=== PATIENT | female | born 1955 | race Caucasian/White ===

== ENCOUNTER → 2016-10-13 | Outpatient (CLI) | payer MEDICARE, MEDICAID ==
--- NOTE | 2016-10-14 08:57 | MR ---
EXAMINATION: MRI cervical spine with and without contrast HISTORY: Pain COMPARISON: CT dated 05/22/2015 TECHNIQUE: Multiplanar and multisequence images obtained through the cervical spine before and follo wing the administration of 14 mL of MultiHance. FINDINGS: There is mild accentuation of the normal cervical lordosis with anterior fusion hardware a t C5-C7. Mild endplate signal changes and enhancement is noted at C4-C5. Otherwise no abnormal bone marrow signal. The spinal cord signal appears normal. The visualized intracranial components appear unremarkable. The prevertebral soft tissues appear grossly unremarkable. There is scarring within th e right apex, likely similar to the CT dated 05/22/2015. C2-C3: No significant disc bulge. Mild left neural foraminal stenosis accentuated by uncovertebral h ypertrophy. C3-C4: Large left paracentral disc protrusion encroaching on the lateral recess. This results in mod erate spinal canal stenosis and severe left neural foraminal stenosis. There is mild right neural fo raminal stenosis. C4-C5: Moderate left paracentral disc protrusion abutting the spinal cord. There is mild spinal gabriela l stenosis. There is moderate left and mild right neural foraminal stenosis. C5-C6: Tiny diffuse disc bulge without significant spinal canal stenosis. Mild bilateral neural fora veronica stenosis. C6-C7: Small diffuse osteophyte disc bulge without significant spinal canal stenosis. Moderate left and mild right neural foraminal stenosis. C7-T1: Small diffuse disc bulge asymmetric to the right resulting in mild spinal canal stenosis. Mil d right neural foraminal stenosis. IMPRESSION: 1. Multilevel degenerative disc disease demonstrated within the cervical spine with individual detai ls above. This is most prominent at C3-C4 with a large left paracentral disc protrusion. 2. Postoperative changes with fusion from C5 to C7.
== END ==
LOC: MW.MRI 08:09
PROVIDERS: ATTEND Family Medicine
DX: M54.2 Cervicalgia (principal); M50.31 Other cervical disc degeneration, high cervical region; Z98.890 Other specified postprocedural states
CPT/HCPCS: 72156; 72156-26

== ENCOUNTER 2016-11-02 17:25 | Emergency (ER) | payer MEDICARE, MEDICAID ==
[2016-11-02] MEDS ORDERED: Sodium Chloride 0.9% 1,000 ML IV ONE (17:29)
[2016-11-02] MEDS ORDERED: Ketorolac 30 MG/ML SDV IVPUSH ONE (17:29)
[2016-11-02] MEDS ORDERED: Ondansetron 4 MG/2 ML SDV IVPUSH ONE (17:29)
--- NOTE | 2016-11-02 17:34 | EDM.PDOC ---
ED HPI GENERAL MEDICAL PROBLEM - General Chief Complaint: Back Pain or Injury Stated Complaint: BACK PAIN Time Seen by Provider: 11/02/16 17:33 Source of Information: Reports: Patient - History of Present Illness INITIAL COMMENTS - FREE TEXT/NARRATIVE: HISTORY AND PHYSICAL: History of present illness: Patient arrives via ambulance She complains of 8/10 right flank pain no fever nausea vomiting chills sweats no bowel or urine symptoms History of low back surgery last fall, reports appendectomy cholecystectomy hysterectomy and splenectomy Review of systems: As per history of present illness and below otherwise all systems reviewed and negative. Past medical history: As per history of present illness and as reviewed below otherwise noncontributory. Surgical history: As per history of present illness and as reviewed below otherwise noncontributory. Social history: No reported history of drug or alcohol abuse. Family history: As per history of present illness and as reviewed below otherwise noncontributory. Physical exam: HEENT: Atraumatic, normocephalic, pupils reactive, negative for conjunctival pallor or scleral icterus, mucous membranes moist, throat clear, neck supple, nontender, trachea midline. Lungs: Clear to auscultation, breath sounds equal bilaterally, chest nontender. Heart: S1S2, regular, negative for clicks, rubs, or JVD. Abdomen: Soft, nondistended, nontender. Negative for masses or hepatosplenomegaly. Negative for costovertebral tenderness on the left positive on the right Pelvis: Stable nontender. Genitourinary: Deferred. Rectal: Deferred. Extremities: Atraumatic, negative for cords or calf pain. Neurovascular unremarkable. Neuro: Awake, alert, oriented. Cranial nerves II through XII unremarkable. Cerebellum unremarkable. Motor and sensory unremarkable throughout. Exam nonfocal. Diagnostics: [] Lab as below EKG CT abdomen pelvis with w/wo contrast Therapeutics: [] 1 L normal saline bolus Zofran 8 mg IV Toradol 30 mg IV provided via ems morphine 2mg IV Impression: [] Right flank pain chronic low back pain Definitive disposition and diagnosis as appropriate pending reevaluation and review of above. Right low back Pain Score (Numeric/FACES): 8 - Related Data Allergies Allergy/AdvReac Type Severity Reaction Status Date / Time erythromycin lactobionate Allergy Unknown Nausea Verified 11/02/16 17:35 [From Erythrocin] mirtazapine [From Remeron] Allergy Unknown Itching Verified 11/02/16 17:35 Penicillins Allergy Unknown Hives Verified 11/02/16 17:35 tramadol Allergy Tremors Verified 11/02/16 17:35 Home Meds: Home Meds traZODone 200 mg PO BEDTIME 02/04/14 [History] Vilazodone [Viibryd] 1 tab PO DAILY 03/20/15 [History] ClonazePAM [KlonoPIN] 1 mg PO BID PRN #0 03/11/16 [Rx] Docusate Sodium [Colace] 100 mg PO BID #14 cap 03/11/16 [Rx] Past Medical History HEENT History: Reports: None Cardiovascular History: Reports: None Respiratory History: Reports: None Gastrointestinal History: Reports: None Genitourinary History: Reports: None 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 Oconnor monthly Endocrine/Metabolic History: Reports: None Oncologic (Cancer) History: Reports: Other (See Below) Other Oncologic History: skin ca Dermatologic History: Reports: None Other Dermatologic History: "skin cancer" - Infectious Disease History Infectious Disease History: Reports: Chicken Pox, Measles - Past Surgical History Neurological Surgical History: Reports: Lumbar Spine Musculoskeletal Surgical History: Reports: Other (See Below) Social & Family History - Family History Family Medical History: Unobtainable - Tobacco Use Smoking Status *Q: Current Every Day Smoker Years of Tobacco use: 4 Packs/Tins Daily: 1 Used Tobacco, but Quit: No Second Hand Smoke Exposure: No - Caffeine Use Caffeine Use: Reports: None - Alcohol Use Days Per Week of Alcohol Use: 0 - Recreational Drug Use Recreational Drug Use: Yes Drug Use in Last 12 Months: Yes Recreational Drug Type: Reports: Marijuana/Hashish Recreational Drug Use Frequency: Rarely ED ROS GENERAL - Review of Systems Review Of Systems: ROS reveals no pertinent complaints other than HPI. ED EXAM, GENERAL - Physical Exam Exam: See Below Course - Vital Signs Last Recorded V/S: Last Vital Signs Temp 36.6 C 11/02/16 17:30 Pulse 67 11/02/16 17:30 Resp 16 11/02/16 17:30 BP 152/81 H 11/02/16 17:30 Pulse Ox 98 11/02/16 17:30 - Orders/Labs/Meds Orders: Active Orders 24 hr Category Date Time Status EKG Documentation Completion [RC] STAT Care 11/02/16 17:29 Active Abdomen Pelvis w wo Cont [CT] Stat Exams 11/02/16 17:29 Ordered UA W/MICROSCOPIC [URIN] Stat Lab 11/02/16 17:29 Uncollected Labs: Laboratory Tests 11/02/16 11/02/16 11/02/16 Range/Units 17:45 17:45 17:45 WBC 8.84 (4.0-11.0) K/uL RBC 4.45 (4.30-5.90) M/uL Hgb 13.9 (12.0-16.0) g/dL Hct 41.0 (36.0-46.0) % MCV 92.1 (80.0-98.0) fL MCH 31.2 (27.0-32.0) pg MCHC 33.9 (31.0-37.0) g/dL RDW Std Deviation 51.4 (28.0-62.0) fl RDW Coeff of Ene 15 (11.0-15.0) % Plt Count 261 (150-400) K/uL MPV 10.30 (7.40-12.00) fL Neut % (Auto) 64.1 (48.0-80.0) % Lymph % (Auto) 27.6 (16.0-40.0) % [place] % (Auto) 5.4 (0.0-15.0) % Eos % (Auto) 2.7 (0.0-7.0) % Baso % (Auto) 0.2 (0.0-1.5) % Neut # (Auto) 5.7 (1.4-5.7) K/uL Lymph # (Auto) 2.4 (0.6-2.4) K/uL [place] # (Auto) 0.5 (0.0-0.8) K/uL Eos # (Auto) 0.2 (0.0-0.7) K/uL Baso # (Auto) 0.0 (0.0-0.1) K/uL Nucleated RBC % 0.0 /100WBC Nucleated RBCs # 0 K/uL Sodium 142 (136-146) mmol/L Potassium 4.2 (3.5-5.1) mmol/L Chloride 113 H (98-110) mmol/L Carbon Dioxide 18 L (21-31) mmol/L BUN 13 (6.0-23.0) mg/dL Creatinine 0.8 (0.6-1.5) mg/dL Est Cr Clr Drug Dosing 79.86 mL/min Estimated GFR (MDRD) > 60.0 ml/min Glucose 109 (60-110) mg/dL Calcium 9.8 (8.8-10.8) mg/dL Total Bilirubin 0.3 (0.1-1.5) mg/dL AST 40 (5-40) IU/L ALT 44 (8-54) IU/L Alkaline Phosphatase 110 (40-150) Troponin I < 0.10 (0.0-0.29) NG/ML Total Protein 6.8 (6.0-8.0) g/dL Albumin 3.6 (3.4-4.8) g/dL Globulin 3.2 (2.0-3.5) g/dL Albumin/Globulin Ratio 1.1 L (1.3-2.8) Amylase 32 (10-90) U/L Lipase 15 (7-80) U/L Meds: Medications Discontinued Medications Generic Name Dose Route Start Last Admin Trade Name Freq PRN Reason Stop Dose Admin Sodium Chloride 1,000 mls @ 999 mls/hr 11/02/16 17:29 11/02/16 17:56 Normal Saline IV 11/02/16 18:29 999 mls/hr STAT ONE Administration Iopamidol 100 ml 11/02/16 18:26 11/02/16 18:27 Isovue Multipack-370 (76%) IVPUSH 11/02/16 18:27 500 ml ONETIME STA Administration Ketorolac Tromethamine 30 mg 11/02/16 17:29 Toradol IVPUSH 11/02/16 17:30 ONETIME ONE Morphine Sulfate 2 mg 11/02/16 17:58 11/02/16 18:03 Morphine IVPUSH 11/02/16 17:59 2 mg ONETIME ONE Administration Ondansetron HCl 8 mg 11/02/16 17:29 11/02/16 17:49 Zofran IVPUSH 11/02/16 17:30 8 mg ONETIME ONE Administration Departure - Departure Time of Disposition: 18:53 Disposition: Still A Patient 30 Condition: fair Clinical Impression: Flank pain - Discharge Information Forms: ED Department Discharge - My Orders Last 24 Hours: My Active Orders 11/02/16 17:29 EKG Documentation Completion [RC] STAT Abdomen Pelvis w wo Cont [CT] Stat UA W/MICROSCOPIC [URIN] Stat - Assessment/Plan Last 24 Hours: My Active Orders 11/02/16 17:29 EKG Documentation Completion [RC] STAT Abdomen Pelvis w wo Cont [CT] Stat UA W/MICROSCOPIC [URIN] Stat
[2016-11-02] MEDS ORDERED: Morphine 2 MG/ML Syringe IVPUSH ONE (17:58)
[2016-11-02 18:23] LABS: CHLORIDE,CL 113 mmol/L (98-110); SODIUM,NA 142 mmol/L (136-146)
[2016-11-02] MEDS ORDERED: Iopamidol 755 MG/ML 500 ML Multipack Bottle IVPUSH STA (18:26)
[2016-11-02 20:05] VITALS: BP 130/70
--- NOTE | 2016-11-03 14:27 | CT ---
EXAM DATE: 11/02/16 PATIENT'S AGE: 60 Patient: JUSTO DARNELL Facility: [place], [place] Site . Site : 1955 Study: CT Abdomen/Pelvis [id number]/24/2017 7:04:19 PM Ordering Physician: Diana Jackson Final Report: INDICATION: Abdominal pain TECHNIQUE: CT abdomen and pelvis acquired without and with IV contrast. COMPARISON: 12/07/2015 FINDINGS: Lower chest: Minor compressive changes. Mild pericardial thickening. Liver: A 1.1 x 0.7 centimeter right hepatic low-attenuation lesion, more conspicuous compared to the prior, and an ill-defined 2.6 x 1.6 centimeter mildly dense area in the posterior aspect of the medial segment of the left hepatic lobe near the rita hepatis, not well evaluated. Spleen: Unremarkable. Pancreas: Unremarkable. Gallbladder and bile ducts: Cholecystectomy. Adrenal glands: Bilateral adrenal nodules again seen compatible with adenomas. Kidneys: No hydronephrosis. Nonobstructive bilateral renal calcifications measuring up to 3 millimeters. No discrete ureteral calcifications seen. Subcentimeter renal low-density lesions again noted, statistically representing cysts. Small foci of left renal cortical scarring. GI tract: No bowel obstruction. The appendix is not seen. Few sigmoid diverticula without diverticulitis. Prominence of the sigmoid colon wall is at least partially related to under distension. Vascular structures: Atherosclerotic changes. Lymph nodes: Unremarkable. Miscellaneous: Unremarkable. No free air or significant free fluid. Pelvic Organs: Post hysterectomy changes. A small calcification along the anterior bladder wall again seen. Bones: Focal expansion of the sternum, partially visualized, not imaged on the prior. Postsurgical changes again seen in the lumbar spine were new hardware seen in the L1 and L2 vertebral bodies. Irregularity and lucent areas again seen in the right aspect of the L1 vertebral body. IMPRESSION: No obstructive uropathy. Bilateral nonobstructive renal calcifications. No evidence of appendicitis, diverticulitis or bowel obstruction. Prominence of the sigmoid colon wall is at least partially related to under distension. Correlate clinically to exclude mild colitis. An ill-defined dense centrally hepatic area and a right hepatic low-density lesion, not well evaluated. Correlate with followup MRI evaluation. Focal expansion of the sternum, partially imaged. This could be related to old trauma, however further imaging evaluation is recommended. Other findings as above. Dictated by Enrique Fernandez MD @ 11/02/2016 7:38:38 PM Dictated by: Enrique Fernandez MD @ 11/02/2016 19:38:45 (Electronic Signature) Report Signed by Proxy. [facility]
== END 2016-11-02 19:56 | disposition home or self-care (01) ==
LOC: MW.ED 17:25
DX: R10.9 Unspecified abdominal pain (principal); F32.9 Major depressive disorder, single episode, unspecified; F17.200 Nicotine dependence, unspecified, uncomplicated; Z88.0 Allergy status to penicillin; Z88.8 Allergy status to other drugs, medicaments and biological substances; Z79.899 Other long term (current) drug therapy; Z85.828 Personal history of other malignant neoplasm of skin
CPT/HCPCS: 36415; 74178; 80053; 81001; 82150; 83690; 84484; 85025; 93005; 96361; 96374; 96375; 99284; J2270; J2405; J7040; Q9967

== ENCOUNTER 2017-02-04 17:20 | Emergency (ER) | payer MEDICARE, MEDICAID ==
--- NOTE | 2017-02-04 17:26 | EDM.PDOC ---
ED HPI GENERAL MEDICAL PROBLEM - General Stated Complaint: left broken arm Time Seen by Provider: 02/04/17 17:22 - History of Present Illness INITIAL COMMENTS - FREE TEXT/NARRATIVE: HISTORY AND PHYSICAL: History of present illness: Patient 61-year-old female presents status post fall in which she injured her left shoulder she states she also some mild left neck pain she denies any head trauma denies any numbness weakness denies any chest pain shortness breath nausea vomiting chest or abdominal pain or trauma hip or lower extremity pain or trauma Review of systems: As per history of present illness and below otherwise all systems reviewed and negative. Past medical history: As per history of present illness and as reviewed below otherwise noncontributory. Surgical history: As per history of present illness and as reviewed below otherwise noncontributory. Social history: No reported history of drug or alcohol abuse. Family history: As per history of present illness and as reviewed below otherwise noncontributory. Physical exam: HEENT: Atraumatic, normocephalic, pupils reactive, negative for conjunctival pallor or scleral icterus, mucous membranes moist, throat clear, neck supple, nontender, trachea midline. Lungs: Clear to auscultation, breath sounds equal bilaterally, chest nontender. Heart: S1S2, regular, negative for clicks, rubs, or JVD. Abdomen: Soft, nondistended, nontender. Negative for masses or hepatosplenomegaly. Negative for costovertebral tenderness. Pelvis: Stable nontender. Genitourinary: Deferred. Rectal: Deferred. Extremities: Patient has tenderness to palpation of her proximal humerus is no gross deformity she has limited range of motion secondary to pain CMS neurovascular exams unremarkable Neuro: Awake, alert, oriented. Cranial nerves II through XII unremarkable. Cerebellum unremarkable. Motor and sensory unremarkable throughout. Exam nonfocal. Diagnostics: X-ray chest x-ray left shoulder x-ray humerus x-ray cervical spine Therapeutics: To be determined Impression: #1 observation status post fall #2 acute left shoulder injury Definitive disposition and diagnosis as appropriate pending reevaluation and review of above. - Related Data Allergies Allergy/AdvReac Type Severity Reaction Status Date / Time erythromycin lactobionate Allergy Unknown Nausea Verified 02/04/17 17:28 [From Erythrocin] mirtazapine [From Remeron] Allergy Unknown Itching Verified 02/04/17 17:28 Penicillins Allergy Unknown Hives Verified 08/26/17 17:28 tramadol Allergy Tremors Verified 02/04/17 17:28 Home Meds: Home Meds traZODone 200 mg PO BEDTIME 02/04/14 [History] Vilazodone [Viibryd] 1 tab PO DAILY 03/20/15 [History] ClonazePAM [KlonoPIN] 1 mg PO BID PRN #0 03/11/16 [Rx] Docusate Sodium [Colace] 100 mg PO BID #14 cap 03/11/16 [Rx] Simvastatin [Zocor] 20 mg PO DAILY 02/04/17 [History] Past Medical History HEENT History: Reports: None Cardiovascular History: Reports: None Respiratory History: Reports: None Gastrointestinal History: Reports: None Genitourinary History: Reports: None 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 Oconnor monthly Endocrine/Metabolic History: Reports: None Oncologic (Cancer) History: Reports: Other (See Below) Other Oncologic History: skin ca Dermatologic History: Reports: None Other Dermatologic History: "skin cancer" - Infectious Disease History Infectious Disease History: Reports: Chicken Pox, Measles - Past Surgical History Neurological Surgical History: Reports: Lumbar Spine Musculoskeletal Surgical History: Reports: Other (See Below) Social & Family History - Family History Family Medical History: Unobtainable - Tobacco Use Smoking Status *Q: Current Every Day Smoker Years of Tobacco use: 4 Packs/Tins Daily: 1 Used Tobacco, but Quit: No Second Hand Smoke Exposure: No - Caffeine Use Caffeine Use: Reports: None - Alcohol Use Days Per Week of Alcohol Use: 0 - Recreational Drug Use Recreational Drug Use: Yes Drug Use in Last 12 Months: Yes Recreational Drug Type: Reports: Marijuana/Hashish Recreational Drug Use Frequency: Rarely ED ROS GENERAL - Review of Systems Review Of Systems: ROS reveals no pertinent complaints other than HPI. ED EXAM, GENERAL - Physical Exam Exam: See Below (See dictation) Course - Vital Signs Last Recorded V/S: Last Vital Signs Temp 36.1 C 02/04/17 17:24 Pulse 64 02/04/17 17:24 Resp 18 02/04/17 17:24 BP 134/85 02/04/17 17:24 Pulse Ox 90 L 02/04/17 17:24 - Orders/Labs/Meds Orders: Active Orders 24 hr Category Date Time Status Cervical Spine 2V or 3V [CR] Stat Exams 02/04/17 17:23 Taken Chest 1V Frontal [CR] Stat Exams 02/04/17 17:23 Taken Humerus Lt [CR] Stat Exams 02/04/17 17:23 Taken Shoulder Comp Lt [CR] Stat Exams 02/04/17 17:23 Taken Departure - Departure Time of Disposition: 18:52 Disposition: Home, Self-Care 01 Condition: Good Clinical Impression: Shoulder injury Fall Qualifiers: Encounter type: subsequent encounter Qualified Code(s): W19.XXXD - Unspecified fall, subsequent encounter - Discharge Information Additional Instructions: The following information is given to patients seen in the emergency department who are being discharged to home. This information is to outline your options for follow-up care. We provide all patients seen in our emergency department with a follow-up referral. The need for follow-up, as well as the timing and circumstances, are variable depending upon the specifics of your emergency department visit. If you don't have a primary care physician on staff, we will provide you with a referral. We always advise you to contact your personal physician following an emergency department visit to inform them of the circumstance of the visit and for follow-up with them and/or the need for any referrals to a consulting specialist. The emergency department will also refer you to a specialist when appropriate. This referral assures that you have the opportunity for followup care with a specialist. All of these measure are taken in an effort to provide you with optimal care, which includes your followup. Under all circumstances we always encourage you to contact your private physician who remains a resource for coordinating your care. When calling for followup care, please make the office aware that this follow-up is from your recent emergency room visit. If for any reason you are refused follow-up, please contact the [facility] emergency department at and asked to speak to the emergency department charge nurse. Follow-up primary medical doctor 1-2 days return as needed as discussed] - My Orders Last 24 Hours: My Active Orders 02/04/17 17:23 Cervical Spine 2V or 3V [CR] Stat Chest 1V Frontal [CR] Stat Humerus Lt [CR] Stat Shoulder Comp Lt [CR] Stat - Assessment/Plan Last 24 Hours: My Active Orders 02/04/17 17:23 Cervical Spine 2V or 3V [CR] Stat Chest 1V Frontal [CR] Stat Humerus Lt [CR] Stat Shoulder Comp Lt [CR] Stat
[2017-02-04 19:09] VITALS: BP 140/80
--- NOTE | 2017-02-06 12:11 | CR ---
EXAM DATE: 02/04/17 PATIENT'S AGE: 61 Patient: JUSTO DARNELL Facility: [place], [place] Site . Site : 1955 Study: XRay Chest [id number]/26/2017 6:23:37 PM Ordering Physician: Gwen Hilario Final Report: HISTORY: Chest pain, shortness of breath. TECHNIQUE: One view of the chest. COMPARISON: 03/10/2015. FINDINGS: Cardiac size is within normal limits. There is no pulmonary vascular redistribution. Right lung appears clear. Linear opacity within the left lateral costophrenic angle as before may relate to linear atelectasis or parenchymal fibrosis. Left lung appears otherwise clear. No pneumothorax or pleural effusion. Prior cervical fusion. Prior lumbar fusion. IMPRESSION: 1. Area of linear atelectasis or parenchymal fibrosis within the left lateral costophrenic angle. Lungs appear otherwise clear. 2. No pulmonary edema. Dictated by Ricardo Wills MD @ 02/04/2017 6:41:45 PM Dictated by: Ricardo Wills MD @ 02/04/2017 18:41:49 (Electronic Signature) Report Signed by Proxy. [facility]
--- NOTE | 2017-02-06 12:12 | CR ---
EXAM DATE: 02/04/17 PATIENT'S AGE: 61 Patient: JUSTO DARNELL Facility: [place], [place] Site . Site : 1955 Study: XRay Spine Cervical [id number]/26/2017 6:24:18 PM Ordering Physician: Gwen Hilario Final Report: HISTORY: Neck pain. TECHNIQUE: Four views of the cervical spine. COMPARISON: 03/10/2015. FINDINGS: Patient is status post anterior plate and screw and interbody fusion at C5 through C7. Hardware appears intact and unchanged in position. Degenerative disc disease is again noted at C3-C4 and C4-C5. Degenerative joint disease is present within the cervical spine. The dens appears intact. No acute fracture or malalignment. No abnormal prevertebral soft tissue swelling. IMPRESSION: 1. No acute fracture or acute malalignment. 2. Prior fusion at C5-C7. 3. Degenerative disc and joint disease. Dictated by Ricardo Wills MD @ 02/04/2017 6:44:23 PM Dictated by: Ricardo Wills MD @ 02/04/2017 18:44:28 (Electronic Signature) Report Signed by Proxy. [facility]
--- NOTE | 2017-02-06 12:12 | CR ---
EXAM DATE: 02/04/17 PATIENT'S AGE: 61 Patient: JUSTO DARNELL Facility: [place], [place] Site . Site : 1955 Study: XRay Extremity Left HUMERUS [id number]/26/2017 6:25:34 PM Ordering Physician: Gwen Hilario Final Report: HISTORY: Fall. TECHNIQUE: Two views of the left humerus. COMPARISON: No prior. FINDINGS: No acute left humeral fracture. Prior plate screw fixation of the left radius. IMPRESSION: No acute left humeral fracture. Dictated by Ricardo Wills MD @ 02/04/2017 6:48:13 PM Dictated by: Ricardo Wills MD @ 02/04/2017 18:48:19 (Electronic Signature) Report Signed by Proxy. [facility]
--- NOTE | 2017-02-06 12:14 | CR ---
EXAM DATE: 02/04/17 PATIENT'S AGE: 61 Patient: JUSTO DARNELL Facility: [place], [place] Site Site : 1955 Study: XRay Shoulder Left -02/04/2017 6:54:32 PM Ordering Physician: Gwen Hilario Final Report: Indication: Fall Technique: Three views left shoulder Comparison: None Findings: Bones: Alignment is normal. No fractures or bone lesions. Surgical hardware projects over the cervical thoracic junction. Joint spaces: Mild degenerative changes in the acromioclavicular joint. Soft tissues: Unremarkable. Impression: No acute abnormality. Dictated by Scarlet Elizabeth MD @ Feb 04 2017 7:15PM (Electronic Signature) Report Signed by Proxy. [facility]
== END 2017-02-04 19:07 | disposition home or self-care (01) ==
LOC: MW.ED 17:20
DX: S49.92XA Unspecified injury of left shoulder and upper arm, initial encounter (principal); F17.210 Nicotine dependence, cigarettes, uncomplicated; F32.9 Major depressive disorder, single episode, unspecified; Z88.0 Allergy status to penicillin; Z88.5 Allergy status to narcotic agent; Z79.899 Other long term (current) drug therapy; Z88.1 Allergy status to other antibiotic agents; W17.89XA Other fall from one level to another, initial encounter; Y93.H2 Activity, gardening and landscaping; Y92.009 Unspecified place in unspecified non-institutional (private) residence as the place of occurrence of the external cause; Z85.828 Personal history of other malignant neoplasm of skin
CPT/HCPCS: 71010; 71010-26; 72040; 72040-26; 73030-26-LT; 73030-LT; 73060-26-LT; 73060-LT; 99282; 99284

== ENCOUNTER 2017-04-01 16:13 | Emergency (ER) | payer MEDICARE, MEDICAID ==
[2017-04-01] MEDS ORDERED: Sodium Chloride 0.9% 2.5 ML Syringe FLUSH PRN (16:30)
[2017-04-01] MEDS ORDERED: Sodium Chloride 0.9% 10 ML Syringe FLUSH PRN (16:30)
--- NOTE | 2017-04-01 16:32 | EDM.PDOC ---
ED HPI GENERAL MEDICAL PROBLEM - General Chief Complaint: General Stated Complaint: ABULANCE Time Seen by Provider: 04/01/17 18:52 - History of Present Illness INITIAL COMMENTS - FREE TEXT/NARRATIVE: HISTORY AND PHYSICAL: History of present illness: Patient is 61-year-old female presents status post fall when she injured her left hip she did strike her head also she had a similar fall in the recent past for which there is no CT of her head done per patient she states she did hit her head again she denies loss consciousness denies neck pain she denies chest pain palpitations nausea or vomiting her main complaint relates to her left hip she states she has chronic left lower extremity pain. Review of systems: As per history of present illness and below otherwise all systems reviewed and negative. Past medical history: As per history of present illness and as reviewed below otherwise noncontributory. Surgical history: As per history of present illness and as reviewed below otherwise noncontributory. Social history: No reported history of drug or alcohol abuse. Family history: As per history of present illness and as reviewed below otherwise noncontributory. Physical exam: HEENT: Atraumatic, normocephalic, pupils reactive, negative for conjunctival pallor or scleral icterus, mucous membranes moist, throat clear, neck supple, nontender, trachea midline. Lungs: Clear to auscultation, breath sounds equal bilaterally, chest nontender. Heart: S1S2, regular, negative for clicks, rubs, or JVD. Abdomen: Soft, nondistended, nontender. Negative for masses or hepatosplenomegaly. Negative for costovertebral tenderness. Pelvis: Stable nontender. Patient with limited range of motion at the level for hip secondary to pain no shortening or rotation neurovascular exam is unremarkable Genitourinary: Deferred. Rectal: Deferred. Extremities: Atraumatic, negative for cords or calf pain. Neurovascular unremarkable. Neuro: Awake, alert, oriented. Cranial nerves II through XII unremarkable. Cerebellum unremarkable. Motor and sensory unremarkable throughout. Exam nonfocal. Diagnostics: CBC CMP troponin PT/INR chest x-ray EKG CT brain x-ray left hip/pelvis Therapeutics: IV O2 monitor Impression: #1 observation status post fall #2 acute left hip injury #3 minor head injury Definitive disposition and diagnosis as appropriate pending reevaluation and review of above. Left Hip Pain Score (Numeric/FACES): 9 - Related Data Allergies Allergy/AdvReac Type Severity Reaction Status Date / Time erythromycin lactobionate Allergy Unknown Nausea Verified 04/01/17 16:27 [From Erythrocin] mirtazapine [From Remeron] Allergy Unknown Itching Verified 04/01/17 16:27 Penicillins Allergy Unknown Hives Verified 04/01/17 16:27 tramadol Allergy Tremors Verified 04/01/17 16:27 Home Meds: Home Meds traZODone 200 mg PO BEDTIME 02/04/14 [History] Vilazodone [Viibryd] 1 tab PO DAILY 03/20/15 [History] ClonazePAM [KlonoPIN] 1 mg PO BID PRN #0 03/11/16 [Rx] Docusate Sodium [Colace] 100 mg PO BID #14 cap 03/11/16 [Rx] Simvastatin [Zocor] 20 mg PO DAILY 02/04/17 [History] Past Medical History HEENT History: Reports: None Cardiovascular History: Reports: None Respiratory History: Reports: None Gastrointestinal History: Reports: None Genitourinary History: Reports: None GARNETTER History: Reports: None Musculoskeletal History: Reports: Back Pain, Chronic Neurological History: Reports: None Psychiatric History: Reports: Depression Other Psychiatric History: Sees Dr. Oconnor monthly Endocrine/Metabolic History: Reports: None Oncologic (Cancer) History: Reports: Other (See Below) Other Oncologic History: skin ca Dermatologic History: Reports: None Other Dermatologic History: "skin cancer" - Infectious Disease History Infectious Disease History: Reports: Chicken Pox, Measles - Past Surgical History Neurological Surgical History: Reports: Lumbar Spine Musculoskeletal Surgical History: Reports: Other (See Below) Social & Family History - Family History Family Medical History: Unobtainable - Tobacco Use Smoking Status *Q: Current Every Day Smoker Years of Tobacco use: 4 Packs/Tins Daily: 1 Used Tobacco, but Quit: No Second Hand Smoke Exposure: No - Caffeine Use Caffeine Use: Reports: None - Alcohol Use Days Per Week of Alcohol Use: 0 - Recreational Drug Use Recreational Drug Use: Yes Drug Use in Last 12 Months: Yes Recreational Drug Type: Reports: Marijuana/Hashish Recreational Drug Use Frequency: Rarely ED ROS GENERAL - Review of Systems Review Of Systems: ROS reveals no pertinent complaints other than HPI. ED EXAM, GENERAL - Physical Exam Exam: See Below (See dictation) Course - Vital Signs Last Recorded V/S: Last Vital Signs Temp 36.3 C 04/01/17 16:20 Pulse 80 04/01/17 16:20 Resp 16 04/01/17 16:20 BP 146/84 H 04/01/17 16:20 Pulse Ox 94 L 04/01/17 16:20 - Orders/Labs/Meds Orders: Active Orders 24 hr Category Date Time Status Cardiac Monitoring [RC] . DIRECTED Care 04/01/17 16:29 Active EKG Documentation Completion [RC] STAT Care 04/01/17 16:29 Active Chest 1V Frontal [CR] Stat Exams 04/01/17 16:29 Taken Head wo Cont [CT] Stat Exams 04/01/17 16:29 Taken Hip Min 2V or 3V Lt [CR] Stat Exams 04/01/17 16:30 Taken Pelvis 1V or 2V [CR] Stat Exams 04/01/17 16:30 Taken UA W/MICROSCOPIC [URIN] Stat Lab 04/01/17 18:37 Received Sodium Chloride 0.9% [Saline Flush] Med 04/01/17 16:30 Active 10 ml FLUSH ASDIRECTED PRN Sodium Chloride 0.9% [Saline Flush] Med 04/01/17 16:30 Active 2.5 ml FLUSH ASDIRECTED PRN Saline Lock Insert [OM.PC] Stat Oth 04/01/17 16:29 Ordered Medication Orders Sodium Chloride (Saline Flush) 10 ml FLUSH ASDIRECTED PRN PRN Reason: Keep Vein Open Sodium Chloride (Saline Flush) 2.5 ml FLUSH ASDIRECTED PRN PRN Reason: Keep Vein Open Labs: Laboratory Tests 04/01/17 04/01/17 04/01/17 Range/Units 16:35 16:35 16:35 WBC 14.14 H (4.0-11.0) K/uL RBC 4.92 (4.30-5.90) M/uL Hgb 15.6 (12.0-16.0) g/dL Hct 45.2 (36.0-46.0) % MCV 91.9 (80.0-98.0) fL MCH 31.7 (27.0-32.0) pg MCHC 34.5 (31.0-37.0) g/dL RDW Std Deviation 47.5 (28.0-62.0) fl RDW Coeff of Ene 14 (11.0-15.0) % Plt Count 249 (150-400) K/uL MPV 10.60 (7.40-12.00) fL Neut % (Auto) 70.1 (48.0-80.0) % Lymph % (Auto) 21.4 (16.0-40.0) % [place] % (Auto) 7.6 (0.0-15.0) % Eos % (Auto) 0.6 (0.0-7.0) % Baso % (Auto) 0.3 (0.0-1.5) % Neut # (Auto) 9.9 H (1.4-5.7) K/uL Lymph # (Auto) 3.0 H (0.6-2.4) K/uL [place] # (Auto) 1.1 H (0.0-0.8) K/uL Eos # (Auto) 0.1 (0.0-0.7) K/uL Baso # (Auto) 0.0 (0.0-0.1) K/uL Nucleated RBC % 0.0 /100WBC Nucleated RBCs # 0 K/uL INR 0.98 (0.86-1.11) Sodium 139 (136-146) mmol/L Potassium 4.1 (3.5-5.1) mmol/L Chloride 106 (98-110) mmol/L Carbon Dioxide 19 L (21-31) mmol/L BUN 21 (6.0-23.0) mg/dL Creatinine 0.9 (0.6-1.5) mg/dL Est Cr Clr Drug Dosing 63.03 mL/min Estimated GFR (MDRD) > 60.0 ml/min Glucose 87 (60-110) mg/dL Calcium 10.8 (8.8-10.8) mg/dL Total Bilirubin 0.5 (0.1-1.5) mg/dL AST 37 (5-40) IU/L ALT 29 (8-54) IU/L Alkaline Phosphatase 119 (40-150) Troponin I < 0.10 (0.0-0.29) NG/ML Total Protein 7.4 (6.0-8.0) g/dL Albumin 4.0 (3.4-4.8) g/dL Globulin 3.4 (2.0-3.5) g/dL Albumin/Globulin Ratio 1.2 L (1.3-2.8) Meds: Medications Generic Name Dose Route Start Last Admin Trade Name Freq PRN Reason Stop Dose Admin Sodium Chloride 10 ml 04/01/17 16:30 Saline Flush FLUSH ASDIRECTED PRN Keep Vein Open Sodium Chloride 2.5 ml 04/01/17 16:30 Saline Flush FLUSH ASDIRECTED PRN Keep Vein Open Departure - Departure Time of Disposition: 18:52 Disposition: Home, Self-Care 01 Condition: Good Clinical Impression: Chronic hip pain Fall Qualifiers: Encounter type: subsequent encounter Qualified Code(s): W19.XXXD - Unspecified fall, subsequent encounter - Discharge Information Forms: ED Department Discharge Additional Instructions: The following information is given to patients seen in the emergency department who are being discharged to home. This information is to outline your options for follow-up care. We provide all patients seen in our emergency department with a follow-up referral. The need for follow-up, as well as the timing and circumstances, are variable depending upon the specifics of your emergency department visit. If you don't have a primary care physician on staff, we will provide you with a referral. We always advise you to contact your personal physician following an emergency department visit to inform them of the circumstance of the visit and for follow-up with them and/or the need for any referrals to a consulting specialist. The emergency department will also refer you to a specialist when appropriate. This referral assures that you have the opportunity for followup care with a specialist. All of these measure are taken in an effort to provide you with optimal care, which includes your followup. Under all circumstances we always encourage you to contact your private physician who remains a resource for coordinating your care. When calling for followup care, please make the office aware that this follow-up is from your recent emergency room visit. If for any reason you are refused follow-up, please contact the [facility] emergency department at and asked to speak to the emergency department charge nurse. Follow-up primary medical doctor 1-2 days return as needed as discussed - My Orders Last 24 Hours: My Active Orders 04/01/17 16:29 Cardiac Monitoring [RC] . DIRECTED EKG Documentation Completion [RC] STAT Chest 1V Frontal [CR] Stat Head wo Cont [CT] Stat Saline Lock Insert [OM.PC] Stat 04/01/17 16:30 Hip Min 2V or 3V Lt [CR] Stat Pelvis 1V or 2V [CR] Stat Sodium Chloride 0.9% [Saline Flush] 10 ml FLUSH ASDIRECTED PRN Sodium Chloride 0.9% [Saline Flush] 2.5 ml FLUSH ASDIRECTED PRN 04/01/17 18:37 UA W/MICROSCOPIC [URIN] Stat - Assessment/Plan Last 24 Hours: My Active Orders 04/01/17 16:29 Cardiac Monitoring [RC] . DIRECTED EKG Documentation Completion [RC] STAT Chest 1V Frontal [CR] Stat Head wo Cont [CT] Stat Saline Lock Insert [OM.PC] Stat 04/01/17 16:30 Hip Min 2V or 3V Lt [CR] Stat Pelvis 1V or 2V [CR] Stat Sodium Chloride 0.9% [Saline Flush] 10 ml FLUSH ASDIRECTED PRN Sodium Chloride 0.9% [Saline Flush] 2.5 ml FLUSH ASDIRECTED PRN 04/01/17 18:37 UA W/MICROSCOPIC [URIN] Stat
[2017-04-01 17:17] LABS: CHLORIDE,CL 106 mmol/L (98-110); SODIUM,NA 139 mmol/L (136-146)
[2017-04-02 08:21] VITALS: BP 160/78
--- NOTE | 2017-04-02 19:42 | CT ---
EXAM DATE: 04/01/17 PATIENT'S AGE: 61 Patient: JUSTO DARNELL Facility: [place], [place] Site . Site : 1955 Study: CT Head WO CONT [id number]/21/[id number] 5:25:25 PM Ordering Physician: Doctor Redding Final Report: INDICATION: PAIN, CONFUSION TECHNIQUE: CT Head without contrast. COMPARISON: None. FINDINGS: CSF spaces: Within normal limits for age. Brain parenchyma: The [place]-white differentiation is normal. No sign of mass, hemorrhage, or midline shift. Skull base and calvarium: The visualized paranasal sinuses and mastoid air cells are clear. The visualized orbits are grossly unremarkable. No skull fractures. IMPRESSION: Unremarkable noncontrast head CT. Dictated by: Carlton Delacruz MD @ 04/01/2017 17:58:27 (Electronic Signature) Report Signed by Proxy. [facility]
--- NOTE | 2017-04-02 19:43 | CR ---
EXAM DATE: 04/01/17 PATIENT'S AGE: 61 Patient: JUSTO DARNELL Facility: [place], [place] Site . Site : 1955 Study: XRay Chest [id number]/21/[id number] 5:39:42 PM Ordering Physician: Doctor Redding Final Report: INDICATION: pain/sob COMPARISON: January, Single AP view Findings: The lungs are clear. Pulmonary vascularity, mediastinum and cardiac silhouette are within normal limits. No effusions and no pneumothorax. Osseous structures appear unremarkable. Impression: No evidence of acute cardiopulmonary disease. Dictated by: Wilmar Simpson MD @ 04/01/2017 18:37:38 (Electronic Signature) Report Signed by Proxy. [facility]
--- NOTE | 2017-04-02 19:44 | CR ---
EXAM DATE: 04/01/17 PATIENT'S AGE: 61 Patient: JUSTO DARNELL Facility: [place], [place] Site . Site : 1955 Study: XRay Pelvis [id number]/21/2017 5:40:16 PM Ordering Physician: Doctor Redding Final Report: Indication: Pain. Technique: One view. Comparison: 28 December 2015. Impression: No acute fracture. No significant bone lesion. Mild degenerative arthrosis symphysis pubis unchanged. Lumbosacral fusion and laminectomy changes extend above the field of view. Hips are appropriately located. Small os acetabula on the left. Dictated by Wilmar Simpson MD @ Apr 01 2017 6:37PM (Electronic Signature) Report Signed by Proxy. [facility]
--- NOTE | 2017-04-02 19:45 | CR ---
EXAM DATE: 04/01/17 PATIENT'S AGE: 61 Patient: JUSTO DARNELL Facility: [place], [place] Site . Site : 1955 Study: XRay Hip Left [id number]/21/[id number] 5:41:54 PM Ordering Physician: Gwen Hilario Final Report: Indication: Pain after trauma. Technique: Two views. Comparison: 29 December 2015. Impression: Anatomic alignment without fracture. Tiny os acetabulum. No degenerative or inflammatory change. Dictated by Wilmar Simpson MD @ Apr 01 2017 6:40PM (Electronic Signature) Report Signed by Proxy. [facility]
== END 2017-04-01 19:45 | disposition home or self-care (01) ==
LOC: MW.ED 16:13
DX: S09.90XA Unspecified injury of head, initial encounter (principal); S79.912A Unspecified injury of left hip, initial encounter; F17.210 Nicotine dependence, cigarettes, uncomplicated; Z88.1 Allergy status to other antibiotic agents; Z88.0 Allergy status to penicillin; Z88.5 Allergy status to narcotic agent; Z79.899 Other long term (current) drug therapy; W19.XXXA Unspecified fall, initial encounter
CPT/HCPCS: 36415; 70450; 70450-26; 71010; 71010-26; 72170; 72170-26; 73502-26-LT; 73502-LT; 80053; 81001; 84484; 85025; 85610; 93005; 99284; 99285-25

== ENCOUNTER 2017-10-25 13:33 | Observation (INO) | payer MEDICARE, MEDICAID ==
[2017-10-25] MEDS ORDERED: Sodium Chloride 0.9% 1,000 ML IV ONE (13:35)
[2017-10-25] MEDS ORDERED: Albuterol/Ipratropium 3.0-0.5 MG/3 ML Neb Soln NEB ONE (13:35)
[2017-10-25] MEDS ORDERED: Ondansetron 4 MG/2 ML SDV IVPUSH ONE (13:35)
--- NOTE | 2017-10-25 13:50 | EDM.PDOC ---
ED HPI GENERAL MEDICAL PROBLEM - General Stated Complaint: wheezing Time Seen by Provider: 10/25/17 13:34 Source of Information: Reports: Patient History Limitations: Reports: No Limitations - History of Present Illness INITIAL COMMENTS - FREE TEXT/NARRATIVE: HISTORY AND PHYSICAL: History of present illness: Patient is a 61-year-old female who presents to the emergency room via EMS with complaints of shortness of breath, dizziness, bilateral arm pain, nausea and near syncope 1 week. She states she has had the symptoms have progressively gotten worse over the past week and she feels like she could pass out with exertion. She has been having to use her walker to help with ambulation, as she is unable to walk within her house without it (becomes to SOB or "like I'll pass out"). She does have a history of chronic back pain, requiring 5 previous surgeries. She is due to having another back surgery in November 2017 in [place]. She uses a fentanyl patch and takes multiple [id number] and prescribed medications for pain management. Review of systems: As per history of present illness and below otherwise all systems reviewed and negative. Past medical history: As per history of present illness and as reviewed below otherwise noncontributory. Surgical history: As per history of present illness and as reviewed below otherwise noncontributory. Social history: No reported history of drug or alcohol abuse. Family history: As per history of present illness and as reviewed below otherwise noncontributory. Physical exam: General: Well-developed and well-nourished 61-year-old female. Alert and oriented. Nontoxic appearing and in no acute distress. HEENT: Atraumatic, normocephalic, pupils equal and reactive bilaterally, negative for conjunctival pallor or scleral icterus, mucous membranes moist, throat clear, neck supple, nontender, trachea midline. No drooling or trismus noted. No meningeal signs Lungs: Expiratory wheezing to the right lower lobe, breath sounds equal bilaterally, chest nontender. Heart: S1S2, regular rate and rhythm without overt murmur Abdomen: Soft, nondistended, nontender. Negative for masses or hepatosplenomegaly. Negative for costovertebral tenderness. Pelvis: Stable nontender. Genitourinary: Deferred. Rectal: Deferred. Skin: Intact, warm, dry. No lesions or rashes noted. Extremities: Atraumatic, negative for cords or calf pain. Neurovascular unremarkable. Neuro: Awake, alert, oriented. Cranial nerves II through XII unremarkable. Cerebellum unremarkable. Motor and sensory unremarkable throughout. Exam nonfocal. Notes: Vital signs have been reviewed by me. Patient has multiple complaints; acute vs chronic. Will do lab work along with head CT and CXR. Orthostatics are unremarkable. Chest x-ray shows no infiltrate or pneumonia. Head CT is normal. Lab work is unremarkable. I did share this information with the patient. She states she is uncomfortable going home and would like admission for observation. I will page the hospitalist on-call and review her case. Diagnostics: CBC, CMP, troponin, EKG, 2 view chest x-ray, head CT, orthostatic vital signs Therapeutics: IV fluid, Zofran, DuoNeb Impression: Shortness of Breath Near Syncope Plan: Observation to Med/Surg with Telemetry Definitive disposition and diagnosis as appropriate pending reevaluation and review of above. Duration: Week(s): Location: Reports: Chest lower back Pain Score (Numeric/FACES): 9 - Related Data Allergies Allergy/AdvReac Type Severity Reaction Status Date / Time erythromycin lactobionate Allergy Unknown Nausea Verified 10/25/17 13:43 [From Erythrocin] mirtazapine [From Remeron] Allergy Unknown Itching Verified 10/25/17 13:43 Penicillins Allergy Unknown Hives Verified 10/25/17 13:43 tramadol Allergy Tremors Verified 10/25/17 13:43 Home Meds: Home Meds traZODone 200 mg PO BEDTIME 02/04/14 [History] Vilazodone [Viibryd] 1 tab PO DAILY 03/20/15 [History] Cyclobenzaprine [Flexeril] 10 mg PO TID PRN 10/25/17 [History] Estazolam [Prosom] 2 mg PO BEDTIME 10/25/17 [History] Magnesium 250 mg PO DAILY 10/25/17 [History] Meloxicam [Mobic] 7.5 mg PO BID 10/25/17 [History] buPROPion HCl [Wellbutrin Xl] 300 mg PO ACBREAKFAST 10/25/17 [History] busPIRone [Buspar] 15 mg PO TID 10/25/17 [History] hydrOXYzine HCl [hydrOXYzine] 10 mg PO TID 10/25/17 [History] traMADol [Ultram] 50 mg PO Q8HR 10/25/17 [History] Past Medical History HEENT History: Reports: None Cardiovascular History: Reports: None Respiratory History: Reports: None Gastrointestinal History: Reports: None Genitourinary History: Reports: None SUBSTATION INSPECTOR History: Reports: None Musculoskeletal History: Reports: Back Pain, Chronic Neurological History: Reports: None Psychiatric History: Reports: Depression Other Psychiatric History: Sees Dr. Oconnor monthly Endocrine/Metabolic History: Reports: None Oncologic (Cancer) History: Reports: Other (See Below) Other Oncologic History: skin ca Dermatologic History: Reports: None Other Dermatologic History: "skin cancer" - Infectious Disease History Infectious Disease History: Reports: Chicken Pox, Measles - Past Surgical History Neurological Surgical History: Reports: Lumbar Spine Musculoskeletal Surgical History: Reports: Other (See Below) Social & Family History - Family History Family Medical History: Unobtainable - Caffeine Use Caffeine Use: Reports: None ED ROS GENERAL - Review of Systems Review Of Systems: ROS reveals no pertinent complaints other than HPI. ED EXAM, GENERAL - Physical Exam Exam: See Below (See dictation) Course - Vital Signs Last Recorded V/S: Last Vital Signs Temp 97.5 F 10/25/17 13:43 Pulse 80 10/25/17 14:56 Resp 16 10/25/17 14:56 BP 137/75 10/25/17 14:56 Pulse Ox 86 L 10/25/17 14:56 Orthostatic Blood Pressure [ 120/76 Standing] Orthostatic Blood Pressure [ 115/67 Sitting] Orthostatic Blood Pressure [ 125/76 Supine] - Orders/Labs/Meds Orders: Active Orders 24 hr Category Date Time Status Admission Status [Patient Status] [ADT] Stat ADT 10/25/17 14:53 Active EKG Documentation Completion [RC] STAT Care 10/25/17 13:35 Active Orthostatic Vital Signs [RC] ASDIRECTED Care 10/25/17 13:36 Active RT Aerosol Therapy [RC] ASDIRECTED Care 10/25/17 13:35 Active Labs: Laboratory Tests 10/25/17 10/25/17 Range/Units 13:46 13:46 WBC 11.07 H (4.0-11.0) K/uL RBC 5.28 (4.30-5.90) M/uL Hgb 17.0 H (12.0-16.0) g/dL Hct 49.0 H (36.0-46.0) % MCV 92.8 (80.0-98.0) fL MCH 32.2 H (27.0-32.0) pg MCHC 34.7 (31.0-37.0) g/dL RDW Std Deviation 45.4 (28.0-62.0) fl RDW Coeff of Ene 14 (11.0-15.0) % Plt Count 272 (150-400) K/uL MPV 10.50 (7.40-12.00) fL Neut % (Auto) 46.7 L (48.0-80.0) % Lymph % (Auto) 46.6 H (16.0-40.0) % [place] % (Auto) 4.9 (0.0-15.0) % Eos % (Auto) 1.3 (0.0-7.0) % Baso % (Auto) 0.5 (0.0-1.5) % Neut # (Auto) 5.2 (1.4-5.7) K/uL Lymph # (Auto) 5.2 H (0.6-2.4) K/uL [place] # (Auto) 0.5 (0.0-0.8) K/uL Eos # (Auto) 0.1 (0.0-0.7) K/uL Baso # (Auto) 0.1 (0.0-0.1) K/uL Nucleated RBC % 0.0 /100WBC Nucleated RBCs # 0 K/uL Sodium 135 L (136-145) mmol/L Potassium 4.2 (3.5-5.1) mmol/L Chloride 103 (98-107) mmol/L Carbon Dioxide 23.7 (21.0-32.0) mmol/L BUN 18 (7.0-18.0) mg/dL Creatinine 1.2 H (0.6-1.0) mg/dL Est Cr Clr Drug Dosing 45.50 mL/min Estimated GFR (MDRD) 45.5 ml/min Glucose 113 H (74-106) mg/dL Calcium 10.6 H (8.5-10.1) mg/dL Total Bilirubin 0.3 (0.2-1.0) mg/dL AST 42 H (15-37) IU/L ALT 56 (14-63) IU/L Alkaline Phosphatase 149 H (46-116) U/L Troponin I < 0.050 (0.000-0.056) ng/mL Total Protein 7.9 (6.4-8.2) g/dL Albumin 3.5 (3.4-5.0) g/dL Globulin 4.4 H (2.0-3.5) g/dL Albumin/Globulin Ratio 0.8 L (1.3-2.8) Meds: Medications Discontinued Medications Generic Name Dose Route Start Last Admin Trade Name Freq PRN Reason Stop Dose Admin Albuterol/Ipratropium 3 ml 10/25/17 13:35 10/25/17 13:44 Duoneb 3.0-0.5 Mg/3 Ml NEB 10/25/17 13:36 3 ml ONETIME ONE Administration Sodium Chloride 1,000 mls @ 999 mls/hr 10/25/17 13:35 10/25/17 14:00 Normal Saline IV 10/25/17 14:35 999 mls/hr STAT ONE Administration Ondansetron HCl 4 mg 10/25/17 13:35 10/25/17 13:59 Zofran IVPUSH 10/25/17 13:36 4 mg ONETIME ONE Administration Departure - Departure Time of Disposition: 15:32 Disposition: Refer to Observation Clinical Impression: Shortness of breath, Near syncope - Discharge Information Referrals: PCP,Unknown [Primary Care Provider] - - My Orders Last 24 Hours: My Active Orders 10/25/17 13:35 EKG Documentation Completion [RC] STAT RT Aerosol Therapy [RC] ASDIRECTED 10/25/17 13:36 Orthostatic Vital Signs [RC] ASDIRECTED 10/25/17 14:53 Admission Status [Patient Status] [ADT] Stat - Assessment/Plan Last 24 Hours: My Active Orders 10/25/17 13:35 EKG Documentation Completion [RC] STAT RT Aerosol Therapy [RC] ASDIRECTED 10/25/17 13:36 Orthostatic Vital Signs [RC] ASDIRECTED 10/25/17 14:53 Admission Status [Patient Status] [ADT] Stat
[2017-10-25 14:19] LABS: CHLORIDE,CL 103 mmol/L (98-107); SODIUM,NA 135 mmol/L (136-145)
--- NOTE | 2017-10-25 14:41 | CT ---
EXAMINATION: Non contrast CT head. Coronal and sagittal reformats. HISTORY: Near syncope FINDINGS: No evidence of intra or extra axial hemorrhage, mass, midline shift, hydrocephalus or edema. No hypoattenuation changes in the major vascular territories to suggest acute infarct. No abnormal intracranial calcifications are detected. No evidence of substantial vascular calcificat ions. Mild mucosal thickening within the left maxillary sinus. Orbits and globes are symmetric. Pituitary fossa appears unremarkable. Calvarium is intact. No evidence of skull fracture. IMPRESSION: No acute intracranial findings.
--- NOTE | 2017-10-25 14:42 | CR ---
EXAMINATION: Two-view chest (PA and Lateral views). HISTORY: Shortness of breath. Comparison: 04/01/2017, 02/04/2017 FINDINGS: The trachea is midline. The cardiomediastinal silhouette is within normal limits. No pulmonary infilt rates, effusions or pneumothorax. Mild interstitial prominence with likely chronic scarring within th e left lung base. Osseous structures appear unremarkable. Partially visualized anterior cervical and lumbar fusion hard renner noted. IMPRESSION: No acute cardiopulmonary process.
[2017-10-25] MEDS ORDERED: Ondansetron 4 MG/2 ML SDV IVPUSH PRN (20:16)
[2017-10-25] MEDS ORDERED: Albuterol/Ipratropium 3.0-0.5 MG/3 ML Neb Soln NEB PRN (20:16)
--- NOTE | 2017-10-25 20:22 | PCM.HP ---
H&P History of Present Illness - General Admit Problem/Dx: Admission Diagnosis/Problem Admission Diagnosis/Problem Shortness of breath - History of Present Illness Initial Comments - Free Text/Narative: 61 yo female with PMH of chronic back pain with mutltiple bback surgeries, depression, HTN, and recurrent UTIs who presented with one week history of generalized weakness, shortness of breath, cough, and subjective fevers and chills. She reports back pain that is typical for what she has been suffering from. lower back Pain Score (Numeric/FACES): 8 - Related Data Allergies/Adverse Reactions: Allergies Allergy/AdvReac Type Severity Reaction Status Date / Time erythromycin lactobionate Allergy Unknown Nausea Verified 10/25/17 13:43 [From Erythrocin] mirtazapine [From Remeron] Allergy Unknown Itching Verified 10/25/17 13:43 Penicillins Allergy Unknown Hives Verified 10/25/17 13:43 tramadol Allergy Tremors Verified 10/25/17 13:43 Home Medications: Home Meds traZODone 200 mg PO BEDTIME 02/04/14 [History] Vilazodone [Viibryd] 1 tab PO DAILY 03/20/15 [History] Cyclobenzaprine [Flexeril] 10 mg PO TID PRN 10/25/17 [History] Estazolam [Prosom] 2 mg PO BEDTIME 10/25/17 [History] Magnesium 250 mg PO DAILY 10/25/17 [History] Meloxicam [Mobic] 7.5 mg PO BID 10/25/17 [History] buPROPion HCl [Wellbutrin Xl] 300 mg PO ACBREAKFAST 10/25/17 [History] busPIRone [Buspar] 15 mg PO TID 10/25/17 [History] fentaNYL [Duragesic] 1 patch TRDERM Q72H 10/25/17 [History] hydrOXYzine HCl [hydrOXYzine] 10 mg PO TID 10/25/17 [History] Past Medical History HEENT History: Reports: None Cardiovascular History: Reports: None Respiratory History: Reports: None Gastrointestinal History: Reports: None Genitourinary History: Reports: None CREATIVE STRATEGIST History: Reports: None Musculoskeletal History: Reports: Back Pain, Chronic Neurological History: Reports: None Psychiatric History: Reports: Depression Other Psychiatric History: Sees Dr. Oconnor monthly Endocrine/Metabolic History: Reports: None Oncologic (Cancer) History: Reports: Other (See Below) Other Oncologic History: skin ca Dermatologic History: Reports: None Other Dermatologic History: "skin cancer" - Infectious Disease History Infectious Disease History: Reports: Chicken Pox, Measles - Past Surgical History Neurological Surgical History: Reports: Lumbar Spine Musculoskeletal Surgical History: Reports: Other (See Below) Social & Family History - Family History Family Medical History: Unobtainable - Tobacco Use Smoking Status *Q: Current Every Day Smoker Years of Tobacco use: 48 Packs/Tins Daily: 0.5 Second Hand Smoke Exposure: No - Caffeine Use Caffeine Use: Reports: Coffee, Soda - Recreational Drug Use Recreational Drug Use: No H&P Review of Systems - Review of Systems: Review Of Systems: ROS reveals no pertinent complaints other than HPI. Exam - Exam Exam: See Below - Vital Signs Vital Signs: Last Vital Signs Temp 36.9 C 10/25/17 18:55 Pulse 82 10/25/17 18:55 Resp 18 10/25/17 18:55 BP 121/60 10/25/17 18:55 Pulse Ox 90 L 10/25/17 18:55 Orthostatic Blood Pressure [ 120/76 Standing] Orthostatic Blood Pressure [ 115/67 Sitting] Orthostatic Blood Pressure [ 125/76 Supine] Weight: 79.016 kg - Exam General: Alert HEENT: Mucosa Moist & [place] Lungs: Clear to Auscultation, Wheezing Cardiovascular: Regular Rate, Regular Rhythm GI/Abdominal Exam: Soft, Non-Tender Back Exam: Paraspinal Tenderness Extremities: No Pedal Edema Skin: Warm, Dry, Intact - Patient Data Lab Results Last 24 hrs: Laboratory Results - last 24 hr 10/25/17 10/25/17 10/25/17 Range/Units 13:46 13:46 16:54 WBC 11.07 H (4.0-11.0) K/uL RBC 5.28 (4.30-5.90) M/uL Hgb 17.0 H (12.0-16.0) g/dL Hct 49.0 H (36.0-46.0) % MCV 92.8 (80.0-98.0) fL MCH 32.2 H (27.0-32.0) pg MCHC 34.7 (31.0-37.0) g/dL RDW Std Deviation 45.4 (28.0-62.0) fl RDW Coeff of Ene 14 (11.0-15.0) % Plt Count 272 (150-400) K/uL MPV 10.50 (7.40-12.00) fL Neut % (Auto) 46.7 L (48.0-80.0) % Lymph % (Auto) 46.6 H (16.0-40.0) % Barnes % (Auto) 4.9 (0.0-15.0) % Eos % (Auto) 1.3 (0.0-7.0) % Baso % (Auto) 0.5 (0.0-1.5) % Neut # (Auto) 5.2 (1.4-5.7) K/uL Lymph # (Auto) 5.2 H (0.6-2.4) K/uL Barnes # (Auto) 0.5 (0.0-0.8) K/uL Eos # (Auto) 0.1 (0.0-0.7) K/uL Baso # (Auto) 0.1 (0.0-0.1) K/uL Nucleated RBC % 0.0 /100WBC Nucleated RBCs # 0 K/uL D-Dimer, Quantitative 0.48 (0.0-0.52) mg/LFEU Sodium 135 L (136-145) mmol/L Potassium 4.2 (3.5-5.1) mmol/L Chloride 103 (98-107) mmol/L Carbon Dioxide 23.7 (21.0-32.0) mmol/L BUN 18 (7.0-18.0) mg/dL Creatinine 1.2 H (0.6-1.0) mg/dL Est Cr Clr Drug Dosing 45.50 mL/min Estimated GFR (MDRD) 45.5 ml/min Glucose 113 H (74-106) mg/dL Calcium 10.6 H (8.5-10.1) mg/dL Total Bilirubin 0.3 (0.2-1.0) mg/dL AST 42 H (15-37) IU/L ALT 56 (14-63) IU/L Alkaline Phosphatase 149 H (46-116) U/L Troponin I < 0.050 (0.000-0.056) ng/mL Total Protein 7.9 (6.4-8.2) g/dL Albumin 3.5 (3.4-5.0) g/dL Globulin 4.4 H (2.0-3.5) g/dL Albumin/Globulin Ratio 0.8 L (1.3-2.8) 10/25/17 Range/Units 16:54 WBC (4.0-11.0) K/uL RBC (4.30-5.90) M/uL Hgb (12.0-16.0) g/dL Hct (36.0-46.0) % MCV (80.0-98.0) fL MCH (27.0-32.0) pg MCHC (31.0-37.0) g/dL RDW Std Deviation (28.0-62.0) fl RDW Coeff of Ene (11.0-15.0) % Plt Count (150-400) K/uL MPV (7.40-12.00) fL Neut % (Auto) (48.0-80.0) % Lymph % (Auto) (16.0-40.0) % Barnes % (Auto) (0.0-15.0) % Eos % (Auto) (0.0-7.0) % Baso % (Auto) (0.0-1.5) % Neut # (Auto) (1.4-5.7) K/uL Lymph # (Auto) (0.6-2.4) K/uL Barnes # (Auto) (0.0-0.8) K/uL Eos # (Auto) (0.0-0.7) K/uL Baso # (Auto) (0.0-0.1) K/uL Nucleated RBC % /100WBC Nucleated RBCs # K/uL D-Dimer, Quantitative (0.0-0.52) mg/LFEU Sodium (136-145) mmol/L Potassium (3.5-5.1) mmol/L Chloride (98-107) mmol/L Carbon Dioxide (21.0-32.0) mmol/L BUN (7.0-18.0) mg/dL Creatinine (0.6-1.0) mg/dL Est Cr Clr Drug Dosing mL/min Estimated GFR (MDRD) ml/min Glucose (74-106) mg/dL Calcium (8.5-10.1) mg/dL Total Bilirubin (0.2-1.0) mg/dL AST (15-37) IU/L ALT (14-63) IU/L Alkaline Phosphatase (46-116) U/L Troponin I < 0.050 (0.000-0.056) ng/mL Total Protein (6.4-8.2) g/dL Albumin (3.4-5.0) g/dL Globulin (2.0-3.5) g/dL Albumin/Globulin Ratio (1.3-2.8) Result Diagrams: 10/25/17 13:46 10/25/17 13:46 Problem List Initiated/Reviewed/Updated: Yes Orders Last 24hrs: Active Orders 24 hr Category Date Time Status Admission Status [Patient Status] [ADT] Stat ADT 10/25/17 14:53 Active Orthostatic Vital Signs [RC] ASDIRECTED Care 10/25/17 13:36 Active Oxygen Therapy [RC] PRN Care 10/25/17 20:16 Active RT Aerosol Therapy [RC] ASDIRECTED Care 10/25/17 13:35 Active RT Aerosol Therapy [RC] ASDIRECTED Care 10/25/17 20:17 Active VTE/DVT Education [RC] PER UNIT ROUTINE Care 10/25/17 20:16 Active Vital Signs [RC] Q4H Care 10/25/17 20:16 Active Regular Diet [DIET] Diet 10/26/17 Dinner Active BASIC METABOLIC PANEL,BMP [CHEM] AM Lab 10/26/17 05:11 Ordered CBC WITH AUTO DIFF [HEME] AM Lab 10/26/17 05:11 Ordered CULTURE BLOOD [BC] Stat Lab 10/25/17 19:39 Ordered CULTURE BLOOD [BC] Stat Lab 10/25/17 19:39 Ordered CULTURE SPUTUM + SMEAR [RM] Routine Lab 10/25/17 19:38 Ordered CULTURE URINE [RM] Routine Lab 10/25/17 19:38 Ordered TROPONIN I [CHEM] Q6H Lab 10/25/17 22:25 Ordered TROPONIN I [CHEM] Q6H Lab 10/26/17 04:25 Ordered UA W/MICROSCOPIC [URIN] Routine Lab 10/25/17 19:28 Ordered Albuterol/Ipratropium [DuoNeb 3.0-0.5 MG/3 ML] Med 10/25/17 20:16 Ordered 3 ml NEB Q4HRRT PRN Levofloxacin/Dextrose 5%-Water [Levaquin in D5W 750 MG/ Med 10/25/17 19:00 Active 150 ML] 750 mg Premix Bag 1 bag IV Q24H Ondansetron [Zofran] Med 10/25/17 20:16 Ordered 4 mg IVPUSH Q4H PRN buPROPion [Wellbutrin XL] Med 10/26/17 07:30 Active 300 mg PO ACBREAKFAST fentaNYL [Duragesic] Med 10/25/17 19:45 Pending DOSE mcg TRDERM Q72H Blood Culture x2 Reflex Set [OM.PC] Stat Oth 10/25/17 19:38 Ordered Sequential Compression Device [OM.PC] Per Unit Routine Oth 10/25/17 20:16 Ordered Resuscitation Status Routine Resus Stat 10/25/17 20:16 Ordered Medication Orders Albuterol/Ipratropium (Duoneb 3.0-0.5 Mg/3 Ml) 3 ml NEB Q4HRRT PRN PRN Reason: Shortness Of Breath/wheezing Bupropion HCl (Wellbutrin Xl) 300 mg PO ACBREAKFAST [facility] Fentanyl (Duragesic) mcg TRDERM Q72H [facility] Levofloxacin/Dextrose 750 mg/ (Premix) 150 mls @ 100 mls/hr IV Q24H [facility] Ondansetron HCl (Zofran) 4 mg IVPUSH Q4H PRN PRN Reason: Nausea Assessment/Plan Comment:: 61 yo female admitted for probable pneumonia. Patient's CXR is unremarkable but she has a leukocytosis and respiratory symptoms. We will check UA. We will treat with levaquin.
[2017-10-25] MEDS: Levofloxacin/Dextrose 5%-Water 750 MG in Premix Bag 1 BAG IV SCH (20:23)
[2017-10-25] MEDS ORDERED: HYDROmorphone 1 MG/ML Syringe IVPUSH PRN (20:42)
[2017-10-26] MEDS: buPROPion 150 MG Tab.ER PO SCH (07:06)
[2017-10-26] MEDS: Cyclobenzaprine 10 MG Tab PO PRN (12:34)
[2017-10-26] MEDS: busPIRone 5 MG Tab PO SCH ×2 (13:24→22:44)
[2017-10-26] MEDS: methylPREDNISolone Sodium Succinate 40 MG/1 ML SDV IVPUSH SCH ×2 (13:25→18:59)
[2017-10-26] MEDS ORDERED: HYDROXYZINE HCL 10 MG PO SCH (14:00)
[2017-10-26] MEDS: Pantoprazole 40 MG Vial IVPUSH SCH (16:26)
[2017-10-26] MEDS: Fluticasone/Salmeterol 250-50 MCG Inhalation Powder 14/Diskus INH SCH ×2 (16:33→21:01)
[2017-10-26] MEDS: Levofloxacin/Dextrose 5%-Water 750 MG in Premix Bag 1 BAG IV SCH (19:01)
[2017-10-26] MEDS ORDERED: traZODone 50 MG Tab PO SCH (21:00)
[2017-10-26] MEDS ORDERED: ESTAZOLAM 2 MG PO SCH (21:00)
[2017-10-26] MEDS: Meloxicam 7.5 MG Tab PO SCH (21:05)
--- NOTE | 2017-10-26 22:25 | PCM.PN ---
- General Info Date of Service: 10/26/17 Functional Status: Reports: Pain Controlled - Review of Systems General: Reports: No Symptoms HEENT: Reports: No Symptoms Pulmonary: Reports: Shortness of Breath, Cough, Sputum (green), Wheezing Cardiovascular: Reports: No Symptoms Gastrointestinal: Reports: No Symptoms Musculoskeletal: Reports: Back Pain Neurological: Reports: No Symptoms Psychiatric: Reports: No Symptoms - Patient Data Vitals - Most Recent: Last Vital Signs Temp 97.5 F 10/26/17 20:00 Pulse 93 10/26/17 20:00 Resp 16 10/26/17 20:00 BP 106/60 10/26/17 20:00 Pulse Ox 93 L 10/26/17 20:00 Orthostatic Blood Pressure [ 120/76 Standing] Orthostatic Blood Pressure [ 115/67 Sitting] Orthostatic Blood Pressure [ 125/76 Supine] Weight - Most Recent: 174 lb 3.2 oz I&O - Last 24 Hours: Intake & Output 10/26/17 10/26/17 10/26/17 06:59 14:59 22:59 Intake Total 1600 300 Output Total 500 250 Balance 1100 50 Lab Results Last 24 Hours: Laboratory Results - last 24 hr 10/26/17 10/26/17 10/26/17 Range/Units 01:05 05:20 05:20 WBC 8.33 (4.0-11.0) K/uL RBC 4.59 (4.30-5.90) M/uL Hgb 14.4 (12.0-16.0) g/dL Hct 43.3 (36.0-46.0) % MCV 94.3 (80.0-98.0) fL MCH 31.4 (27.0-32.0) pg MCHC 33.3 (31.0-37.0) g/dL RDW Std Deviation 47.3 (28.0-62.0) fl RDW Coeff of Ene 14 (11.0-15.0) % Plt Count 236 (150-400) K/uL MPV 10.40 (7.40-12.00) fL Neut % (Auto) 44.0 L (48.0-80.0) % Lymph % (Auto) 46.8 H (16.0-40.0) % Bradley % (Auto) 6.8 (0.0-15.0) % Eos % (Auto) 2.0 (0.0-7.0) % Baso % (Auto) 0.4 (0.0-1.5) % Neut # (Auto) 3.7 (1.4-5.7) K/uL Lymph # (Auto) 3.9 H (0.6-2.4) K/uL Bradley # (Auto) 0.6 (0.0-0.8) K/uL Eos # (Auto) 0.2 (0.0-0.7) K/uL Baso # (Auto) 0.0 (0.0-0.1) K/uL Nucleated RBC % 0.0 /100WBC Nucleated RBCs # 0 K/uL Sodium 139 (136-145) mmol/L Potassium 4.5 (3.5-5.1) mmol/L Chloride 107 (98-107) mmol/L Carbon Dioxide 28.3 (21.0-32.0) mmol/L BUN 17 (7.0-18.0) mg/dL Creatinine 1.0 (0.6-1.0) mg/dL Est Cr Clr Drug Dosing 54.90 mL/min Estimated GFR (MDRD) 56.2 ml/min Glucose 90 (74-106) mg/dL Calcium 9.5 (8.5-10.1) mg/dL Troponin I < 0.050 (0.000-0.056) ng/mL Binu Results Last 24 Hours: Microbiology 10/25/17 20:16 Aerobic Blood Culture - Preliminary Blood - Venous - Lab Draw NO GROWTH AFTER 1 DAY Anaerobic Blood Culture - Preliminary NO GROWTH AFTER 1 DAY 10/25/17 19:59 Aerobic Blood Culture - Preliminary Blood - Venous NO GROWTH AFTER 1 DAY Anaerobic Blood Culture - Preliminary NO GROWTH AFTER 1 DAY Med Orders - Current: Current Medications Albuterol/Ipratropium (Duoneb 3.0-0.5 Mg/3 Ml) 3 ml NEB Q4HRRT PRN PRN Reason: Shortness Of Breath/wheezing Last Admin: 10/25/17 21:12 Dose: 3 ml Bupropion HCl (Wellbutrin Xl) 300 mg PO ACBREAKFAST [facility] Last Admin: 10/26/17 07:06 Dose: 300 mg Buspirone HCl (Buspar) 15 mg PO TID [facility] Last Admin: 10/26/17 13:24 Dose: 15 mg Cyclobenzaprine HCl (Flexeril) 10 mg PO TID PRN PRN Reason: Pain Last Admin: 10/26/17 12:34 Dose: 10 mg Fentanyl (Duragesic) 25 mcg TRDERM Q72H [facility] Hydroxyzine Pamoate (Vistaril) 25 mg PO TID [facility] Levofloxacin/Dextrose 750 mg/ (Premix) 150 mls @ 100 mls/hr IV Q24H [facility] Last Admin: 10/26/17 19:01 Dose: 100 mls/hr Magnesium Oxide (Magnesium Oxide) 400 mg PO DAILY [facility] Meloxicam (Mobic) 7.5 mg PO BID [facility] Last Admin: 10/26/17 21:05 Dose: 7.5 mg Methylprednisolone Sodium Succinate (Solu-Medrol) 40 mg IVPUSH Q6H [facility] Last Admin: 10/26/17 18:59 Dose: 40 mg Ondansetron HCl (Zofran) 4 mg IVPUSH Q4H PRN PRN Reason: Nausea Last Admin: 10/26/17 09:37 Dose: 4 mg Oxycodone/Acetaminophen (Percocet 325-5 Mg) 1 tab PO Q6H PRN PRN Reason: Pain Pantoprazole Sodium (Protonix Iv) 40 mg IVPUSH Q24H [facility] Last Admin: 10/26/17 16:26 Dose: 40 mg Estazolam [Prosom] 2 (Mg) 1 each PO BEDTIME [facility] Last Admin: 10/26/17 21:04 Dose: 1 each Vilazodone [Viibryd] (1 Tab) 1 each PO DAILY [facility] Fluticasone/Salmeterol (Advair Diskus 250-50) 1 puff INH BID [facility] Last Admin: 10/26/17 21:01 Dose: 1 inhalation Trazodone HCl (Trazodone) 200 mg PO BEDTIME [facility] Last Admin: 10/26/17 21:05 Dose: 200 mg Discontinued Medications Albuterol/Ipratropium (Duoneb 3.0-0.5 Mg/3 Ml) 3 ml NEB ONETIME ONE Stop: 10/25/17 13:36 Last Admin: 10/25/17 13:44 Dose: 3 ml Hydromorphone HCl (Dilaudid) 1 mg IVPUSH Q3H PRN PRN Reason: Pain Last Admin: 10/25/17 21:17 Dose: 1 mg Sodium Chloride (Normal Saline) 1,000 mls @ 999 mls/hr IV STAT ONE Stop: 10/25/17 14:35 Last Admin: 10/25/17 14:00 Dose: 999 mls/hr Ondansetron HCl (Zofran) 4 mg IVPUSH ONETIME ONE Stop: 10/25/17 13:36 Last Admin: 10/25/17 13:59 Dose: 4 mg Hydroxyzine Hcl 10 (Mg) 1 each PO TID [facility] Last Admin: 10/26/17 13:29 Dose: 1 each - Exam General: Alert, Oriented HEENT: Pupils Equal, Pupils Reactive, EOMI Neck: Supple, Trachea Midline, No JVD, No Thyromegaly Lungs: Decreased Breath Sounds GI/Abdominal Exam: Normal Bowel Sounds, Soft, Non-Tender, No Mass Back Exam: Normal Inspection Extremities: Normal Inspection Skin: Warm, Dry Wound/Incisions: Healing Well Neurological: No New Focal Deficit Psy/Mental Status: Alert, Normal Affect - Problem List & Annotations (1) COPD with exacerbation SNOMED Code(s): 551195380 Code(s): J44.1 - CHRONIC OBSTRUCTIVE PULMONARY DISEASE W (ACUTE) EXACERBATION Status: Acute Current Visit: Yes (2) Lightheadedness SNOMED Code(s): 821493510 Code(s): R42 - DIZZINESS AND GIDDINESS Status: Acute Current Visit: Yes (3) Tobacco use disorder SNOMED Code(s): 561541907 Code(s): F17.200 - NICOTINE DEPENDENCE, UNSPECIFIED, UNCOMPLICATED Status: Acute Current Visit: Yes - Problem List Review Problem List Initiated/Reviewed/Updated: Yes - My Orders Last 24 Hours: My Active Orders 10/26/17 10:01 Cyclobenzaprine [Flexeril] 10 mg PO TID PRN 10/26/17 13:00 RT Post Treatment Assessment [RC] Click to Edit RT Pre-Treatment Assessment [RC] Click to Edit Fluticasone/Salmeterol [Advair Diskus 250-50] 1 puff INH BID methylPREDNISolone Sod Succ [Solu-MEDROL] 40 mg IVPUSH Q6H 10/26/17 14:00 busPIRone [Buspar] 15 mg PO TID 10/26/17 16:00 Pantoprazole [ProTONIX IV] 40 mg IVPUSH Q24H 10/26/17 19:24 Acetaminophen/oxyCODONE [Percocet 325-5 MG] 1 tab PO Q6H PRN 10/26/17 21:00 Meloxicam [Mobic] 7.5 mg PO BID Patient's Own Medication [Ptom] 1 each PO BEDTIME traZODone 200 mg PO BEDTIME 10/26/17 22:00 hydrOXYzine Pamoate [Vistaril] 25 mg PO TID 10/27/17 09:00 Magnesium Oxide 400 mg PO DAILY Patient's Own Medication [Ptom] 1 each PO DAILY - Plan Plan:: a/p copd exacerbation hypoxia lightheadedness back pain chronic tobacco abuse Plan will add solumedrol 40 mg iv q 6 h , advair 250/50 2 puff ing BID coninue levaquin 750 mg iv q 24h will give patient hydration , orthostatic vs will continue current medicationd for pain , percocet 5/325 mg po q 6 h prn for breakthrough pain wellbutrin po for tobacco abuse
[2017-10-26] MEDS: hydrOXYzine Pamoate 25 MG Cap PO SCH (22:44)
[2017-10-26] MEDS: Acetaminophen/oxyCODONE 325-5 MG Tab PO PRN (22:50)
[2017-10-27] MEDS: methylPREDNISolone Sodium Succinate 40 MG/1 ML SDV IVPUSH SCH ×3 (00:38→13:07)
[2017-10-27] MEDS: Cyclobenzaprine 10 MG Tab PO PRN ×2 (04:46→13:04)
[2017-10-27] MEDS: hydrOXYzine Pamoate 25 MG Cap PO SCH ×2 (06:41→13:03)
[2017-10-27] MEDS: buPROPion 150 MG Tab.ER PO SCH (06:41)
[2017-10-27] MEDS: busPIRone 5 MG Tab PO SCH ×2 (06:41→13:03)
[2017-10-27] MEDS: Acetaminophen/oxyCODONE 325-5 MG Tab PO PRN ×2 (07:03→13:04)
[2017-10-27] MEDS ORDERED: Magnesium Oxide 400 MG Tab PO SCH (09:00)
[2017-10-27] MEDS ORDERED: VILAZODONE PO SCH (09:00)
[2017-10-27] MEDS: Fluticasone/Salmeterol 250-50 MCG Inhalation Powder 14/Diskus INH SCH (10:23)
[2017-10-27] MEDS: Meloxicam 7.5 MG Tab PO SCH (10:53)
[2017-10-27] MEDS ORDERED: Meclizine 25 MG Tab PO PRN (12:57)
[2017-10-27 12:58] VITALS: BP 110/79
[2017-10-27] MEDS ORDERED: LORazepam 2 MG/ML SDV IVPUSH ONE (15:06)
[2017-10-27] MEDS: Pantoprazole 40 MG Vial IVPUSH SCH (15:43)
--- NOTE | 2017-10-27 15:44 | PCM.DCSUM1 ---
Discharge Summary - Discharge Data Discharge Disposition: Home, Self-Care 01 Condition: Stable - Discharge Diagnosis/Problem(s) (1) COPD with exacerbation SNOMED Code(s): 610387612 ICD Code: J44.1 - CHRONIC OBSTRUCTIVE PULMONARY DISEASE W (ACUTE) EXACERBATION Status: Acute Current Visit: Yes (2) Lightheadedness SNOMED Code(s): 332797575 ICD Code: R42 - DIZZINESS AND GIDDINESS Status: Acute Current Visit: Yes (3) Tobacco use disorder SNOMED Code(s): 636905508 ICD Code: F17.200 - NICOTINE DEPENDENCE, UNSPECIFIED, UNCOMPLICATED Status : Acute Current Visit: Yes - Discharge Plan Prescriptions/Med Rec: Fluticasone/Salmeterol [Advair 250-50] 1 puff INH BID #1 diskus Meclizine [Antivert] 25 mg PO TID PRN #30 tablet PRN Reason: vertigo predniSONE [Prednisone] 40 mg PO DAILY #12 tab.ds.pk Home Medications: Home Meds traZODone 200 mg PO BEDTIME 02/04/14 [History] Vilazodone [Viibryd] 1 tab PO DAILY 03/20/15 [History] Cyclobenzaprine [Flexeril] 10 mg PO TID PRN 10/25/17 [History] Estazolam [Prosom] 2 mg PO BEDTIME 10/25/17 [History] Magnesium 250 mg PO DAILY 10/25/17 [History] Meloxicam [Mobic] 7.5 mg PO BID 10/25/17 [History] buPROPion HCl [Wellbutrin Xl] 300 mg PO ACBREAKFAST 10/25/17 [History] busPIRone [Buspar] 15 mg PO TID 10/25/17 [History] fentaNYL [Duragesic] 1 patch TRDERM Q72H 10/25/17 [History] hydrOXYzine Pamoate [Hydroxyzine Pamoate] 25 mg PO TID 10/26/17 [History] Albuterol/Ipratropium [DuoNeb 3.0-0.5 MG/3 ML] 3 ml NEB Q4HRRT PRN neb [Rx] Fluticasone/Salmeterol [Advair 250-50] 1 puff INH BID diskus 10/27/17 [Rx] Fluticasone/Salmeterol [Advair 250-50] 1 puff INH BID #1 diskus 10/27/17 [Rx] Meclizine [Antivert] 25 mg PO TID PRN #30 tablet 10/27/17 [Rx] predniSONE [Prednisone] 40 mg PO DAILY #12 tab.ds.pk 10/27/17 [Rx] Patient Handouts: Meclizine tablets or capsules, Shortness of Breath, Adult, [id number], Near-Syncope, [id number], Prednisone tablets, Fluticasone; Salmeterol inhalation aerosol Referrals: Sharita Love MD [Physician] - 11/01/17 9:30 am Medardo Calvin MD [Physician] - 11/07/17 10:15 am - Patient Data Vitals - Most Recent: Last Vital Signs Temp 98.2 F 10/27/17 12:00 Pulse 68 10/27/17 12:00 Resp 18 10/27/17 12:00 BP 110/79 10/27/17 12:00 Pulse Ox 97 10/27/17 12:00 Orthostatic Blood Pressure [ 120/76 Standing] Orthostatic Blood Pressure [ 115/67 Sitting] Orthostatic Blood Pressure [ 125/76 Supine] Weight - Most Recent: 174 lb 3.2 oz I&O - Last 24 hours: Intake & Output 10/27/17 10/27/17 10/27/17 06:59 14:59 22:59 Intake Total 600 Output Total 450 Balance 150 KUMAR Results - Last 24 hrs: Microbiology 10/25/17 21:26 Urine Culture - Final Urine, Bladder MIXED NELLY 10,000-100,000 CFU/ML 10/25/17 20:16 Aerobic Blood Culture - Preliminary Blood - Venous - Lab Draw NO GROWTH AFTER 1 DAY Anaerobic Blood Culture - Preliminary NO GROWTH AFTER 1 DAY 10/25/17 19:59 Aerobic Blood Culture - Preliminary Blood - Venous NO GROWTH AFTER 1 DAY Anaerobic Blood Culture - Preliminary NO GROWTH AFTER 1 DAY Med Orders - Current: Current Medications Albuterol/Ipratropium (Duoneb 3.0-0.5 Mg/3 Ml) 3 ml NEB Q4HRRT PRN PRN Reason: Shortness Of Breath/wheezing Last Admin: 10/25/17 21:12 Dose: 3 ml Bupropion HCl (Wellbutrin Xl) 300 mg PO ACBREAKFAST [facility] Last Admin: 10/27/17 06:41 Dose: 300 mg Buspirone HCl (Buspar) 15 mg PO TID [facility] Last Admin: 10/27/17 13:03 Dose: 15 mg Cyclobenzaprine HCl (Flexeril) 10 mg PO TID PRN PRN Reason: Pain Last Admin: 10/27/17 13:04 Dose: 10 mg Fentanyl (Duragesic) 25 mcg TRDERM Q72H [facility] Hydroxyzine Pamoate (Vistaril) 25 mg PO TID [facility] Last Admin: 10/27/17 13:03 Dose: 25 mg Levofloxacin/Dextrose 750 mg/ (Premix) 150 mls @ 100 mls/hr IV Q24H [facility] Last Admin: 10/26/17 19:01 Dose: 100 mls/hr Magnesium Oxide (Magnesium Oxide) 400 mg PO DAILY [facility] Last Admin: 10/27/17 10:25 Dose: 400 mg Meclizine HCl (Antivert) 25 mg PO TID PRN PRN Reason: vertigo Meloxicam (Mobic) 7.5 mg PO BID [facility] Last Admin: 10/27/17 10:53 Dose: 7.5 mg Methylprednisolone Sodium Succinate (Solu-Medrol) 40 mg IVPUSH Q6H [facility] Last Admin: 10/27/17 13:07 Dose: 40 mg Ondansetron HCl (Zofran) 4 mg IVPUSH Q4H PRN PRN Reason: Nausea Last Admin: 10/26/17 09:37 Dose: 4 mg Oxycodone/Acetaminophen (Percocet 325-5 Mg) 1 tab PO Q6H PRN PRN Reason: Pain Last Admin: 10/27/17 13:04 Dose: 1 tab Pantoprazole Sodium (Protonix Iv) 40 mg IVPUSH Q24H [facility] Last Admin: 10/27/17 15:43 Dose: 40 mg Estazolam [Prosom] 2 (Mg) 1 each PO BEDTIME [facility] Last Admin: 10/26/17 21:04 Dose: 1 each Vilazodone [Viibryd] (1 Tab) 1 each PO DAILY [facility] Last Admin: 10/27/17 10:27 Dose: 1 each Fluticasone/Salmeterol (Advair Diskus 250-50) 1 puff INH BID [facility] Last Admin: 10/27/17 10:23 Dose: 1 inhalation Trazodone HCl (Trazodone) 200 mg PO BEDTIME [facility] Last Admin: 10/26/17 21:05 Dose: 200 mg Discontinued Medications Albuterol/Ipratropium (Duoneb 3.0-0.5 Mg/3 Ml) 3 ml NEB ONETIME ONE Stop: 10/25/17 13:36 Last Admin: 10/25/17 13:44 Dose: 3 ml Hydromorphone HCl (Dilaudid) 1 mg IVPUSH Q3H PRN PRN Reason: Pain Last Admin: 10/25/17 21:17 Dose: 1 mg Sodium Chloride (Normal Saline) 1,000 mls @ 999 mls/hr IV STAT ONE Stop: 10/25/17 14:35 Last Admin: 10/25/17 14:00 Dose: 999 mls/hr Lorazepam (Ativan) 1 mg IVPUSH ONETIME ONE Stop: 10/27/17 15:07 Last Admin: 10/27/17 15:38 Dose: 1 mg Ondansetron HCl (Zofran) 4 mg IVPUSH ONETIME ONE Stop: 10/25/17 13:36 Last Admin: 10/25/17 13:59 Dose: 4 mg Hydroxyzine Hcl 10 (Mg) 1 each PO TID [facility] Last Admin: 10/26/17 13:29 Dose: 1 each
[2017-10-28] MEDS ORDERED: fentaNYL 25 MCG/HR Transdermal Patch TRDERM SCH (09:00)
== END 2017-10-27 16:10 | disposition home or self-care (01) ==
LOC: MW.ED 13:33 → MW.MS 14:53
PROVIDERS: ADMIT Internal Medicine; ATTEND Internal Medicine
DX: J44.1 Chronic obstructive pulmonary disease with (acute) exacerbation (principal); R42 Dizziness and giddiness; F17.200 Nicotine dependence, unspecified, uncomplicated; F32.9 Major depressive disorder, single episode, unspecified; I10 Essential (primary) hypertension; F17.210 Nicotine dependence, cigarettes, uncomplicated; Z79.899 Other long term (current) drug therapy; Z88.1 Allergy status to other antibiotic agents; Z88.8 Allergy status to other drugs, medicaments and biological substances; Z88.0 Allergy status to penicillin; Z88.6 Allergy status to analgesic agent
CPT/HCPCS: 36415; 70450; 70450-26; 71046; 71046-26; 80048; 80053; 81001; 84484; 85025; 85379; 87040; 87086; 93005; 94640; 96361; 96374; 99285-25; A9270-GY; C9113; J1170; J1956; J2060; J2405; J2920; J7040

== ENCOUNTER 2019-02-26 13:51 | Emergency (ER) | payer MEDICARE, MEDICAID ==
[2019-02-26] MEDS ORDERED: Albuterol/Ipratropium 3.0-0.5 MG/3 ML Neb Soln NEB ONE (13:54)
[2019-02-26] MEDS ORDERED: methylPREDNISolone Sodium Succinate 125 MG/2 ML SDV IVPUSH ONE (13:54)
[2019-02-26] MEDS ORDERED: Sodium Chloride 0.9% 2.5 ML Syringe FLUSH PRN (13:54)
[2019-02-26] MEDS ORDERED: Sodium Chloride 0.9% 10 ML Syringe FLUSH PRN (13:54)
[2019-02-26] MEDS ORDERED: Sodium Chloride 0.9% 1,000 ML IV ONE ×2 (13:54→15:31)
[2019-02-26] MEDS ORDERED: methylPREDNISolone Sodium Succinate 125 MG/2 ML SDV ONE (14:02)
--- NOTE | 2019-02-26 14:42 | EDM.PDOC ---
ED HPI GENERAL MEDICAL PROBLEM - General Chief Complaint: Cardiovascular Problem Stated Complaint: AMB Time Seen by Provider: 02/26/19 13:53 Source of Information: Reports: Patient History Limitations: Reports: No Limitations - History of Present Illness INITIAL COMMENTS - FREE TEXT/NARRATIVE: History of present illness: []Patient was sent from Dr. Calvin's office hypotensive, short of breath and having right leg pain. She was transported by ambulance, in the field she had a blood pressure of 110/70 and her pain is on the lateral thigh that has been hurting for one week after falling. Review of systems: As per history of present illness and below otherwise all systems reviewed and negative. Past medical history: As per history of present illness and as reviewed below otherwise noncontributory. Surgical history: As per history of present illness and as reviewed below otherwise noncontributory. Social history: No reported history of drug or alcohol abuse. Family history: As per history of present illness and as reviewed below otherwise noncontributory. Physical exam: General: Well developed, well nourished in NAD HEENT: Atraumatic, normocephalic, pupils reactive, negative for conjunctival pallor or scleral icterus, mucous membranes moist, throat clear, neck supple, nontender, trachea midline. Lungs: Clear to auscultation, breath sounds equal bilaterally, chest nontender. Heart: S1S2, regular, negative for clicks, rubs, or JVD. Abdomen: NABS, Soft, nondistended, nontender. Negative for masses or hepatosplenomegaly. Negative for costovertebral tenderness. Pelvis: Stable nontender. Genitourinary: Deferred. Rectal: Deferred. Extremities: Atraumatic, negative for cords or calf pain. Neurovascular unremarkable. Neuro: Awake, alert, oriented. Cranial nerves II through XII unremarkable. Cerebellum unremarkable. Motor and sensory unremarkable throughout. Exam nonfocal. Skin:warm and dry Diagnostics: CT head, x-ray chest and femur, CBC, chemistry, UA Therapeutics: IV hydrated 2 L normal saline ED Course: Improved ambulated in the ED without symptoms and normal vital signs prior to discharge Impression: Dehydration, fall Prescriptions: None Plan: Take meds as directed, follow up with your primary care physician, return to ER if symptoms worsen or change. Definitive disposition and diagnosis as appropriate pending reevaluation and review of above. middle back Pain Score (Numeric/FACES): 10 - Related Data Allergies Allergy/AdvReac Type Severity Reaction Status Date / Time erythromycin lactobionate Allergy Unknown Nausea Verified 02/26/19 14:11 [From Erythrocin] mirtazapine [From Remeron] Allergy Unknown Itching Verified 02/26/19 14:11 Penicillins Allergy Unknown Hives Verified 02/26/19 14:11 tramadol Allergy Tremors Verified 02/26/19 14:11 Home Meds: Home Meds traZODone 250 mg PO BEDTIME 02/04/14 [History] Estazolam [Prosom] 2 mg PO BEDTIME 10/25/17 [History] Meloxicam [Mobic] 7.5 mg PO BIDMEALS 10/25/17 [History] buPROPion HCl [Wellbutrin Xl] 300 mg PO ACBREAKFAST 10/25/17 [History] busPIRone [Buspar] 15 mg PO TID 10/25/17 [History] hydrOXYzine pamoate [Hydroxyzine Pamoate] 50 mg PO TID 10/26/17 [History] Hydrocodone/Acetaminophen [Hydrocodon-Acetaminophn 10-325] 1 tab PO QID PRN [History] Lisinopril/Hydrochlorothiazide [Lisinopril-HCTZ 10-12.5 MG] 1 tab PO QAM [History] Magnesium 250 mg PO DAILY 02/26/19 [History] Umeclidinium Brm/Vilanterol Tr [Anoro Ellipta 62.5-25 MCG] 1 each IH DAILY 02/26 [History] Venlafaxine HCl [Venlafaxine ER] 75 mg PO DAILY 02/26/19 [History] fentaNYL [Duragesic] 100 mcg TD Q72H 02/26/19 [History] Past Medical History HEENT History: Reports: None Cardiovascular History: Reports: None Respiratory History: Reports: None Gastrointestinal History: Reports: None Genitourinary History: Reports: None [employer] History: Reports: None Musculoskeletal History: Reports: Back Pain, Chronic Neurological History: Reports: None Psychiatric History: Reports: Depression Other Psychiatric History: Sees Dr. Oconnor monthly Endocrine/Metabolic History: Reports: None Hematologic History: Reports: None Immunologic History: Reports: None Oncologic (Cancer) History: Reports: Other (See Below) Other Oncologic History: skin ca Dermatologic History: Reports: None Other Dermatologic History: "skin cancer" - Infectious Disease History Infectious Disease History: Reports: Chicken Pox - Past Surgical History Head Surgeries/Procedures: Reports: None HEENT Surgical History: Reports: None Cardiovascular Surgical History: Reports: None Respiratory Surgical History: Reports: None GI Surgical History: Reports: None Female Surgical History: Reports: None Endocrine Surgical History: Reports: None Neurological Surgical History: Reports: Lumbar Spine Musculoskeletal Surgical History: Reports: Other (See Below) Oncologic Surgical History: Reports: None Dermatological Surgical History: Reports: None Social & Family History - Family History Family Medical History: Unobtainable - Tobacco Use Smoking Status *Q: Current Every Day Smoker Years of Tobacco use: 30 Packs/Tins Daily: 0.5 - Caffeine Use Caffeine Use: Reports: Soda - Recreational Drug Use Recreational Drug Use: No ED ROS GENERAL - Review of Systems Review Of Systems: See Below ED EXAM, GENERAL - Physical Exam Exam: See Below Course - Vital Signs Last Recorded V/S: Last Vital Signs Temp 97.2 F 02/26/19 16:54 Pulse 75 02/26/19 16:54 Resp 18 02/26/19 16:54 BP 113/57 L 02/26/19 16:54 Pulse Ox 91 L 02/26/19 16:54 - Orders/Labs/Meds Orders: Active Orders 24 hr Category Date Time Status Cardiac Monitoring [RC] . DIRECTED Care 02/26/19 13:53 Active EKG Documentation Completion [RC] STAT Care 02/26/19 13:53 Active Oxygen Therapy, ED [RC] ASDIRECTED Care 02/26/19 13:53 Active RT Aerosol Therapy [RC] ASDIRECTED Care 02/26/19 13:54 Active Sodium Chloride 0.9% [Saline Flush] Med 02/26/19 13:54 Active 10 ml FLUSH ASDIRECTED PRN Sodium Chloride 0.9% [Saline Flush] Med 02/26/19 13:54 Active 2.5 ml FLUSH ASDIRECTED PRN Saline Lock Insert [OM.PC] Stat Oth 02/26/19 13:53 Ordered Medication Orders Sodium Chloride (Saline Flush) 10 ml FLUSH ASDIRECTED PRN PRN Reason: Keep Vein Open Sodium Chloride (Saline Flush) 2.5 ml FLUSH ASDIRECTED PRN PRN Reason: Keep Vein Open Labs: Laboratory Tests 02/26/19 02/26/19 02/26/19 Range/Units 14:00 14:00 14:00 WBC 15.00 H (4.0-11.0) K/uL RBC 4.51 (4.30-5.90) M/uL Hgb 13.4 (12.0-16.0) g/dL Hct 40.4 (36.0-46.0) % MCV 89.6 (80.0-98.0) fL MCH 29.7 (27.0-32.0) pg MCHC 33.2 (31.0-37.0) g/dL RDW Std Deviation 45.3 (28.0-62.0) fl RDW Coeff of Ene 14 (11.0-15.0) % Plt Count 385 (150-400) K/uL MPV 9.70 (7.40-12.00) fL Neut % (Auto) 61.9 (48.0-80.0) % Lymph % (Auto) 30.2 (16.0-40.0) % [place] % (Auto) 4.4 (0.0-15.0) % Eos % (Auto) 3.3 (0.0-7.0) % Baso % (Auto) 0.2 (0.0-1.5) % Neut # (Auto) 9.3 H (1.4-5.7) K/uL Lymph # (Auto) 4.5 H (0.6-2.4) K/uL [place] # (Auto) 0.7 (0.0-0.8) K/uL Eos # (Auto) 0.5 (0.0-0.7) K/uL Baso # (Auto) 0.0 (0.0-0.1) K/uL Nucleated RBC % 0.0 /100WBC Nucleated RBCs # 0 K/uL D-Dimer, Quantitative 0.68 H (0.0-0.50) mg/L FEU Sodium 133 L (136-145) mmol/L Potassium 4.4 (3.5-5.1) mmol/L Chloride 97 L (98-107) mmol/L Carbon Dioxide 23.8 (21.0-32.0) mmol/L BUN 37 H (7.0-18.0) mg/dL Creatinine 2.0 H (0.6-1.0) mg/dL Est Cr Clr Drug Dosing 27.63 mL/min Estimated GFR (MDRD) 25.1 ml/min Glucose 81 (74-106) mg/dL Calcium 11.0 H (8.5-10.1) mg/dL Total Bilirubin 0.4 (0.2-1.0) mg/dL AST 21 (15-37) IU/L ALT 26 (14-63) IU/L Alkaline Phosphatase 112 (46-116) U/L Troponin I < 0.050 (0.000-0.056) ng/mL Total Protein 7.3 (6.4-8.2) g/dL Albumin 3.2 L (3.4-5.0) g/dL Globulin 4.1 H (2.6-4.0) g/dL Albumin/Globulin Ratio 0.8 L (0.9-1.6) Urine Color Urine Appearance Urine pH (5.0-8.0) Ur Specific [place] (1.001-1.035) Urine Protein (NEGATIVE) mg/dL Urine Glucose (UA) (NEGATIVE) mg/dL Urine Ketones (NEGATIVE) mg/dL Urine Occult Blood (NEGATIVE) Urine Nitrite (NEGATIVE) Urine Bilirubin (NEGATIVE) Urine Urobilinogen (<2.0) EU/dL Ur Leukocyte Esterase (NEGATIVE) Urine RBC (0-2/HPF) Urine WBC (0-5/HPF) Ur Epithelial Cells (NONE-FEW) Urine Bacteria (NEGATIVE) 02/26/19 Range/Units 15:50 WBC (4.0-11.0) K/uL RBC (4.30-5.90) M/uL Hgb (12.0-16.0) g/dL Hct (36.0-46.0) % MCV (80.0-98.0) fL MCH (27.0-32.0) pg MCHC (31.0-37.0) g/dL RDW Std Deviation (28.0-62.0) fl RDW Coeff of Ene (11.0-15.0) % Plt Count (150-400) K/uL MPV (7.40-12.00) fL Neut % (Auto) (48.0-80.0) % Lymph % (Auto) (16.0-40.0) % [place] % (Auto) (0.0-15.0) % Eos % (Auto) (0.0-7.0) % Baso % (Auto) (0.0-1.5) % Neut # (Auto) (1.4-5.7) K/uL Lymph # (Auto) (0.6-2.4) K/uL [place] # (Auto) (0.0-0.8) K/uL Eos # (Auto) (0.0-0.7) K/uL Baso # (Auto) (0.0-0.1) K/uL Nucleated RBC % /100WBC Nucleated RBCs # K/uL D-Dimer, Quantitative (0.0-0.50) mg/L FEU Sodium (136-145) mmol/L Potassium (3.5-5.1) mmol/L Chloride (98-107) mmol/L Carbon Dioxide (21.0-32.0) mmol/L BUN (7.0-18.0) mg/dL Creatinine (0.6-1.0) mg/dL Est Cr Clr Drug Dosing mL/min Estimated GFR (MDRD) ml/min Glucose (74-106) mg/dL Calcium (8.5-10.1) mg/dL Total Bilirubin (0.2-1.0) mg/dL AST (15-37) IU/L ALT (14-63) IU/L Alkaline Phosphatase (46-116) U/L Troponin I (0.000-0.056) ng/mL Total Protein (6.4-8.2) g/dL Albumin (3.4-5.0) g/dL Globulin (2.6-4.0) g/dL Albumin/Globulin Ratio (0.9-1.6) Urine Color YELLOW Urine Appearance CLEAR Urine pH 7.0 (5.0-8.0) Ur Specific [place] <= 1.005 (1.001-1.035) Urine Protein NEGATIVE (NEGATIVE) mg/dL Urine Glucose (UA) NEGATIVE (NEGATIVE) mg/dL Urine Ketones NEGATIVE (NEGATIVE) mg/dL Urine Occult Blood NEGATIVE (NEGATIVE) Urine Nitrite NEGATIVE (NEGATIVE) Urine Bilirubin NEGATIVE (NEGATIVE) Urine Urobilinogen 0.2 (<2.0) EU/dL Ur Leukocyte Esterase TRACE H (NEGATIVE) Urine RBC 0-2 (0-2/HPF) Urine WBC 3-5 (0-5/HPF) Ur Epithelial Cells OCCASIONAL (NONE-FEW) Urine Bacteria RARE (NEGATIVE) Meds: Medications Generic Name Dose Route Start Last Admin Trade Name Freq PRN Reason Stop Dose Admin Sodium Chloride 10 ml 02/26/19 13:54 Saline Flush FLUSH ASDIRECTED PRN Keep Vein Open Sodium Chloride 2.5 ml 02/26/19 13:54 Saline Flush FLUSH ASDIRECTED PRN Keep Vein Open Discontinued Medications Generic Name Dose Route Start Last Admin Trade Name Freq PRN Reason Stop Dose Admin Albuterol/Ipratropium 3 ml 02/26/19 13:54 02/26/19 14:04 Duoneb 3.0-0.5 Mg/3 Ml NEB 02/26/19 13:55 3 ml ONETIME ONE Administration Sodium Chloride 1,000 mls @ 999 mls/hr 02/26/19 13:54 02/26/19 14:07 Normal Saline IV 02/26/19 14:54 999 mls/hr .Bolus ONE Administration Sodium Chloride 1,000 mls @ 999 mls/hr 02/26/19 15:31 02/26/19 15:44 Normal Saline IV 02/26/19 16:31 999 mls/hr .Bolus ONE Administration Methylprednisolone Sodium Succinate 125 mg 02/26/19 13:54 02/26/19 14:07 Solu-Medrol IVPUSH 02/26/19 13:55 125 mg ONETIME ONE Administration Methylprednisolone Sodium Succinate Confirm 02/26/19 14:02 02/26/19 14:07 Solu-Medrol Administered 02/26/19 14:03 Not Given Dose 125 mg .ROUTE .STK-MED ONE Departure - Departure Time of Disposition: 16:54 Disposition: Home, Self-Care 01 Condition: Good Clinical Impression: Dehydration, Renal insufficiency Fall Qualifiers: Encounter type: subsequent encounter Qualified Code(s): W19.XXXD - Unspecified fall, subsequent encounter Instructions: Fall Prevention in the Home, Adult, [id number], Dehydration, Adult, [id number] Referrals: PCP,Unknown [Primary Care Provider] - Forms: ED Department Discharge Additional Instructions: The following information is given to patients seen in the emergency department who are being discharged to home. This information is to outline your options for follow-up care. We provide all patients seen in our emergency department with a follow-up referral. The need for follow-up, as well as the timing and circumstances, are variable depending upon the specifics of your emergency department visit. If you don't have a primary care physician on staff, we will provide you with a referral. We always advise you to contact your personal physician following an emergency department visit to inform them of the circumstance of the visit and for follow-up with them and/or the need for any referrals to a consulting specialist. The emergency department will also refer you to a specialist when appropriate. This referral assures that you have the opportunity for follow-up care with a specialist. All of these measure are taken in an effort to provide you with optimal care, which includes your follow-up. Under all circumstances we always encourage you to contact your private physician who remains a resource for coordinating your care. When calling for follow-up care, please make the office aware that this follow-up is from your recent emergency room visit. If for any reason you are refused follow-up, please contact the [facility] Emergency Department at and asked to speak to the emergency department charge nurse. Take meds as directed, follow up with your primary care physician, return to ER if symptoms worsen or change. [facility] [address] [place] [id number] - My Orders Last 24 Hours: My Active Orders 02/26/19 13:53 Cardiac Monitoring [RC] . DIRECTED EKG Documentation Completion [RC] STAT Oxygen Therapy, ED [RC] ASDIRECTED Saline Lock Insert [OM.PC] Stat 02/26/19 13:54 RT Aerosol Therapy [RC] ASDIRECTED Sodium Chloride 0.9% [Saline Flush] 10 ml FLUSH ASDIRECTED PRN Sodium Chloride 0.9% [Saline Flush] 2.5 ml FLUSH ASDIRECTED PRN - Assessment/Plan Last 24 Hours: My Active Orders 02/26/19 13:53 Cardiac Monitoring [RC] . DIRECTED EKG Documentation Completion [RC] STAT Oxygen Therapy, ED [RC] ASDIRECTED Saline Lock Insert [OM.PC] Stat 02/26/19 13:54 RT Aerosol Therapy [RC] ASDIRECTED Sodium Chloride 0.9% [Saline Flush] 10 ml FLUSH ASDIRECTED PRN Sodium Chloride 0.9% [Saline Flush] 2.5 ml FLUSH ASDIRECTED PRN
--- NOTE | 2019-02-26 14:47 | CR ---
Chest: Portable view of the chest was obtained. Comparison: Prior chest x-ray of 10/25/17. Heart size and mediastinum are normal. Previous cervical spine surgery is seen. Lung markings are slightly increased which appears stable. No acute parenchymal change is seen. Previous lumbar spine surgery is also noted. Impression: Stable chest x-ray. Nothing acute is seen. Diagnostic code #2 MTDD
[2019-02-26 15:12] LABS: BLOOD UREA NITROGEN,BUN 37 mg/dL (7.0-18.0); CARBON DIOXIDE,CO2 23.8 mmol/L (21.0-32.0); CHLORIDE,CL 97 mmol/L (98-107); GLUCOSE RANDOM 81 mg/dL (74-106); POTASSIUM,K 4.4 mmol/L (3.5-5.1); SODIUM,NA 133 mmol/L (136-145)
--- NOTE | 2019-02-26 15:39 | CR ---
Right femur: AP and lateral views of the right femur were obtained. Joint space narrowing is partially visualized within the knee. Joint space of the right hip appears to be preserved. No fracture or other bony abnormality is seen. Impression: 1. Joint space narrowing appears to be present within the knee. 2. Right femur study is otherwise unremarkable. Diagnostic code #2 MTDD
--- NOTE | 2019-02-26 15:39 | CT ---
Head CT Technique: Multiple axial sections through the brain were obtained. Intravenous contrast was not utilized. Comparison: Prior head CT study of 10/25/17. Findings: Ventricles along with basal cisterns and sulci over the convexities are mildly prominent. Small old infarct is noted adjacent to the head of the caudate nucleus on the left side. This is an interval change from previous exam. No other abnormal parenchymal densities are seen. No evidence of intracranial hemorrhage. No midline shift or mass effect is seen. Mild mucosal thickening is seen inferiorly within the left maxillary sinus. Minimal mucosal thickening is seen within the ethmoid sinuses. Mastoid sinuses are clear. No acute calvarial abnormality is appreciated. Impression: 1. 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 This is an interval change from previous exam. 2. No other abnormal parenchymal densities are seen. 3. No intracranial hemorrhage is seen. No acute calvarial abnormality is seen. 4. Minimal sinus findings which are believed to be incidental. Diagnostic code #3 MTDD
[2019-02-26 16:56] VITALS: PULSE 75
[2019-02-26 18:38] VITALS: BP 102/62
== END 2019-02-26 17:25 | disposition home or self-care (01) ==
LOC: MW.ED 13:51
DX: E86.0 Dehydration (principal); C44.90 Unspecified malignant neoplasm of skin, unspecified; N28.9 Disorder of kidney and ureter, unspecified; M79.651 Pain in right thigh; F32.9 Major depressive disorder, single episode, unspecified; F17.210 Nicotine dependence, cigarettes, uncomplicated; Z88.1 Allergy status to other antibiotic agents; Z88.0 Allergy status to penicillin; Z88.8 Allergy status to other drugs, medicaments and biological substances; Z88.5 Allergy status to narcotic agent; Z79.899 Other long term (current) drug therapy; W19.XXXA Unspecified fall, initial encounter
CPT/HCPCS: 36415; 70450; 71045; 73552; 80053; 81001; 84484; 85025; 85379; 93005; 96361; 96374; 99285; J2930; J7040; J7620-GY

== ENCOUNTER 2019-04-21 04:42 | Observation (INO) | payer MEDICARE, MEDICAID ==
[2019-04-21] MEDS ORDERED: Sodium Chloride 0.9% 2.5 ML Syringe FLUSH PRN ×2 (04:53→06:57)
[2019-04-21] MEDS ORDERED: Sodium Chloride 0.9% 10 ML Syringe FLUSH PRN ×2 (04:53→06:57)
--- NOTE | 2019-04-21 05:00 | EDM.PDOC ---
ED HPI GENERAL MEDICAL PROBLEM - General Chief Complaint: General Stated Complaint: AMB Time Seen by Provider: 04/21/19 04:46 - History of Present Illness INITIAL COMMENTS - FREE TEXT/NARRATIVE: HISTORY AND PHYSICAL: History of present illness: The patient is a 63-year-old female with a history of hypertension COPD frequent UTIs osteoporosis and chronic pain presents via EMS stating that several hours ago she had a fall while outside and she slipped on the grass due to the slick weather and she is not sure how she landed and she believes that she passed out for a brief time and then was able to get herself to the doorway of her apartment building but she never went inside the building. She told me that a friend helped her but a bystander actually contacted EMS. She complains of neck and thoracic and lumbar back pain as well as left rib pain and left hip pain. The patient is not clear on how she fell and landed . She is not having shortness of breath and no abdominal complaints. The patient does have a history of chronic pain and does take pain medication and we are attempting to tease out what she is currently on. She has no upper extremity complaints and no pelvis pain. The patient's med list was reviewed and she is on Duragesic patch mobic and [place] 10 for pain management as well as trazodone BuSpar and other medications for psychosocial and anxiety issues. According to the computer she has seen Dr. Medardo Bernard at [facility] and she also follows with a caregiver out [facility] who is an orthopedic nurse practitioner. Review of systems: As per history of present illness and below otherwise all systems reviewed and negative. Past medical history: As per history of present illness and as reviewed below otherwise noncontributory. Surgical history: As per history of present illness and as reviewed below otherwise noncontributory. Social history: No reported history of drug or alcohol abuse. Family history: As per history of present illness and as reviewed below otherwise noncontributory. Physical exam: General: Well-developed well-nourished thin female who moves all extremities including her lower extremities and is speaking softly in the ED. She arrived on backboard and c-collar and the backboard was removed during the course of my exam but the c-collar was maintained. Vital signs are noted by me HEENT: Atraumatic, normocephalic, pupils reactive, negative for conjunctival pallor or scleral icterus, mucous membranes moist, throat clear, neck supple, nontender, trachea midline. There are no midline step-offs or defects of the cervical spine but there is diffuse paraspinal tenderness and tenderness with palpation of the entire C-spine that any one focal area and the c-collar was maintained Lungs: Clear to auscultation, breath sounds equal bilaterally, the patient has poor effort and diminished breath sounds in the bases and on palpation she says that she has tenderness to her left ribs inferiorly but there are no defects deformities or crepitus and no soft tissue changes Heart: S1S2, regular, negative for clicks, rubs, or JVD. Abdomen: Soft, nondistended, nontender. Negative for masses or hepatosplenomegaly. Negative for costovertebral tenderness. Is no abdominal wall soft tissue tenderness or changes Pelvis: Stable nontender. There is some lateral hip tenderness on the left without any bruising erythema or soft tissue changes in the patient can range of motion at the hip Genitourinary: Deferred. Rectal: Deferred. Extremities: Atraumatic all range of motion of all extremities on my examination and there are no tenderness defects or deformities throughout the extremities and some pinkish erythema at the dorsal aspects of bilateral knees without soft tissue swelling bony deformities or tenderness., negative for cords or calf pain. Neurovascular unremarkable. Neuro: Awake, alert, oriented. Cranial nerves II through XII unremarkable. Cerebellum unremarkable. Motor and sensory unremarkable throughout. Exam nonfocal. Back: There are no midline step-offs or defects of the thoracic or lumbar spine but the patient says that there is tenderness everywhere I touch along her spine and she does not have any posterior pelvis or posterior rib tenderness and no soft tissue changes abrasions ecchymosis are appreciated Diagnostics: CT scan of the head C-spine thoracic spine and lumbar spine, left hip with pelvis x-ray CT scan of the chest plane to evaluate for rib fractures as we are already doing the thoracic spine and this will reduce radiation exposure instead of doing the x-rays EKG CBC CMP CPK INR lipase [employer]: O2 monitor All testing results were discussed with the patient and we attempted to contact her brother to provide a ride home and he is not available. She tells me he is in [place]. She did give a ride of another friend and we will contact them to help assist her home. If not will offer her opportunities for transfer home. She does have pain medication at home that she will takes chronically that she can utilize for any new discomfort and we've advised her on follow-up. Impression: Fall with neck thoracic and lumbar back pain with history of chronic back pain, left rib and hip pain stable Definitive disposition and diagnosis as appropriate pending reevaluation and review of above. - Related Data Allergies Allergy/AdvReac Type Severity Reaction Status Date / Time erythromycin lactobionate Allergy Unknown Nausea Verified 04/21/19 04:47 [From Erythrocin] mirtazapine [From Remeron] Allergy Unknown Itching Verified 04/21/19 04:47 Penicillins Allergy Unknown Hives Verified 04/21/19 04:47 tramadol Allergy Tremors Verified 04/21/19 04:47 Home Meds: Home Meds traZODone 250 mg PO BEDTIME 02/04/14 [History] Estazolam [Prosom] 2 mg PO BEDTIME 10/25/17 [History] Meloxicam [Mobic] 7.5 mg PO BIDMEALS 10/25/17 [History] buPROPion HCl [Wellbutrin Xl] 300 mg PO ACBREAKFAST 10/25/17 [History] busPIRone [Buspar] 15 mg PO TID 10/25/17 [History] hydrOXYzine pamoate [Hydroxyzine Pamoate] 50 mg PO TID 10/26/17 [History] Hydrocodone/Acetaminophen [Hydrocodon-Acetaminophn 10-325] 1 tab PO QID PRN [History] Lisinopril/Hydrochlorothiazide [Lisinopril-HCTZ 10-12.5 MG] 1 tab PO QAM [History] Magnesium 250 mg PO DAILY 02/26/19 [History] Umeclidinium Brm/Vilanterol Tr [Anoro Ellipta 62.5-25 MCG] 1 each IH DAILY 02/26 [History] Venlafaxine HCl [Venlafaxine ER] 75 mg PO DAILY 02/26/19 [History] fentaNYL [Duragesic] 100 mcg TD Q72H 02/26/19 [History] Past Medical History HEENT History: Reports: None Cardiovascular History: Reports: None Respiratory History: Reports: None Gastrointestinal History: Reports: None Genitourinary History: Reports: None SMASH PIECER History: Reports: None Musculoskeletal History: Reports: Back Pain, Chronic Neurological History: Reports: None Psychiatric History: Reports: Depression Other Psychiatric History: Sees Dr. Oconnor monthly Endocrine/Metabolic History: Reports: None Hematologic History: Reports: None Immunologic History: Reports: None Oncologic (Cancer) History: Reports: Other (See Below) Other Oncologic History: skin ca Dermatologic History: Reports: None Other Dermatologic History: "skin cancer" - Infectious Disease History Infectious Disease History: Reports: Chicken Pox - Past Surgical History Head Surgeries/Procedures: Reports: None HEENT Surgical History: Reports: None Cardiovascular Surgical History: Reports: None Respiratory Surgical History: Reports: None GI Surgical History: Reports: None Female Surgical History: Reports: None Endocrine Surgical History: Reports: None Neurological Surgical History: Reports: Lumbar Spine Musculoskeletal Surgical History: Reports: Other (See Below) Oncologic Surgical History: Reports: None Dermatological Surgical History: Reports: None Social & Family History - Family History Family Medical History: Unobtainable - Caffeine Use Caffeine Use: Reports: Soda ED ROS GENERAL - Review of Systems Review Of Systems: ROS reveals no pertinent complaints other than HPI. ED EXAM, GENERAL - Physical Exam Exam: See Below (see dictation) Course - Vital Signs Last Recorded V/S: Last Vital Signs Temp 36.8 C 04/21/19 04:47 Pulse 65 04/21/19 04:47 Resp 18 04/21/19 04:47 BP 152/82 H 04/21/19 04:47 Pulse Ox 92 L 04/21/19 05:01 - Orders/Labs/Meds Orders: Active Orders 24 hr Category Date Time Status Blood Glucose Check, Bedside [RC] ONETIME Care 04/21/19 04:53 Active Cardiac Monitoring [RC] . DIRECTED Care 04/21/19 04:53 Active EKG Documentation Completion [RC] STAT Care 04/21/19 04:53 Active Oxygen Therapy, ED [RC] ASDIRECTED Care 04/21/19 04:53 Active Pulse Oximetry [RC] ASDIRECTED Care 04/21/19 04:53 Active Sodium Chloride 0.9% [Saline Flush] Med 04/21/19 04:53 Stop Req 2.5 ml FLUSH ASDIRECTED PRN Medication Orders Sodium Chloride (Saline Flush) 10 ml FLUSH ASDIRECTED PRN PRN Reason: Keep Vein Open Sodium Chloride (Saline Flush) 2.5 ml FLUSH ASDIRECTED PRN PRN Reason: Keep Vein Open Labs: Laboratory Tests 04/21/19 04/21/19 04/21/19 Range/Units 05:50 05:50 05:50 WBC 11.12 H (4.0-11.0) K/uL RBC 4.79 (4.30-5.90) M/uL Hgb 13.9 (12.0-16.0) g/dL Hct 42.3 (36.0-46.0) % MCV 88.3 (80.0-98.0) fL MCH 29.0 (27.0-32.0) pg MCHC 32.9 (31.0-37.0) g/dL RDW Std Deviation 48.7 (28.0-62.0) fl RDW Coeff of Ene 15 (11.0-15.0) % Plt Count 255 (150-400) K/uL MPV 9.90 (7.40-12.00) fL Neut % (Auto) 42.6 L (48.0-80.0) % Lymph % (Auto) 46.7 H (16.0-40.0) % Rabun % (Auto) 6.9 (0.0-15.0) % Eos % (Auto) 3.6 (0.0-7.0) % Baso % (Auto) 0.2 (0.0-1.5) % Neut # (Auto) 4.7 (1.4-5.7) K/uL Lymph # (Auto) 5.2 H (0.6-2.4) K/uL Rabun # (Auto) 0.8 (0.0-0.8) K/uL Eos # (Auto) 0.4 (0.0-0.7) K/uL Baso # (Auto) 0.0 (0.0-0.1) K/uL Nucleated RBC % 0.0 /100WBC Nucleated RBCs # 0 K/uL INR 0.96 Sodium 140 (136-145) mmol/L Potassium 3.8 (3.5-5.1) mmol/L Chloride 105 (98-107) mmol/L Carbon Dioxide 25.2 (21.0-32.0) mmol/L BUN 22 H (7.0-18.0) mg/dL Creatinine 1.2 H (0.6-1.0) mg/dL Est Cr Clr Drug Dosing 44.34 mL/min Estimated GFR (MDRD) 45.2 ml/min Glucose 88 (74-106) mg/dL Calcium 10.2 H (8.5-10.1) mg/dL Total Bilirubin 0.3 (0.2-1.0) mg/dL AST 21 (15-37) IU/L ALT 16 (14-63) IU/L Alkaline Phosphatase 114 (46-116) U/L Creatine Kinase 267 (26-308) U/L Total Protein 6.9 (6.4-8.2) g/dL Albumin 2.7 L (3.4-5.0) g/dL Globulin 4.2 H (2.6-4.0) g/dL Albumin/Globulin Ratio 0.6 L (0.9-1.6) Lipase 74 (73-393) U/L Meds: Medications Generic Name Dose Route Start Last Admin Trade Name Freq PRN Reason Stop Dose Admin Sodium Chloride 10 ml 04/21/19 04:53 Saline Flush FLUSH ASDIRECTED PRN Keep Vein Open Sodium Chloride 2.5 ml 04/21/19 04:53 Saline Flush FLUSH ASDIRECTED PRN Keep Vein Open Departure - Departure Time of Disposition: 06:39 Disposition: Home, Self-Care 01 Condition: Good Clinical Impression: Multiple contusions Chronic pain Qualifiers: Chronic pain type: other chronic pain Qualified Code(s): G89.29 - Other chronic pain Fall Qualifiers: Encounter type: initial encounter Qualified Code(s): W19.XXXA - Unspecified fall, initial encounter - Discharge Information Forms: ED Department Discharge Additional Instructions: The following information is given to patients seen in the emergency department who are being discharged to home. This information is to outline your options for follow-up care. We provide all patients seen in our emergency department with a follow-up referral. The need for follow-up, as well as the timing and circumstances, are variable depending upon the specifics of your emergency department visit. If you don't have a primary care physician on staff, we will provide you with a referral. We always advise you to contact your personal physician following an emergency department visit to inform them of the circumstance of the visit and for follow-up with them and/or the need for any referrals to a consulting specialist. The emergency department will also refer you to a specialist when appropriate. This referral assures that you have the opportunity for followup care with a specialist. All of these measure are taken in an effort to provide you with optimal care, which includes your followup. Under all circumstances we always encourage you to contact your private physician who remains a resource for coordinating your care. When calling for followup care, please make the office aware that this follow-up is from your recent emergency room visit. If for any reason you are refused follow-up, please contact the emergency department at and ask to speak to the emergency department charge nurse. [address] [place] [address] Please connect with your provider at [facility] for reevaluation and further care and also connect with your his pain specialist in [place] to discuss today's events and any adjustments in your pain regimen that may be needed. Use ice to area all areas of swelling and discomfort and push hydration. Return to ER as needed and as discussed - My Orders Last 24 Hours: My Active Orders 04/21/19 04:53 Blood Glucose Check, Bedside [RC] ONETIME Cardiac Monitoring [RC] . DIRECTED EKG Documentation Completion [RC] STAT Oxygen Therapy, ED [RC] ASDIRECTED Pulse Oximetry [RC] ASDIRECTED Sodium Chloride 0.9% [Saline Flush] 2.5 ml FLUSH ASDIRECTED PRN - Assessment/Plan Last 24 Hours: My Active Orders 04/21/19 04:53 Blood Glucose Check, Bedside [RC] ONETIME Cardiac Monitoring [RC] . DIRECTED EKG Documentation Completion [RC] STAT Oxygen Therapy, ED [RC] ASDIRECTED Pulse Oximetry [RC] ASDIRECTED Sodium Chloride 0.9% [Saline Flush] 2.5 ml FLUSH ASDIRECTED PRN
--- NOTE | 2019-04-21 05:54 | CT ---
Indication: Fall, pain Technique: Nonenhanced axial CT imaging through the head. Sagittal and coronal reconstructions are provided. Comparison: CT head without contrast 02/26/2019 Findings: There is no intracranial hemorrhage, edema, or mass effect. Stable focal hypodensity in the anterior limb of left internal capsule is consistent with remote lacunar infarct. Again demonstrated is mild patchy hypoattenuation of the cerebral white matter, likely reflecting chronic microvascular ischemic change. Intracranial atherosclerotic disease is present. The ventricles are normal in size. The basal cisterns are patent. The calvarium is intact. The visualized paranasal sinuses and mastoid air cells are aerated except for mucosal thickening of the right frontal sinus. Impression: 1. No acute intracranial process. 2. Chronic ischemic changes, as above. Please note that all CT scans at this facility use dose modulation, iterative reconstruction, and/or weight-based dosing when appropriate to reduce radiation dose to as low as reasonably achievable. Dictated by Dionna Jacques MD @ Apr 21 2019 5:51AM Signed by Dr. Dionna Jacques @ Apr 21 2019 5:54AM
--- NOTE | 2019-04-21 06:01 | CT ---
Indication: Pain following fall Technique: Nonenhanced axial CT imaging through the cervical spine. Sagittal and coronal reconstructions are provided. Comparison: MRI cervical spine 10/13/2016 Findings: No acute fracture is demonstrated. The cervical vertebral bodies are normal height. There is stable trace retrolisthesis at C3-4. Multilevel degenerative changes are again demonstrated. ACF changes are noted at C5-6 and C6-7. There is prominent left uncovertebral joint hypertrophy at C3-4 resulting in severe left neural foraminal stenosis. Severe neural foraminal stenosis is also seen at C4-5 and C5-6 bilaterally. Findings are significantly changed since prior MRI. Impression: 1. No acute fracture or traumatic malalignment. 2. Multilevel degenerative disease, similar to prior. Please note that all CT scans at this facility use dose modulation, iterative reconstruction, and/or weight-based dosing when appropriate to reduce radiation dose to as low as reasonably achievable. Dictated by Dionna Jacques MD @ Apr 21 2019 6:00AM Signed by Dr. Dionna Jacques @ Apr 21 2019 6:00AM
--- NOTE | 2019-04-21 06:06 | CT ---
INDICATION: Fall, pain COMPARISON: none TECHNIQUE: Nonenhanced axial CT imaging through the chest. Sagittal and coronal reconstructions are provided. FINDINGS: There is no displaced rib fracture, a chest wall hematoma, or pulmonary contusion. There is moderate bibasilar atelectasis and biapical pleural scarring. There is no pleural effusion or pneumothorax. The heart is not enlarged. There is no pericardial effusion. Coronary artery disease is noted. The main pulmonary artery is mildly dilated. The thoracic aorta is normal in caliber. No lymphadenopathy is appreciated in the mediastinum and pulmonary catarina. IMPRESSION: 1. Moderate bibasilar atelectasis and biapical pleural scarring. Otherwise no acute process. 2. Coronary artery disease. Please note that all CT scans at this facility use dose modulation, iterative reconstruction, and/or weight-based dosing when appropriate to reduce radiation dose to as low as reasonably achievable. Dictated by Dionna Jacques MD @ Apr 21 2019 5:49AM Signed by Dr. Dionna Jacques @ Apr 21 2019 6:05AM
--- NOTE | 2019-04-21 06:14 | CT ---
Indication: Fall, pain Technique: Nonenhanced axial CT imaging through the thoracic spine. Sagittal and coronal reconstructions are provided. Comparison: None Findings: There is normal alignment of the thoracic vertebral bodies. There is mild height loss of the inferior endplates T6 through T11 and superior endplates T7 and T11, worst at T11. These are likely chronic in nature. Multilevel degenerative disc disease is also present, most pronounced T2-3 where endplate osteophytosis results in mild bilateral neural foraminal stenosis. There is no significant narrowing of the thoracic spinal canal. Surgical changes are partially visualized in the upper lumbar spine. Impression: 1. No acute fracture or traumatic malalignment. 2. Mild multilevel compression deformities, likely chronic in nature. Please note that all CT scans at this facility use dose modulation, iterative reconstruction, and/or weight-based dosing when appropriate to reduce radiation dose to as low as reasonably achievable. Dictated by Dionna Jacques MD @ Apr 21 2019 6:05AM Signed by Dr. Dionna Jacques @ Apr 21 2019 6:13AM
[2019-04-21 06:20] LABS: CARBON DIOXIDE,CO2 25.2 mmol/L (21.0-32.0); POTASSIUM,K 3.8 mmol/L (3.5-5.1)
--- NOTE | 2019-04-21 06:23 | CT ---
Indication: Pain following fall Technique: Nonenhanced axial CT imaging through the lumbar spine. Sagittal and coronal reconstructions are provided. Comparison: MRI lumbar spine 10/19/2018 Findings: There is evidence of prior on L3 through L5 laminectomy with posterior fusion and hardware fixation spanning L1 through S1. The surgical hardware appears intact. There is lucency surrounding the L1 screws, consistent with loosening. There is chronic mild to moderate compression deformity of the L1 vertebral body with associated sclerosis, not significantly changed since prior MRI. The L2 through L5 vertebral bodies are normal in height. No acute fracture is demonstrated. Spinal alignment is maintained. No acute abnormality is demonstrated in the visualized abdomen. Multiple small low-attenuation adrenal nodules are noted bilaterally, compatible with benign lipid rich adenomas. Impression: 1. No acute fracture or traumatic malalignment. Stable chronic compression deformity of L1. 2. Posterior fusion hardware fixation spanning L1 through S1. Lucency surrounding the L1 screws, consistent with loosening. Please note that all CT scans at this facility use dose modulation, iterative reconstruction, and/or weight-based dosing when appropriate to reduce radiation dose to as low as reasonably achievable. Dictated by Dionna Jacques MD @ Apr 21 2019 6:13AM Signed by Dr. Dionna Jacquse @ Apr 21 2019 6:21AM
--- NOTE | 2019-04-21 06:25 | CR ---
Indication: Pain following fall Technique: Frontal view of the pelvis and two views the left hip Comparison: None Findings/Impression: The pelvic ring is intact. No abnormality is demonstrated in the proximal femora. The left femorotibial joint is anatomically aligned. Dictated by Dionna Jacques MD @ Apr 21 2019 6:22AM Signed by Dr. Dionna Jacques @ Apr 21 2019 6:24AM
[2019-04-21] MEDS ORDERED: Albuterol/Ipratropium 3.0-0.5 MG/3 ML Neb Soln NEB ONE (06:56)
[2019-04-21] MEDS ORDERED: Sodium Chloride 0.9% 500 ML IV SCH (07:00)
[2019-04-21] MEDS ORDERED: methylPREDNISolone Sodium Succinate 125 MG/2 ML SDV IVPUSH ONE (07:01)
[2019-04-21] MEDS ORDERED: Nicotine 21 MG/24 Hr Patch TRDERM ONE (08:09)
[2019-04-21] MEDS ORDERED: Acetaminophen 325 MG Tab PO PRN (09:18)
[2019-04-21] MEDS ORDERED: Ondansetron 4 MG/2 ML SDV IVPUSH PRN (09:18)
[2019-04-21] MEDS ORDERED: Ondansetron 4 MG Tab.DIS PO PRN (09:18)
[2019-04-21] MEDS ORDERED: Albuterol/Ipratropium 3.0-0.5 MG/3 ML Neb Soln NEB PRN (09:21)
[2019-04-21] MEDS ORDERED: Sodium Chloride 0.9% 1,000 ML IV STA (09:24)
[2019-04-21] MEDS ORDERED: Levofloxacin/Dextrose 5%-Water 750 MG in Premix Bag 1 BAG IV SCH (09:30)
--- NOTE | 2019-04-21 09:41 | PCM.HP.2 ---
H&P History of Present Illness - General Date of Service: 04/21/19 Admit Problem/Dx: Admission Diagnosis/Problem Admission Diagnosis/Problem Hypoxia - History of Present Illness Initial Comments - Free Text/Narative: 63 y/o female with history of chronic pain who presented to the ER after she fell on the ground. Patient was brought to the ER via EMS. Imaging was negative for any fractures. She was noted to by hypoxic in upper 80's on room air. She has a history of COPD. She was started on supplemental oxygen with good response. When I evaluated the patient, the patient was sleeping and would wake up and then fall back to sleep. She endorses chronic back pain. States she takes [place] and flexeril for pain. Does not recall how much she took last night. Denies any chest pain, dyspnea, abdominal pain, dysuria, diarrhea. - Related Data Allergies/Adverse Reactions: Allergies Allergy/AdvReac Type Severity Reaction Status Date / Time erythromycin lactobionate Allergy Unknown Nausea Verified 04/21/19 04:47 [From Erythrocin] mirtazapine [From Remeron] Allergy Unknown Itching Verified 04/21/19 04:47 Penicillins Allergy Unknown Hives Verified 04/21/19 04:47 tramadol Allergy Tremors Verified 04/21/19 04:47 Home Medications: Home Meds traZODone 250 mg PO BEDTIME 02/04/14 [History] Estazolam [Prosom] 2 mg PO BEDTIME 10/25/17 [History] Meloxicam [Mobic] 7.5 mg PO BIDMEALS 10/25/17 [History] buPROPion HCl [Wellbutrin Xl] 300 mg PO ACBREAKFAST 10/25/17 [History] busPIRone [Buspar] 15 mg PO TID 10/25/17 [History] hydrOXYzine pamoate [Hydroxyzine Pamoate] 50 mg PO TID 10/26/17 [History] Hydrocodone/Acetaminophen [Hydrocodon-Acetaminophn 10-325] 1 tab PO QID PRN [History] Lisinopril/Hydrochlorothiazide [Lisinopril-HCTZ 10-12.5 MG] 1 tab PO QAM [History] Magnesium 250 mg PO DAILY 02/26/19 [History] Umeclidinium Brm/Vilanterol Tr [Anoro Ellipta 62.5-25 MCG] 1 each IH DAILY 02/26 [History] Venlafaxine HCl [Venlafaxine ER] 75 mg PO DAILY 02/26/19 [History] fentaNYL [Duragesic] 100 mcg TD Q72H 02/26/19 [History] Past Medical History HEENT History: Reports: None Cardiovascular History: Reports: None Respiratory History: Reports: None Gastrointestinal History: Reports: None Genitourinary History: Reports: None 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 Oconnor monthly Endocrine/Metabolic History: Reports: None Hematologic History: Reports: None Immunologic History: Reports: None Oncologic (Cancer) History: Reports: Other (See Below) Other Oncologic History: skin ca Dermatologic History: Reports: None Other Dermatologic History: "skin cancer" - Infectious Disease History Infectious Disease History: Reports: Chicken Pox - Past Surgical History Head Surgeries/Procedures: Reports: None HEENT Surgical History: Reports: None Cardiovascular Surgical History: Reports: None Respiratory Surgical History: Reports: None GI Surgical History: Reports: None Female Surgical History: Reports: None Endocrine Surgical History: Reports: None Neurological Surgical History: Reports: Lumbar Spine Musculoskeletal Surgical History: Reports: Other (See Below) Oncologic Surgical History: Reports: None Dermatological Surgical History: Reports: None Social & Family History - Family History Family Medical History: Unobtainable - Tobacco Use Smoking Status *Q: Current Every Day Smoker Years of Tobacco use: 40 Packs/Tins Daily: 1 - Caffeine Use Caffeine Use: Reports: Soda - Recreational Drug Use Recreational Drug Use: Yes Recreational Drug Type: Reports: Marijuana/Hashish Recreational Drug Use Frequency: Daily H&P Review of Systems - Review of Systems: Review Of Systems: ROS reveals no pertinent complaints other than HPI. Exam - Exam Exam: See Below - Vital Signs Vital Signs: Last Vital Signs Temp 36.8 C 04/21/19 04:47 Pulse 85 04/21/19 07:32 Resp 18 04/21/19 07:32 BP 150/86 H 04/21/19 07:32 Pulse Ox 95 04/21/19 07:32 Weight: 68.039 kg - Exam General: Lethargic HEENT: Other (poor dentition, dry oral mucosa) Lungs: Clear to Auscultation, Crackles, Other (increased inspiratory and expiratory phases. some mild crackles bibasilarly. ). No: Wheezing Cardiovascular: Regular Rate, Regular Rhythm GI/Abdominal Exam: Normal Bowel Sounds, Soft, Non-Tender, No Distention Extremities: Normal Inspection, No Pedal Edema Skin: Warm, Dry - Patient Data Lab Results Last 24 hrs: Laboratory Results - last 24 hr 04/21/19 04/21/19 04/21/19 Range/Units 05:50 05:50 05:50 WBC 11.12 H (4.0-11.0) K/uL RBC 4.79 (4.30-5.90) M/uL Hgb 13.9 (12.0-16.0) g/dL Hct 42.3 (36.0-46.0) % MCV 88.3 (80.0-98.0) fL MCH 29.0 (27.0-32.0) pg MCHC 32.9 (31.0-37.0) g/dL RDW Std Deviation 48.7 (28.0-62.0) fl RDW Coeff of Ene 15 (11.0-15.0) % Plt Count 255 (150-400) K/uL MPV 9.90 (7.40-12.00) fL Neut % (Auto) 42.6 L (48.0-80.0) % Lymph % (Auto) 46.7 H (16.0-40.0) % [place] % (Auto) 6.9 (0.0-15.0) % Eos % (Auto) 3.6 (0.0-7.0) % Baso % (Auto) 0.2 (0.0-1.5) % Neut # (Auto) 4.7 (1.4-5.7) K/uL Lymph # (Auto) 5.2 H (0.6-2.4) K/uL [place] # (Auto) 0.8 (0.0-0.8) K/uL Eos # (Auto) 0.4 (0.0-0.7) K/uL Baso # (Auto) 0.0 (0.0-0.1) K/uL Nucleated RBC % 0.0 /100WBC Nucleated RBCs # 0 K/uL INR 0.96 Sodium 140 (136-145) mmol/L Potassium 3.8 (3.5-5.1) mmol/L Chloride 105 (98-107) mmol/L Carbon Dioxide 25.2 (21.0-32.0) mmol/L BUN 22 H (7.0-18.0) mg/dL Creatinine 1.2 H (0.6-1.0) mg/dL Est Cr Clr Drug Dosing 44.34 mL/min Estimated GFR (MDRD) 45.2 ml/min Glucose 88 (74-106) mg/dL Calcium 10.2 H (8.5-10.1) mg/dL Total Bilirubin 0.3 (0.2-1.0) mg/dL AST 21 (15-37) IU/L ALT 16 (14-63) IU/L Alkaline Phosphatase 114 (46-116) U/L Creatine Kinase 267 (26-308) U/L Total Protein 6.9 (6.4-8.2) g/dL Albumin 2.7 L (3.4-5.0) g/dL Globulin 4.2 H (2.6-4.0) g/dL Albumin/Globulin Ratio 0.6 L (0.9-1.6) Lipase 74 (73-393) U/L Result Diagrams: 04/21/19 05:50 04/21/19 05:50 Problem List Initiated/Reviewed/Updated: Yes Orders Last 24hrs: Active Orders 24 hr Category Date Time Status Patient Status [ADT] Stat ADT 04/21/19 07:02 Active Blood Glucose Check, Bedside [RC] ONETIME Care 04/21/19 04:53 Active Cardiac Monitoring [RC] . DIRECTED Care 04/21/19 04:53 Active EKG Documentation Completion [RC] STAT Care 04/21/19 04:53 Active Oxygen Therapy [RC] PRN Care 04/21/19 09:18 Active Oxygen Therapy, ED [RC] ASDIRECTED Care 04/21/19 04:53 Active Pulse Oximetry [RC] ASDIRECTED Care 04/21/19 04:53 Active Pulse Oximetry [RC] ASDIRECTED Care 04/21/19 09:32 Active RT Aerosol Therapy [RC] ASDIRECTED Care 04/21/19 06:57 Active RT Aerosol Therapy [RC] ASDIRECTED Care 04/21/19 09:21 Active Up With Assistance [RC] ASDIRECTED Care 04/21/19 09:18 Active VTE/DVT Education [RC] PER UNIT ROUTINE Care 04/21/19 09:18 Active Vital Signs [RC] Q4H Care 04/21/19 09:18 Active Regular Diet [DIET] Diet 04/21/19 Lunch Active DRUG SCREEN, URINE [URCHEM] Routine Lab 04/21/19 09:26 Ordered UA RFX KUMAR AND CULT IF INDIC [URIN] Routine Lab 04/21/19 09:26 Ordered Acetaminophen [Tylenol] Med 04/21/19 09:18 Active 650 mg PO Q4H PRN Albuterol/Ipratropium [DuoNeb 3.0-0.5 MG/3 ML] Med 04/21/19 09:21 Active 3 ml NEB Q4HRRT PRN Enoxaparin [Lovenox] Med 04/21/19 09:30 Active 40 mg SUBCUT Q24H Levofloxacin/Dextrose 5%-Water [Levaquin in D5W 750 MG/ Med 04/21/19 09:30 Active 150 ML] 750 mg Premix Bag 1 bag IV Q48H Ondansetron [Zofran ODT] Med 04/21/19 09:18 Active 4 mg PO Q4H PRN Ondansetron [Zofran] Med 04/21/19 09:18 Active 4 mg IVPUSH Q4H PRN Sodium Chloride 0.9% [Normal Saline] 1,000 ml Med 04/21/19 09:24 Active IV NOW Sodium Chloride 0.9% [Saline Flush] Med 04/21/19 06:57 Active 10 ml FLUSH ASDIRECTED PRN Sodium Chloride 0.9% [Saline Flush] Med 04/21/19 06:57 Active 2.5 ml FLUSH ASDIRECTED PRN methylPREDNISolone Sod Succ [Solu-MEDROL] Med 04/22/19 09:00 Active 40 mg IVPUSH DAILY Saline Lock Insert [OM.PC] Stat Oth 04/21/19 06:57 Ordered Resuscitation Status Routine Resus Stat 04/21/19 09:18 Ordered Medication Orders Acetaminophen (Tylenol) 650 mg PO Q4H PRN PRN Reason: Pain (Mild 1-3)/fever Albuterol/Ipratropium (Duoneb 3.0-0.5 Mg/3 Ml) 3 ml NEB Q4HRRT PRN PRN Reason: Dyspnea Enoxaparin Sodium (Lovenox) 40 mg SUBCUT Q24H RUIZ Levofloxacin/Dextrose 750 mg/ (Premix) 150 mls @ 100 mls/hr IV Q48H RUIZ Sodium Chloride (Normal Saline) 1,000 mls @ 100 mls/hr IV NOW STA Stop: 04/21/19 19:23 Last Admin: 04/21/19 09:40 Dose: 100 mls/hr Methylprednisolone Sodium Succinate (Solu-Medrol) 40 mg IVPUSH DAILY RUIZ Ondansetron HCl (Zofran) 4 mg IVPUSH Q4H PRN PRN Reason: Nausea Ondansetron HCl (Zofran Odt) 4 mg PO Q4H PRN PRN Reason: nausea, able to take PO Sodium Chloride (Saline Flush) 10 ml FLUSH ASDIRECTED PRN PRN Reason: Keep Vein Open Sodium Chloride (Saline Flush) 2.5 ml FLUSH ASDIRECTED PRN PRN Reason: Keep Vein Open Assessment/Plan Comment:: A: 1. Acute on chronic hypoxic respiratory failure 2. Acute kidney injury 3. PMH chronic pain on opioids P: 1. Acute on chronic hypoxic respiratory failure. Multifactorial. Will treat for suspected COPD exacerbation. Suspect that her prison use of opioids may be contributing to her presentation. Will monitor with pulse oximetry. Daily methylprednisolone, levaquin and Duonebs PRN. 2. CHERYL- will start maintenance fluids NS 100 ml/hr. Will recheck tomorrow. 3. PMH chronic pain- will hold pain medication for now due to patient being lethargic. Dispo: 1-2 days.
[2019-04-21] MEDS: Enoxaparin 40 MG/0.4 ML Syringe SUBCUT SCH (09:43)
[2019-04-21] MEDS: Acetaminophen/HYDROcodone 325-10 MG Tab PO PRN ×2 (13:44→20:03)
[2019-04-21] MEDS: busPIRone 5 MG Tab PO SCH ×2 (13:46→21:25)
[2019-04-21] MEDS ORDERED: traZODone 50 MG Tab PO SCH (21:00)
[2019-04-22] MEDS: Acetaminophen/HYDROcodone 325-10 MG Tab PO PRN ×3 (02:23→15:57)
[2019-04-22 06:08] LABS: CARBON DIOXIDE,CO2 31.4 mmol/L (21.0-32.0); POTASSIUM,K 4.4 mmol/L (3.5-5.1)
[2019-04-22] MEDS: buPROPion 150 MG Tab.ER PO SCH ×2 (06:21→09:25)
[2019-04-22] MEDS: busPIRone 5 MG Tab PO SCH ×2 (06:21→13:14)
[2019-04-22] MEDS ORDERED: Lisinopril/Hydrochlorothiazide 10-12.5 MG Tab PO SCH (09:00)
[2019-04-22] MEDS ORDERED: Nicotine 21 MG/24 Hr Patch TRDERM SCH (09:00)
[2019-04-22] MEDS ORDERED: Venlafaxine 75 MG Cap.ER PO SCH (09:00)
[2019-04-22] MEDS ORDERED: methylPREDNISolone Sodium Succinate 40 MG/1 ML SDV IVPUSH SCH (09:00)
[2019-04-22] MEDS: Enoxaparin 40 MG/0.4 ML Syringe SUBCUT SCH (09:26)
--- NOTE | 2019-04-22 10:45 | PCM.DCSUM1 ---
<Abrahan Yung - Last Filed: 04/22/19 13:20> Discharge Summary - Hospital Course Free Text/Narrative:: 63 y/o female with history of chronic pain who presented to the ER after falling on the ground. Patient was found to have intermittent episodes of hypoxia in the 80's. Patient was drowsy in the ER. She was admitted for acute on chronic hypoxic respiratory failure attributed to COPD exacerbation. She did fairly well during this hospitalization. She was started on Levaquin IV and methylprednisolone. Patient was more alert the following day. She remained afebrile with O2 saturation in the low 90's. She was advised to not her medications as directed since she is on chronic pain medications. In addition, she was advised to follow-up with her PCP. She was discharged on Doxycycline, prednisone and albuterol PRN. - Discharge Data Discharge Date: 04/22/19 Discharge Disposition: Home, Self-Care 01 Condition: Fair - Referral to Home Health Primary Care Physician: PCP None - Patient Instructions Diet: Regular Diet as Tolerated Activity: As Tolerated, Rest and Relax Today Notify Provider of: Fever, Increased Pain, Swelling and Redness, Nausea and/or Vomiting - Discharge Plan Prescriptions/Med Rec: Albuterol [Ventolin HFA] 1 puff INH Q4H PRN #1 inhaler PRN Reason: Dyspnea Doxycycline [Vibramycin] 100 mg PO BID 5 Days #10 cap predniSONE [Prednisone] 20 mg PO DAILY #5 tablet Home Medications: Home Meds traZODone 250 mg PO BEDTIME 02/04/14 [History] Estazolam [Prosom] 2 mg PO BEDTIME 10/25/17 [History] Meloxicam [Mobic] 7.5 mg PO BIDMEALS 10/25/17 [History] buPROPion HCl [Wellbutrin Xl] 300 mg PO ACBREAKFAST 10/25/17 [History] busPIRone [Buspar] 15 mg PO TID 10/25/17 [History] hydrOXYzine pamoate [Hydroxyzine Pamoate] 50 mg PO TID 10/26/17 [History] Hydrocodone/Acetaminophen [Hydrocodon-Acetaminophn 10-325] 1 tab PO QID PRN [History] Lisinopril/Hydrochlorothiazide [Lisinopril-HCTZ 10-12.5 MG] 1 tab PO QAM [History] Magnesium 250 mg PO DAILY 02/26/19 [History] Umeclidinium Brm/Vilanterol Tr [Anoro Ellipta 62.5-25 MCG] 1 each IH DAILY 02/26 [History] Venlafaxine HCl [Venlafaxine ER] 75 mg PO DAILY 02/26/19 [History] fentaNYL [Duragesic] 100 mcg TD Q72H 02/26/19 [History] Albuterol [Ventolin HFA] 1 puff INH Q4H PRN #1 inhaler 04/22/19 [Rx] Doxycycline [Vibramycin] 100 mg PO BID 5 Days #10 cap 04/22/19 [Rx] predniSONE [Prednisone] 20 mg PO DAILY #5 tablet 04/22/19 [Rx] Patient Handouts: Chronic Obstructive Pulmonary Disease Exacerbation, Easy-to- Read, Albuterol inhalation aerosol, Contusion, [id number], Doxycycline tablets or capsules, Chronic Pain, Adult, Prednisone tablets Referrals: [facility] [Outside] Medardo Calvin MD [Physician] - 05/01/19 9:00 am - Discharge Summary/Plan Comment DC Time >30 min.: No - Patient Data Vitals - Most Recent: Last Vital Signs Temp 36.3 C 04/22/19 09:00 Pulse 70 04/22/19 09:00 Resp 18 04/22/19 09:00 BP 151/76 H 04/22/19 09:00 Pulse Ox 94 L 04/22/19 09:00 Weight - Most Recent: 68.039 kg I&O - Last 24 hours: Intake & Output 04/21/19 04/22/19 04/22/19 22:59 06:59 14:59 Intake Total 743 1278 Output Total 300 550 Balance 443 728 Lab Results - Last 24 hrs: Laboratory Results - last 24 hr 04/21/19 04/21/19 04/22/19 Range/Units 05:50 19:45 05:10 WBC 10.67 (4.0-11.0) K/uL RBC 4.03 L (4.30-5.90) M/uL Hgb 11.4 L (12.0-16.0) g/dL Hct 36.6 (36.0-46.0) % MCV 90.8 (80.0-98.0) fL MCH 28.3 (27.0-32.0) pg MCHC 31.1 (31.0-37.0) g/dL RDW Std Deviation 51.3 (28.0-62.0) fl RDW Coeff of Ene 15 (11.0-15.0) % Plt Count 265 (150-400) K/uL MPV 9.90 (7.40-12.00) fL Neut % (Auto) 51.4 (48.0-80.0) % Lymph % (Auto) 39.1 (16.0-40.0) % [place] % (Auto) 8.7 (0.0-15.0) % Eos % (Auto) 0.7 (0.0-7.0) % Baso % (Auto) 0.1 (0.0-1.5) % Neut # (Auto) 5.5 (1.4-5.7) K/uL Lymph # (Auto) 4.2 H (0.6-2.4) K/uL [place] # (Auto) 0.9 H (0.0-0.8) K/uL Eos # (Auto) 0.1 (0.0-0.7) K/uL Baso # (Auto) 0.0 (0.0-0.1) K/uL Nucleated RBC % 0.0 /100WBC Nucleated RBCs # 0 K/uL Sodium (136-145) mmol/L Potassium (3.5-5.1) mmol/L Chloride (98-107) mmol/L Carbon Dioxide (21.0-32.0) mmol/L BUN (7.0-18.0) mg/dL Creatinine (0.6-1.0) mg/dL Est Cr Clr Drug Dosing mL/min Estimated GFR (MDRD) ml/min Glucose (74-106) mg/dL Calcium (8.5-10.1) mg/dL Total Bilirubin (0.2-1.0) mg/dL AST (15-37) IU/L ALT (14-63) IU/L Alkaline Phosphatase (46-116) U/L Total Protein (6.4-8.2) g/dL Albumin (3.4-5.0) g/dL Globulin (2.6-4.0) g/dL Albumin/Globulin Ratio (0.9-1.6) Urine Color YELLOW Urine Appearance CLEAR Urine pH 6.0 (5.0-8.0) Ur Specific [place] 1.025 (1.001-1.035) Urine Protein NEGATIVE (NEGATIVE) mg/dL Urine Glucose (UA) NEGATIVE (NEGATIVE) mg/dL Urine Ketones NEGATIVE (NEGATIVE) mg/dL Urine Occult Blood NEGATIVE (NEGATIVE) Urine Nitrite NEGATIVE (NEGATIVE) Urine Bilirubin NEGATIVE (NEGATIVE) Urine Urobilinogen 0.2 (<2.0) EU/dL Ur Leukocyte Esterase NEGATIVE (NEGATIVE) Ethyl Alcohol <3 mg/dL 04/22/19 Range/Units 05:10 WBC (4.0-11.0) K/uL RBC (4.30-5.90) M/uL Hgb (12.0-16.0) g/dL Hct (36.0-46.0) % MCV (80.0-98.0) fL MCH (27.0-32.0) pg MCHC (31.0-37.0) g/dL RDW Std Deviation (28.0-62.0) fl RDW Coeff of Ene (11.0-15.0) % Plt Count (150-400) K/uL MPV (7.40-12.00) fL Neut % (Auto) (48.0-80.0) % Lymph % (Auto) (16.0-40.0) % [place] % (Auto) (0.0-15.0) % Eos % (Auto) (0.0-7.0) % Baso % (Auto) (0.0-1.5) % Neut # (Auto) (1.4-5.7) K/uL Lymph # (Auto) (0.6-2.4) K/uL [place] # (Auto) (0.0-0.8) K/uL Eos # (Auto) (0.0-0.7) K/uL Baso # (Auto) (0.0-0.1) K/uL Nucleated RBC % /100WBC Nucleated RBCs # K/uL Sodium 142 (136-145) mmol/L Potassium 4.4 (3.5-5.1) mmol/L Chloride 108 H (98-107) mmol/L Carbon Dioxide 31.4 (21.0-32.0) mmol/L BUN 21 H (7.0-18.0) mg/dL Creatinine 1.1 H (0.6-1.0) mg/dL Est Cr Clr Drug Dosing 50.24 mL/min Estimated GFR (MDRD) 50.0 ml/min Glucose 87 (74-106) mg/dL Calcium 9.6 (8.5-10.1) mg/dL Total Bilirubin 0.2 (0.2-1.0) mg/dL AST 16 (15-37) IU/L ALT 14 (14-63) IU/L Alkaline Phosphatase 89 (46-116) U/L Total Protein 5.9 L (6.4-8.2) g/dL Albumin 2.2 L (3.4-5.0) g/dL Globulin 3.7 (2.6-4.0) g/dL Albumin/Globulin Ratio 0.6 L (0.9-1.6) Urine Color Urine Appearance Urine pH (5.0-8.0) Ur Specific [place] (1.001-1.035) Urine Protein (NEGATIVE) mg/dL Urine Glucose (UA) (NEGATIVE) mg/dL Urine Ketones (NEGATIVE) mg/dL Urine Occult Blood (NEGATIVE) Urine Nitrite (NEGATIVE) Urine Bilirubin (NEGATIVE) Urine Urobilinogen (<2.0) EU/dL Ur Leukocyte Esterase (NEGATIVE) Ethyl Alcohol mg/dL Med Orders - Current: Current Medications Acetaminophen (Tylenol) 650 mg PO Q4H PRN PRN Reason: Pain (Mild 1-3)/fever Last Admin: 04/21/19 12:56 Dose: 650 mg Hydrocodone Bitart/Acetaminophen ([place] 325-10 Mg) 1 tab PO QID PRN PRN Reason: Pain Last Admin: 04/22/19 09:46 Dose: 1 tab Albuterol/Ipratropium (Duoneb 3.0-0.5 Mg/3 Ml) 3 ml NEB Q4HRRT PRN PRN Reason: Dyspnea Bupropion HCl (Wellbutrin Xl) 300 mg PO ACBREAKFAST [facility] Last Admin: 04/22/19 09:25 Dose: Not Given Buspirone HCl (Buspar) 15 mg PO TID [facility] Last Admin: 04/22/19 06:21 Dose: 15 mg Enoxaparin Sodium (Lovenox) 40 mg SUBCUT Q24H [facility] Last Admin: 04/22/19 09:26 Dose: 40 mg Lisinopril/HCTZ (Lisinopril-Hctz 10-12.5 Mg) 1 tab PO QAM [facility] Last Admin: 04/22/19 09:26 Dose: 1 tab Levofloxacin/Dextrose 750 mg/ (Premix) 150 mls @ 100 mls/hr IV Q48H [facility] Last Admin: 04/21/19 09:42 Dose: 100 mls/hr Methylprednisolone Sodium Succinate (Solu-Medrol) 40 mg IVPUSH DAILY [facility] Last Admin: 04/22/19 09:27 Dose: 40 mg Nicotine (Habitrol) 21 mg TRDERM DAILY [facility] Last Admin: 04/22/19 09:27 Dose: 21 mg Ondansetron HCl (Zofran) 4 mg IVPUSH Q4H PRN PRN Reason: Nausea Ondansetron HCl (Zofran Odt) 4 mg PO Q4H PRN PRN Reason: nausea, able to take PO Sodium Chloride (Saline Flush) 10 ml FLUSH ASDIRECTED PRN PRN Reason: Keep Vein Open Sodium Chloride (Saline Flush) 2.5 ml FLUSH ASDIRECTED PRN PRN Reason: Keep Vein Open Trazodone HCl (Trazodone) 250 mg PO BEDTIME [facility] Venlafaxine HCl (Effexor Xr) 75 mg PO DAILY [facility] Last Admin: 04/22/19 09:26 Dose: 75 mg Zaleplon ([place]) 5 mg PO BEDTIME PRN PRN Reason: INSOMNIA Discontinued Medications Albuterol/Ipratropium (Duoneb 3.0-0.5 Mg/3 Ml) 3 ml NEB ONETIME ONE Stop: 04/21/19 06:57 Last Admin: 04/21/19 07:02 Dose: 3 ml Sodium Chloride (Normal Saline) 500 mls @ 999 mls/hr IV STAT [facility] Last Admin: 04/21/19 07:15 Dose: 999 mls/hr Sodium Chloride (Normal Saline) 1,000 mls @ 100 mls/hr IV NOW STA Stop: 04/21/19 19:23 Last Admin: 04/21/19 09:40 Dose: 100 mls/hr Methylprednisolone Sodium Succinate (Solu-Medrol) 62.5 mg IVPUSH ONETIME ONE Stop: 04/21/19 07:02 Last Admin: 04/21/19 07:15 Dose: 62.5 mg Nicotine (Habitrol) 21 mg TRDERM ONETIME ONE Stop: 04/21/19 08:10 Last Admin: 04/21/19 08:14 Dose: 21 mg Sodium Chloride (Saline Flush) 10 ml FLUSH ASDIRECTED PRN PRN Reason: Keep Vein Open Sodium Chloride (Saline Flush) 2.5 ml FLUSH ASDIRECTED PRN PRN Reason: Keep Vein Open <Vin Pritchett J - Last Filed: 04/22/19 18:48> Discharge Summary - Referral to Home Health Primary Care Physician: PCP None - Patient Data Vitals - Most Recent: Last Vital Signs Temp 36.2 C 04/22/19 12:57 Pulse 69 04/22/19 12:57 Resp 18 04/22/19 12:57 BP 123/71 04/22/19 12:57 Pulse Ox 94 L 04/22/19 13:30 I&O - Last 24 hours: Intake & Output 04/22/19 04/22/19 04/22/19 06:59 14:59 22:59 Intake Total 1278 600 Output Total 550 520 Balance 728 80 Lab Results - Last 24 hrs: Laboratory Results - last 24 hr 04/21/19 04/22/19 04/22/19 Range/Units 19:45 05:10 05:10 WBC 10.67 (4.0-11.0) K/uL RBC 4.03 L (4.30-5.90) M/uL Hgb 11.4 L (12.0-16.0) g/dL Hct 36.6 (36.0-46.0) % MCV 90.8 (80.0-98.0) fL MCH 28.3 (27.0-32.0) pg MCHC 31.1 (31.0-37.0) g/dL RDW Std Deviation 51.3 (28.0-62.0) fl RDW Coeff of Ene 15 (11.0-15.0) % Plt Count 265 (150-400) K/uL MPV 9.90 (7.40-12.00) fL Neut % (Auto) 51.4 (48.0-80.0) % Lymph % (Auto) 39.1 (16.0-40.0) % [place] % (Auto) 8.7 (0.0-15.0) % Eos % (Auto) 0.7 (0.0-7.0) % Baso % (Auto) 0.1 (0.0-1.5) % Neut # (Auto) 5.5 (1.4-5.7) K/uL Lymph # (Auto) 4.2 H (0.6-2.4) K/uL [place] # (Auto) 0.9 H (0.0-0.8) K/uL Eos # (Auto) 0.1 (0.0-0.7) K/uL Baso # (Auto) 0.0 (0.0-0.1) K/uL Nucleated RBC % 0.0 /100WBC Nucleated RBCs # 0 K/uL Sodium 142 (136-145) mmol/L Potassium 4.4 (3.5-5.1) mmol/L Chloride 108 H (98-107) mmol/L Carbon Dioxide 31.4 (21.0-32.0) mmol/L BUN 21 H (7.0-18.0) mg/dL Creatinine 1.1 H (0.6-1.0) mg/dL Est Cr Clr Drug Dosing 50.24 mL/min Estimated GFR (MDRD) 50.0 ml/min Glucose 87 (74-106) mg/dL Calcium 9.6 (8.5-10.1) mg/dL Total Bilirubin 0.2 (0.2-1.0) mg/dL AST 16 (15-37) IU/L ALT 14 (14-63) IU/L Alkaline Phosphatase 89 (46-116) U/L Total Protein 5.9 L (6.4-8.2) g/dL Albumin 2.2 L (3.4-5.0) g/dL Globulin 3.7 (2.6-4.0) g/dL Albumin/Globulin Ratio 0.6 L (0.9-1.6) Urine Color YELLOW Urine Appearance CLEAR Urine pH 6.0 (5.0-8.0) Ur Specific [place] 1.025 (1.001-1.035) Urine Protein NEGATIVE (NEGATIVE) mg/dL Urine Glucose (UA) NEGATIVE (NEGATIVE) mg/dL Urine Ketones NEGATIVE (NEGATIVE) mg/dL Urine Occult Blood NEGATIVE (NEGATIVE) Urine Nitrite NEGATIVE (NEGATIVE) Urine Bilirubin NEGATIVE (NEGATIVE) Urine Urobilinogen 0.2 (<2.0) EU/dL Ur Leukocyte Esterase NEGATIVE (NEGATIVE) Med Orders - Current: Current Medications Discontinued Medications Acetaminophen (Tylenol) 650 mg PO Q4H PRN PRN Reason: Pain (Mild 1-3)/fever Last Admin: 04/21/19 12:56 Dose: 650 mg Hydrocodone Bitart/Acetaminophen ([place] 325-10 Mg) 1 tab PO QID PRN PRN Reason: Pain Last Admin: 04/22/19 15:57 Dose: 1 tab Albuterol/Ipratropium (Duoneb 3.0-0.5 Mg/3 Ml) 3 ml NEB ONETIME ONE Stop: 04/21/19 06:57 Last Admin: 04/21/19 07:02 Dose: 3 ml Albuterol/Ipratropium (Duoneb 3.0-0.5 Mg/3 Ml) 3 ml NEB Q4HRRT PRN PRN Reason: Dyspnea Bupropion HCl (Wellbutrin Xl) 300 mg PO ACBREAKFAST [facility] Last Admin: 04/22/19 09:25 Dose: Not Given Buspirone HCl (Buspar) 15 mg PO TID [facility] Last Admin: 04/22/19 13:14 Dose: 15 mg Enoxaparin Sodium (Lovenox) 40 mg SUBCUT Q24H [facility] Last Admin: 04/22/19 09:26 Dose: 40 mg Lisinopril/HCTZ (Lisinopril-Hctz 10-12.5 Mg) 1 tab PO QAM [facility] Last Admin: 04/22/19 09:26 Dose: 1 tab Hydroxyzine Pamoate (Vistaril) 50 mg PO TID [facility] Last Admin: 04/22/19 13:16 Dose: 50 mg Sodium Chloride (Normal Saline) 500 mls @ 999 mls/hr IV STAT [facility] Last Admin: 04/21/19 07:15 Dose: 999 mls/hr Levofloxacin/Dextrose 750 mg/ (Premix) 150 mls @ 100 mls/hr IV Q48H [facility] Last Admin: 04/21/19 09:42 Dose: 100 mls/hr Sodium Chloride (Normal Saline) 1,000 mls @ 100 mls/hr IV NOW STA Stop: 04/21/19 19:23 Last Admin: 04/21/19 09:40 Dose: 100 mls/hr Methylprednisolone Sodium Succinate (Solu-Medrol) 62.5 mg IVPUSH ONETIME ONE Stop: 04/21/19 07:02 Last Admin: 04/21/19 07:15 Dose: 62.5 mg Methylprednisolone Sodium Succinate (Solu-Medrol) 40 mg IVPUSH DAILY [facility] Last Admin: 04/22/19 09:27 Dose: 40 mg Nicotine (Habitrol) 21 mg TRDERM ONETIME ONE Stop: 04/21/19 08:10 Last Admin: 04/21/19 08:14 Dose: 21 mg Nicotine (Habitrol) 21 mg TRDERM DAILY [facility] Last Admin: 04/22/19 09:27 Dose: 21 mg Ondansetron HCl (Zofran) 4 mg IVPUSH Q4H PRN PRN Reason: Nausea Ondansetron HCl (Zofran Odt) 4 mg PO Q4H PRN PRN Reason: nausea, able to take PO Sodium Chloride (Saline Flush) 10 ml FLUSH ASDIRECTED PRN PRN Reason: Keep Vein Open Sodium Chloride (Saline Flush) 2.5 ml FLUSH ASDIRECTED PRN PRN Reason: Keep Vein Open Sodium Chloride (Saline Flush) 10 ml FLUSH ASDIRECTED PRN PRN Reason: Keep Vein Open Sodium Chloride (Saline Flush) 2.5 ml FLUSH ASDIRECTED PRN PRN Reason: Keep Vein Open Trazodone HCl (Trazodone) 250 mg PO BEDTIME [facility] Venlafaxine HCl (Effexor Xr) 75 mg PO DAILY [facility] Last Admin: 04/22/19 09:26 Dose: 75 mg Zaleplon (Sonata) 5 mg PO BEDTIME PRN PRN Reason: INSOMNIA - Free Text/Narrative Note: I have seen and evaluated the patient with the resident. I have discussed findings and treatment plan with the resident. I agree with the assessment and plan outlined in the following note.
[2019-04-22 12:59] VITALS: BP 123/71; PULSE 69
[2019-04-22] MEDS ORDERED: hydrOXYzine Pamoate 25 MG Cap PO SCH (14:00)
== END 2019-04-22 16:50 | disposition home or self-care (01) ==
LOC: MW.ED 04:42 → MW.MS 08:12
PROVIDERS: ADMIT Internal Medicine; ATTEND Internal Medicine
DX: J96.21 Acute and chronic respiratory failure with hypoxia (principal); J44.1 Chronic obstructive pulmonary disease with (acute) exacerbation; N17.9 Acute kidney failure, unspecified; G89.29 Other chronic pain; F32.9 Major depressive disorder, single episode, unspecified; F17.210 Nicotine dependence, cigarettes, uncomplicated; Z79.891 Long term (current) use of opiate analgesic; Z79.899 Other long term (current) drug therapy; Z88.1 Allergy status to other antibiotic agents; Z88.8 Allergy status to other drugs, medicaments and biological substances; Z88.0 Allergy status to penicillin
CPT/HCPCS: 36415; 70450; 71250; 72125; 72128; 72131; 73502; 80053; 81003; 82550; 83690; 85025; 85610; 93005; 94640; A9270; G0480; J1650; J1956; J2920; J2930; J7040; J7620-GY

== ENCOUNTER 2019-07-07 01:32 | Observation (INO) | payer MEDICARE, MEDICAID ==
[2019-07-07] MEDS ORDERED: methylPREDNISolone Sodium Succinate 125 MG/2 ML SDV IVPUSH ONE (01:46)
[2019-07-07] MEDS ORDERED: Sodium Chloride 0.9% 2.5 ML Syringe FLUSH PRN (01:46)
[2019-07-07] MEDS ORDERED: Sodium Chloride 0.9% 10 ML Syringe FLUSH PRN (01:46)
[2019-07-07] MEDS ORDERED: Albuterol/Ipratropium 3.0-0.5 MG/3 ML Neb Soln NEB ONE (01:46)
[2019-07-07] MEDS ORDERED: Sodium Chloride 0.9% 1,000 ML IV ONE (01:46)
--- NOTE | 2019-07-07 01:48 | EDM.PDOC ---
ED HPI GENERAL MEDICAL PROBLEM - General Chief Complaint: Respiratory Problem Stated Complaint: AMB Time Seen by Provider: 07/07/19 01:38 - History of Present Illness INITIAL COMMENTS - FREE TEXT/NARRATIVE: HISTORY AND PHYSICAL: History of present illness: The patient Is a 63-year-old female with a history of COPD who uses only a maintenance inhaler, Ellipta, but has an albuterol inhaler which she does not use as a rescue and no nebulizer treatments or oxygen at home and who follows with Dr. Calvin at [facility] and presents via EMS with complaints of shortness of breath had started a few hours ago. The patient said he has an upcoming appointment with Dr. Calvin and she did not get her flu shot this year. The patient is a known smoker and continues to smoke despite her COPD diagnosis. The patient also has a history of chronic pain issues for which she takes multiple medications and she was last seen here in our emergency department on April 21 and was admitted overnight after sustaining a fall and being evaluated by me. She was admitted due to persistent hypoxia which was asymptomatic. She only spent the night and improved steadily and was treated as a COPD exacerbation and discharged home. The patient said that she did take that medication and finish the therapy and it is unclear if she followed up with Dr. Calvin. She denies any cardiac history and has no chest pain no cough productive of phlegm no fevers chills nausea vomiting or abdominal pain and she tells me she feels lightheaded and shaky but she has not had any falls nor has she passed out or blacked out. She has no new pain symptomatology here in the ED. Per her prior admission her discharge room air O2 sat was 94% and EMS reported that on their arrival to bring her here to the ED she was 93 to 94% on room air. They did place her on 2 L of oxygen therapy for comfort. She says she is starting to feel better in the ED. She says that she is eating and drinking normally and does hydrate and is also having normal bowel movements and urine output. SHe tells me she does feel less short of breath here. Please see Below for more information. Review of systems: As per history of present illness and below otherwise all systems reviewed and negative. Past medical history: As per history of present illness and as reviewed below otherwise noncontributory. Surgical history: As per history of present illness and as reviewed below otherwise noncontributory. Social history: No reported history of drug or alcohol abuse. Family history: As per history of present illness and as reviewed below otherwise noncontributory. Physical exam: General: Well-developed well-nourished thin female who is nontoxic and speaking clearly without breathlessness or hoarse or muffled voice. Vital signs are noted by me HEENT: Atraumatic, normocephalic, pupils reactive, negative for conjunctival pallor or scleral icterus, mucous membranes moist, throat clear, neck supple, nontender, trachea midline. Lungs: Clear to auscultation with some diminished breath sounds in the bases bilaterally but no work of breathing stridor and only an occasional coarse breath sound without overt wheezing, breath sounds equal bilaterally, chest nontender. Heart: S1S2, regular, negative for clicks, rubs, or JVD. Abdomen: Soft, nondistended, nontender. Bowel sounds are normoactive negative for masses or hepatosplenomegaly. Negative for costovertebral tenderness. Pelvis: Stable nontender. Genitourinary: Deferred. Rectal: Deferred. Extremities: Atraumatic, negative for cords or calf pain. Neurovascular unremarkable. There is no pedal edema Neuro: Awake, alert, oriented. Cranial nerves II through XII unremarkable. Cerebellum unremarkable. Motor and sensory unremarkable throughout. Exam nonfocal. Diagnostics: EKG x 2 chest x-ray CBC CMP magnesium level troponin UA with reflex influenza orthostatic vitals G Therapeutics: IV O2 monitor IV fluids DuoNeb Solu-Medrol, spacer and spacer teaching, elizabeth, I will give her her regular dose of BuSpar 15 mg which I have confirmed from her last discharge, hydroxyzine Laboratory values from today were compared to prior visits and today's BUN of 27 is comparable to ones in April 2019 of 21 and 22 and is improved from that of February 26, 2019 which was 37. The creatinine of 1.7 is higher than those in April which were 1.1-1.2 but in February of this past year it was up as high as 2.0. The patient has been advised that these test needs follow- up with her provider in the clinic and we are currently giving her hydration. She says she is making urine output without issues or difficulties. We are currently awaiting the results of her chest x-ray and the patient still keeps telling staff that she is feeling lightheaded although her O2 saturation is at her baseline she is not tachypneic nor tachycardic and she otherwise is looking similar to her initial presentation. We will repeat an EKG and do orthostatic vitals. The patient is telling me that she feels very shaky and that she normally does take BuSpar throughout the day as well as trazodone for sleep and that [facility] brings her her medications every Monday for the whole week. She is telling me that she did not have a dose to take last evening for sleep and she is not sure why she did not have a dose as they usually bring her a week supply. She does not recall taking an extra dose and she says that she feels very anxious and would like something for that. I will give her a dose of Ativan and reevaluate. I have offered her dose of her regular medication for home but she has no ride currently and we will need to readdress that once she settled down somewhat. Her O2 sat on room air is currently 98% and she is not feeling dyspneic anymore she is just feeling shaky. We will also order an ABG just to ensure that the patient is not having CO2 retention 0420: Discussed with Dr. Pritchett as the patient still remains agitated but her ABG is somewhat confusing as it is likely a mixed sample and her current respiratory rate is 24 with an O2 sat of 93 to 95%. We have discussed the case at length and he agrees with observation admission as the patient remains agitated and will not be getting any of her medications until Monday morning. The ABG presents a confusing picture as it may indicate hyperventilation but in light of the patient's respiratory rate of only 24 there is some confusion regarding that. He agrees that the case is not quite clear-cut but will watch the patient on the floor. I will also get her a dose of her hydroxyzine and she has just received the BuSpar and she is aware of the plan and is agreeable mpression: lightheadedness/persistent agitation with history of anxiety; subjective dyspnea with story of COPD Definitive disposition and diagnosis as appropriate pending reevaluation and review of above. - Related Data Allergies Allergy/AdvReac Type Severity Reaction Status Date / Time erythromycin lactobionate Allergy Unknown Itching Verified 07/07/19 01:46 [From Erythrocin] mirtazapine [From Remeron] Allergy Unknown Itching Verified 07/07/19 01:46 Penicillins Allergy Unknown Hives Verified 07/07/19 01:46 tramadol Allergy Tremors Verified 07/07/19 01:46 Home Meds: Home Meds traZODone 250 mg PO BEDTIME 02/04/14 [History] Estazolam [Prosom] 2 mg PO BEDTIME 10/25/17 [History] Meloxicam [Mobic] 7.5 mg PO BIDMEALS 10/25/17 [History] buPROPion HCl [Wellbutrin Xl] 300 mg PO ACBREAKFAST 10/25/17 [History] busPIRone [Buspar] 15 mg PO TID 10/25/17 [History] hydrOXYzine pamoate [Hydroxyzine Pamoate] 50 mg PO TID 10/26/17 [History] Hydrocodone/Acetaminophen [Hydrocodon-Acetaminophn 10-325] 1 tab PO QID PRN [History] Lisinopril/Hydrochlorothiazide [Lisinopril-HCTZ 10-12.5 MG] 1 tab PO QAM [History] Magnesium 250 mg PO DAILY 02/26/19 [History] Umeclidinium Brm/Vilanterol Tr [Anoro Ellipta 62.5-25 MCG] 1 each IH DAILY 02/26 [History] Venlafaxine HCl [Venlafaxine ER] 75 mg PO DAILY 02/26/19 [History] fentaNYL [Duragesic] 100 mcg TD Q72H 02/26/19 [History] Albuterol [Ventolin HFA] 1 puff INH Q4H PRN #1 inhaler 04/22/19 [Rx] Past Medical History HEENT History: Reports: None Cardiovascular History: Reports: None Respiratory History: Reports: None Gastrointestinal History: Reports: None Genitourinary History: Reports: None DIRECTOR OF LOSS PREVENTION History: Reports: None Musculoskeletal History: Reports: Back Pain, Chronic Neurological History: Reports: None Psychiatric History: Reports: Depression Other Psychiatric History: Sees Dr. Oconnor monthly Endocrine/Metabolic History: Reports: None Hematologic History: Reports: None Immunologic History: Reports: None Oncologic (Cancer) History: Reports: Other (See Below) Other Oncologic History: skin ca Dermatologic History: Reports: None Other Dermatologic History: "skin cancer" - Infectious Disease History Infectious Disease History: Reports: Chicken Pox - Past Surgical History Head Surgeries/Procedures: Reports: None HEENT Surgical History: Reports: None Cardiovascular Surgical History: Reports: None Respiratory Surgical History: Reports: None GI Surgical History: Reports: None Female Surgical History: Reports: None Endocrine Surgical History: Reports: None Neurological Surgical History: Reports: Lumbar Spine Musculoskeletal Surgical History: Reports: Other (See Below) Oncologic Surgical History: Reports: None Dermatological Surgical History: Reports: None Social & Family History - Family History Family Medical History: Unobtainable - Caffeine Use Caffeine Use: Reports: Soda ED ROS GENERAL - Review of Systems Review Of Systems: Comprehensive ROS is negative, except as noted in HPI. ED EXAM, GENERAL - Physical Exam Exam: See Below (see Dictation) Course - Vital Signs Last Recorded V/S: Last Vital Signs Temp 35.5 C 07/07/19 01:35 Pulse 76 07/07/19 01:35 Resp 23 H 07/07/19 01:35 BP 151/78 H 07/07/19 01:35 Pulse Ox 96 07/07/19 01:35 - Orders/Labs/Meds Orders: Active Orders 24 hr Category Date Time Status Cardiac Monitoring [RC] . DIRECTED Care 07/07/19 01:45 Active Communication Order [RC] STAT Care 07/07/19 02:23 Active EKG Documentation Completion [RC] STAT Care 07/07/19 01:45 Active EKG Documentation Completion [RC] STAT Care 07/07/19 02:47 Active Orthostatic Vital Signs [RC] ASDIRECTED Care 07/07/19 02:48 Active Oxygen Therapy, ED [RC] ASDIRECTED Care 07/07/19 01:45 Active Pulse Oximetry [RC] ASDIRECTED Care 07/07/19 01:45 Active RT Aerosol Therapy [RC] ASDIRECTED Care 07/07/19 01:46 Active Sodium Chloride 0.9% [Saline Flush] Med 07/07/19 01:46 Active 10 ml FLUSH ASDIRECTED PRN Sodium Chloride 0.9% [Saline Flush] Med 07/07/19 01:46 Active 2.5 ml FLUSH ASDIRECTED PRN Saline Lock Insert [OM.PC] Stat Oth 07/07/19 01:45 Ordered Medication Orders Sodium Chloride (Saline Flush) 10 ml FLUSH ASDIRECTED PRN PRN Reason: Keep Vein Open Sodium Chloride (Saline Flush) 2.5 ml FLUSH ASDIRECTED PRN PRN Reason: Keep Vein Open Labs: Laboratory Tests 07/07/19 07/07/19 07/07/19 Range/Units 01:35 01:35 02:08 WBC 10.84 (4.0-11.0) K/uL RBC 5.30 (4.30-5.90) M/uL Hgb 14.3 (12.0-16.0) g/dL Hct 42.9 (36.0-46.0) % MCV 80.9 (80.0-98.0) fL MCH 27.0 (27.0-32.0) pg MCHC 33.3 (31.0-37.0) g/dL RDW Std Deviation 43.8 (28.0-62.0) fl RDW Coeff of Ene 15 (11.0-15.0) % Plt Count 301 (150-400) K/uL MPV 9.70 (7.40-12.00) fL Neut % (Auto) 40.1 L (48.0-80.0) % Lymph % (Auto) 52.3 H (16.0-40.0) % [place] % (Auto) 5.5 (0.0-15.0) % Eos % (Auto) 1.8 (0.0-7.0) % Baso % (Auto) 0.3 (0.0-1.5) % Neut # (Auto) 4.3 (1.4-5.7) K/uL Lymph # (Auto) 5.7 H (0.6-2.4) K/uL [place] # (Auto) 0.6 (0.0-0.8) K/uL Eos # (Auto) 0.2 (0.0-0.7) K/uL Baso # (Auto) 0.0 (0.0-0.1) K/uL Nucleated RBC % 0.0 /100WBC Nucleated RBCs # 0 K/uL ABG pH (7.35-7.45) ABG pCO2 (35-45) mmHG ABG pO2 (75-100) mmHG ABG HCO3 (22-26) mEq/L ABG Total CO2 ABG Base Excess (-2.0-2.0) Sodium 140 (136-145) mmol/L Potassium 3.9 (3.5-5.1) mmol/L Chloride 103 (98-107) mmol/L Carbon Dioxide 25.0 (21.0-32.0) mmol/L BUN 27 H (7.0-18.0) mg/dL Creatinine 1.7 H (0.6-1.0) mg/dL Est Cr Clr Drug Dosing 28.73 mL/min Estimated GFR (MDRD) 30.3 ml/min Glucose 109 H (74-106) mg/dL Calcium 10.9 H (8.5-10.1) mg/dL Magnesium 1.6 L (1.8-2.4) mg/dL Total Bilirubin 0.3 (0.2-1.0) mg/dL AST 11 L (15-37) IU/L ALT 13 L (14-63) IU/L Alkaline Phosphatase 89 (46-116) U/L Troponin I < 0.050 (0.000-0.056) ng/mL Total Protein 7.5 (6.4-8.2) g/dL Albumin 3.3 L (3.4-5.0) g/dL Globulin 4.2 H (2.6-4.0) g/dL Albumin/Globulin Ratio 0.8 L (0.9-1.6) Urine Color YELLOW Urine Appearance CLEAR Urine pH 7.5 (5.0-8.0) Ur Specific [place] 1.015 (1.001-1.035) Urine Protein NEGATIVE (NEGATIVE) mg/dL Urine Glucose (UA) NEGATIVE (NEGATIVE) mg/dL Urine Ketones NEGATIVE (NEGATIVE) mg/dL Urine Occult Blood NEGATIVE (NEGATIVE) Urine Nitrite NEGATIVE (NEGATIVE) Urine Bilirubin NEGATIVE (NEGATIVE) Urine Urobilinogen 0.2 (<2.0) EU/dL Ur Leukocyte Esterase NEGATIVE (NEGATIVE) 07/07/19 Range/Units 03:45 WBC (4.0-11.0) K/uL RBC (4.30-5.90) M/uL Hgb (12.0-16.0) g/dL Hct (36.0-46.0) % MCV (80.0-98.0) fL MCH (27.0-32.0) pg MCHC (31.0-37.0) g/dL RDW Std Deviation (28.0-62.0) fl RDW Coeff of Ene (11.0-15.0) % Plt Count (150-400) K/uL MPV (7.40-12.00) fL Neut % (Auto) (48.0-80.0) % Lymph % (Auto) (16.0-40.0) % [place] % (Auto) (0.0-15.0) % Eos % (Auto) (0.0-7.0) % Baso % (Auto) (0.0-1.5) % Neut # (Auto) (1.4-5.7) K/uL Lymph # (Auto) (0.6-2.4) K/uL [place] # (Auto) (0.0-0.8) K/uL Eos # (Auto) (0.0-0.7) K/uL Baso # (Auto) (0.0-0.1) K/uL Nucleated RBC % /100WBC Nucleated RBCs # K/uL ABG pH 7.538 H (7.35-7.45) ABG pCO2 24 L (35-45) mmHG ABG pO2 49 L (75-100) mmHG ABG HCO3 20 L (22-26) mEq/L ABG Total CO2 17.9 ABG Base Excess -0.5 (-2.0-2.0) Sodium (136-145) mmol/L Potassium (3.5-5.1) mmol/L Chloride (98-107) mmol/L Carbon Dioxide (21.0-32.0) mmol/L BUN (7.0-18.0) mg/dL Creatinine (0.6-1.0) mg/dL Est Cr Clr Drug Dosing mL/min Estimated GFR (MDRD) ml/min Glucose (74-106) mg/dL Calcium (8.5-10.1) mg/dL Magnesium (1.8-2.4) mg/dL Total Bilirubin (0.2-1.0) mg/dL AST (15-37) IU/L ALT (14-63) IU/L Alkaline Phosphatase (46-116) U/L Troponin I (0.000-0.056) ng/mL Total Protein (6.4-8.2) g/dL Albumin (3.4-5.0) g/dL Globulin (2.6-4.0) g/dL Albumin/Globulin Ratio (0.9-1.6) Urine Color Urine Appearance Urine pH (5.0-8.0) Ur Specific [place] (1.001-1.035) Urine Protein (NEGATIVE) mg/dL Urine Glucose (UA) (NEGATIVE) mg/dL Urine Ketones (NEGATIVE) mg/dL Urine Occult Blood (NEGATIVE) Urine Nitrite (NEGATIVE) Urine Bilirubin (NEGATIVE) Urine Urobilinogen (<2.0) EU/dL Ur Leukocyte Esterase (NEGATIVE) Meds: Medications Generic Name Dose Route Start Last Admin Trade Name Freq PRN Reason Stop Dose Admin Sodium Chloride 10 ml 07/07/19 01:46 Saline Flush FLUSH ASDIRECTED PRN Keep Vein Open Sodium Chloride 2.5 ml 07/07/19 01:46 Saline Flush FLUSH ASDIRECTED PRN Keep Vein Open Discontinued Medications Generic Name Dose Route Start Last Admin Trade Name Freq PRN Reason Stop Dose Admin Albuterol/Ipratropium 3 ml 07/07/19 01:46 07/07/19 01:57 Duoneb 3.0-0.5 Mg/3 Ml NEB 07/07/19 01:47 3 ml ONETIME ONE Administration Buspirone HCl 15 mg 07/07/19 03:53 07/07/19 04:06 Buspar PO 07/07/19 03:54 15 mg ONETIME ONE Administration Sodium Chloride 1,000 mls @ 999 mls/hr 07/07/19 01:46 07/07/19 01:57 Normal Saline IV 07/07/19 02:46 999 mls/hr STAT ONE Administration Lorazepam 1 mg 07/07/19 02:59 07/07/19 03:21 Ativan IVPUSH 07/07/19 03:00 1 mg ONETIME ONE Administration Methylprednisolone Sodium Succinate 125 mg 07/07/19 01:46 07/07/19 01:57 Solu-Medrol IVPUSH 07/07/19 01:47 125 mg ONETIME ONE Administration Departure - Departure Time of Disposition: 04:30 Disposition: Refer to Observation Condition: Fair Clinical Impression: Dyspnea and respiratory abnormalities, COPD with exacerbation, Agitation Anxiety disorder Qualifiers: Anxiety disorder type: unspecified anxiety disorder Qualified Code(s): F41.9 - Anxiety disorder, unspecified - Discharge Information Forms: ED Department Discharge Additional Instructions: The following information is given to patients seen in the emergency department who are being discharged to home. This information is to outline your options for follow-up care. We provide all patients seen in our emergency department with a follow-up referral. The need for follow-up, as well as the timing and circumstances, are variable depending upon the specifics of your emergency department visit. If you don't have a primary care physician on staff, we will provide you with a referral. We always advise you to contact your personal physician following an emergency department visit to inform them of the circumstance of the visit and for follow-up with them and/or the need for any referrals to a consulting specialist. The emergency department will also refer you to a specialist when appropriate. This referral assures that you have the opportunity for followup care with a specialist. All of these measure are taken in an effort to provide you with optimal care, which includes your followup. Under all circumstances we always encourage you to contact your private physician who remains a resource for coordinating your care. When calling for followup care, please make the office aware that this follow-up is from your recent emergency room visit. If for any reason you are refused follow-up, please contact the [facility] emergency department at and ask to speak to the emergency department charge nurse. [address] [place] [address] Please make sure to connect with Dr. Calvin or 1 of his associates in the next few days for reevaluation and further care. Please try to reduce and/or quit smoking and speak with your provider about options that may be available for you to do this. Push hydration and use all home medications. Please use the spacer you have been given with all your inhalers as it will improve delivery of your inhaler. Please take medications as prescribed to you. Return to ER as needed and as discussed Sepsis Event Note - Evaluation Sepsis Screening Result: No Definite Risk - Focused Exam Vital Signs: Vital Signs Temp Pulse Resp BP Pulse Ox 07/07/19 01:35 35.5 C 76 23 H 151/78 H 96 Date Exam was Performed: 07/07/19 Time Exam was Performed: 04:27 - My Orders Last 24 Hours: My Active Orders 07/07/19 01:45 Cardiac Monitoring [RC] . DIRECTED EKG Documentation Completion [RC] STAT Oxygen Therapy, ED [RC] ASDIRECTED Pulse Oximetry [RC] ASDIRECTED Saline Lock Insert [OM.PC] Stat 07/07/19 01:46 RT Aerosol Therapy [RC] ASDIRECTED Sodium Chloride 0.9% [Saline Flush] 10 ml FLUSH ASDIRECTED PRN Sodium Chloride 0.9% [Saline Flush] 2.5 ml FLUSH ASDIRECTED PRN 07/07/19 02:23 Communication Order [RC] STAT 07/07/19 02:47 EKG Documentation Completion [RC] STAT 07/07/19 02:48 Orthostatic Vital Signs [RC] ASDIRECTED - Assessment/Plan Last 24 Hours: My Active Orders 07/07/19 01:45 Cardiac Monitoring [RC] . DIRECTED EKG Documentation Completion [RC] STAT Oxygen Therapy, ED [RC] ASDIRECTED Pulse Oximetry [RC] ASDIRECTED Saline Lock Insert [OM.PC] Stat 07/07/19 01:46 RT Aerosol Therapy [RC] ASDIRECTED Sodium Chloride 0.9% [Saline Flush] 10 ml FLUSH ASDIRECTED PRN Sodium Chloride 0.9% [Saline Flush] 2.5 ml FLUSH ASDIRECTED PRN 07/07/19 02:23 Communication Order [RC] STAT 07/07/19 02:47 EKG Documentation Completion [RC] STAT 07/07/19 02:48 Orthostatic Vital Signs [RC] ASDIRECTED
[2019-07-07 02:12] LABS: BLOOD UREA NITROGEN,BUN 27 mg/dL (7.0-18.0); CHLORIDE,CL 103 mmol/L (98-107); GLUCOSE RANDOM 109 mg/dL (74-106); POTASSIUM,K 3.9 mmol/L (3.5-5.1); SODIUM,NA 140 mmol/L (136-145)
[2019-07-07] MEDS ORDERED: LORazepam 2 MG/ML SDV IVPUSH ONE (02:59)
--- NOTE | 2019-07-07 03:42 | CR ---
Indication: Pain. SOB Technique: Chest 1 view Comparison: 02/26/2019 Findings/Impression: Cardiovascular and mediastinum: Heart size and vasculature are normal in caliber and appearance. Mediastinum is within normal limits. Lungs and pleural space: The medial left apex is obscured by the patient`s chin. Mildly increased interstitial markings again noted. No consolidation or pleural effusions. Bones and soft tissues: Postsurgical changes in the lumbar spine. Dictated by Enrique Fernandez MD @ 07/07/2019 3:41:03 AM Dictated by: Enrique Fernandez MD @ 07/07/2019 03:41:09 (Electronically Signed)
[2019-07-07] MEDS ORDERED: busPIRone 5 MG Tab PO ONE (03:53)
[2019-07-07] MEDS ORDERED: hydrOXYzine HCl 25 MG Tab PO ONE (04:31)
[2019-07-07] MEDS ORDERED: hydrOXYzine Pamoate 25 MG Cap PO ONE (04:34)
[2019-07-07] MEDS ORDERED: Ondansetron 4 MG/2 ML SDV IVPUSH PRN (05:49)
[2019-07-07 07:10] LABS: CARBON DIOXIDE,CO2 24.2 mmol/L (21.0-32.0); POTASSIUM,K 3.6 mmol/L (3.5-5.1)
[2019-07-07] MEDS ORDERED: Magnesium Sulfate/Water 4 GM in Premix Bag 1 BAG IV ONE (07:16)
[2019-07-07] MEDS ORDERED: Albuterol/Ipratropium 3.0-0.5 MG/3 ML Neb Soln NEB PRN (08:04)
--- NOTE | 2019-07-07 08:21 | PCM.HP.2 ---
H&P History of Present Illness - General Date of Service: 07/07/19 Admit Problem/Dx: Admission Diagnosis/Problem Admission Diagnosis/Problem Agitation - History of Present Illness Initial Comments - Free Text/Narative: The patient is a 63 year old female with past medical history of non-oxygen dependent COPD, chronic pain, and anxiety who presented to the ER with shortness of breath. Reports shortness of breath started yesterday, denies associated cough/fever/chills. Has been using her inhalers. Per ER report, in the ambulance she was 93-34% on RA but she was placed on oxygen for comfort. Patient also has anxiety and didn't have any of her medications. [facility] brings her medications on a weekly basis but "because of the holiday last Monday, it messed up her pill count." Reports anxiety was high yesterday and today she states "I need my meds". In the ER, work up showed no leukocytosis, no anemia, did show CHERYL and low magnesium. Troponin was negative. UA showed no sign of infection. EKG showed NSR without ST changes. Influenza and CXR were negative. ABG showed respiratory alkalosis. In the ER she was given IVF, duoneb, solumedrol and some of her anxiety medications- hydroxyzine, Ativan, and BuSpar. PCP- Dr. Calvin - Related Data Allergies/Adverse Reactions: Allergies Allergy/AdvReac Type Severity Reaction Status Date / Time erythromycin lactobionate Allergy Unknown Itching Verified 07/07/19 05:13 [From Erythrocin] mirtazapine [From Remeron] Allergy Unknown Itching Verified 07/07/19 05:13 Penicillins Allergy Unknown Hives Verified 07/07/19 05:13 tramadol Allergy Tremors Verified 07/07/19 05:13 Home Medications: Home Meds Estazolam [Prosom] 2 mg PO BEDTIME 10/25/17 [History] Meloxicam [Mobic] 7.5 mg PO BIDMEALS 10/25/17 [History] buPROPion HCl [Wellbutrin Xl] 300 mg PO ACBREAKFAST 10/25/17 [History] busPIRone [Buspar] 15 mg PO TID 10/25/17 [History] hydrOXYzine pamoate [Hydroxyzine Pamoate] 50 mg PO TID 10/26/17 [History] Hydrocodone/Acetaminophen [Hydrocodon-Acetaminophn 10-325] 1 tab PO QID PRN [History] Lisinopril/Hydrochlorothiazide [Lisinopril-HCTZ 10-12.5 MG] 1 tab PO QAM [History] Magnesium 250 mg PO DAILY 02/26/19 [History] Umeclidinium Brm/Vilanterol Tr [Anoro Ellipta 62.5-25 MCG] 1 each IH DAILY 02/26 [History] Venlafaxine HCl [Venlafaxine ER] 75 mg PO DAILY 02/26/19 [History] fentaNYL [Duragesic] 100 mcg TD Q72H 02/26/19 [History] Albuterol [Ventolin HFA] 1 puff INH Q4H PRN #1 inhaler 04/22/19 [Rx] traZODone HCl [Trazodone HCl] 250 mg PO BEDTIME PRN 07/07/19 [History] Past Medical History - Past Health History Medical/Surgical History: Denies Medical/Surgical History HEENT History: Reports: None Cardiovascular History: Reports: High Cholesterol Respiratory History: Reports: COPD Gastrointestinal History: Reports: None Genitourinary History: Reports: None [employer] History: Reports: None Musculoskeletal History: Reports: Back Pain, Chronic Neurological History: Reports: None Other Neuro History: stroke Psychiatric History: Reports: Depression Other Psychiatric History: Sees Dr. Oconnor monthly Endocrine/Metabolic History: Reports: None Hematologic History: Reports: None Immunologic History: Reports: None Oncologic (Cancer) History: Reports: Other (See Below) Other Oncologic History: skin ca Dermatologic History: Reports: None Other Dermatologic History: "skin cancer" - Infectious Disease History Infectious Disease History: Reports: Chicken Pox - Past Surgical History Head Surgeries/Procedures: Reports: None HEENT Surgical History: Reports: None Cardiovascular Surgical History: Reports: None Respiratory Surgical History: Reports: None GI Surgical History: Reports: None Female Surgical History: Reports: None Endocrine Surgical History: Reports: None Neurological Surgical History: Reports: Lumbar Spine Musculoskeletal Surgical History: Reports: Other (See Below) Oncologic Surgical History: Reports: None Dermatological Surgical History: Reports: None Social & Family History - Family History Family Medical History: Noncontributory Respiratory: Reports: COPD OBGYN: Reports: Musculoskeletal: Reports: Arthritis, Back pain, Chronic Neurological: Reports: CVA, TIA Psychiatric: Reports: Anxiety, Depression - Tobacco Use Smoking Status *Q: Light Tobacco Smoker Years of Tobacco use: 35 Packs/Tins Daily: 0.2 Used Tobacco, but Quit: No Second Hand Smoke Exposure: No - Caffeine Use Caffeine Use: Reports: Coffee, Tea - Recreational Drug Use Recreational Drug Use: No H&P Review of Systems - Review of Systems: Review Of Systems: See Below General: Reports: No Symptoms HEENT: Reports: No Symptoms Pulmonary: Reports: Shortness of Breath. Denies: Wheezing, Cough Cardiovascular: Reports: No Symptoms Gastrointestinal: Reports: No Symptoms Genitourinary: Reports: No Symptoms Musculoskeletal: Reports: No Symptoms Skin: Reports: No Symptoms Psychiatric: Reports: Anxiety Neurological: Reports: No Symptoms Hematologic/Lymphatic: Reports: No Symptoms Immunologic: Reports: No Symptoms Exam - Exam Exam: See Below - Vital Signs Vital Signs: Last Vital Signs Temp 97.4 F 07/07/19 05:01 Pulse 76 07/07/19 05:01 Resp 16 07/07/19 05:01 BP 193/88 H 07/07/19 05:01 Pulse Ox 98 07/07/19 05:01 Orthostatic Blood Pressure [ 151/78 Sitting] Orthostatic Blood Pressure [ 150/90 Supine] Weight: 54.431 kg - Exam Quality Assessment: No: Supplemental Oxygen General: Alert, Oriented, Cooperative HEENT: Conjunctiva Clear, EOMI, Mucosa Moist & [place], Posterior Pharynx Clear, Pupils Equal, Pupils Reactive Lungs: Clear to Auscultation, Normal Respiratory Effort Cardiovascular: Regular Rate, Regular Rhythm GI/Abdominal Exam: Normal Bowel Sounds, Soft, Non-Tender, No Distention Extremities: No Pedal Edema Skin: Warm, Dry, Intact Psychiatric: Alert, Anxious - Patient Data Lab Results Last 24 hrs: Laboratory Results - last 24 hr 07/07/19 07/07/19 07/07/19 Range/Units 01:35 01:35 02:08 WBC 10.84 (4.0-11.0) K/uL RBC 5.30 (4.30-5.90) M/uL Hgb 14.3 (12.0-16.0) g/dL Hct 42.9 (36.0-46.0) % MCV 80.9 (80.0-98.0) fL MCH 27.0 (27.0-32.0) pg MCHC 33.3 (31.0-37.0) g/dL RDW Std Deviation 43.8 (28.0-62.0) fl RDW Coeff of Ene 15 (11.0-15.0) % Plt Count 301 (150-400) K/uL MPV 9.70 (7.40-12.00) fL Neut % (Auto) 40.1 L (48.0-80.0) % Lymph % (Auto) 52.3 H (16.0-40.0) % [place] % (Auto) 5.5 (0.0-15.0) % Eos % (Auto) 1.8 (0.0-7.0) % Baso % (Auto) 0.3 (0.0-1.5) % Neut # (Auto) 4.3 (1.4-5.7) K/uL Lymph # (Auto) 5.7 H (0.6-2.4) K/uL [place] # (Auto) 0.6 (0.0-0.8) K/uL Eos # (Auto) 0.2 (0.0-0.7) K/uL Baso # (Auto) 0.0 (0.0-0.1) K/uL Nucleated RBC % 0.0 /100WBC Nucleated RBCs # 0 K/uL ABG pH (7.35-7.45) ABG pCO2 (35-45) mmHG ABG pO2 (75-100) mmHG ABG HCO3 (22-26) mEq/L ABG Total CO2 ABG Base Excess (-2.0-2.0) Sodium 140 (136-145) mmol/L Potassium 3.9 (3.5-5.1) mmol/L Chloride 103 (98-107) mmol/L Carbon Dioxide 25.0 (21.0-32.0) mmol/L BUN 27 H (7.0-18.0) mg/dL Creatinine 1.7 H (0.6-1.0) mg/dL Est Cr Clr Drug Dosing 28.73 mL/min Estimated GFR (MDRD) 30.3 ml/min Glucose 109 H (74-106) mg/dL Calcium 10.9 H (8.5-10.1) mg/dL Magnesium 1.6 L (1.8-2.4) mg/dL Total Bilirubin 0.3 (0.2-1.0) mg/dL AST 11 L (15-37) IU/L ALT 13 L (14-63) IU/L Alkaline Phosphatase 89 (46-116) U/L Troponin I < 0.050 (0.000-0.056) ng/mL Total Protein 7.5 (6.4-8.2) g/dL Albumin 3.3 L (3.4-5.0) g/dL Globulin 4.2 H (2.6-4.0) g/dL Albumin/Globulin Ratio 0.8 L (0.9-1.6) Urine Color YELLOW Urine Appearance CLEAR Urine pH 7.5 (5.0-8.0) Ur Specific [place] 1.015 (1.001-1.035) Urine Protein NEGATIVE (NEGATIVE) mg/dL Urine Glucose (UA) NEGATIVE (NEGATIVE) mg/dL Urine Ketones NEGATIVE (NEGATIVE) mg/dL Urine Occult Blood NEGATIVE (NEGATIVE) Urine Nitrite NEGATIVE (NEGATIVE) Urine Bilirubin NEGATIVE (NEGATIVE) Urine Urobilinogen 0.2 (<2.0) EU/dL Ur Leukocyte Esterase NEGATIVE (NEGATIVE) 07/07/19 07/07/19 07/07/19 Range/Units 03:45 06:18 06:55 WBC 7.76 (4.0-11.0) K/uL RBC 5.54 (4.30-5.90) M/uL Hgb 14.9 (12.0-16.0) g/dL Hct 44.4 (36.0-46.0) % MCV 80.1 (80.0-98.0) fL MCH 26.9 L (27.0-32.0) pg MCHC 33.6 (31.0-37.0) g/dL RDW Std Deviation 44.0 (28.0-62.0) fl RDW Coeff of Ene 15 (11.0-15.0) % Plt Count 242 (150-400) K/uL MPV 10.10 (7.40-12.00) fL Neut % (Auto) 81.8 H (48.0-80.0) % Lymph % (Auto) 17.5 (16.0-40.0) % [place] % (Auto) 0.6 (0.0-15.0) % Eos % (Auto) 0.0 (0.0-7.0) % Baso % (Auto) 0.1 (0.0-1.5) % Neut # (Auto) 6.3 H (1.4-5.7) K/uL Lymph # (Auto) 1.4 (0.6-2.4) K/uL [place] # (Auto) 0.1 (0.0-0.8) K/uL Eos # (Auto) 0.0 (0.0-0.7) K/uL Baso # (Auto) 0.0 (0.0-0.1) K/uL Nucleated RBC % 0.0 /100WBC Nucleated RBCs # 0 K/uL ABG pH 7.538 H (7.35-7.45) ABG pCO2 24 L (35-45) mmHG ABG pO2 49 L (75-100) mmHG ABG HCO3 20 L (22-26) mEq/L ABG Total CO2 17.9 ABG Base Excess -0.5 (-2.0-2.0) Sodium 140 (136-145) mmol/L Potassium 3.6 (3.5-5.1) mmol/L Chloride 103 (98-107) mmol/L Carbon Dioxide 24.2 (21.0-32.0) mmol/L BUN 25 H (7.0-18.0) mg/dL Creatinine 1.4 H (0.6-1.0) mg/dL Est Cr Clr Drug Dosing 34.88 mL/min Estimated GFR (MDRD) 37.9 ml/min Glucose 144 H (74-106) mg/dL Calcium 10.5 H (8.5-10.1) mg/dL Magnesium (1.8-2.4) mg/dL Total Bilirubin (0.2-1.0) mg/dL AST (15-37) IU/L ALT (14-63) IU/L Alkaline Phosphatase (46-116) U/L Troponin I (0.000-0.056) ng/mL Total Protein (6.4-8.2) g/dL Albumin (3.4-5.0) g/dL Globulin (2.6-4.0) g/dL Albumin/Globulin Ratio (0.9-1.6) Urine Color Urine Appearance Urine pH (5.0-8.0) Ur Specific [place] (1.001-1.035) Urine Protein (NEGATIVE) mg/dL Urine Glucose (UA) (NEGATIVE) mg/dL Urine Ketones (NEGATIVE) mg/dL Urine Occult Blood (NEGATIVE) Urine Nitrite (NEGATIVE) Urine Bilirubin (NEGATIVE) Urine Urobilinogen (<2.0) EU/dL Ur Leukocyte Esterase (NEGATIVE) Result Diagrams: 07/07/19 06:18 07/07/19 06:55 Binu Results Last 24 hrs: Microbiology 07/07/19 01:45 Influenza Type A Antigen Screen - Final Nasopharyngeal Swab NEGATIVE INFLUENZA A VIRUS AG REFERENCE RANGE: NEGATIVE Influenza Type B Antigen Screen - Final NEGATIVE INFLUENZA B VIRUS AG REFERENCE RANGE: NEGATIVE Sepsis Event Note - Evaluation Sepsis Screening Result: No Definite Risk - Focused Exam Vital Signs: Vital Signs Temp Pulse Resp BP Pulse Ox 07/07/19 05:01 97.4 F 76 16 193/88 H 98 07/07/19 04:45 96.8 F 71 24 H 180/98 H 96 07/07/19 01:45 98 07/07/19 01:35 96 F 76 23 H 151/78 H 96 Date Exam was Performed: 07/07/19 Time Exam was Performed: 10:27 Problem List Initiated/Reviewed/Updated: Yes Orders Last 24hrs: Active Orders 24 hr Category Date Time Status Patient Status [ADT] Stat ADT 07/07/19 04:32 Active Intake and Output [RC] ASDIRECTED Care 07/07/19 08:04 Ordered RT Aerosol Therapy [RC] ASDIRECTED Care 07/07/19 01:46 Active RT Aerosol Therapy [RC] ASDIRECTED Care 07/07/19 08:06 Ordered Vital Signs [RC] Q4H Care 07/07/19 05:50 Active Regular Diet [DIET] Diet 07/07/19 Breakfast Active Acetaminophen/HYDROcodone Med 07/07/19 08:02 Ordered 1 tab PO QID PRN Albuterol/Ipratropium [DuoNeb 3.0-0.5 MG/3 ML] Med 07/07/19 08:04 Ordered 3 ml NEB Q4HRRT PRN Heparin Sodium Med 07/07/19 08:15 Ordered 5,000 units SUBCUT Q12H Lisinopril/Hydrochlorothiazide [Lisinopril-HCTZ 10-12.5 Med 07/07/19 09:00 Ordered MG] 1 tab PO QAM Magnesium Sulfate/Water [Magnesium Sulfate in Water Med 07/07/19 07:16 Active Premix] 4 gm Premix Bag 1 bag IV ONETIME Ondansetron [Zofran] Med 07/07/19 05:49 Active 4 mg IVPUSH Q4H PRN Sodium Chloride 0.9% [Saline Flush] Med 07/07/19 01:46 Active 10 ml FLUSH ASDIRECTED PRN Sodium Chloride 0.9% [Saline Flush] Med 07/07/19 01:46 Active 2.5 ml FLUSH ASDIRECTED PRN Venlafaxine [Effexor XR] Med 07/07/19 09:00 Ordered 75 mg PO DAILY buPROPion Med 07/08/19 07:30 Ordered 300 mg PO ACBREAKFAST busPIRone Med 07/07/19 14:00 Ordered 15 mg PO TID hydrOXYzine pamoate [Vistaril] Med 07/07/19 14:00 Ordered 50 mg PO TID Saline Lock Insert [OM.PC] Stat Oth 07/07/19 01:45 Ordered Resuscitation Status Routine Resus Stat 07/07/19 08:04 Ordered Medication Orders Albuterol/Ipratropium (Duoneb 3.0-0.5 Mg/3 Ml) 3 ml NEB Q4HRRT PRN PRN Reason: Shortness of Breath Lisinopril/HCTZ (Lisinopril-Hctz 10-12.5 Mg) 1 tab PO QAM RUIZ Heparin Sodium (Porcine) (Heparin Sodium) 5,000 units SUBCUT Q12H RUIZ Hydroxyzine Pamoate (Vistaril) 50 mg PO TID RUIZ Magnesium Sulfate 4 gm/ Premix 100 mls @ 25 mls/hr IV ONETIME ONE Stop: 07/07/19 11:15 Last Admin: 07/07/19 07:47 Dose: 25 mls/hr Non-Formulary Medication (Bupropion) 300 mg PO ACBREAKFAST RUIZ Non-Formulary Medication (Buspirone) 15 mg PO TID RUIZ Non-Formulary Medication (Acetaminophen/Hydrocodone) 1 tab PO QID PRN PRN Reason: Pain Ondansetron HCl (Zofran) 4 mg IVPUSH Q4H PRN PRN Reason: Nausea/Vomiting Sodium Chloride (Saline Flush) 10 ml FLUSH ASDIRECTED PRN PRN Reason: Keep Vein Open Sodium Chloride (Saline Flush) 2.5 ml FLUSH ASDIRECTED PRN PRN Reason: Keep Vein Open Venlafaxine HCl (Effexor Xr) 75 mg PO DAILY [facility] Assessment/Plan Comment:: 1. Admit for observation 2. Code- DNR/ intubation ok 3. Vitals per routine 4. I/Os per routine 5. Diet- regular 6. DVT prophylaxis with heparin 7. SOB- COPD vs anxiety- patient not requiring any oxygen and lung exam sounds good, most likely related to anxiety and missed doses of mediations. Will resume home meds. Duonebs prn. 8. HCERYL- improving with IVF, continue fluids 9. Hypomagnesemia- replace and recheck in AM 10. HTN- resume home med
[2019-07-07] MEDS: Venlafaxine 75 MG Cap.ER PO SCH (08:50)
[2019-07-07] MEDS: Lisinopril/Hydrochlorothiazide 10-12.5 MG Tab PO SCH (08:50)
[2019-07-07] MEDS: Heparin Sodium 5,000 Units/ML Vial SUBCUT SCH ×2 (08:52→21:14)
[2019-07-07] MEDS: Acetaminophen/HYDROcodone 325-10 MG Tab PO PRN ×3 (09:03→21:36)
[2019-07-07] MEDS: busPIRone 5 MG Tab PO SCH ×2 (14:18→21:13)
[2019-07-07] MEDS: hydrOXYzine Pamoate 25 MG Cap PO SCH ×2 (14:18→21:14)
[2019-07-07] MEDS ORDERED: Labetalol 100 MG/20 ML MDV IVPUSH ONE (21:14)
[2019-07-07] MEDS: LORazepam 2 MG/ML SDV IVPUSH PRN (23:02)
[2019-07-08] MEDS: Acetaminophen/HYDROcodone 325-10 MG Tab PO PRN ×3 (04:52→22:39)
[2019-07-08] MEDS: hydrOXYzine Pamoate 25 MG Cap PO SCH ×3 (04:59→21:49)
[2019-07-08] MEDS: busPIRone 5 MG Tab PO SCH ×3 (04:59→21:50)
[2019-07-08] MEDS: buPROPion 150 MG Tab.ER PO SCH (06:29)
[2019-07-08 06:38] LABS: POTASSIUM,K 3.4 mmol/L (3.5-5.1)
[2019-07-08] MEDS: Venlafaxine 75 MG Cap.ER PO SCH (08:49)
[2019-07-08] MEDS: Lisinopril/Hydrochlorothiazide 10-12.5 MG Tab PO SCH (08:49)
[2019-07-08] MEDS: Heparin Sodium 5,000 Units/ML Vial SUBCUT SCH ×2 (08:50→21:50)
[2019-07-08] MEDS: LORazepam 2 MG/ML SDV IVPUSH PRN ×4 (09:07→23:07)
--- NOTE | 2019-07-08 11:58 | PCM.PN ---
- General Info Date of Service: 07/08/19 Subjective Update: Patient reports she still feels very anxious. Denies chest pain or shortness of breath. - Review of Systems General: Reports: No Symptoms HEENT: Reports: No Symptoms Pulmonary: Reports: No Symptoms Cardiovascular: Reports: No Symptoms Gastrointestinal: Reports: No Symptoms Genitourinary: Reports: No Symptoms Musculoskeletal: Reports: No Symptoms Skin: Reports: No Symptoms Neurological: Reports: No Symptoms Psychiatric: Reports: No Symptoms - Patient Data Vitals - Most Recent: Last Vital Signs Temp 98.2 F 07/08/19 07:15 Pulse 64 07/08/19 07:40 Resp 19 07/08/19 07:40 BP 160/92 H 07/08/19 07:40 Pulse Ox 94 L 07/08/19 07:40 Orthostatic Blood Pressure [ 151/78 Sitting] Orthostatic Blood Pressure [ 150/90 Supine] Weight - Most Recent: 54.431 kg I&O - Last 24 Hours: Intake & Output 07/07/19 07/08/19 07/08/19 22:59 06:59 14:59 Intake Total 840 800 360 Output Total 600 1200 Balance 240 -400 360 Lab Results Last 24 Hours: Laboratory Results - last 24 hr 07/08/19 07/08/19 Range/Units 05:30 05:30 WBC 11.96 H (4.0-11.0) K/uL RBC 5.18 (4.30-5.90) M/uL Hgb 13.5 (12.0-16.0) g/dL Hct 41.6 (36.0-46.0) % MCV 80.3 (80.0-98.0) fL MCH 26.1 L (27.0-32.0) pg MCHC 32.5 (31.0-37.0) g/dL RDW Std Deviation 44.1 (28.0-62.0) fl RDW Coeff of Ene 15 (11.0-15.0) % Plt Count 319 (150-400) K/uL MPV 9.90 (7.40-12.00) fL Neut % (Auto) 56.1 (48.0-80.0) % Lymph % (Auto) 36.8 (16.0-40.0) % [place] % (Auto) 6.4 (0.0-15.0) % Eos % (Auto) 0.4 (0.0-7.0) % Baso % (Auto) 0.3 (0.0-1.5) % Neut # (Auto) 6.7 H (1.4-5.7) K/uL Lymph # (Auto) 4.4 H (0.6-2.4) K/uL [place] # (Auto) 0.8 (0.0-0.8) K/uL Eos # (Auto) 0.1 (0.0-0.7) K/uL Baso # (Auto) 0.0 (0.0-0.1) K/uL Nucleated RBC % 0.0 /100WBC Nucleated RBCs # 0 K/uL Sodium 138 (136-145) mmol/L Potassium 3.4 L (3.5-5.1) mmol/L Chloride 101 (98-107) mmol/L Carbon Dioxide 24.0 (21.0-32.0) mmol/L BUN 35 H (7.0-18.0) mg/dL Creatinine 1.3 H (0.6-1.0) mg/dL Est Cr Clr Drug Dosing 37.57 mL/min Estimated GFR (MDRD) 41.2 ml/min Glucose 87 (74-106) mg/dL Calcium 10.0 (8.5-10.1) mg/dL Magnesium 2.3 (1.8-2.4) mg/dL Med Orders - Current: Current Medications Hydrocodone Bitart/Acetaminophen ([place] 325-10 Mg) 1 tab PO QID PRN PRN Reason: Pain Last Admin: 07/08/19 04:52 Dose: 1 tab Albuterol/Ipratropium (Duoneb 3.0-0.5 Mg/3 Ml) 3 ml NEB Q4HRRT PRN PRN Reason: Shortness of Breath Bupropion HCl (Wellbutrin Xl) 300 mg PO ACBREAKFAST [facility] Last Admin: 07/08/19 06:29 Dose: 300 mg Buspirone HCl (Buspar) 15 mg PO TID [facility] Last Admin: 07/08/19 04:59 Dose: 15 mg Lisinopril/HCTZ (Lisinopril-Hctz 10-12.5 Mg) 1 tab PO QAM [facility] Last Admin: 07/08/19 08:49 Dose: 1 tab Heparin Sodium (Porcine) (Heparin Sodium) 5,000 units SUBCUT Q12H [facility] Last Admin: 07/08/19 08:50 Dose: 5,000 units Hydroxyzine Pamoate (Vistaril) 50 mg PO TID [facility] Last Admin: 07/08/19 04:59 Dose: 50 mg Lorazepam (Ativan) 1 mg IVPUSH Q4H PRN PRN Reason: Anxiety Ondansetron HCl (Zofran) 4 mg IVPUSH Q4H PRN PRN Reason: Nausea/Vomiting Sodium Chloride (Saline Flush) 10 ml FLUSH ASDIRECTED PRN PRN Reason: Keep Vein Open Sodium Chloride (Saline Flush) 2.5 ml FLUSH ASDIRECTED PRN PRN Reason: Keep Vein Open Trazodone HCl (Trazodone Hcl) 250 mg PO BEDTIME PRN PRN Reason: Sleep Venlafaxine HCl (Effexor Xr) 75 mg PO DAILY [facility] Last Admin: 07/08/19 08:49 Dose: 75 mg Discontinued Medications Albuterol/Ipratropium (Duoneb 3.0-0.5 Mg/3 Ml) 3 ml NEB ONETIME ONE Stop: 07/07/19 01:47 Last Admin: 07/07/19 01:57 Dose: 3 ml Buspirone HCl (Buspar) 15 mg PO ONETIME ONE Stop: 07/07/19 03:54 Last Admin: 07/07/19 04:06 Dose: 15 mg Hydroxyzine HCl (Atarax) 50 mg PO ONETIME ONE Stop: 07/07/19 04:32 Last Admin: 07/07/19 04:36 Dose: Not Given Hydroxyzine Pamoate (Vistaril) 50 mg PO ONETIME ONE Stop: 07/07/19 04:35 Last Admin: 07/07/19 04:46 Dose: 50 mg Sodium Chloride (Normal Saline) 1,000 mls @ 999 mls/hr IV STAT ONE Stop: 07/07/19 02:46 Last Admin: 07/07/19 01:57 Dose: 999 mls/hr Magnesium Sulfate 4 gm/ Premix 100 mls @ 25 mls/hr IV ONETIME ONE Stop: 07/07/19 11:15 Last Admin: 07/07/19 07:47 Dose: 25 mls/hr Labetalol HCl (Normodyne) 10 mg IVPUSH ONETIME ONE; Protocol Stop: 07/07/19 21:15 Last Admin: 07/07/19 21:25 Dose: 10 mg Lorazepam (Ativan) 1 mg IVPUSH ONETIME ONE Stop: 07/07/19 03:00 Last Admin: 07/07/19 03:21 Dose: 1 mg Lorazepam (Ativan) 1 mg IVPUSH Q6H PRN PRN Reason: Anxiety Last Admin: 07/08/19 09:07 Dose: 1 mg Methylprednisolone Sodium Succinate (Solu-Medrol) 125 mg IVPUSH ONETIME ONE Stop: 07/07/19 01:47 Last Admin: 07/07/19 01:57 Dose: 125 mg - Exam Quality Assessment: No: Supplemental Oxygen General: Alert, Oriented Lungs: Clear to Auscultation, Normal Respiratory Effort Cardiovascular: Regular Rate, Regular Rhythm GI/Abdominal Exam: Normal Bowel Sounds, Soft, Non-Tender, No Distention Skin: Warm, Dry Neurological: No New Focal Deficit Psy/Mental Status: Alert, Anxious Sepsis Event Note - Evaluation Sepsis Screening Result: No Definite Risk - Focused Exam Vital Signs: Vital Signs Temp Pulse Resp BP Pulse Ox 07/08/19 07:40 64 19 160/92 H 94 L 07/08/19 07:15 98.2 F 70 19 170/88 H 95 07/08/19 04:36 97.6 F 61 16 166/74 H 90 L Date Exam was Performed: 07/08/19 Time Exam was Performed: 12:19 - Problem List Review Problem List Initiated/Reviewed/Updated: Yes - My Orders Last 24 Hours: My Active Orders 07/07/19 14:00 busPIRone [Buspar] 15 mg PO TID hydrOXYzine pamoate [Vistaril] 50 mg PO TID 07/08/19 07:30 buPROPion [Wellbutrin XL] 300 mg PO ACBREAKFAST - Plan Plan:: 1. SOB- COPD vs anxiety- patient not requiring any oxygen and lung exam sounds good, most likely related to anxiety and missed doses of mediations. Will resume home meds. Start Ativan 1 mg q 4 prn. Duonebs prn. 2. CHERYL- improving with IVF, continue fluids 3. Hypomagnesemia- resolved 4. HTN- will increase her home dose of lisinopril-HCTZ
[2019-07-08] MEDS ORDERED: Lisinopril/Hydrochlorothiazide 10-12.5 MG Tab PO ONE (12:21)
[2019-07-08] MEDS: Meloxicam 7.5 MG Tab PO SCH (16:22)
[2019-07-08] MEDS ORDERED: Labetalol 100 MG/20 ML MDV IVPUSH ONE (16:30)
[2019-07-08] MEDS ORDERED: hydrALAZINE 20 MG/ML SDV IVPUSH PRN (23:48)
[2019-07-09] MEDS: LORazepam 2 MG/ML SDV IVPUSH PRN ×2 (03:58→08:21)
[2019-07-09] MEDS: busPIRone 5 MG Tab PO SCH ×2 (06:28→13:27)
[2019-07-09] MEDS: hydrOXYzine Pamoate 25 MG Cap PO SCH ×2 (06:28→13:26)
[2019-07-09] MEDS: buPROPion 150 MG Tab.ER PO SCH (06:29)
[2019-07-09 06:42] LABS: CARBON DIOXIDE,CO2 25.2 mmol/L (21.0-32.0); POTASSIUM,K 3.3 mmol/L (3.5-5.1)
[2019-07-09] MEDS ORDERED: Potassium Chloride 20 MEQ Tab.ER PO ONE (07:19)
[2019-07-09] MEDS: Venlafaxine 75 MG Cap.ER PO SCH (08:21)
[2019-07-09] MEDS: Meloxicam 7.5 MG Tab PO SCH ×2 (08:21→18:21)
[2019-07-09] MEDS: Heparin Sodium 5,000 Units/ML Vial SUBCUT SCH (08:23)
--- NOTE | 2019-07-09 08:47 | PCM.PN ---
- General Info Date of Service: 07/09/19 Subjective Update: Patient is reporting belly pain, nausea, and diarrhea today. Still feels anxious. BP improving. - Review of Systems General: Reports: No Symptoms HEENT: Reports: No Symptoms Pulmonary: Reports: No Symptoms Cardiovascular: Reports: No Symptoms Gastrointestinal: Reports: Abdominal Pain, Diarrhea, Nausea Genitourinary: Reports: No Symptoms Musculoskeletal: Reports: No Symptoms Skin: Reports: No Symptoms Neurological: Reports: No Symptoms Psychiatric: Reports: Anxiety - Patient Data Vitals - Most Recent: Last Vital Signs Temp 96.0 F 07/09/19 08:00 Pulse 90 07/09/19 08:00 Resp 20 07/09/19 08:00 BP 149/100 H 07/09/19 08:00 Pulse Ox 94 L 07/09/19 08:00 Orthostatic Blood Pressure [ 151/78 Sitting] Orthostatic Blood Pressure [ 150/90 Supine] Weight - Most Recent: 54.431 kg I&O - Last 24 Hours: Intake & Output 07/08/19 07/09/19 07/09/19 22:59 06:59 14:59 Intake Total 560 600 Output Total 1000 900 Balance -440 -300 Lab Results Last 24 Hours: Laboratory Results - last 24 hr 07/07/19 07/09/19 07/09/19 Range/Units 02:08 06:16 06:16 WBC 13.29 H (4.0-11.0) K/uL RBC 5.62 (4.30-5.90) M/uL Hgb 15.0 (12.0-16.0) g/dL Hct 44.9 (36.0-46.0) % MCV 79.9 L (80.0-98.0) fL MCH 26.7 L (27.0-32.0) pg MCHC 33.4 (31.0-37.0) g/dL RDW Std Deviation 42.5 (28.0-62.0) fl RDW Coeff of Ene 15 (11.0-15.0) % Plt Count 302 (150-400) K/uL MPV 9.90 (7.40-12.00) fL Neut % (Auto) 58.8 (48.0-80.0) % Lymph % (Auto) 34.3 (16.0-40.0) % [place] % (Auto) 6.5 (0.0-15.0) % Eos % (Auto) 0.2 (0.0-7.0) % Baso % (Auto) 0.2 (0.0-1.5) % Neut # (Auto) 7.8 H (1.4-5.7) K/uL Lymph # (Auto) 4.6 H (0.6-2.4) K/uL [place] # (Auto) 0.9 H (0.0-0.8) K/uL Eos # (Auto) 0.0 (0.0-0.7) K/uL Baso # (Auto) 0.0 (0.0-0.1) K/uL Nucleated RBC % 0.0 /100WBC Nucleated RBCs # 0 K/uL Sodium 137 (136-145) mmol/L Potassium 3.3 L (3.5-5.1) mmol/L Chloride 100 (98-107) mmol/L Carbon Dioxide 25.2 (21.0-32.0) mmol/L BUN 33 H (7.0-18.0) mg/dL Creatinine 1.2 H (0.6-1.0) mg/dL Est Cr Clr Drug Dosing 40.70 mL/min Estimated GFR (MDRD) 45.2 ml/min Glucose 110 H (74-106) mg/dL Calcium 10.4 H (8.5-10.1) mg/dL Magnesium (1.8-2.4) mg/dL Urine Opiates Screen POSITIVE (NEGATIVE) Ur Oxycodone Screen NEGATIVE (NEGATIVE) Urine Methadone Screen NEGATIVE (NEGATIVE) Ur Barbiturates Screen NEGATIVE (NEGATIVE) Ur Phencyclidine Scrn NEGATIVE (NEGATIVE) Ur Amphetamine Screen NEGATIVE (NEGATIVE) U Methamphetamines Scrn NEGATIVE (NEGATIVE) U Benzodiazepines Scrn NEGATIVE (NEGATIVE) U Cocaine Metab Screen NEGATIVE (NEGATIVE) U Marijuana (THC) Screen NEGATIVE (NEGATIVE) 07/09/19 Range/Units 06:16 WBC (4.0-11.0) K/uL RBC (4.30-5.90) M/uL Hgb (12.0-16.0) g/dL Hct (36.0-46.0) % MCV (80.0-98.0) fL MCH (27.0-32.0) pg MCHC (31.0-37.0) g/dL RDW Std Deviation (28.0-62.0) fl RDW Coeff of Ene (11.0-15.0) % Plt Count (150-400) K/uL MPV (7.40-12.00) fL Neut % (Auto) (48.0-80.0) % Lymph % (Auto) (16.0-40.0) % [place] % (Auto) (0.0-15.0) % Eos % (Auto) (0.0-7.0) % Baso % (Auto) (0.0-1.5) % Neut # (Auto) (1.4-5.7) K/uL Lymph # (Auto) (0.6-2.4) K/uL [place] # (Auto) (0.0-0.8) K/uL Eos # (Auto) (0.0-0.7) K/uL Baso # (Auto) (0.0-0.1) K/uL Nucleated RBC % /100WBC Nucleated RBCs # K/uL Sodium (136-145) mmol/L Potassium (3.5-5.1) mmol/L Chloride (98-107) mmol/L Carbon Dioxide (21.0-32.0) mmol/L BUN (7.0-18.0) mg/dL Creatinine (0.6-1.0) mg/dL Est Cr Clr Drug Dosing mL/min Estimated GFR (MDRD) ml/min Glucose (74-106) mg/dL Calcium (8.5-10.1) mg/dL Magnesium 1.9 (1.8-2.4) mg/dL Urine Opiates Screen (NEGATIVE) Ur Oxycodone Screen (NEGATIVE) Urine Methadone Screen (NEGATIVE) Ur Barbiturates Screen (NEGATIVE) Ur Phencyclidine Scrn (NEGATIVE) Ur Amphetamine Screen (NEGATIVE) U Methamphetamines Scrn (NEGATIVE) U Benzodiazepines Scrn (NEGATIVE) U Cocaine Metab Screen (NEGATIVE) U Marijuana (THC) Screen (NEGATIVE) Med Orders - Current: Current Medications Hydrocodone Bitart/Acetaminophen ([place] 325-10 Mg) 1 tab PO QID PRN PRN Reason: Pain Last Admin: 07/08/19 22:39 Dose: 1 tab Albuterol/Ipratropium (Duoneb 3.0-0.5 Mg/3 Ml) 3 ml NEB Q4HRRT PRN PRN Reason: Shortness of Breath Bupropion HCl (Wellbutrin Xl) 300 mg PO ACBREAKFAST [facility] Last Admin: 07/09/19 06:29 Dose: 300 mg Buspirone HCl (Buspar) 15 mg PO TID [facility] Last Admin: 07/09/19 06:28 Dose: 15 mg Lisinopril/HCTZ (Lisinopril-Hctz 10-12.5 Mg) 2 tab PO QAM [facility] Last Admin: 07/09/19 08:20 Dose: 2 tab Heparin Sodium (Porcine) (Heparin Sodium) 5,000 units SUBCUT Q12H [facility] Last Admin: 07/09/19 08:23 Dose: 5,000 units Hydralazine HCl (Apresoline) 20 mg IVPUSH Q6H PRN PRN Reason: Hypertension Hydroxyzine Pamoate (Vistaril) 50 mg PO TID [facility] Last Admin: 07/09/19 06:28 Dose: 50 mg Lorazepam (Ativan) 1 mg IVPUSH Q4H PRN PRN Reason: Anxiety Last Admin: 07/09/19 08:21 Dose: 1 mg Meloxicam (Mobic) 7.5 mg PO BIDMEALS [facility] Last Admin: 07/09/19 08:21 Dose: 7.5 mg Ondansetron HCl (Zofran) 4 mg IVPUSH Q4H PRN PRN Reason: Nausea/Vomiting Sodium Chloride (Saline Flush) 10 ml FLUSH ASDIRECTED PRN PRN Reason: Keep Vein Open Sodium Chloride (Saline Flush) 2.5 ml FLUSH ASDIRECTED PRN PRN Reason: Keep Vein Open Trazodone HCl (Trazodone Hcl) 250 mg PO BEDTIME PRN PRN Reason: Sleep Venlafaxine HCl (Effexor Xr) 75 mg PO DAILY [facility] Last Admin: 07/09/19 08:21 Dose: 75 mg Discontinued Medications Albuterol/Ipratropium (Duoneb 3.0-0.5 Mg/3 Ml) 3 ml NEB ONETIME ONE Stop: 07/07/19 01:47 Last Admin: 07/07/19 01:57 Dose: 3 ml Buspirone HCl (Buspar) 15 mg PO ONETIME ONE Stop: 07/07/19 03:54 Last Admin: 07/07/19 04:06 Dose: 15 mg Lisinopril/HCTZ (Lisinopril-Hctz 10-12.5 Mg) 1 tab PO QAM RUIZ Last Admin: 07/08/19 08:49 Dose: 1 tab Lisinopril/HCTZ (Lisinopril-Hctz 10-12.5 Mg) 1 tab PO ONETIME ONE Stop: 07/08/19 12:22 Last Admin: 07/08/19 12:38 Dose: 1 tab Hydroxyzine HCl (Atarax) 50 mg PO ONETIME ONE Stop: 07/07/19 04:32 Last Admin: 07/07/19 04:36 Dose: Not Given Hydroxyzine Pamoate (Vistaril) 50 mg PO ONETIME ONE Stop: 07/07/19 04:35 Last Admin: 07/07/19 04:46 Dose: 50 mg Sodium Chloride (Normal Saline) 1,000 mls @ 999 mls/hr IV STAT ONE Stop: 07/07/19 02:46 Last Admin: 07/07/19 01:57 Dose: 999 mls/hr Magnesium Sulfate 4 gm/ Premix 100 mls @ 25 mls/hr IV ONETIME ONE Stop: 07/07/19 11:15 Last Admin: 07/07/19 07:47 Dose: 25 mls/hr Labetalol HCl (Normodyne) 10 mg IVPUSH ONETIME ONE; Protocol Stop: 07/07/19 21:15 Last Admin: 07/07/19 21:25 Dose: 10 mg Labetalol HCl (Normodyne) 10 mg IVPUSH ONETIME ONE; Protocol Stop: 07/08/19 16:31 Last Admin: 07/08/19 17:29 Dose: 10 mg Lorazepam (Ativan) 1 mg IVPUSH ONETIME ONE Stop: 07/07/19 03:00 Last Admin: 07/07/19 03:21 Dose: 1 mg Lorazepam (Ativan) 1 mg IVPUSH Q6H PRN PRN Reason: Anxiety Last Admin: 07/08/19 09:07 Dose: 1 mg Methylprednisolone Sodium Succinate (Solu-Medrol) 125 mg IVPUSH ONETIME ONE Stop: 07/07/19 01:47 Last Admin: 07/07/19 01:57 Dose: 125 mg Potassium Chloride (Klor-Con M20) 40 meq PO ONETIME ONE Stop: 07/09/19 07:20 Last Admin: 07/09/19 08:21 Dose: 40 meq - Exam Quality Assessment: No: Supplemental Oxygen General: Alert, Oriented, Cooperative Lungs: Clear to Auscultation, Normal Respiratory Effort Cardiovascular: Regular Rate, Regular Rhythm GI/Abdominal Exam: Normal Bowel Sounds, Soft, Tender. No: Guarding, Rigid, Rebound Extremities: No Pedal Edema Skin: Warm, Dry Neurological: No New Focal Deficit Psy/Mental Status: Alert, Normal Affect, Normal Mood Sepsis Event Note - Evaluation Sepsis Screening Result: No Definite Risk - Focused Exam Vital Signs: Vital Signs Temp Pulse Resp BP Pulse Ox 07/09/19 08:00 96.0 F 90 20 149/100 H 94 L 07/09/19 04:00 97 F 70 18 153/95 H 92 L 07/09/19 00:47 97.7 F 79 22 H 173/93 H 90 L 07/08/19 23:15 67 194/91 H Date Exam was Performed: 07/09/19 Time Exam was Performed: 08:47 - My Orders Last 24 Hours: My Active Orders 07/08/19 16:34 Ready for Discharge [RC] PER UNIT ROUTINE 07/08/19 17:00 Meloxicam [Mobic] 7.5 mg PO BIDMEALS 07/09/19 09:00 Lisinopril/Hydrochlorothiazide [Lisinopril-HCTZ 10-12.5 MG] 2 tab PO QAM - Plan Plan:: 1. SOB- COPD vs anxiety- patient not requiring any oxygen and lung exam sounds good, most likely related to anxiety and missed doses of mediations. Continue home meds. Continue Ativan 1 mg q 4 prn. Duonebs prn. Nursing spoke to [facility] yesterday, they stated that when they check up on her, she will have pills everywhere, they are unsure which meds she takes, they suspect that she is overusing pain medications or selling them. 2. CHERYL- improving with IVF, continue fluids 3. HTN- continue Lisinopril-HCTZ, prn hydralazine 4. Abdominal pain, nausea, vomiting with increasing white count- Scan abdomen.
[2019-07-09] MEDS ORDERED: Lisinopril/Hydrochlorothiazide 10-12.5 MG Tab PO SCH (09:00)
--- NOTE | 2019-07-09 11:15 | PCM.DCSUM1 ---
Discharge Summary - Hospital Course HPI Initial Comments: Admission Date:07/07/19 Discharge Date: 07/08/19 Admission Diagnosis: 1. Shortness of breath- COPD vs anxiety 2. CHERYL 3. Hypomagnesemia 4. HTN Discharge Diagnosis: 1. Shortness of breath- secondary to anxiety- improved 2. CHERYL- improved 3. Hypomagnesemia-resolved 4. HTN Procedures: None Consults: None Hospital Course: The patient is a 63-year-old female with past medical history of non-oxygen dependent COPD, chronic pain, and anxiety who presented to the ER with shortness of breath. Reports shortness of breath started day prior to admission, denies associated cough/fever/chills. Has been using her inhalers. Per ER report, in the ambulance she was 93-34% on RA but she was placed on oxygen for comfort. Patient also has anxiety and didn't have any of her medications. [facility] brings her medications on a weekly basis but "because of the holiday last Monday, it messed up my pill count." In the ER , work up showed no leukocytosis, no anemia, did show CHERYL and low magnesium. Troponin was negative. UA showed no sign of infection. EKG showed NSR without ST changes. Influenza and CXR were negative. ABG showed respiratory alkalosis. In the ER she was given IVF, duoneb, solumedrol and some of her anxiety medications- hydroxyzine, Ativan, and BuSpar. Admitted for observation to medical floor. Her home meds were restarted, her anxiety improved, and she no longer felt short of breath. She never required supplemental oxygen while admitted to the floor. Her magnesium level was low, this was replaced and it resolved. Had elevated blood pressures, her daily Lisinopril-HCTZ was dose was doubled and her blood pressure improved. Nursing spoke to [facility] who stated that she is non compliant with her medications and often calls the ambulance for pain and anxiety meds. By day of discharge, patient was satting well on room air, anxiety had improved, and blood pressure was better controlled. Disposition: Home Discharge Condition: vitals stable, tolerating oral diet, ambulating without difficulty, symptom improvement Discharge Instructions: regular diet as tolerated, activity as tolerated, take medications as prescribed. Symptoms to report to physician include fever/chills , chest pain, shortness of breath, abdominal pain, erythema, drainage/discharge , or not improving as expected. Check blood pressure daily, keep log, and show PCP when you follow up. Discharge Medications: Estazolam [Prosom] 2 mg PO BEDTIME Meloxicam [Mobic] 7.5 mg PO BIDMEALS buPROPion HCl [Wellbutrin Xl] 300 mg PO ACBREAKFAST busPIRone [Buspar] 15 mg PO TID hydrOXYzine pamoate [Hydroxyzine Pamoate] 75 mg PO TID PRN Hydrocodone/Acetaminophen [Hydrocodon-Acetaminophn 10-325] 10 - 325 mg PO QID PRN Magnesium 250 mg PO DAILY Umeclidinium Brm/Vilanterol Tr [Anoro Ellipta 62.5-25 MCG] 1 each IH DAILY Venlafaxine HCl [Venlafaxine ER] 75 mg PO DAILY ] fentaNYL [Duragesic] 100 mcg TD Q72H Albuterol [Ventolin HFA] 1 puff INH Q4H PRN traZODone HCl [Trazodone HCl] 250 mg PO BEDTIME PRN Naloxone HCl [Narcan] 1 spray NASBOTH .FOR SEDATION PRN Lisinopril/Hydrochlorothiazide [Lisinopril-HCTZ 10-12.5 MG] 2 tab PO QAM Follow-up: 1. PCP- Dr. Calvin 07/12/19 2. Psychiatrist- Dr. Oconnor 07/18/19 - Discharge Data Discharge Date: 07/09/19 Discharge Disposition: Home, Self-Care 01 Condition: Fair - Referral to Home Health Primary Care Physician: PCP None - Patient Instructions Diet: Usual Diet as Tolerated Activity: As Tolerated Showering/Bathing: May Shower Notify Provider of: Fever, Increased Pain, Swelling and Redness, Drainage, Nausea and/or Vomiting Other/Special Instructions: Additional symptoms include chest pain, shortness of breath, or abodminal pain. Please take medications as prescribed. Please check blood pressure daily and keep log, show to PCP when you follow up. - Discharge Plan *PRESCRIPTION DRUG MONITORING PROGRAM REVIEWED*: No *COPY OF PRESCRIPTION DRUG MONITORING REPORT IN PATIENT BISMARK: No Prescriptions/Med Rec: Lisinopril/Hydrochlorothiazide [Lisinopril-HCTZ 10-12.5 MG] 2 tab PO QAM 14 Days #28 tablet Home Medications: Home Meds Estazolam [Prosom] 2 mg PO BEDTIME 10/25/17 [History] Meloxicam [Mobic] 7.5 mg PO BIDMEALS 10/25/17 [History] buPROPion HCl [Wellbutrin Xl] 300 mg PO ACBREAKFAST 10/25/17 [History] busPIRone [Buspar] 15 mg PO TID 10/25/17 [History] hydrOXYzine pamoate [Hydroxyzine Pamoate] 75 mg PO TID PRN 10/26/17 [History] Hydrocodone/Acetaminophen [Hydrocodon-Acetaminophn 10-325] 10 - 325 mg PO QID PRN 02/26/19 [History] Magnesium 250 mg PO DAILY 02/26/19 [History] Umeclidinium Brm/Vilanterol Tr [Anoro Ellipta 62.5-25 MCG] 1 each IH DAILY 02/26 [History] Venlafaxine HCl [Venlafaxine ER] 75 mg PO DAILY 02/26/19 [History] fentaNYL [Duragesic] 100 mcg TD Q72H 02/26/19 [History] Albuterol [Ventolin HFA] 1 puff INH Q4H PRN #1 inhaler 04/22/19 [Rx] traZODone HCl [Trazodone HCl] 250 mg PO BEDTIME PRN 07/07/19 [History] Naloxone HCl [Narcan] 1 spray NASBOTH .FOR SEDATION PRN 07/08/19 [History] Lisinopril/Hydrochlorothiazide [Lisinopril-HCTZ 10-12.5 MG] 2 tab PO QAM 14 Days #28 tablet 07/09/19 [Rx] Patient Handouts: Generalized Anxiety Disorder, Adult Referrals: Yaw Oconnor DO [Physician] - 07/18/19 3:30 pm Medardo Calvin MD [Physician] - 07/12/19 9:30 am - Discharge Summary/Plan Comment DC Time >30 min.: No - Patient Data Vitals - Most Recent: Last Vital Signs Temp 96.0 F 07/09/19 08:00 Pulse 90 07/09/19 08:00 Resp 20 07/09/19 08:00 BP 149/100 H 07/09/19 08:00 Pulse Ox 94 L 07/09/19 08:00 Orthostatic Blood Pressure [ 151/78 Sitting] Orthostatic Blood Pressure [ 150/90 Supine] Weight - Most Recent: 54.431 kg I&O - Last 24 hours: Intake & Output 07/08/19 07/09/19 07/09/19 22:59 06:59 14:59 Intake Total 560 600 Output Total 1000 900 Balance -440 -300 Lab Results - Last 24 hrs: Laboratory Results - last 24 hr 07/07/19 07/09/19 07/09/19 Range/Units 02:08 06:16 06:16 WBC 13.29 H (4.0-11.0) K/uL RBC 5.62 (4.30-5.90) M/uL Hgb 15.0 (12.0-16.0) g/dL Hct 44.9 (36.0-46.0) % MCV 79.9 L (80.0-98.0) fL MCH 26.7 L (27.0-32.0) pg MCHC 33.4 (31.0-37.0) g/dL RDW Std Deviation 42.5 (28.0-62.0) fl RDW Coeff of Ene 15 (11.0-15.0) % Plt Count 302 (150-400) K/uL MPV 9.90 (7.40-12.00) fL Neut % (Auto) 58.8 (48.0-80.0) % Lymph % (Auto) 34.3 (16.0-40.0) % [place] % (Auto) 6.5 (0.0-15.0) % Eos % (Auto) 0.2 (0.0-7.0) % Baso % (Auto) 0.2 (0.0-1.5) % Neut # (Auto) 7.8 H (1.4-5.7) K/uL Lymph # (Auto) 4.6 H (0.6-2.4) K/uL [place] # (Auto) 0.9 H (0.0-0.8) K/uL Eos # (Auto) 0.0 (0.0-0.7) K/uL Baso # (Auto) 0.0 (0.0-0.1) K/uL Nucleated RBC % 0.0 /100WBC Nucleated RBCs # 0 K/uL Sodium 137 (136-145) mmol/L Potassium 3.3 L (3.5-5.1) mmol/L Chloride 100 (98-107) mmol/L Carbon Dioxide 25.2 (21.0-32.0) mmol/L BUN 33 H (7.0-18.0) mg/dL Creatinine 1.2 H (0.6-1.0) mg/dL Est Cr Clr Drug Dosing 40.70 mL/min Estimated GFR (MDRD) 45.2 ml/min Glucose 110 H (74-106) mg/dL Calcium 10.4 H (8.5-10.1) mg/dL Magnesium (1.8-2.4) mg/dL Urine Opiates Screen POSITIVE (NEGATIVE) Ur Oxycodone Screen NEGATIVE (NEGATIVE) Urine Methadone Screen NEGATIVE (NEGATIVE) Ur Barbiturates Screen NEGATIVE (NEGATIVE) Ur Phencyclidine Scrn NEGATIVE (NEGATIVE) Ur Amphetamine Screen NEGATIVE (NEGATIVE) U Methamphetamines Scrn NEGATIVE (NEGATIVE) U Benzodiazepines Scrn NEGATIVE (NEGATIVE) U Cocaine Metab Screen NEGATIVE (NEGATIVE) U Marijuana (THC) Screen NEGATIVE (NEGATIVE) 07/09/19 Range/Units 06:16 WBC (4.0-11.0) K/uL RBC (4.30-5.90) M/uL Hgb (12.0-16.0) g/dL Hct (36.0-46.0) % MCV (80.0-98.0) fL MCH (27.0-32.0) pg MCHC (31.0-37.0) g/dL RDW Std Deviation (28.0-62.0) fl RDW Coeff of Ene (11.0-15.0) % Plt Count (150-400) K/uL MPV (7.40-12.00) fL Neut % (Auto) (48.0-80.0) % Lymph % (Auto) (16.0-40.0) % [place] % (Auto) (0.0-15.0) % Eos % (Auto) (0.0-7.0) % Baso % (Auto) (0.0-1.5) % Neut # (Auto) (1.4-5.7) K/uL Lymph # (Auto) (0.6-2.4) K/uL [place] # (Auto) (0.0-0.8) K/uL Eos # (Auto) (0.0-0.7) K/uL Baso # (Auto) (0.0-0.1) K/uL Nucleated RBC % /100WBC Nucleated RBCs # K/uL Sodium (136-145) mmol/L Potassium (3.5-5.1) mmol/L Chloride (98-107) mmol/L Carbon Dioxide (21.0-32.0) mmol/L BUN (7.0-18.0) mg/dL Creatinine (0.6-1.0) mg/dL Est Cr Clr Drug Dosing mL/min Estimated GFR (MDRD) ml/min Glucose (74-106) mg/dL Calcium (8.5-10.1) mg/dL Magnesium 1.9 (1.8-2.4) mg/dL Urine Opiates Screen (NEGATIVE) Ur Oxycodone Screen (NEGATIVE) Urine Methadone Screen (NEGATIVE) Ur Barbiturates Screen (NEGATIVE) Ur Phencyclidine Scrn (NEGATIVE) Ur Amphetamine Screen (NEGATIVE) U Methamphetamines Scrn (NEGATIVE) U Benzodiazepines Scrn (NEGATIVE) U Cocaine Metab Screen (NEGATIVE) U Marijuana (THC) Screen (NEGATIVE) Med Orders - Current: Current Medications Hydrocodone Bitart/Acetaminophen ([place] 325-10 Mg) 1 tab PO QID PRN PRN Reason: Pain Last Admin: 07/08/19 22:39 Dose: 1 tab Albuterol/Ipratropium (Duoneb 3.0-0.5 Mg/3 Ml) 3 ml NEB Q4HRRT PRN PRN Reason: Shortness of Breath Bupropion HCl (Wellbutrin Xl) 300 mg PO ACBREAKFAST [facility] Last Admin: 07/09/19 06:29 Dose: 300 mg Buspirone HCl (Buspar) 15 mg PO TID [facility] Last Admin: 07/09/19 06:28 Dose: 15 mg Lisinopril/HCTZ (Lisinopril-Hctz 10-12.5 Mg) 2 tab PO QAM [facility] Last Admin: 07/09/19 08:20 Dose: 2 tab Heparin Sodium (Porcine) (Heparin Sodium) 5,000 units SUBCUT Q12H [facility] Last Admin: 07/09/19 08:23 Dose: 5,000 units Hydralazine HCl (Apresoline) 20 mg IVPUSH Q6H PRN PRN Reason: Hypertension Hydroxyzine Pamoate (Vistaril) 50 mg PO TID [facility] Last Admin: 07/09/19 06:28 Dose: 50 mg Lorazepam (Ativan) 1 mg IVPUSH Q4H PRN PRN Reason: Anxiety Last Admin: 07/09/19 08:21 Dose: 1 mg Meloxicam (Mobic) 7.5 mg PO BIDMEALS [facility] Last Admin: 07/09/19 08:21 Dose: 7.5 mg Ondansetron HCl (Zofran) 4 mg IVPUSH Q4H PRN PRN Reason: Nausea/Vomiting Sodium Chloride (Saline Flush) 10 ml FLUSH ASDIRECTED PRN PRN Reason: Keep Vein Open Sodium Chloride (Saline Flush) 2.5 ml FLUSH ASDIRECTED PRN PRN Reason: Keep Vein Open Trazodone HCl (Trazodone Hcl) 250 mg PO BEDTIME PRN PRN Reason: Sleep Venlafaxine HCl (Effexor Xr) 75 mg PO DAILY [facility] Last Admin: 07/09/19 08:21 Dose: 75 mg Discontinued Medications Albuterol/Ipratropium (Duoneb 3.0-0.5 Mg/3 Ml) 3 ml NEB ONETIME ONE Stop: 07/07/19 01:47 Last Admin: 07/07/19 01:57 Dose: 3 ml Buspirone HCl (Buspar) 15 mg PO ONETIME ONE Stop: 07/07/19 03:54 Last Admin: 07/07/19 04:06 Dose: 15 mg Lisinopril/HCTZ (Lisinopril-Hctz 10-12.5 Mg) 1 tab PO QAM [facility] Last Admin: 07/08/19 08:49 Dose: 1 tab Lisinopril/HCTZ (Lisinopril-Hctz 10-12.5 Mg) 1 tab PO ONETIME ONE Stop: 07/08/19 12:22 Last Admin: 07/08/19 12:38 Dose: 1 tab Hydroxyzine HCl (Atarax) 50 mg PO ONETIME ONE Stop: 07/07/19 04:32 Last Admin: 07/07/19 04:36 Dose: Not Given Hydroxyzine Pamoate (Vistaril) 50 mg PO ONETIME ONE Stop: 07/07/19 04:35 Last Admin: 07/07/19 04:46 Dose: 50 mg Sodium Chloride (Normal Saline) 1,000 mls @ 999 mls/hr IV STAT ONE Stop: 07/07/19 02:46 Last Admin: 07/07/19 01:57 Dose: 999 mls/hr Magnesium Sulfate 4 gm/ Premix 100 mls @ 25 mls/hr IV ONETIME ONE Stop: 07/07/19 11:15 Last Admin: 07/07/19 07:47 Dose: 25 mls/hr Labetalol HCl (Normodyne) 10 mg IVPUSH ONETIME ONE; Protocol Stop: 07/07/19 21:15 Last Admin: 07/07/19 21:25 Dose: 10 mg Labetalol HCl (Normodyne) 10 mg IVPUSH ONETIME ONE; Protocol Stop: 07/08/19 16:31 Last Admin: 07/08/19 17:29 Dose: 10 mg Lorazepam (Ativan) 1 mg IVPUSH ONETIME ONE Stop: 07/07/19 03:00 Last Admin: 07/07/19 03:21 Dose: 1 mg Lorazepam (Ativan) 1 mg IVPUSH Q6H PRN PRN Reason: Anxiety Last Admin: 07/08/19 09:07 Dose: 1 mg Methylprednisolone Sodium Succinate (Solu-Medrol) 125 mg IVPUSH ONETIME ONE Stop: 07/07/19 01:47 Last Admin: 07/07/19 01:57 Dose: 125 mg Potassium Chloride (Klor-Con M20) 40 meq PO ONETIME ONE Stop: 07/09/19 07:20 Last Admin: 07/09/19 08:21 Dose: 40 meq
[2019-07-09] MEDS: Acetaminophen/HYDROcodone 325-10 MG Tab PO PRN (13:33)
[2019-07-09 16:18] VITALS: BP 153/76; PULSE 82
== END 2019-07-09 17:00 | disposition home or self-care (01) ==
LOC: MW.ED 01:32 → MW.MS 04:32
PROVIDERS: ADMIT Internal Medicine; ATTEND Internal Medicine
DX: F41.9 Anxiety disorder, unspecified (principal); N17.9 Acute kidney failure, unspecified; E83.42 Hypomagnesemia; I10 Essential (primary) hypertension; J44.1 Chronic obstructive pulmonary disease with (acute) exacerbation; E78.00 Pure hypercholesterolemia, unspecified; G89.29 Other chronic pain; M54.9 Dorsalgia, unspecified; F32.9 Major depressive disorder, single episode, unspecified; F17.210 Nicotine dependence, cigarettes, uncomplicated; Z88.1 Allergy status to other antibiotic agents; Z88.0 Allergy status to penicillin; Z88.8 Allergy status to other drugs, medicaments and biological substances; Z88.5 Allergy status to narcotic agent; Z79.1 Long term (current) use of non-steroidal anti-inflammatories (NSAID); Z79.51 Long term (current) use of inhaled steroids; Z79.899 Other long term (current) drug therapy
CPT/HCPCS: 36415; 36600; 71045; 80048; 80053; 80305; 81003; 82803; 83735; 84484; 85025; 87804; 93005; 96361; 96374; 96375; 99285; A9270; J1644; J2060; J2405; J2930; J3475; J3490; J7030; 96365; 96366; 96372; 96376; G0378; J7620-GY

== ENCOUNTER 2019-07-22 12:25 | Emergency (ER) | payer MEDICARE, MEDICAID ==
[2019-07-22 12:39] VITALS: BP 216/100; PULSE 61
[2019-07-22] MEDS ORDERED: Sodium Chloride 0.9% 10 ML Syringe FLUSH PRN (12:48)
[2019-07-22] MEDS ORDERED: Sodium Chloride 0.9% 2.5 ML Syringe FLUSH PRN (12:48)
--- NOTE | 2019-07-22 13:38 | EDM.PDOC ---
ED HPI GENERAL MEDICAL PROBLEM - General Chief Complaint: Respiratory Problem Stated Complaint: TROUBLE BREATHING/LOW OXYGEN Time Seen by Provider: 07/22/19 13:37 Source of Information: Reports: Patient History Limitations: Reports: No Limitations - History of Present Illness INITIAL COMMENTS - FREE TEXT/NARRATIVE: Patient is a 63-year-old female is complaining of having shortness of breath and hypoxia. Patient has had similar problems numerous times in the past. She states she has been sick for the last 4 weeks and this is gotten worse over the last 2 weeks. She is complaining of having a nonproductive cough. Patient's symptoms have gotten worse since yesterday. She denies any fever or shaking chills. She denies any nausea vomiting diarrhea. She has had no bloody or tarry looking stools. Patient is not complaining of any ankle swelling or calf swelling. She is also complaining of back pain which seems to be somewhat chronic in nature. Is any dysuria or hematuria. She is denying any abdominal pain. Onset: Gradual Duration: Getting Worse Location: Reports: Chest, Back Quality: Reports: Ache Severity: Moderate Improves with: Reports: None Worsens with: Reports: Movement Associated Symptoms: Reports: Cough, Shortness of Breath. Denies: cough w sputum, Fever/Chills, Nausea/Vomiting back Pain Score (Numeric/FACES): 10 - Related Data Allergies Allergy/AdvReac Type Severity Reaction Status Date / Time erythromycin lactobionate Allergy Unknown Itching Verified 07/22/19 13:29 [From Erythrocin] mirtazapine [From Remeron] Allergy Unknown Itching Verified 07/22/19 13:29 Penicillins Allergy Unknown Hives Verified 07/22/19 13:29 tramadol Allergy Tremors Verified 07/22/19 13:29 Home Meds: Home Meds Estazolam [Prosom] 2 mg PO BEDTIME 10/25/17 [History] Meloxicam [Mobic] 7.5 mg PO BIDMEALS 10/25/17 [History] buPROPion HCl [Wellbutrin Xl] 300 mg PO ACBREAKFAST 10/25/17 [History] busPIRone [Buspar] 15 mg PO TID 10/25/17 [History] hydrOXYzine pamoate [Hydroxyzine Pamoate] 75 mg PO TID PRN 05/17/18 [History] Hydrocodone/Acetaminophen [Hydrocodon-Acetaminophn 10-325] 10 - 325 mg PO QID PRN 02/26/19 [History] Magnesium 250 mg PO DAILY 02/26/19 [History] Umeclidinium Brm/Vilanterol Tr [Anoro Ellipta 62.5-25 MCG] 1 each IH DAILY 02/26 [History] Venlafaxine HCl [Venlafaxine ER] 75 mg PO DAILY 02/26/19 [History] fentaNYL [Duragesic] 100 mcg TD Q72H 02/26/19 [History] Albuterol [Ventolin HFA] 1 puff INH Q4H PRN #1 inhaler 04/22/19 [Rx] traZODone HCl [Trazodone HCl] 250 mg PO BEDTIME PRN 07/07/19 [History] Naloxone HCl [Narcan] 1 spray NASBOTH .FOR SEDATION PRN 07/08/19 [History] Lisinopril/Hydrochlorothiazide [Lisinopril-HCTZ 10-12.5 MG] 2 tab PO QAM 14 Days #28 tablet 07/09/19 [Rx] Past Medical History - Past Health History Medical/Surgical History: Denies Medical/Surgical History HEENT History: Reports: None Cardiovascular History: Reports: High Cholesterol Respiratory History: Reports: COPD Gastrointestinal History: Reports: None Genitourinary History: Reports: None 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 Oconnor monthly Endocrine/Metabolic History: Reports: None Hematologic History: Reports: None Immunologic History: Reports: None Oncologic (Cancer) History: Reports: Other (See Below) Other Oncologic History: skin ca Dermatologic History: Reports: None Other Dermatologic History: "skin cancer" - Infectious Disease History Infectious Disease History: Reports: Measles, Mumps - Past Surgical History Head Surgeries/Procedures: Reports: None HEENT Surgical History: Reports: None Cardiovascular Surgical History: Reports: None Respiratory Surgical History: Reports: None GI Surgical History: Reports: None Female Surgical History: Reports: None Endocrine Surgical History: Reports: None Neurological Surgical History: Reports: Lumbar Spine Musculoskeletal Surgical History: Reports: Other (See Below) Oncologic Surgical History: Reports: None Dermatological Surgical History: Reports: None Social & Family History - Family History Family Medical History: Noncontributory Respiratory: Reports: COPD OBGYN: Reports: Musculoskeletal: Reports: Arthritis, Back pain, Chronic Neurological: Reports: CVA, TIA Psychiatric: Reports: Anxiety, Depression - Tobacco Use Smoking Status *Q: Light Tobacco Smoker Years of Tobacco use: 50 Packs/Tins Daily: 0.1 - Caffeine Use Caffeine Use: Reports: Coffee, Tea - Recreational Drug Use Recreational Drug Use: Yes Recreational Drug Type: Reports: Marijuana/Hashish Recreational Drug Use Frequency: Daily ED ROS GENERAL - Review of Systems Review Of Systems: Comprehensive ROS is negative, except as noted in HPI. ED EXAM, GENERAL - Physical Exam Exam: See Below General Appearance: Alert, No Apparent Distress Head: Atraumatic Neck: Normal Inspection, Supple Respiratory/Chest: No Respiratory Distress, Lungs Clear, Normal Breath Sounds. No: Decreased Breath Sounds, Rales, Rhonchi, Wheezing GI/Abdominal: Normal Bowel Sounds, Soft, Non-Tender, No Organomegaly, No Distention Back Exam: Muscle Spasm. No: CVA Tenderness (L), CVA Tenderness (R) Extremities: Normal Inspection, Non-Tender, No Pedal Edema Neurological: Alert, Oriented Psychiatric: Normal Affect Skin Exam: Warm, Dry, Intact Course - Vital Signs Text/Narrative:: Patient did not want to stay for results of her work-up and decided to leave the department AGAINST MEDICAL ADVICE. Last Recorded V/S: Last Vital Signs Temp 36.6 C 07/22/19 12:35 Pulse 61 07/22/19 12:35 Resp 22 H 07/22/19 12:35 BP 216/100 H 07/22/19 12:35 Pulse Ox 97 07/22/19 15:37 - Orders/Labs/Meds Labs: Laboratory Tests 07/22/19 07/22/19 07/22/19 Range/Units 12:40 12:40 12:40 WBC 12.80 H (4.0-11.0) K/uL RBC 5.68 (4.30-5.90) M/uL Hgb 15.0 (12.0-16.0) g/dL Hct 45.7 (36.0-46.0) % MCV 80.5 (80.0-98.0) fL MCH 26.4 L (27.0-32.0) pg MCHC 32.8 (31.0-37.0) g/dL RDW Std Deviation 46.0 (28.0-62.0) fl RDW Coeff of Ene 16 H (11.0-15.0) % Plt Count 311 (150-400) K/uL MPV 9.60 (7.40-12.00) fL Neut % (Auto) 49.4 (48.0-80.0) % Lymph % (Auto) 46.3 H (16.0-40.0) % Carver % (Auto) 2.9 (0.0-15.0) % Eos % (Auto) 1.2 (0.0-7.0) % Baso % (Auto) 0.2 (0.0-1.5) % Neut # (Auto) 6.3 H (1.4-5.7) K/uL Lymph # (Auto) 5.9 H (0.6-2.4) K/uL Carver # (Auto) 0.4 (0.0-0.8) K/uL Eos # (Auto) 0.2 (0.0-0.7) K/uL Baso # (Auto) 0.0 (0.0-0.1) K/uL Nucleated RBC % 0.0 /100WBC Nucleated RBCs # 0 K/uL D-Dimer, Quantitative 1.03 H (0.0-0.50) mg/L FEU ABG pH (7.35-7.45) ABG pCO2 (35-45) mmHG ABG pO2 (75-100) mmHG ABG HCO3 (22-26) mEq/L ABG Total CO2 ABG Base Excess (-2.0-2.0) Lactate (0.20-2.00) mmol/L Sodium 134 L (136-145) mmol/L Potassium 4.3 (3.5-5.1) mmol/L Chloride 98 (98-107) mmol/L Carbon Dioxide 21.5 (21.0-32.0) mmol/L BUN 27 H (7.0-18.0) mg/dL Creatinine 1.5 H (0.6-1.0) mg/dL Est Cr Clr Drug Dosing TNP Estimated GFR (MDRD) 35.0 ml/min Glucose 83 (74-106) mg/dL Calcium 11.7 H (8.5-10.1) mg/dL Total Bilirubin 0.6 (0.2-1.0) mg/dL AST 21 (15-37) IU/L ALT 23 (14-63) IU/L Alkaline Phosphatase 111 (46-116) U/L Troponin I < 0.050 (0.000-0.056) ng/mL Total Protein 8.3 H (6.4-8.2) g/dL Albumin 4.0 (3.4-5.0) g/dL Globulin 4.3 H (2.6-4.0) g/dL Albumin/Globulin Ratio 0.9 (0.9-1.6) Urine Color Urine Appearance Urine pH (5.0-8.0) Ur Specific [place] (1.001-1.035) Urine Protein (NEGATIVE) mg/dL Urine Glucose (UA) (NEGATIVE) mg/dL Urine Ketones (NEGATIVE) mg/dL Urine Occult Blood (NEGATIVE) Urine Nitrite (NEGATIVE) Urine Bilirubin (NEGATIVE) Urine Urobilinogen (<2.0) EU/dL Ur Leukocyte Esterase (NEGATIVE) 07/22/19 07/22/19 07/22/19 Range/Units 12:40 13:10 14:21 WBC (4.0-11.0) K/uL RBC (4.30-5.90) M/uL Hgb (12.0-16.0) g/dL Hct (36.0-46.0) % MCV (80.0-98.0) fL MCH (27.0-32.0) pg MCHC (31.0-37.0) g/dL RDW Std Deviation (28.0-62.0) fl RDW Coeff of Ene (11.0-15.0) % Plt Count (150-400) K/uL MPV (7.40-12.00) fL Neut % (Auto) (48.0-80.0) % Lymph % (Auto) (16.0-40.0) % Carver % (Auto) (0.0-15.0) % Eos % (Auto) (0.0-7.0) % Baso % (Auto) (0.0-1.5) % Neut # (Auto) (1.4-5.7) K/uL Lymph # (Auto) (0.6-2.4) K/uL Carver # (Auto) (0.0-0.8) K/uL Eos # (Auto) (0.0-0.7) K/uL Baso # (Auto) (0.0-0.1) K/uL Nucleated RBC % /100WBC Nucleated RBCs # K/uL D-Dimer, Quantitative (0.0-0.50) mg/L FEU ABG pH 7.594 H (7.35-7.45) ABG pCO2 21 L (35-45) mmHG ABG pO2 77 (75-100) mmHG ABG HCO3 20 L (22-26) mEq/L ABG Total CO2 17.4 ABG Base Excess 0.3 (-2.0-2.0) Lactate 2.1 H* (0.20-2.00) mmol/L Sodium (136-145) mmol/L Potassium (3.5-5.1) mmol/L Chloride (98-107) mmol/L Carbon Dioxide (21.0-32.0) mmol/L BUN (7.0-18.0) mg/dL Creatinine (0.6-1.0) mg/dL Est Cr Clr Drug Dosing Estimated GFR (MDRD) ml/min Glucose (74-106) mg/dL Calcium (8.5-10.1) mg/dL Total Bilirubin (0.2-1.0) mg/dL AST (15-37) IU/L ALT (14-63) IU/L Alkaline Phosphatase (46-116) U/L Troponin I (0.000-0.056) ng/mL Total Protein (6.4-8.2) g/dL Albumin (3.4-5.0) g/dL Globulin (2.6-4.0) g/dL Albumin/Globulin Ratio (0.9-1.6) Urine Color YELLOW Urine Appearance CLEAR Urine pH 8.0 (5.0-8.0) Ur Specific [place] 1.015 (1.001-1.035) Urine Protein NEGATIVE (NEGATIVE) mg/dL Urine Glucose (UA) NEGATIVE (NEGATIVE) mg/dL Urine Ketones NEGATIVE (NEGATIVE) mg/dL Urine Occult Blood NEGATIVE (NEGATIVE) Urine Nitrite NEGATIVE (NEGATIVE) Urine Bilirubin NEGATIVE (NEGATIVE) Urine Urobilinogen 0.2 (<2.0) EU/dL Ur Leukocyte Esterase NEGATIVE (NEGATIVE) Meds: Medications Discontinued Medications Generic Name Dose Route Start Last Admin Trade Name Freq PRN Reason Stop Dose Admin Hydrocodone Bitart/Acetaminophen 1 tab 07/22/19 15:16 07/22/19 15:35 [place] 325-10 Mg PO 07/22/19 15:17 1 tab ONETIME ONE Administration Albuterol/Ipratropium 3 ml 07/22/19 13:45 07/22/19 14:27 Duoneb 3.0-0.5 Mg/3 Ml NEB 07/22/19 13:46 3 ml ONETIME ONE Administration Prednisone 40 mg 07/22/19 13:45 07/22/19 14:05 Prednisone PO 07/22/19 13:46 40 mg ONETIME ONE Administration Sodium Chloride 10 ml 07/22/19 12:48 Saline Flush FLUSH ASDIRECTED PRN Keep Vein Open Sodium Chloride 2.5 ml 07/22/19 12:48 Saline Flush FLUSH ASDIRECTED PRN Keep Vein Open Departure - Departure Time of Disposition: 15:40 Disposition: Against Medical Advice 07 Condition: Good Clinical Impression: Left against medical advice - Discharge Information Referrals: PCP,Unobtain [Primary Care Provider] - Forms: ED Department Discharge Sepsis Event Note - Evaluation Sepsis Screening Result: No Definite Risk - Focused Exam Date Exam was Performed: 07/25/19 Time Exam was Performed: 14:11
[2019-07-22 13:41] LABS: BLOOD UREA NITROGEN,BUN 27 mg/dL (7.0-18.0); CARBON DIOXIDE,CO2 21.5 mmol/L (21.0-32.0); CHLORIDE,CL 98 mmol/L (98-107); GLUCOSE RANDOM 83 mg/dL (74-106); POTASSIUM,K 4.3 mmol/L (3.5-5.1); SODIUM,NA 134 mmol/L (136-145)
[2019-07-22] MEDS ORDERED: Albuterol/Ipratropium 3.0-0.5 MG/3 ML Neb Soln NEB ONE (13:45)
[2019-07-22] MEDS ORDERED: predniSONE 20 MG Tab PO ONE (13:45)
--- NOTE | 2019-07-22 13:53 | CR ---
Chest: Portable view of the chest was obtained. Comparison: Prior chest x-ray of 07/07/19. Interstitial change noted which appears to be chronic. No acute parenchymal changes seen. Heart size and mediastinum are normal. Previous cervical spine surgery is noted. Scoliosis is noted within the spine and scattered disc space narrowing. Impression: 1. Nothing acute is definitely appreciated. Diagnostic code #2 Study was dictated in [place] Standard Time
[2019-07-22] MEDS ORDERED: Acetaminophen/HYDROcodone 325-10 MG Tab PO ONE (15:16)
== END 2019-07-22 16:28 | disposition left against medical advice (07) ==
LOC: MW.ED 12:25
DX: R06.02 Shortness of breath (principal); R09.02 Hypoxemia; F17.210 Nicotine dependence, cigarettes, uncomplicated; J44.9 Chronic obstructive pulmonary disease, unspecified; E78.00 Pure hypercholesterolemia, unspecified; F32.9 Major depressive disorder, single episode, unspecified; Z86.73 Personal history of transient ischemic attack (TIA), and cerebral infarction without residual deficits; Z85.828 Personal history of other malignant neoplasm of skin; Z79.899 Other long term (current) drug therapy; Z88.8 Allergy status to other drugs, medicaments and biological substances; Z88.6 Allergy status to analgesic agent; Z88.0 Allergy status to penicillin; Z88.1 Allergy status to other antibiotic agents
CPT/HCPCS: 36415; 36600; 71045; 80053; 81003; 82803; 83605; 84484; 85025; 85379; 93005; 94640; 99285; A9270; J7620-GY

== ENCOUNTER 2019-08-18 12:47 | Emergency (ER) | payer MEDICARE, MEDICAID ==
[2019-08-18 13:45] LABS: BLOOD UREA NITROGEN,BUN 22 mg/dL (7.0-18.0); CARBON DIOXIDE,CO2 24.5 mmol/L (21.0-32.0); CHLORIDE,CL 104 mmol/L (98-107); GLUCOSE RANDOM 94 mg/dL (74-106); POTASSIUM,K 4.1 mmol/L (3.5-5.1); SODIUM,NA 140 mmol/L (136-145)
--- NOTE | 2019-08-18 13:50 | CR ---
INDICATION: Right hip pain post fall. TECHNIQUE: AP view of the pelvis as well as AP and lateral projections of the right hip. COMPARISON: None. FINDINGS: No fracture or subluxation/diastases. Right hip joint space normal. Left hip also normal. Moderate symphysis pubis osteoarthritis. Sacroiliac joints negative. IMPRESSION: Negative for acute traumatic abnormality. Dictated by Yaw Glasgow MD @ Aug 18 2019 1:48PM Signed by Dr. Yaw Glasgow @ Aug 18 2019 1:49PM
--- NOTE | 2019-08-18 13:50 | CR ---
INDICATION: Patient fell COMPARISON: none TECHNIQUE: Portable AP supine chest performed at 1:04 p.m. FINDINGS: The lungs are clear. There is no evidence of pneumothorax. The visualized ribs appear intact. The heart, mediastinum and pulmonary vessels are of normal size. There is no evidence of pleural fluid. IMPRESSION: Negative chest. Dictated by Sulaiman Jones MD @ Aug 18 2019 1:47PM Signed by Dr. Sulaiman Jones @ Aug 18 2019 1:48PM
--- NOTE | 2019-08-18 14:26 | CT ---
Head CT Technique: Multiple axial sections through the brain were obtained. Intravenous contrast was not utilized. Comparison: Prior head CT study of 04/21/19. Findings: Ventricles along with basal cisterns and sulci over the convexities are mildly prominent. Old lacunar infarct is noted within the anterior left basal ganglia. Minimal diminished density is noted within the periventricular white matter compatible with slight small vessel ischemic demyelination change. No evidence of intracranial hemorrhage. No midline shift or mass-effect is seen. Bone window settings were reviewed which shows no acute calvarial abnormality. Mucosal thickening is seen within a portion of the left mastoid sinus. Other mastoid sinuses are clear. Moderate mucosal thickening seen within the left maxillary sinus. No acute calvarial finding is seen. Impression: 1. Sinus findings which are felt to be chronic and pre-existing. 2. Mild senescent change is noted above. 3. No acute intracranial abnormality is appreciated. Diagnostic code #2 This report was dictated in [place] Standard Time
--- NOTE | 2019-08-18 14:26 | CT ---
CT cervical spine Technique: Multiple axial sections were obtained from above C1 inferiorly to the bottom of T4. Reconstructed sagittal and coronal images were obtained. Comparison: Previous cervical spine study of 04/21/19 is available. Findings: Severe disc space narrowing noted at C3-4 and C4-5. Mild disc space narrowing at C7-T1. Posterior osteophytes are noted at C3-4 through C7-T1 as well as at T2-3. There is moderate disc space narrowing at T1-2 through T3-4. Scattered degenerative change within the apophyseal joints is noted. Diffuse neural foraminal stenosis is scattered throughout the cervical spine. Degenerative change is noted between the dens and anterior arch of C1. No fracture is appreciated. No abnormal subluxation is seen. Impression: 1. Prior surgery. Diffuse degenerative change. 2. Nothing acute is appreciated on CT study of the cervical spine. Diagnostic code #2 This report was dictated in [place] Standard Time
--- NOTE | 2019-08-18 15:28 | EDM.PDOC ---
ED HPI GENERAL MEDICAL PROBLEM - General Chief Complaint: Lower Extremity Injury/Pain Stated Complaint: EMS ARRIVAL Time Seen by Provider: 08/18/19 13:01 - History of Present Illness INITIAL COMMENTS - FREE TEXT/NARRATIVE: HPI 63-year-old female with right-sided weakness 2/2 prior CVA presents for evaluation for fall from standing height in which she struck the right side of her body as well as her head, no LOC, no apparent preceding chest pain, shortness breath, abdominal pain, or lightheadedness. Takes no blood thinners. M/S/F/SocHx notable for: please see HPI; remainder reviewed with patient and in chart. ROS: Negative constitutional, eye, cardiovascular, pulmonary, GI, , MSK, skin , neurologic, psychiatric, endocrine unless noted in the HPI. Exam General: Pleasant, non-toxic appearing, resting comfortably. HENT: No evidence of facial or head trauma, TTP of orbits, TTP of midface, malocclusion, or septal hematoma. OP clear and moist, dentition intact. Eyes: EOMI, PERRL. Neck: Tracheal midline. No visible skin defects, no step-offs, c-spine TTP, stridor, or JVD. Cardiac: RRR with no M/R/G. Chest: No crepitus, visual evidence of trauma, equal chest rise, TTP. Pulm: clear to auscultation bilaterally. Effort WNL w/o accessory muscle usage. Abd: Soft, NT, ND, no guarding or visual evidence of trauma. Back: No spinous process TTP, no step-offs or visible injury. Pelvis: Stable, no TTP. RUE: Flume Worker 5/5, hand warm and well perfused with sensation intact to touch, no visible injuries. LUE: Flume Worker 5/5, hand warm and well perfused with sensation intact to touch, no visible injuries. RLE: Dorsiflexion 5/5, foot warm and well perfused with sensation intact to touch, no visible injuries. LLE: Dorsiflexion 5/5, foot warm and well perfused with sensation intact to touch, no visible injuries. Gait: unable to assess Orthostatics: negative symptomatic orthostatics. Neuro: alert and oriented 3, CN VII intact Skin: Warm and dry (focal injuries noted above). Psych: Normal affect and judgment. Labs / Imaging (pertinent): XR R hip and pelvis: negative for acute abnormality. CXR: negative chest. CT Head: 1. Sinus findings which are felt to be chronic and pre-existing. 2. Mild senescent change is noted above. 3. No acute intracranial abnormality is appreciated CT C-Spine: 1. Prior surgery. Diffuse degenerative change. 2 Nothing acute is appreciated on CT study of the cervical spine. WBC 10.7, HB 14.1, sodium 140, potassium 4.1, troponin <0.050. EK BPM, NSR with no ST-segment elevations or depressions, T-wave inversions or new LBBB. NE interval 154 msec, QTc 422 msec, no delta waves, epsilon waves, coved or saddle ST-segment changes in leads V1-3, preseptal or inferior lead Q-waves, biphasic P-waves, or T-wave inversions; no LVH. MDM Previous chart, nursing note, and vitals reviewed. A: [63-year-old female with right-sided weakness 2/2 prior CVA presents for evaluation for fall from standing height in which she struck the right side of her body as well as her head, no LOC, no apparent preceding chest pain, shortness breath, abdominal pain, or lightheadedness. DDx and evaluation: Trauma - patient with contusions, no evidence of clinically significant injuries by imaging, exam, patient able to ambulate in the department. Fall Etiology: * Anemia - H&H clinically WNL. * Hypotension (hypovolemia vs vasovagal vs autonomic instability) - SBP clinically WNL. No symptomatic changes with orthostatic maneuvers. * Cardiac - EKG, labs, and history without evidence of ACS or AV-block. Heart sounds WNL on exam, no evidence of clinically significant valvular abnormalities by history or auscultation. * Obstructive - doubt PE, tamponade, and pulmonary hypertension based upon lack of risk factors on history and exam. * Vertebrobasilar insufficiency - No identifiable risk factors on history ( injury risk factors, vertiginous symptoms, diplopia, vision changes, TIA risk factors or prior similar events). * Electrolyte - electrolytes clinically WNL. * Mechanical - suspect mechanical to the patients deconditioning. Patient with a walker, instructed to use all times. Impression: fall, contusions Right hip Pain Score (Numeric/FACES): 10 - Related Data Allergies Allergy/AdvReac Type Severity Reaction Status Date / Time erythromycin lactobionate Allergy Unknown Itching Verified 08/18/19 12:48 [From Erythrocin] mirtazapine [From Remeron] Allergy Unknown Itching Verified 08/18/19 12:48 Penicillins Allergy Unknown Hives Verified 08/18/19 12:48 tramadol Allergy Tremors Verified 08/18/19 12:48 Home Meds: Home Meds Estazolam [Prosom] 2 mg PO BEDTIME 10/25/17 [History] Meloxicam [Mobic] 7.5 mg PO BIDMEALS 10/25/17 [History] buPROPion HCl [Wellbutrin Xl] 300 mg PO ACBREAKFAST 10/25/17 [History] busPIRone [Buspar] 15 mg PO TID 10/25/17 [History] hydrOXYzine pamoate [Hydroxyzine Pamoate] 75 mg PO TID PRN 10/26/17 [History] Hydrocodone/Acetaminophen [Hydrocodon-Acetaminophn 10-325] 10 - 325 mg PO QID PRN 02/26/19 [History] Magnesium 250 mg PO DAILY 02/26/19 [History] Umeclidinium Brm/Vilanterol Tr [Anoro Ellipta 62.5-25 MCG] 1 each IH DAILY 02/26 [History] Venlafaxine HCl [Venlafaxine ER] 75 mg PO DAILY 02/26/19 [History] fentaNYL [Duragesic] 100 mcg TD Q72H 02/26/19 [History] Albuterol [Ventolin HFA] 1 puff INH Q4H PRN #1 inhaler 04/22/19 [Rx] traZODone HCl [Trazodone HCl] 250 mg PO BEDTIME PRN 07/07/19 [History] Naloxone HCl [Narcan] 1 spray NASBOTH .FOR SEDATION PRN 07/08/19 [History] Lisinopril/Hydrochlorothiazide [Lisinopril-HCTZ 10-12.5 MG] 2 tab PO QAM 14 Days #28 tablet 07/09/19 [Rx] Past Medical History - Past Health History Medical/Surgical History: Denies Medical/Surgical History HEENT History: Reports: None Cardiovascular History: Reports: High Cholesterol Respiratory History: Reports: COPD Gastrointestinal History: Reports: None Genitourinary History: Reports: None NUT SIFTER History: Reports: None Musculoskeletal History: Reports: Back Pain, Chronic Neurological History: Reports: CVA Other Neuro History: stroke Psychiatric History: Reports: Depression Other Psychiatric History: Sees Dr. Oconnor monthly Endocrine/Metabolic History: Reports: None Hematologic History: Reports: None Immunologic History: Reports: None Oncologic (Cancer) History: Reports: Other (See Below) Other Oncologic History: skin ca Dermatologic History: Reports: None Other Dermatologic History: "skin cancer" - Infectious Disease History Infectious Disease History: Reports: Measles, Mumps - Past Surgical History Head Surgeries/Procedures: Reports: None HEENT Surgical History: Reports: None Cardiovascular Surgical History: Reports: None Respiratory Surgical History: Reports: None GI Surgical History: Reports: None Female Surgical History: Reports: None Endocrine Surgical History: Reports: None Neurological Surgical History: Reports: Lumbar Spine Musculoskeletal Surgical History: Reports: Other (See Below) Oncologic Surgical History: Reports: None Dermatological Surgical History: Reports: None Social & Family History - Family History Family Medical History: Noncontributory Respiratory: Reports: COPD OBGYN: Reports: Musculoskeletal: Reports: Arthritis, Back pain, Chronic Neurological: Reports: CVA, TIA Psychiatric: Reports: Anxiety, Depression - Tobacco Use Smoking Status *Q: Current Every Day Smoker Years of Tobacco use: 50 Packs/Tins Daily: 0.4 - Caffeine Use Caffeine Use: Reports: Soda - Recreational Drug Use Recreational Drug Use: Yes Recreational Drug Type: Reports: Marijuana/Hashish Recreational Drug Use Frequency: Daily Review of Systems - Review of Systems Review Of Systems: See Below ED EXAM, GENERAL - Physical Exam Exam: See Below Course - Vital Signs Last Recorded V/S: Last Vital Signs Temp 36.6 C 08/18/19 12:48 Pulse 65 08/18/19 12:48 Resp 18 08/18/19 12:48 BP 192/103 H 08/18/19 12:48 Pulse Ox 95 08/18/19 12:48 - Orders/Labs/Meds Orders: Active Orders 24 hr Category Date Time Status EKG 12 Lead [EKG Documentation Completion] [RC] STAT Care 08/18/19 13:02 Active Labs: Laboratory Tests 08/18/19 08/18/19 Range/Units 13:10 13:10 WBC 10.67 (4.0-11.0) K/uL RBC 5.28 (4.30-5.90) M/uL Hgb 14.1 (12.0-16.0) g/dL Hct 43.7 (36.0-46.0) % MCV 82.8 (80.0-98.0) fL MCH 26.7 L (27.0-32.0) pg MCHC 32.3 (31.0-37.0) g/dL RDW Std Deviation 56.8 (28.0-62.0) fl RDW Coeff of Ene 19 H (11.0-15.0) % Plt Count 345 (150-400) K/uL MPV 9.50 (7.40-12.00) fL Neut % (Auto) 54.5 (48.0-80.0) % Lymph % (Auto) 39.7 (16.0-40.0) % [place] % (Auto) 4.3 (0.0-15.0) % Eos % (Auto) 1.0 (0.0-7.0) % Baso % (Auto) 0.5 (0.0-1.5) % Neut # (Auto) 5.8 H (1.4-5.7) K/uL Lymph # (Auto) 4.2 H (0.6-2.4) K/uL [place] # (Auto) 0.5 (0.0-0.8) K/uL Eos # (Auto) 0.1 (0.0-0.7) K/uL Baso # (Auto) 0.1 (0.0-0.1) K/uL Nucleated RBC % 0.0 /100WBC Nucleated RBCs # 0 K/uL Sodium 140 (136-145) mmol/L Potassium 4.1 (3.5-5.1) mmol/L Chloride 104 (98-107) mmol/L Carbon Dioxide 24.5 (21.0-32.0) mmol/L BUN 22 H (7.0-18.0) mg/dL Creatinine 1.1 H (0.6-1.0) mg/dL Est Cr Clr Drug Dosing 45.51 mL/min Estimated GFR (MDRD) 50.0 ml/min Glucose 94 (74-106) mg/dL Calcium 11.0 H (8.5-10.1) mg/dL Troponin I < 0.050 (0.000-0.056) ng/mL Departure - Departure Time of Disposition: 15:22 Disposition: Home, Self-Care 01 Clinical Impression: Fall - Discharge Information Additional Instructions: You were in seen in the [facility] Emergency Department for evaluation of injuries after a fall. No significant abnormalities were noted on your imaging, laboratory studies, or EKG. However you had an elevated blood pressure and should follow up with your primary care physician within 2 days for repeat evaluation. Please read and follow all of the instructions below. When calling for follow-up care, please make the office aware that this follow- up is from your recent emergency room visit. If for any reason you are refused follow-up, please contact the [facility] Emergency Department at and asked to speak to the emergency department charge nurse. Your care today was limited to identifying and treating emergent medical problems only. Many people have subtle differences in their test results that require follow up with their outpatient physician(s) to correctly determine if this represents a normal variation or concerning abnormality with respect to your specific health. The care given to you today was limited to identifying and treating emergent medical problems - you need to request a copy of all of your medical records from today's visit and follow up with your outpatient physician(s) to review both today's visit and your overall health. If you have any new symptoms or if you are at all concerned about your health please return immediately to the emergency department. Prescriptions: If you are uninsured or have financial difficulties with filling your prescription(s), you may consider using a free pharmacy discount service such as [employer] Service (HDS) ([employer]) or [employer] ([employer]). These services allow you to search for a medication on your phone (or computer) and obtain a coupon that usually has a significant discount from the list burks at a pharmacy. Your physician as well as [facility] does not have a financial relationship with either of these services. You may also wish to speak with your physician to determine if lower cost prescriptions are possible. Obtaining primary care: 1. [facility] provides pediatrics (children), family medicine (children, adults, and some obstetrical care), and internal medicine (adults). Further specialty care is also available. Same day appointments are available. They may be contacted at [phone] and are open Monday through Monday 8 AM to 5 PM. The [facility] are located at [facility], [address] [place], [place] [address]. 2. [facility] offers family medicine, internal medicine, womens health, and further specialty care. [facility] may be contacted at [phone]. [facility] is located at [address] [place], [address]. 3. If you have health insurance, please also contact your insurer for a list of accepting providers under your policy, you may contact these providers for further health care. Occupational health: Work related injuries may consider following up with [facility], . Occupational health services are located at [address], [place] [address] and are open Monday through Monday from 7: 30 am to 5:00 pm. Obstetrical and Gynecological Care: [facility], , Monday through Monday 8 AM to 5 PM. [address] [facility] [place] [address]. Eyecare: If you have an eye injury you should follow up with your screw cutter or with [facility], at [phone] or [phone] , they are located at [address] [place] [address]. Dental Care Bakari Peterson DDS. [address] [facility] [place], [place]. Ph. [phone] Luis Peterson DDS MS. [address] [facility] [address], [place], [place]. Ph. [phone] Geovani Velazquez DDS. 10 06/13 [facility] [place], [place]. Ph. [phone] Ferdinand Urban DDS. [address] [facility] [address] [place], [place]. Ph. [phone] Yaya Norris DDS PC. [address] [place] [address] [address] [place], [place]. Ph. Gemma Lorenzo DDS. [address] [facility]. Ph. [phone] [facility]. [address] [place], [place]. Ph. [phone] [facility]. [address], [place], [place]. Ph. [phone] [facility] [address] [place] [address]. Ph. [facility]. [address] [place] [address] [address] [place], [place]. Ph. [phone] [facility]. [address] [place], [place]. Ph. It is common to have sore muscles and contusions and after a fall, accident, or motor vehicle accident. These tend to feel worse over the day following the accident. You may also feel worse when you wake up the first morning after your collision. After this point, you will usually begin to improve with each day. The speed of improvement often depends on the severity of the collision, the number of injuries, and the location and nature of these injuries. Home Care Instructions: You may take acetaminophen and ibuprofen as directed below for relief of muscle aches and pains. If you find relief from hot packs or cold packs you may apply these to the affected areas for up to 15 minutes per time, 3-4 times per day. Drink enough fluids to keep your urine clear or pale yellow. Do not drink alcohol. SEEK IMMEDIATE MEDICAL CARE IF: You have numbness, tingling, or weakness in the arms or legs. You develop severe headaches, changes in vision or hearing, or difficulty walking. You have severe neck pain, especially tenderness in the middle of the back of your neck. You have changes in bowel or bladder control. There is increasing pain in any area of the body. You have shortness of breath, lightheadedness, dizziness, or fainting. You have chest pain. You have increasing abdominal discomfort. There is blood in your urine, stool, or vomit. You are otherwise concerned about your health. Difficulty breathing through your nose. This could be due to bruising with swelling of your septum and will require a prompt procedure to prevent further complications. If symptoms are not improving after 2-3 days, please follow up with your primary care physician for reevaluation. Sepsis Event Note - Evaluation Sepsis Screening Result: No Definite Risk - Focused Exam Vital Signs: Vital Signs Temp Pulse Resp BP Pulse Ox 08/18/19 12:48 36.6 C 65 18 192/103 H 95 Date Exam was Performed: 08/18/19 Time Exam was Performed: 15:22 - My Orders Last 24 Hours: My Active Orders 08/18/19 13:02 EKG 12 Lead [EKG Documentation Completion] [RC] STAT - Assessment/Plan Last 24 Hours: My Active Orders 08/18/19 13:02 EKG 12 Lead [EKG Documentation Completion] [RC] STAT
[2019-08-18] MEDS ORDERED: Acetaminophen 500 MG Tab PO ONE (16:02)
[2019-08-18 16:15] VITALS: BP 160/89; PULSE 75
== END 2019-08-18 16:22 | disposition home or self-care (01) ==
LOC: MW.ED 12:47
DX: Z04.3 Encounter for examination and observation following other accident (principal); J44.9 Chronic obstructive pulmonary disease, unspecified; F32.9 Major depressive disorder, single episode, unspecified; F17.210 Nicotine dependence, cigarettes, uncomplicated; Z88.0 Allergy status to penicillin; Z88.5 Allergy status to narcotic agent; E78.00 Pure hypercholesterolemia, unspecified; Z86.73 Personal history of transient ischemic attack (TIA), and cerebral infarction without residual deficits; Z88.1 Allergy status to other antibiotic agents
CPT/HCPCS: 36415; 70450; 71045; 72125; 73502; 80048; 84484; 85025; 93005; 99285; A9270

== ENCOUNTER 2019-08-25 12:40 | Emergency (ER) | payer MEDICARE, MEDICAID ==
[2019-08-25] MEDS ORDERED: Acetaminophen 500 MG Tab PO ONE (13:05)
[2019-08-25 13:34] LABS: BLOOD UREA NITROGEN,BUN 26 mg/dL (7.0-18.0); CARBON DIOXIDE,CO2 22.6 mmol/L (21.0-32.0); CHLORIDE,CL 104 mmol/L (98-107); GLUCOSE RANDOM 96 mg/dL (74-106); LIPASE 140 U/L (73-393); POTASSIUM,K 4.6 mmol/L (3.5-5.1); SODIUM,NA 140 mmol/L (136-145)
--- NOTE | 2019-08-25 13:54 | CT ---
CT cervical spine Technique: Multiple axial sections were obtained from above C1 inferiorly to the lower T3 level. Reconstructed sagittal and coronal images were reviewed. Comparison: Prior cervical spine CT exam of 08/18/19. Findings: Prior surgery is noted at C5-C6 and C6-C7. Diffuse degenerative change is noted which appears stable from prior study. No acute fracture or acute subluxation is appreciated. Impression: 1. Stable degenerative change as described on prior CT cervical spine study of 08/18/19. 2. No acute abnormality is seen on current CT study of the cervical spine. Diagnostic code #2 Study was dictated in MDT
--- NOTE | 2019-08-25 13:59 | CT ---
CT chest Technique: Multiple axial sections through the chest were obtained. Intravenous contrast was not utilized. Comparison: No prior chest CT, prior chest x-ray of 07/22/19. Findings: Small pericardial effusion is seen. Minimal coronary artery calcification is noted. Aorta shows mild atherosclerotic calcification without aneurysm. Mediastinum and hilar regions show no adenopathy. Lungs show mild emphysematous change. No acute parenchymal change is appreciated. No pulmonary contusion or pleural effusion are seen. Bone window settings were reviewed which shows no acute rib abnormality. Diffuse degenerative change is noted within the spine. Compression deformity is noted within the lower thoracic spine which is an interval change from prior lateral chest x-ray of 10/25/17 but no acute fracture line is definitely appreciated and this most likely is old but occurred in the interim from prior chest x-ray. No acute finding is otherwise seen within the thoracic spine. Diffuse degenerative change seen within the spine. Old mid sternal fracture is seen which shows evidence of surrounding callus. Impression: 1. Compression deformity within the lower thoracic spine which likely is old but has occurred in the interim from prior lateral chest x-ray from 2018. 2. Old mid sternal fracture showing callus. 3. Emphysematous change and small pericardial effusion. 4. Nothing acute is otherwise seen on CT study of the chest. Diagnostic code #3 Study was dictated in MDT
--- NOTE | 2019-08-25 14:05 | CT ---
CT abdomen and pelvis Technique: Multiple axial sections were obtained from above the dome of the diaphragm inferiorly through the pubic symphysis. Intravenous contrast was utilized. No oral contrast has been given utilized. Artifact is noted from the patient's right arm being along the patient's side. Comparison: No prior abdominal imaging is available. Findings: Small pericardial effusion is again noted. Liver shows no no parenchymal abnormality. Surgical clips are noted from prior cholecystectomy. Spleen appears within normal limits. Right adrenal nodule is seen which is most likely due to a benign adenoma measuring about 2.0 cm in size. Multiple nodules are noted within the left adrenal gland most likely representing multiple small adenomas within this adrenal gland. Pancreas shows no discrete abnormality. Aorta shows atherosclerotic change without aneurysm. No retroperitoneal adenopathy or mesenteric abnormalities are seen. No pelvic mass or adenopathy is seen. No free fluid or inflammatory change is appreciated. Appendix not definitely visualized. Diffuse postoperative change noted within the lumbar spine. No acute finding is seen within the visualized osseous structures. Impression: 1. Artifact from the patient's right arm along the side. 2. Nodules within both adrenal glands believed to represent multiple benign adenomas. 3. Other findings as noted above. 4. Nothing acute is appreciated on CT study of the abdomen and pelvis. Diagnostic code #2 Study was dictated in MDT
--- NOTE | 2019-08-25 14:06 | CT ---
Head CT Technique: Multiple axial sections through the brain were obtained. Intravenous contrast was not utilized. Comparison: Prior head CT study of 08/18/19 is available. Findings: Ventricles along with basal cisterns and sulci over the convexities are mildly prominent. Old right-sided lacunar infarct seen within the basal ganglia. Minimal areas of diminished density scattered within the periventricular white matter which is most likely due to small vessel ischemic demyelination change. No evidence of intracranial hemorrhage. No midline shift or mass effect is appreciated. Bone window settings were reviewed which show no acute calvarial abnormality. Mild mucosal thickening is seen within the left maxillary sinus which is stable from previous study. No fluid is seen within the paranasal sinuses. Mastoid sinuses are clear. Impression: 1. Findings as noted above. 2. No acute intracranial abnormality is appreciated. Diagnostic code #2 Study was dictated in MDT
--- NOTE | 2019-08-25 14:40 | CR ---
Lumbar spine: AP and lateral views lumbar spine were obtained. Comparison: No prior lumbar spine imaging. Transpedical screws are seen within L1-S1. Orthopedic hardware appears intact with no orthopedic hardware fracture. Osteopenia is noted. Mild anterior wedging is noted of T11. Slight lateral subluxation is noted at T11-T12. This is most likely old although MRI would be needed to confirm. No other areas of abnormal subluxation is seen. No discrete fracture is otherwise seen. Impression: 1. Anterior wedging of T11 with lateral subluxation at T11-T12. As noted above, these findings are most likely old although MRI would be needed to confirm if clinically indicated. 2. Extensive lumbar spine surgery. 3. Nothing acute is otherwise seen. Diagnostic code #3 Study was dictated in MDT
--- NOTE | 2019-08-25 14:40 | CR ---
Right foot: 2 views of the right foot were obtained. Comparison: No prior foot exam. Orthopedic hardware affixes an old fracture within the calcaneus. There is a depressed residual Boehler's angle being seen with secondary degenerative change noted within the subtalar joint. Bony structures are osteopenic. No discrete fracture or other bony abnormality is seen. Impression: 1. Findings as noted above. 2. Nothing acute is definitely appreciated on 2 view right foot exam. Diagnostic code #2 Study was dictated in MDT
--- NOTE | 2019-08-25 14:40 | CR ---
Right femur: AP and lateral views of the right femur were obtained. Joint space narrowing is seen within the knee. Joint space within the right hip is minimally narrowed. Osteopenia is seen. No acute fracture or dislocation is seen. Impression: 1. Osteopenia and mild degenerative change. 2. Nothing acute is appreciated on 2 view right femur exam. Diagnostic code #2 Study was dictated in MDT
--- NOTE | 2019-08-25 14:45 | CR ---
Right tibia and fibula: AP and lateral views right tibia and fibula were obtained. Comparison: No previous study. Chondrocalcinosis is noted within the knee involving the menisci. Osteopenia is present. No acute fracture is seen. Impression: 1. Findings as noted above. Nothing acute is appreciated on 2 view right tibia and fibula exam. Diagnostic code #2 Study was dictated in MDT
--- NOTE | 2019-08-25 14:45 | CR ---
Thoracic spine: AP and crosstable lateral views of the thoracic spine were obtained. Anterior wedge deformity is again noted at T11. Lateral subluxation is noted at T10-T11. As previously mentioned, this is most likely old but MRI would be needed to confirm if clinically indicated. Diffuse disc space narrowing throughout the thoracic spine is seen. Minimal scoliosis is noted. Mild scattered endplate osteophytes are seen. No other abnormality is definitely appreciated. Impression: 1. Anterior wedge deformity of T11 and lateral subluxation of T10-T11 which is most likely old. MRI would be needed to confirm if clinically indicated. 2. Diffuse disc space narrowing and mild scoliosis. Diagnostic code #3 Study was dictated in MDT
[2019-08-25] MEDS ORDERED: Morphine 2 MG/ML Syringe IVPUSH ONE (15:27)
--- NOTE | 2019-08-25 15:41 | EDM.PDOC ---
ED HPI GENERAL MEDICAL PROBLEM - General Chief Complaint: General Stated Complaint: FALL Time Seen by Provider: 08/25/19 12:44 - History of Present Illness INITIAL COMMENTS - FREE TEXT/NARRATIVE: HISTORY OF PRESENT ILLNESS: Patient is a 63-year-old female with history of prior CVA who presents to the ER status post multiple falls. She states that in the past 2 weeks she has had 4 falls. The first 2 occurred in the bathroom without incident. States that approximately 1 week ago she slid off her bed and landed on her leg resulting what she believes are toe fractures. States that 2 days ago she fell while walking to the kitchen using her walker, states that legs "crumpled" under her she struck her head and has had neck pain since the incident. Patient has chronic back pain but states the pain feels worse than usual. Complains of right hip pain. States that she has had right leg numbness since her fall 1 week ago. Old records reviewed and patient actually fell on August 17 striking her head at that time. There was no loss of conscious. She had extensive work-up including x-ray of hip, chest x-ray, CT head and C-spine which were unremarkable for acute pathology. Is not on anticoagulants. Reports right anterior rib pain but no retrosternal chest pain. No dyspnea. Denies any abdominal pain but does have tenderness on palpation. Patient lives by herself has no family in town. She is unable to care for self or pair any food, she wishes to be admitted to a extended care facility. REVIEW OF SYSTEMS: Other than the symptoms associated with the present events, the following is reported with regard to recent health: General: (-) fever. HENT: (-) congestion. Respiratory: (-) cough. Cardiovascular: (+)right anterior rib pain GI: (-) vomiting : (-) urinary complaints. Musculoskeletal: (+) toe, hip, back, neck pain Endocrine: (-) generalized weakness. Neurological: (+) localized weakness- right LE Skin: (-) rash PAST MEDICAL HISTORY: reviewed as per nursing notes SOCIAL HISTORY: reviewed as per nursing notes, MEDICATIONS: Per nurse's note ALLERGIES: Per nurse's note, reviewed by me PHYSICAL EXAMINATION: GENERALIZED APPEARANCE: well developed, well nourished in moderate distress VITAL SIGNS: Per nurse's note, reviewed by me SKIN: Warm, dry; (-) cyanosis; (-) rash. bruising right foot HEAD: (-) scalp swelling, (-) tenderness. EYES: (-) conjunctival pallor, (-) scleral icterus. ENMT: (-) stridor; mucous membranes moist. NECK: (+) midline tenderness, no step off or deformity BACK: diffuse TLS tenderness, no step off or deformity CHEST AND RESPIRATORY: (-) rales, (-) rhonchi, (-) wheezes; breath sounds equal bilaterally. HEART AND CARDIOVASCULAR: (-) irregularity; (-) murmur, (-) gallop. right lower anterior rib tenderness without crepitus ABDOMEN AND GI: Soft; (+)mild tenderness, right side (-) CVAT (-) guarding, (- ) rebound, (-) palpable masses, EXTREMITIES: (+) lateral right foot tenderness and to toes diffusely. 2+ DP. right lateral knee tenderness. neg ant/posterior drawer. neg angel luis's. right hip tenderness. no instability. no UE tenderness. cap refill <2 sec. NEURO AND PSYCH: Alert. oriented x 3 Cranial nerves grossly intact; strength symmetric. gait steady. decreased sensation right LE as compared with left. no facial droop. nml speech. cerebellar nml. 5/5+ Strength UE, LE. no gaze impairment. nml visual mckeon. EKG: sr at [address] elevation. q wave v1,2. EMERGENCY DEPARTMENT COURSE AND TREATMENT: Patient's condition remained stable during Emergency Department evaluation. Labs and diagnostics were ordered. Imaging was unremarkable for acute pathology. Laboratory results showed mild renal insufficiency. Urinalysis appears contaminated will await cultures. Patient denies any dysuria and will hold antibiotics at this time. Urine drug screen positive for THC. Due to frequent falls, patient will require admission to the hospital and possible placement in extended-care facility. Patient refusing admission to the hospital states that she has errands to run and her brother with cancer is dying in [facility]. All attempts on my part to convince the patient to stay have failed. Is alert and oriented x3, I cannot force the patient to be admitted against her will. The patient declines admission to the hospital and wishes to leave the Emergency Department. This action is against my medical advice to the patient and the decision was made with informed refusal. The patient was told that admission is necessary and a full explanation of the rationale was given. The risks of leaving were explained to the patient and include, but are not limited to, worsening of known or currently unknown conditions, permanent disability and from undiagnosed or untreated conditions. The patient has the capacity to make this informed decision and understands the clinical situation and my explanation of the risks of leaving. The patient voluntarily accepts these risks and a signed AMA form documenting our conversation was obtained. The patient was given the opportunity to ask questions and reconsider. The patient was encouraged to return to the Emergency Department at any time for further care. Adult Protective Services was called to check on patient. PLAN AND FOLLOW-UP: Patient received written and verbal instructions regarding this condition. Return to ED immediately with any new or worsening symptoms. Follow up to be arranged by patient with pcp in 1-2 days for further evaluation. Given discharge precautions. patient expressed verbal understanding. Middle Back Pain Score (Numeric/FACES): 7 - Related Data Allergies Allergy/AdvReac Type Severity Reaction Status Date / Time erythromycin lactobionate Allergy Unknown Itching Verified 08/25/19 12:51 [From Erythrocin] mirtazapine [From Remeron] Allergy Unknown Itching Verified 08/25/19 12:51 Penicillins Allergy Unknown Hives Verified 08/25/19 12:51 tramadol Allergy Tremors Verified 08/25/19 12:51 Home Meds: Home Meds Estazolam [Prosom] 2 mg PO BEDTIME 10/25/17 [History] Meloxicam [Mobic] 7.5 mg PO BIDMEALS 10/25/17 [History] buPROPion HCl [Wellbutrin Xl] 300 mg PO ACBREAKFAST 10/25/17 [History] busPIRone [Buspar] 15 mg PO TID 10/25/17 [History] hydrOXYzine pamoate [Hydroxyzine Pamoate] 75 mg PO TID PRN 10/26/17 [History] Hydrocodone/Acetaminophen [Hydrocodon-Acetaminophn 10-325] 10 - 325 mg PO QID PRN 02/26/19 [History] Magnesium 250 mg PO DAILY 02/26/19 [History] Umeclidinium Brm/Vilanterol Tr [Anoro Ellipta 62.5-25 MCG] 1 each IH DAILY 02/26 [History] Venlafaxine HCl [Venlafaxine ER] 75 mg PO DAILY 02/26/19 [History] fentaNYL [Duragesic] 100 mcg TD Q72H 02/26/19 [History] Albuterol [Ventolin HFA] 1 puff INH Q4H PRN #1 inhaler 04/22/19 [Rx] traZODone HCl [Trazodone HCl] 250 mg PO BEDTIME PRN 07/07/19 [History] Naloxone HCl [Narcan] 1 spray NASBOTH .FOR SEDATION PRN 07/08/19 [History] Lisinopril/Hydrochlorothiazide [Lisinopril-HCTZ 10-12.5 MG] 2 tab PO QAM 14 Days #28 tablet 07/09/19 [Rx] Past Medical History - Past Health History Medical/Surgical History: Denies Medical/Surgical History HEENT History: Reports: None Cardiovascular History: Reports: High Cholesterol Respiratory History: Reports: COPD Gastrointestinal History: Reports: None Genitourinary History: Reports: None [employer] History: Reports: None Musculoskeletal History: Reports: Back Pain, Chronic Neurological History: Reports: CVA Other Neuro History: stroke Psychiatric History: Reports: Depression Other Psychiatric History: Sees Dr. Oconnor monthly Endocrine/Metabolic History: Reports: None Hematologic History: Reports: None Immunologic History: Reports: None Oncologic (Cancer) History: Reports: Other (See Below) Other Oncologic History: skin ca Dermatologic History: Reports: None Other Dermatologic History: "skin cancer" - Infectious Disease History Infectious Disease History: Reports: Measles, Mumps - Past Surgical History Head Surgeries/Procedures: Reports: None HEENT Surgical History: Reports: None Cardiovascular Surgical History: Reports: None Respiratory Surgical History: Reports: None GI Surgical History: Reports: None Female Surgical History: Reports: None Endocrine Surgical History: Reports: None Neurological Surgical History: Reports: Lumbar Spine Musculoskeletal Surgical History: Reports: Other (See Below) Oncologic Surgical History: Reports: None Dermatological Surgical History: Reports: None Social & Family History - Family History Family Medical History: Noncontributory Respiratory: Reports: COPD OBGYN: Reports: Musculoskeletal: Reports: Arthritis, Back pain, Chronic Neurological: Reports: CVA, TIA Psychiatric: Reports: Anxiety, Depression - Tobacco Use Smoking Status *Q: Current Every Day Smoker Years of Tobacco use: 50 Packs/Tins Daily: 1 - Caffeine Use Caffeine Use: Reports: Coffee, Energy Drinks, Soda - Recreational Drug Use Recreational Drug Use: No ED ROS GENERAL - Review of Systems Review Of Systems: See Below (see dictation) ED EXAM, GENERAL - Physical Exam Exam: See Below (see dictation) Course - Vital Signs Last Recorded V/S: Last Vital Signs Temp 97.6 F 08/25/19 14:15 Pulse 91 08/25/19 15:55 Resp 19 08/25/19 15:55 BP 124/74 08/25/19 15:55 Pulse Ox 95 08/25/19 15:55 - Orders/Labs/Meds Orders: Active Orders 24 hr Category Date Time Status EKG Documentation Completion [RC] STAT Care 08/25/19 12:45 Active CULTURE URINE [RM] Stat Lab 08/25/19 14:34 Received Labs: Laboratory Tests 08/25/19 08/25/19 08/25/19 Range/Units 13:02 13:02 13:02 WBC 10.47 (4.0-11.0) K/uL RBC 5.61 (4.30-5.90) M/uL Hgb 15.3 (12.0-16.0) g/dL Hct 46.8 H (36.0-46.0) % MCV 83.4 (80.0-98.0) fL MCH 27.3 (27.0-32.0) pg MCHC 32.7 (31.0-37.0) g/dL RDW Std Deviation 57.3 (28.0-62.0) fl RDW Coeff of Ene 19 H (11.0-15.0) % Plt Count 324 (150-400) K/uL MPV 9.50 (7.40-12.00) fL Neut % (Auto) 52.9 (48.0-80.0) % Lymph % (Auto) 41.2 H (16.0-40.0) % Vernon % (Auto) 4.9 (0.0-15.0) % Eos % (Auto) 0.7 (0.0-7.0) % Baso % (Auto) 0.3 (0.0-1.5) % Neut # (Auto) 5.6 (1.4-5.7) K/uL Lymph # (Auto) 4.3 H (0.6-2.4) K/uL Vernon # (Auto) 0.5 (0.0-0.8) K/uL Eos # (Auto) 0.1 (0.0-0.7) K/uL Baso # (Auto) 0.0 (0.0-0.1) K/uL Nucleated RBC % 0.0 /100WBC Nucleated RBCs # 0 K/uL Sodium 140 (136-145) mmol/L Potassium 4.6 (3.5-5.1) mmol/L Chloride 104 (98-107) mmol/L Carbon Dioxide 22.6 (21.0-32.0) mmol/L BUN 26 H (7.0-18.0) mg/dL Creatinine 1.2 H (0.6-1.0) mg/dL Est Cr Clr Drug Dosing 40.70 mL/min Estimated GFR (MDRD) 45.2 ml/min Glucose 96 (74-106) mg/dL Calcium 11.3 H (8.5-10.1) mg/dL Total Bilirubin 0.4 (0.2-1.0) mg/dL AST 12 L (15-37) IU/L ALT 16 (14-63) IU/L Alkaline Phosphatase 114 (46-116) U/L Troponin I < 0.050 (0.000-0.056) ng/mL Total Protein 7.9 (6.4-8.2) g/dL Albumin 3.7 (3.4-5.0) g/dL Globulin 4.2 H (2.6-4.0) g/dL Albumin/Globulin Ratio 0.9 (0.9-1.6) Lipase 140 (73-393) U/L Urine Color Urine Appearance Urine pH (5.0-8.0) Ur Specific Vanderbilt (1.001-1.035) Urine Protein (NEGATIVE) mg/dL Urine Glucose (UA) (NEGATIVE) mg/dL Urine Ketones (NEGATIVE) mg/dL Urine Occult Blood (NEGATIVE) Urine Nitrite (NEGATIVE) Urine Bilirubin (NEGATIVE) Urine Urobilinogen (<2.0) EU/dL Ur Leukocyte Esterase (NEGATIVE) Urine RBC (0-2/HPF) Urine WBC (0-5/HPF) Ur Epithelial Cells (NONE-FEW) Urine Bacteria (NEGATIVE) Urine Mucus (NONE-MOD) Urine Opiates Screen (NEGATIVE) Ur Oxycodone Screen (NEGATIVE) Urine Methadone Screen (NEGATIVE) Ur Barbiturates Screen (NEGATIVE) Ur Phencyclidine Scrn (NEGATIVE) Ur Amphetamine Screen (NEGATIVE) U Methamphetamines Scrn (NEGATIVE) U Benzodiazepines Scrn (NEGATIVE) U Cocaine Metab Screen (NEGATIVE) U Marijuana (THC) Screen (NEGATIVE) Ethyl Alcohol < 3.0 mg/dL 08/25/19 08/25/19 Range/Units 14:34 14:34 WBC (4.0-11.0) K/uL RBC (4.30-5.90) M/uL Hgb (12.0-16.0) g/dL Hct (36.0-46.0) % MCV (80.0-98.0) fL MCH (27.0-32.0) pg MCHC (31.0-37.0) g/dL RDW Std Deviation (28.0-62.0) fl RDW Coeff of Ene (11.0-15.0) % Plt Count (150-400) K/uL MPV (7.40-12.00) fL Neut % (Auto) (48.0-80.0) % Lymph % (Auto) (16.0-40.0) % Vernon % (Auto) (0.0-15.0) % Eos % (Auto) (0.0-7.0) % Baso % (Auto) (0.0-1.5) % Neut # (Auto) (1.4-5.7) K/uL Lymph # (Auto) (0.6-2.4) K/uL Vernon # (Auto) (0.0-0.8) K/uL Eos # (Auto) (0.0-0.7) K/uL Baso # (Auto) (0.0-0.1) K/uL Nucleated RBC % /100WBC Nucleated RBCs # K/uL Sodium (136-145) mmol/L Potassium (3.5-5.1) mmol/L Chloride (98-107) mmol/L Carbon Dioxide (21.0-32.0) mmol/L BUN (7.0-18.0) mg/dL Creatinine (0.6-1.0) mg/dL Est Cr Clr Drug Dosing mL/min Estimated GFR (MDRD) ml/min Glucose (74-106) mg/dL Calcium (8.5-10.1) mg/dL Total Bilirubin (0.2-1.0) mg/dL AST (15-37) IU/L ALT (14-63) IU/L Alkaline Phosphatase (46-116) U/L Troponin I (0.000-0.056) ng/mL Total Protein (6.4-8.2) g/dL Albumin (3.4-5.0) g/dL Globulin (2.6-4.0) g/dL Albumin/Globulin Ratio (0.9-1.6) Lipase (73-393) U/L Urine Color YELLOW Urine Appearance HAZY Urine pH 7.5 (5.0-8.0) Ur Specific Vanderbilt 1.010 (1.001-1.035) Urine Protein NEGATIVE (NEGATIVE) mg/dL Urine Glucose (UA) NEGATIVE (NEGATIVE) mg/dL Urine Ketones NEGATIVE (NEGATIVE) mg/dL Urine Occult Blood TRACE-INTACT H (NEGATIVE) Urine Nitrite NEGATIVE (NEGATIVE) Urine Bilirubin NEGATIVE (NEGATIVE) Urine Urobilinogen 0.2 (<2.0) EU/dL Ur Leukocyte Esterase SMALL H (NEGATIVE) Urine RBC 0-2 (0-2/HPF) Urine WBC 1-3 (0-5/HPF) Ur Epithelial Cells OCCASIONAL (NONE-FEW) Urine Bacteria FEW (NEGATIVE) Urine Mucus LIGHT (NONE-MOD) Urine Opiates Screen NEGATIVE (NEGATIVE) Ur Oxycodone Screen NEGATIVE (NEGATIVE) Urine Methadone Screen NEGATIVE (NEGATIVE) Ur Barbiturates Screen NEGATIVE (NEGATIVE) Ur Phencyclidine Scrn NEGATIVE (NEGATIVE) Ur Amphetamine Screen NEGATIVE (NEGATIVE) U Methamphetamines Scrn NEGATIVE (NEGATIVE) U Benzodiazepines Scrn NEGATIVE (NEGATIVE) U Cocaine Metab Screen NEGATIVE (NEGATIVE) U Marijuana (THC) Screen POSITIVE (NEGATIVE) Ethyl Alcohol mg/dL Meds: Medications Discontinued Medications Generic Name Dose Route Start Last Admin Trade Name Wilberq PRN Reason Stop Dose Admin Acetaminophen 500 mg 08/25/19 13:05 08/25/19 13:08 Tylenol Extra Strength PO 08/25/19 13:06 500 mg ONETIME ONE Administration Iopamidol 100 ml 08/25/19 16:01 08/25/19 16:01 Isovue-370 (76%) IVPUSH 08/25/19 16:02 100 ml ONETIME ONE Administration Morphine Sulfate 2 mg 08/25/19 15:27 08/25/19 15:45 Morphine IVPUSH 08/25/19 15:28 2 mg ONETIME ONE Administration Departure - Departure Time of Disposition: 15:56 Disposition: Against Medical Advice 07 Condition: Fair Clinical Impression: Frequent falls Back pain Qualifiers: Back pain location: low back pain Chronicity: acute Back pain laterality: midline Sciatica presence: without sciatica Qualified Code(s): M54.5 - Low back pain Contusion Qualifiers: Encounter type: initial encounter Contusion area: head - Discharge Information *PRESCRIPTION DRUG MONITORING PROGRAM REVIEWED*: Not Applicable *COPY OF PRESCRIPTION DRUG MONITORING REPORT IN PATIENT BISMARK: Not Applicable Referrals: Marianne Arredondo,Najma [Ordering Only Provider] - 1 Day PCP,None [Primary Care Provider] - 1 Day Forms: ED Department Discharge, Refusal of Care AMA Additional Instructions: The following information is given to patients seen in the emergency department who are being discharged to home. This information is to outline your options for follow-up care. We provide all patients seen in our emergency department with a follow-up referral. The need for follow-up, as well as the timing and circumstances, are variable depending upon the specifics of your emergency department visit. If you don't have a primary care physician on staff, we will provide you with a referral. We always advise you to contact your personal physician following an emergency department visit to inform them of the circumstance of the visit and for follow-up with them and/or the need for any referrals to a consulting specialist. The emergency department will also refer you to a specialist when appropriate. This referral assures that you have the opportunity for follow-up care with a specialist. All of these measure are taken in an effort to provide you with optimal care, which includes your follow-up. Under all circumstances we always encourage you to contact your private physician who remains a resource for coordinating your care. When calling for follow-up care, please make the office aware that this follow-up is from your recent emergency room visit. If for any reason you are refused follow-up, please contact the [facility] Emergency Department at and asked to speak to the emergency department charge nurse. Sepsis Event Note - Evaluation Sepsis Screening Result: No Definite Risk - Focused Exam Vital Signs: Vital Signs Temp Pulse Resp BP Pulse Ox 08/25/19 15:55 91 19 124/74 95 08/25/19 14:48 106 H 18 132/72 97 08/25/19 14:15 97.6 F 123 H 18 166/80 H 97 08/25/19 12:47 97.7 F 82 18 143/80 H 97 Date Exam was Performed: 08/25/19 Time Exam was Performed: 18:38 - My Orders Last 24 Hours: My Active Orders 08/25/19 12:45 EKG Documentation Completion [RC] STAT 08/25/19 14:34 CULTURE URINE [RM] Stat - Assessment/Plan Last 24 Hours: My Active Orders 08/25/19 12:45 EKG Documentation Completion [RC] STAT 08/25/19 14:34 CULTURE URINE [RM] Stat
[2019-08-25] MEDS ORDERED: Iopamidol 755 Mg/ML 100 ML Bottle IVPUSH ONE (16:01)
[2019-08-25 16:02] VITALS: BP 124/74; PULSE 91
== END 2019-08-25 16:03 | disposition left against medical advice (07) ==
LOC: MW.ED 12:40
DX: S00.83XA Contusion of other part of head, initial encounter (principal); S90.31XA Contusion of right foot, initial encounter; M54.5 Low back pain; M54.6 Pain in thoracic spine; E78.00 Pure hypercholesterolemia, unspecified; J44.9 Chronic obstructive pulmonary disease, unspecified; Z86.73 Personal history of transient ischemic attack (TIA), and cerebral infarction without residual deficits; F32.9 Major depressive disorder, single episode, unspecified; F17.210 Nicotine dependence, cigarettes, uncomplicated; Z88.1 Allergy status to other antibiotic agents; Z88.0 Allergy status to penicillin; Z88.8 Allergy status to other drugs, medicaments and biological substances; Z88.5 Allergy status to narcotic agent; Z79.899 Other long term (current) drug therapy; W19.XXXA Unspecified fall, initial encounter; W22.8XXA Striking against or struck by other objects, initial encounter
CPT/HCPCS: 36415; 70450; 71260; 72070; 72100; 72125; 73551; 73590; 73620; 74177; 80053; 80305; 80307; 81001; 83690; 84484; 85025; 87086; 93005; 96374; 99284; A9270; J2270; Q9967

== ENCOUNTER 2019-11-10 22:05 | Observation (INO) | payer MEDICARE, MEDICAID ==
[2019-11-10] MEDS ORDERED: Sodium Chloride 0.9% 10 ML SDV IV PRN (22:40)
[2019-11-10] MEDS ORDERED: Acetaminophen 500 MG Tab PO ONE (22:40)
[2019-11-10] MEDS ORDERED: Sodium Chloride 0.9% 2.5 ML Syringe FLUSH PRN (22:40)
[2019-11-10] MEDS ORDERED: Ibuprofen 400 MG Tab PO ONE (22:40)
[2019-11-10] MEDS ORDERED: fentaNYL 50 MCG/ML SDV IVPUSH ONE ×2 (22:40→23:51)
[2019-11-10] MEDS ORDERED: Sodium Chloride 0.9% 10 ML Syringe FLUSH PRN (22:40)
--- NOTE | 2019-11-10 23:03 | EDM.PDOC ---
ED HPI GENERAL MEDICAL PROBLEM - General Chief Complaint: Back Pain or Injury Stated Complaint: EMS ARRIVAL Time Seen by Provider: 11/10/19 22:12 Source of Information: Reports: Patient History Limitations: Reports: No Limitations - History of Present Illness INITIAL COMMENTS - FREE TEXT/NARRATIVE: 63-year-old female with a past medical history of chronic low back pain, status post lumbar surgery, COPD, opioid use presenting with low back pain and chest pain. Complains of bilateral low back pain, bilateral hip pain, and substernal chest pain since about 6:00 this morning. She states that she ran out of her prescribed pain medications. Low back pain is 10 out of 10, constant, nonradiating. Does have a history of an ischemic stroke in June 2019 with some resultant lower extremity numbness, states this is unchanged compared to her baseline denies any new lower extremity weakness or numbness, history of trauma, bowel/bladder retention or incontinence, fever, change in ambulation ( usually uses a walker). No history of autoimmune disease or active cancer. lower back Pain Score (Numeric/FACES): 10 - Related Data Allergies Allergy/AdvReac Type Severity Reaction Status Date / Time erythromycin lactobionate Allergy Unknown Itching Verified 11/10/19 22:08 [From Erythrocin] mirtazapine [From Remeron] Allergy Unknown Itching Verified 11/10/19 22:08 Penicillins Allergy Unknown Hives Verified 11/10/19 22:08 tramadol Allergy Tremors Verified 11/10/19 22:08 Home Meds: Home Meds Estazolam [Prosom] 2 mg PO BEDTIME 10/25/17 [History] Meloxicam [Mobic] 7.5 mg PO BIDMEALS 10/25/17 [History] buPROPion HCL [Wellbutrin Xl] 300 mg PO ACBREAKFAST 10/25/17 [History] busPIRone [Buspar] 15 mg PO TID 10/25/17 [History] hydrOXYzine pamoate [Hydroxyzine Pamoate] 75 mg PO TID PRN 10/26/17 [History] Hydrocodone/Acetaminophen [Hydrocodone-Acetamin 10-325 mg] 10 - 325 mg PO QID PRN 02/26/19 [History] Magnesium 250 mg PO DAILY 02/26/19 [History] Umeclidinium Brm/Vilanterol Tr [Anoro Ellipta 62.5-25 MCG] 1 each IH DAILY 02/26 [History] Venlafaxine HCl [Venlafaxine ER] 75 mg PO DAILY 02/26/19 [History] fentaNYL [Duragesic] 100 mcg TD Q72H 02/26/19 [History] Albuterol [Ventolin HFA] 1 puff INH Q4H PRN #1 inhaler 04/22/19 [Rx] traZODone HCl [Trazodone HCl] 250 mg PO BEDTIME PRN 07/07/19 [History] Naloxone HCl [Narcan] 1 spray NASBOTH .FOR SEDATION PRN 07/08/19 [History] Lisinopril/Hydrochlorothiazide [Lisinopril-HCTZ 10-12.5 MG] 2 tab PO QAM 14 Days #28 tablet 07/09/19 [Rx] Past Medical History - Past Health History Medical/Surgical History: Denies Medical/Surgical History HEENT History: Reports: None Cardiovascular History: Reports: High Cholesterol Respiratory History: Reports: COPD Gastrointestinal History: Reports: None Genitourinary History: Reports: None [employer] History: Reports: None Musculoskeletal History: Reports: Back Pain, Chronic Neurological History: Reports: CVA Other Neuro History: stroke Psychiatric History: Reports: Depression Other Psychiatric History: Sees Dr. Oconnor monthly Endocrine/Metabolic History: Reports: None Hematologic History: Reports: None Immunologic History: Reports: None Oncologic (Cancer) History: Reports: Other (See Below) Other Oncologic History: skin ca Dermatologic History: Reports: None Other Dermatologic History: "skin cancer" - Infectious Disease History Infectious Disease History: Reports: Chicken Pox, Measles, Mumps - Past Surgical History Head Surgeries/Procedures: Reports: None HEENT Surgical History: Reports: None Cardiovascular Surgical History: Reports: None Respiratory Surgical History: Reports: None GI Surgical History: Reports: None Female Surgical History: Reports: None Endocrine Surgical History: Reports: None Neurological Surgical History: Reports: Lumbar Spine Musculoskeletal Surgical History: Reports: Other (See Below) Oncologic Surgical History: Reports: None Dermatological Surgical History: Reports: None Social & Family History - Family History Family Medical History: Noncontributory Respiratory: Reports: COPD OBGYN: Reports: Musculoskeletal: Reports: Arthritis, Back pain, Chronic Neurological: Reports: CVA, TIA Psychiatric: Reports: Anxiety, Depression - Tobacco Use Smoking Status *Q: Current Every Day Smoker Years of Tobacco use: 50 Packs/Tins Daily: 1 - Caffeine Use Caffeine Use: Reports: Soda - Recreational Drug Use Recreational Drug Use: No ED ROS GENERAL - Review of Systems Review Of Systems: See Below Constitutional: Denies: Fever HEENT: Reports: No Symptoms Respiratory: Denies: Shortness of Breath, Cough Cardiovascular: Reports: Chest Pain. Denies: Edema GI/Abdominal: Denies: Abdominal Pain, Nausea, Vomiting : Denies: Dysuria, Hematuria Musculoskeletal: Reports: Back Pain. Denies: Neck Pain, Shoulder Pain, Arm Pain Skin: Denies: Rash Neurological: Reports: Pre-Existing Deficit, Other (Baseline lower extremity numbness, not changed at this point.). Denies: Headache, Paresthesia, Weakness Psychiatric: Reports: No Symptoms Hematologic/Lymphatic: Reports: No Symptoms Immunologic: Reports: No Symptoms ED EXAM,LOWER BACK PAIN/INJURY - Physical Exam Exam: See Below Text/Narrative:: Vital signs reviewed. Nursing notes reviewed. Constitutional: Awake, alert, appears uncomfortable and anxious, restless, rolling around in bed. Head: Normocephalic, atraumatic. Eyes: EOMI, conjunctiva normal, no discharge, no scleral icterus. Ears, Nose, Throat: External ears and ears normal, moist oral mucosa. Cardiovascular: 2+ bilateral DP and PT pulses, capillary refill less than 2 seconds. Lower extremities warm and well perfused. Pulmonary: normal work of breathing, no accessory muscle use. Abdomen/GI: Soft, nontender, nondistended, no guarding or rigidity, no pulsatile mass. Musculoskeletal: No deformities. Moderate tenderness to palpation to the midline lower thoracic spine and the midline lumbar spine. Integumentary: Appropriate color for ethnicity, warm, dry, no pallor or jaundice , no rash. Neurologic: Alert, answering questions appropriately, normal speech, no facial droop, moving all extremities well. 5/5 strength to bilateral lower extremity muscle groups, sensation intact to light touch to bilateral lower extremities. Upgoing EHLs bilaterally. Psychiatric: Anxious, normal thought process. EKG INTERPRETATION EKG Date: 11/10/19 Time: 22:20 Rhythm: NSR Rate (Beats/Min): 88 [place]: Normal P-Wave: Present QRS: Normal ST-T: Other (T-wave flattening in aVL) QT: Normal EKG Interpretation Comments: No acute ischemia. Course - Vital Signs Text/Narrative:: Patient hemodynamically stable, afebrile, well-appearing, looks nontoxic. Differential diagnosis includes but is not limited to: myocardial infarction, pulmonary embolism, pneumothorax, pneumonia, aortic dissection, atypical chest pain, Boerhaave syndrome, chronic back pain, spinal epidural abscess, AAA, malignancy, vertebral fracture, UTI, pyelonephritis, sciatica, and many others. 2303: Patient is in significant pain and examination is limited due to discomfort. Will plan for IV fentanyl and other pain medications, labs, chest x -ray, EKG to evaluate both chest pain and back pain. Will plan for serial back and lower extremity evaluations after adequate pain control is been achieved. 2358: 1 view chest x-ray clear. CBC shows a mild leukocytosis without fever or tachycardia. Renal panel shows mild creatinine elevation at 1.7. Troponin testing negative with report of constant chest pain since 0600. Urinalysis shows no blood or evidence of infection. Complains of ongoing bilateral hip pain and thoracic and lumbar spine pain. Ordered CT imaging of the abdomen/ pelvis, thoracic spine, lumbar spine. Ordered additional IV fentanyl and lidocaine patches. I repeated an examination of the lower extremities and the back. Neurovascularly intact in the bilateral lower extremities, no deficits noted. Equal strong distal pulses in the feet. No pulsatile mass to suggest AAA. Added on ESR and CRP to evaluate for spinal epidural abscess given leukocytosis with significant back pain. 0036: ESR/CRP negative. Patient in CT getting imaging. 0123: CT thoracic spine shows a worsened compression deformity at T11 compared to CT from 04/21/2019. 0128: CT lumbar spine shows no acute changes, multilevel degenerative changes present. CT abdomen/pelvis shows no acute findings. 0158: Patient continues to complain of severe back pain despite negative work- up. Will plan for observation stay for ongoing symptom control and likely PT evaluation, may need consideration of MR. I spoke with the hospitalist Dr. Farley who agrees to admit to her service on observation status. Ordered IV morphine for ongoing pain. Resting comfortably. Last Recorded V/S: Last Vital Signs Temp 36.1 C 11/11/19 02:33 Pulse 72 11/11/19 02:33 Resp 16 11/11/19 02:33 BP 147/70 H 11/11/19 02:33 Pulse Ox 95 11/11/19 02:33 - Orders/Labs/Meds Orders: Active Orders 24 hr Category Date Time Status EKG 12 Lead [EKG Documentation Completion] [RC] STAT Care 11/10/19 22:13 Active Pulse Oximetry [RC] ASDIRECTED Care 11/10/19 22:39 Active Sodium Chloride 0.9% [Normal Saline] Med 11/10/19 22:40 Active 10 ml IV ASDIRECTED PRN Sodium Chloride 0.9% [Saline Flush] Med 11/10/19 22:40 Active 10 ml FLUSH ASDIRECTED PRN Sodium Chloride 0.9% [Saline Flush] Med 11/10/19 22:40 Active 2.5 ml FLUSH ASDIRECTED PRN Peripheral IV Insertion Adult [OM.PC] Stat Oth 11/10/19 22:39 Ordered Medication Orders Sodium Chloride (Saline Flush) 10 ml FLUSH ASDIRECTED PRN PRN Reason: Keep Vein Open Sodium Chloride (Saline Flush) 2.5 ml FLUSH ASDIRECTED PRN PRN Reason: Keep Vein Open Sodium Chloride (Normal Saline) 10 ml IV ASDIRECTED PRN PRN Reason: IV Use Labs: Laboratory Tests 11/10/19 11/10/19 11/10/19 Range/Units 22:30 22:56 22:56 WBC 13.08 H (4.0-11.0) K/uL RBC 5.40 (4.30-5.90) M/uL Hgb 15.2 (12.0-16.0) g/dL Hct 44.5 (36.0-46.0) % MCV 82.4 (80.0-98.0) fL MCH 28.1 (27.0-32.0) pg MCHC 34.2 (31.0-37.0) g/dL RDW Std Deviation 36.3 (28.0-62.0) fl RDW Coeff of Ene 12 (11.0-15.0) % Plt Count 317 (150-400) K/uL MPV 9.50 (7.40-12.00) fL Neut % (Auto) 48.3 (48.0-80.0) % Lymph % (Auto) 44.2 H (16.0-40.0) % [place] % (Auto) 7.0 (0.0-15.0) % Eos % (Auto) 0.3 (0.0-7.0) % Baso % (Auto) 0.2 (0.0-1.5) % Neut # (Auto) 6.3 H (1.4-5.7) K/uL Lymph # (Auto) 5.8 H (0.6-2.4) K/uL [place]ander # (Auto) 0.9 H (0.0-0.8) K/uL Eos # (Auto) 0.0 (0.0-0.7) K/uL Baso # (Auto) 0.0 (0.0-0.1) K/uL Nucleated RBC % 0.0 /100WBC Nucleated RBCs # 0 K/uL ESR (0-29) mm/hr Sodium 135 L (136-145) mmol/L Potassium 3.8 (3.5-5.1) mmol/L Chloride 97 L (98-107) mmol/L Carbon Dioxide 21.7 (21.0-32.0) mmol/L BUN 36 H (7.0-18.0) mg/dL Creatinine 1.7 H (0.6-1.0) mg/dL Est Cr Clr Drug Dosing 28.25 mL/min Estimated GFR (MDRD) 30.3 ml/min Glucose 124 H (74-106) mg/dL Calcium 11.4 H (8.5-10.1) mg/dL Troponin I < 0.050 (0.000-0.056) ng/mL C-Reactive Protein (0.00-0.90) mg/dL Urine Color YELLOW Urine Appearance CLEAR Urine pH 8.5 H (5.0-8.0) Ur Specific [place] 1.015 (1.001-1.035) Urine Protein TRACE H (NEGATIVE) mg/dL Urine Glucose (UA) NEGATIVE (NEGATIVE) mg/dL Urine Ketones NEGATIVE (NEGATIVE) mg/dL Urine Occult Blood NEGATIVE (NEGATIVE) Urine Nitrite NEGATIVE (NEGATIVE) Urine Bilirubin NEGATIVE (NEGATIVE) Urine Urobilinogen 0.2 (<2.0) EU/dL Ur Leukocyte Esterase NEGATIVE (NEGATIVE) Urine RBC 0-1 (0-2/HPF) Urine WBC 0-3 (0-5/HPF) Ur Epithelial Cells RARE (NONE-FEW) Urine Bacteria RARE (NEGATIVE) 05/31/20 05/31/20 Range/Units 22:56 22:56 WBC (4.0-11.0) K/uL RBC (4.30-5.90) M/uL Hgb (12.0-16.0) g/dL Hct (36.0-46.0) % MCV (80.0-98.0) fL MCH (27.0-32.0) pg MCHC (31.0-37.0) g/dL RDW Std Deviation (28.0-62.0) fl RDW Coeff of Ene (11.0-15.0) % Plt Count (150-400) K/uL MPV (7.40-12.00) fL Neut % (Auto) (48.0-80.0) % Lymph % (Auto) (16.0-40.0) % [place]ander % (Auto) (0.0-15.0) % Eos % (Auto) (0.0-7.0) % Baso % (Auto) (0.0-1.5) % Neut # (Auto) (1.4-5.7) K/uL Lymph # (Auto) (0.6-2.4) K/uL [place]ander # (Auto) (0.0-0.8) K/uL Eos # (Auto) (0.0-0.7) K/uL Baso # (Auto) (0.0-0.1) K/uL Nucleated RBC % /100WBC Nucleated RBCs # K/uL ESR 6 (0-29) mm/hr Sodium (136-145) mmol/L Potassium (3.5-5.1) mmol/L Chloride (98-107) mmol/L Carbon Dioxide (21.0-32.0) mmol/L BUN (7.0-18.0) mg/dL Creatinine (0.6-1.0) mg/dL Est Cr Clr Drug Dosing mL/min Estimated GFR (MDRD) ml/min Glucose (74-106) mg/dL Calcium (8.5-10.1) mg/dL Troponin I (0.000-0.056) ng/mL C-Reactive Protein 0.50 (0.00-0.90) mg/dL Urine Color Urine Appearance Urine pH (5.0-8.0) Ur Specific [place] (1.001-1.035) Urine Protein (NEGATIVE) mg/dL Urine Glucose (UA) (NEGATIVE) mg/dL Urine Ketones (NEGATIVE) mg/dL Urine Occult Blood (NEGATIVE) Urine Nitrite (NEGATIVE) Urine Bilirubin (NEGATIVE) Urine Urobilinogen (<2.0) EU/dL Ur Leukocyte Esterase (NEGATIVE) Urine RBC (0-2/HPF) Urine WBC (0-5/HPF) Ur Epithelial Cells (NONE-FEW) Urine Bacteria (NEGATIVE) Meds: Medications Generic Name Dose Route Start Last Admin Trade Name Freq PRN Reason Stop Dose Admin Sodium Chloride 10 ml 11/10/19 22:40 Saline Flush FLUSH ASDIRECTED PRN Keep Vein Open Sodium Chloride 2.5 ml 11/10/19 22:40 Saline Flush FLUSH ASDIRECTED PRN Keep Vein Open Sodium Chloride 10 ml 11/10/19 22:40 Normal Saline IV ASDIRECTED PRN IV Use Discontinued Medications Generic Name Dose Route Start Last Admin Trade Name Freq PRN Reason Stop Dose Admin Acetaminophen 1,000 mg 11/10/19 22:40 11/10/19 22:49 Tylenol Extra Strength PO 11/10/19 22:41 1,000 mg ONETIME ONE Administration Fentanyl 50 mcg 11/10/19 22:40 11/10/19 22:50 Fentanyl IVPUSH 11/10/19 22:41 50 mcg ONETIME ONE Administration Fentanyl 50 mcg 11/10/19 23:51 11/11/19 00:16 Fentanyl IVPUSH 11/10/19 23:52 50 mcg ONETIME ONE Administration Ibuprofen 400 mg 11/10/19 22:40 11/10/19 22:49 Motrin PO 11/10/19 22:41 400 mg ONETIME ONE Administration Lidocaine 700 mg 11/10/19 23:51 11/11/19 00:15 Lidoderm 5% TOP 11/10/19 23:52 700 mg ONETIME ONE Administration Morphine Sulfate 2 mg 11/11/19 01:58 11/11/19 02:29 Morphine IVPUSH 11/11/19 01:59 2 mg ONETIME ONE Administration Departure - Departure Time of Disposition: 01:56 Disposition: Refer to Observation Clinical Impression: Intractable low back pain - Discharge Information Sepsis Event Note - Evaluation Sepsis Screening Result: No Definite Risk - Focused Exam Vital Signs: Vital Signs Temp Pulse Resp BP Pulse Ox 11/10/19 23:01 84 18 138/84 94 L 11/10/19 22:09 36.2 C 90 24 H 133/87 95 Date Exam was Performed: 11/11/19 Time Exam was Performed: 03:33 - My Orders Last 24 Hours: My Active Orders 11/10/19 22:13 EKG 12 Lead [EKG Documentation Completion] [RC] STAT 11/10/19 22:39 Pulse Oximetry [RC] ASDIRECTED Peripheral IV Insertion Adult [OM.PC] Stat 11/10/19 22:40 Sodium Chloride 0.9% [Normal Saline] 10 ml IV ASDIRECTED PRN Sodium Chloride 0.9% [Saline Flush] 10 ml FLUSH ASDIRECTED PRN Sodium Chloride 0.9% [Saline Flush] 2.5 ml FLUSH ASDIRECTED PRN - Assessment/Plan Last 24 Hours: My Active Orders 11/10/19 22:13 EKG 12 Lead [EKG Documentation Completion] [RC] STAT 11/10/19 22:39 Pulse Oximetry [RC] ASDIRECTED Peripheral IV Insertion Adult [OM.PC] Stat 11/10/19 22:40 Sodium Chloride 0.9% [Normal Saline] 10 ml IV ASDIRECTED PRN Sodium Chloride 0.9% [Saline Flush] 10 ml FLUSH ASDIRECTED PRN Sodium Chloride 0.9% [Saline Flush] 2.5 ml FLUSH ASDIRECTED PRN
[2019-11-10 23:18] LABS: BLOOD UREA NITROGEN,BUN 36 mg/dL (7.0-18.0); CARBON DIOXIDE,CO2 21.7 mmol/L (21.0-32.0); CHLORIDE,CL 97 mmol/L (98-107); GLUCOSE RANDOM 124 mg/dL (74-106); POTASSIUM,K 3.8 mmol/L (3.5-5.1); SODIUM,NA 135 mmol/L (136-145)
--- NOTE | 2019-11-10 23:22 | CR ---
Indication: Chest pain. Technique: AP portable view of the chest. Comparison: August 18, 2019. Findings: The heart is normal size. The lungs are clear. No infiltrate, pleural effusion or pneumothorax is identified. Postoperative changes of the lumbar and cervical spine are identified Impression: No acute cardiopulmonary process Dictated by Jane Padilla MD @ Nov 10 2019 11:19PM Signed by Dr. Jane Padilla @ Nov 10 2019 11:20PM
[2019-11-10] MEDS ORDERED: Lidocaine 5% 700 MG Patch TOP ONE (23:51)
--- NOTE | 2019-11-11 01:22 | CT ---
INDICATION: Pain TECHNIQUE: CT thoracic spine without contrast. COMPARISON: Ribs/03/30 FINDINGS: Vertebral alignment: Alignment is normal. Vertebrae: No definitive acute fractures. The increasing compression deformity T11 vertebral body compared 04/21/2019. Discs and facet joints: Multilevel degenerative changes. Extraspinal findings: Prevertebral soft tissues, visualized airway, and visualized lungs are unremarkable. IMPRESSION: No definitive acute fractures. Increasing compression deformity T11 vertebral body compared to 04/21/2019. Multilevel degenerative changes. Dictated by Brady Acosta MD @ 11/11/2019 1:21:25 AM Please note that all CT scans at this facility use dose modulation, iterative reconstruction, and/or weight-based dosing when appropriate to reduce radiation dose to as low as reasonably achievable. Dictated by: Brady Acosta MD @ 11/11/2019 01:21:33 (Electronically Signed)
--- NOTE | 2019-11-11 01:26 | CT ---
INDICATION: Pain TECHNIQUE: CT lumbar spine without contrast. COMPARISON: 04/21/2019 FINDINGS: Vertebral alignment: Alignment is normal. Vertebrae: There are no fractures or suspicious bony lesions. Posterior spinal fixation however L1 through S1. Evidence of L3 and L4 laminectomies. Discs and facet joints: Multilevel degenerative changes. Extraspinal findings: Prevertebral soft tissues and visualized retroperitoneum are unremarkable. Grossly normal hip joints. IMPRESSION: Multilevel degenerative changes. Posterior spinal fixation hardware L1 through S1 with L3 and L4 level laminectomies. Dictated by Brady Acosta MD @ 11/11/2019 1:25:06 AM Please note that all CT scans at this facility use dose modulation, iterative reconstruction, and/or weight-based dosing when appropriate to reduce radiation dose to as low as reasonably achievable. Dictated by: Brady Acosta MD @ 11/11/2019 01:25:36 (Electronically Signed)
--- NOTE | 2019-11-11 01:37 | CT ---
INDICATION: Back and hip pain TECHNIQUE: CT abdomen and pelvis without contrast. COMPARISON: 08/25/2019 FINDINGS: Lower chest: Bilateral subpleural fibrosis. Liver: Unremarkable. Spleen: Unremarkable. Pancreas: Unremarkable. Gallbladder and bile ducts: Unremarkable. Kidneys: Nonobstructing renal calculi left kidney. Adrenal glands: Unremarkable. GI tract: Unremarkable. Appendix is normal. Vascular structures: Unremarkable. Lymph nodes: Unremarkable. Miscellaneous: Unremarkable. No free air or significant free fluid. Pelvic Organs: Unremarkable. Bones: Posterior spinal fixation hardware L1 through S1 with multilevel degenerative changes. Normal-appearing bilateral hip joints. IMPRESSION: Spinal fixation hardware L1 through S1 with multilevel degenerative changes. Punctate nonobstructing calculi left kidney. Dictated by Brady Acosta MD @ 11/11/2019 1:36:17 AM Please note that all CT scans at this facility use dose modulation, iterative reconstruction, and/or weight-based dosing when appropriate to reduce radiation dose to as low as reasonably achievable. Dictated by: Brady Acosta MD @ 11/11/2019 01:36:25 (Electronically Signed)
[2019-11-11] MEDS ORDERED: Morphine 2 MG/ML SYRINGE IVPUSH ONE (01:58)
[2019-11-11] MEDS: Sodium Chloride 0.9% 1,000 ML IV SCH (04:37)
[2019-11-11] MEDS: Morphine 2 MG/ML SYRINGE IVPUSH PRN (05:13)
[2019-11-11] MEDS ORDERED: Ondansetron 4 MG/2 ML SDV IVPUSH PRN (05:58)
--- NOTE | 2019-11-11 09:13 | PCM.HP.2 ---
<Mehdi High - Last Filed: 11/11/19 11:48> H&P History of Present Illness - General Date of Service: 11/11/19 Admit Problem/Dx: Admission Diagnosis/Problem Admission Diagnosis/Problem Intractable low back pain Source of Information: Patient - History of Present Illness Initial Comments - Free Text/Narative: Patient is a 63-year-old female with past medical history of chronic low back pain on opioids and status post lumbar surgery, COPD, presenting yesterday for acute on chronic low back pain. Patient states the pain was a 10 out of 10, constant, nonradiating however is also complaining of right lower extremity weakness and numbness but endorses this being a chronic issue since her ischemic stroke in June 2019. Patient denies any history of bladder or bowel retention, incontinence fever and is continue to use her walker. ED course: Patient received fentanyl for pain relief, EKG chest x-ray and troponin were negative. Urinalysis did not show any signs of infection or blood. CT abdomen pelvis spine showed degenerative changes and is status post laminectomy. However no acute changes were appreciated. On CT scans and other imaging as well. Hospital course: Patient seen at bedside this morning still complaining of pain however much improved since last night. Denies any radiation of pain or changes in bowel or bladder habits this last night. Does endorse to me having fallen onto her backside on Monday while getting off of the couch and slipping backwards; denies any head trauma and or loss of consciousness. Cannot think of any other cause for the pain which initiated last night. lower back Pain Score (Numeric/FACES): 10 - Related Data Allergies/Adverse Reactions: Allergies Allergy/AdvReac Type Severity Reaction Status Date / Time erythromycin lactobionate Allergy Unknown Itching Verified 11/11/19 04:40 [From Erythrocin] mirtazapine [From Remeron] Allergy Unknown Itching Verified 11/11/19 04:40 Penicillins Allergy Unknown Hives Verified 11/11/19 04:40 tramadol Allergy Tremors Verified 11/11/19 04:40 Home Medications: Home Meds Estazolam [Prosom] 2 mg PO BEDTIME 10/25/17 [History] busPIRone [Buspar] 15 mg PO TID 10/25/17 [History] hydrOXYzine pamoate [Hydroxyzine Pamoate] 75 mg PO TID PRN 10/26/17 [History] Magnesium 250 mg PO DAILY 02/26/19 [History] Umeclidinium Brm/Vilanterol Tr [Anoro Ellipta 62.5-25 MCG] 1 each IH DAILY 02/26 [History] Albuterol [Ventolin HFA] 1 puff INH Q4H PRN #1 inhaler 04/22/19 [Rx] traZODone HCl [Trazodone HCl] 300 mg PO BEDTIME PRN 07/07/19 [History] Naloxone HCl [Narcan] 1 spray NASBOTH .FOR SEDATION PRN 07/08/19 [History] Carboxymethylcellulose Sodium [Refresh Celluvisc] 1 drop EYEBOTH QID PRN [History] Celecoxib [CeleBREX] 200 mg PO DAILY 11/11/19 [History] Denosumab [Prolia] 60 mg SUBCUT Q180D 11/11/19 [History] FLUoxetine [PROzac] 40 mg PO DAILY 11/11/19 [History] Lisinopril/Hydrochlorothiazide [Lisinopril-HCTZ 10-12.5 MG] 1 tab PO QAM [History] carisoprodoL [Soma] 350 mg PO TID PRN 11/11/19 [History] oxyCODONE 10 mg PO Q6H PRN tablet 11/13/19 [Rx] tiZANidine [Zanaflex] 4 mg PO DAILY PRN tablet 11/13/19 [Rx] Past Medical History - Past Health History Medical/Surgical History: Denies Medical/Surgical History HEENT History: Reports: None Cardiovascular History: Reports: High Cholesterol Respiratory History: Reports: COPD Gastrointestinal History: Reports: None Genitourinary History: Reports: None 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 Oconnor monthly Endocrine/Metabolic History: Reports: None Hematologic History: Reports: None Immunologic History: Reports: None Oncologic (Cancer) History: Reports: Other (See Below) Other Oncologic History: skin ca Dermatologic History: Reports: None Other Dermatologic History: "skin cancer" - Infectious Disease History Infectious Disease History: Reports: Chicken Pox, Measles, Mumps - Past Surgical History Head Surgeries/Procedures: Reports: None HEENT Surgical History: Reports: None Cardiovascular Surgical History: Reports: None Respiratory Surgical History: Reports: None GI Surgical History: Reports: None Female Surgical History: Reports: None Endocrine Surgical History: Reports: None Neurological Surgical History: Reports: Lumbar Spine Musculoskeletal Surgical History: Reports: Other (See Below) Oncologic Surgical History: Reports: None Dermatological Surgical History: Reports: None Social & Family History - Family History Family Medical History: Noncontributory Respiratory: Reports: COPD OBGYN: Reports: Musculoskeletal: Reports: Arthritis, Back pain, Chronic Neurological: Reports: CVA, TIA Psychiatric: Reports: Anxiety, Depression - Tobacco Use Smoking Status *Q: Current Every Day Smoker Years of Tobacco use: 50 Packs/Tins Daily: 0.5 - Caffeine Use Caffeine Use: Reports: Coffee - Recreational Drug Use Recreational Drug Use: No H&P Review of Systems - Review of Systems: Review Of Systems: See Below General: Reports: No Symptoms HEENT: Reports: No Symptoms Pulmonary: Reports: No Symptoms Cardiovascular: Reports: No Symptoms Gastrointestinal: Reports: No Symptoms Genitourinary: Reports: No Symptoms Musculoskeletal: Reports: Back Pain, Leg Pain Skin: Reports: No Symptoms Psychiatric: Reports: No Symptoms Neurological: Reports: Numbness, Paresthesia Exam - Exam Exam: See Below - Vital Signs Vital Signs: Last Vital Signs Temp 99.8 F 11/11/19 08:00 Pulse 69 11/11/19 08:00 Resp 15 11/11/19 08:00 BP 135/83 11/11/19 08:00 Pulse Ox 96 11/11/19 08:00 Weight: 50.167 kg - Exam General: Alert, Oriented, Cooperative HEENT: EOMI, Mucosa Moist & [place] Neck: Supple, Trachea Midline Lungs: Clear to Auscultation, Normal Respiratory Effort Cardiovascular: Regular Rate, Regular Rhythm GI/Abdominal Exam: Soft, Non-Tender Back Exam: Muscle Spasm, Paraspinal Tenderness, Vertebral Tenderness (Lumbar- sacra reigion ), Other (+straihlt leg test b/l ) Extremities: Other (decreased lower extremity ROM seconadry to pain ) Skin: Warm, Dry, Intact Neuro Extensive - Mental Status: Alert, Oriented x3 Psychiatric: Alert, Normal Affect - Patient Data Lab Results Last 24 hrs: Laboratory Results - last 24 hr 11/10/19 11/10/19 11/10/19 Range/Units 22:30 22:56 22:56 WBC 13.08 H (4.0-11.0) K/uL RBC 5.40 (4.30-5.90) M/uL Hgb 15.2 (12.0-16.0) g/dL Hct 44.5 (36.0-46.0) % MCV 82.4 (80.0-98.0) fL MCH 28.1 (27.0-32.0) pg MCHC 34.2 (31.0-37.0) g/dL RDW Std Deviation 36.3 (28.0-62.0) fl RDW Coeff of Ene 12 (11.0-15.0) % Plt Count 317 (150-400) K/uL MPV 9.50 (7.40-12.00) fL Neut % (Auto) 48.3 (48.0-80.0) % Lymph % (Auto) 44.2 H (16.0-40.0) % Jack % (Auto) 7.0 (0.0-15.0) % Eos % (Auto) 0.3 (0.0-7.0) % Baso % (Auto) 0.2 (0.0-1.5) % Neut # (Auto) 6.3 H (1.4-5.7) K/uL Lymph # (Auto) 5.8 H (0.6-2.4) K/uL Jack # (Auto) 0.9 H (0.0-0.8) K/uL Eos # (Auto) 0.0 (0.0-0.7) K/uL Baso # (Auto) 0.0 (0.0-0.1) K/uL Nucleated RBC % 0.0 /100WBC Nucleated RBCs # 0 K/uL ESR (0-29) mm/hr Sodium 135 L (136-145) mmol/L Potassium 3.8 (3.5-5.1) mmol/L Chloride 97 L (98-107) mmol/L Carbon Dioxide 21.7 (21.0-32.0) mmol/L BUN 36 H (7.0-18.0) mg/dL Creatinine 1.7 H (0.6-1.0) mg/dL Est Cr Clr Drug Dosing 28.25 mL/min Estimated GFR (MDRD) 30.3 ml/min Glucose 124 H (74-106) mg/dL Calcium 11.4 H (8.5-10.1) mg/dL Troponin I < 0.050 (0.000-0.056) ng/mL C-Reactive Protein (0.00-0.90) mg/dL Urine Color YELLOW Urine Appearance CLEAR Urine pH 8.5 H (5.0-8.0) Ur Specific [place] 1.015 (1.001-1.035) Urine Protein TRACE H (NEGATIVE) mg/dL Urine Glucose (UA) NEGATIVE (NEGATIVE) mg/dL Urine Ketones NEGATIVE (NEGATIVE) mg/dL Urine Occult Blood NEGATIVE (NEGATIVE) Urine Nitrite NEGATIVE (NEGATIVE) Urine Bilirubin NEGATIVE (NEGATIVE) Urine Urobilinogen 0.2 (<2.0) EU/dL Ur Leukocyte Esterase NEGATIVE (NEGATIVE) Urine RBC 0-1 (0-2/HPF) Urine WBC 0-3 (0-5/HPF) Ur Epithelial Cells RARE (NONE-FEW) Urine Bacteria RARE (NEGATIVE) 11/10/19 11/10/19 11/11/19 Range/Units 22:56 22:56 06:20 WBC (4.0-11.0) K/uL RBC (4.30-5.90) M/uL Hgb (12.0-16.0) g/dL Hct (36.0-46.0) % MCV (80.0-98.0) fL MCH (27.0-32.0) pg MCHC (31.0-37.0) g/dL RDW Std Deviation (28.0-62.0) fl RDW Coeff of Ene (11.0-15.0) % Plt Count (150-400) K/uL MPV (7.40-12.00) fL Neut % (Auto) (48.0-80.0) % Lymph % (Auto) (16.0-40.0) % Jack % (Auto) (0.0-15.0) % Eos % (Auto) (0.0-7.0) % Baso % (Auto) (0.0-1.5) % Neut # (Auto) (1.4-5.7) K/uL Lymph # (Auto) (0.6-2.4) K/uL Jack # (Auto) (0.0-0.8) K/uL Eos # (Auto) (0.0-0.7) K/uL Baso # (Auto) (0.0-0.1) K/uL Nucleated RBC % /100WBC Nucleated RBCs # K/uL ESR 6 (0-29) mm/hr Sodium 135 L (136-145) mmol/L Potassium 4.0 (3.5-5.1) mmol/L Chloride 100 (98-107) mmol/L Carbon Dioxide 24.0 (21.0-32.0) mmol/L BUN 36 H (7.0-18.0) mg/dL Creatinine 1.7 H (0.6-1.0) mg/dL Est Cr Clr Drug Dosing 26.48 mL/min Estimated GFR (MDRD) 30.3 ml/min Glucose 106 (74-106) mg/dL Calcium 10.4 H (8.5-10.1) mg/dL Troponin I (0.000-0.056) ng/mL C-Reactive Protein 0.50 (0.00-0.90) mg/dL Urine Color Urine Appearance Urine pH (5.0-8.0) Ur Specific [place] (1.001-1.035) Urine Protein (NEGATIVE) mg/dL Urine Glucose (UA) (NEGATIVE) mg/dL Urine Ketones (NEGATIVE) mg/dL Urine Occult Blood (NEGATIVE) Urine Nitrite (NEGATIVE) Urine Bilirubin (NEGATIVE) Urine Urobilinogen (<2.0) EU/dL Ur Leukocyte Esterase (NEGATIVE) Urine RBC (0-2/HPF) Urine WBC (0-5/HPF) Ur Epithelial Cells (NONE-FEW) Urine Bacteria (NEGATIVE) Result Diagrams: 11/10/19 22:56 11/11/19 06:20 Sepsis Event Note - Evaluation Sepsis Screening Result: No Definite Risk - Focused Exam Vital Signs: Vital Signs Temp Pulse Resp BP Pulse Ox 11/11/19 08:00 99.8 F 69 15 135/83 96 11/11/19 04:00 98.1 F 71 17 148/73 H 95 11/11/19 03:31 69 17 156/70 H 95 11/11/19 02:33 96.9 F 72 16 147/70 H 95 11/10/19 23:01 84 18 138/84 94 L 11/10/19 22:09 97.2 F 90 24 H 133/87 95 Date Exam was Performed: 11/11/19 Time Exam was Performed: 11:48 Problem List Initiated/Reviewed/Updated: Yes Orders Last 24hrs: Active Orders 24 hr Category Date Time Status Patient Status [ADT] Stat ADT 11/11/19 01:56 Active Communication Order [RC] ROUTINE Care 11/11/19 04:28 Active EKG 12 Lead [EKG Documentation Completion] [RC] STAT Care 11/10/19 22:13 Active Pulse Oximetry [RC] ASDIRECTED Care 11/10/19 22:39 Active Up ad Laura [RC] ASDIRECTED Care 11/11/19 04:21 Active Vital Signs [RC] Q4H Care 11/11/19 04:21 Active Regular Diet [DIET] Diet 11/11/19 Breakfast Active Morphine Med 11/11/19 04:21 Active 2 mg IVPUSH Q4H PRN Ondansetron [Zofran] Med 11/11/19 05:58 Active 4 mg IVPUSH Q4H PRN Sodium Chloride 0.9% [Normal Saline] Med 11/10/19 22:40 Active 10 ml IV ASDIRECTED PRN Sodium Chloride 0.9% [Normal Saline] 1,000 ml Med 11/11/19 04:30 Active IV ASDIRECTED Sodium Chloride 0.9% [Saline Flush] Med 11/10/19 22:40 Active 10 ml FLUSH ASDIRECTED PRN Sodium Chloride 0.9% [Saline Flush] Med 11/10/19 22:40 Active 2.5 ml FLUSH ASDIRECTED PRN carisoprodoL [Soma] Med 11/11/19 05:59 Active 350 mg PO TID PRN Peripheral IV Insertion Adult [OM.PC] Stat Oth 11/10/19 22:39 Ordered Medication Orders Carisoprodol (Soma) 350 mg PO TID PRN PRN Reason: muscle spasms Last Admin: 11/11/19 06:13 Dose: 350 mg Sodium Chloride (Normal Saline) 1,000 mls @ 100 mls/hr IV ASDIRECTED RUIZ Last Admin: 11/11/19 04:37 Dose: 100 mls/hr Morphine Sulfate (Morphine) 2 mg IVPUSH Q4H PRN PRN Reason: Pain Last Admin: 11/11/19 05:13 Dose: 2 mg Ondansetron HCl (Zofran) 4 mg IVPUSH Q4H PRN PRN Reason: Nausea Last Admin: 11/11/19 06:14 Dose: 4 mg Sodium Chloride (Saline Flush) 10 ml FLUSH ASDIRECTED PRN PRN Reason: Keep Vein Open Sodium Chloride (Saline Flush) 2.5 ml FLUSH ASDIRECTED PRN PRN Reason: Keep Vein Open Sodium Chloride (Normal Saline) 10 ml IV ASDIRECTED PRN PRN Reason: IV Use Assessment/Plan Comment:: Assessment: 1. Acute on chronic lower back pain without radiation status post lumbar surgery/laminectomy with previous history of compression fracture in 2018 2. Lower extremity right greater than left paresthesia status post ischemic stroke June 2019. 3. Medical history: COPD, chronic low back pain, CVA, anxiety depression, tobacco abuse. 4. Elevated Creatinine Plan 1. Admit to observation. Full code. 2. Lumbar pain: acute on chronic issue; flare most likely related to recent fall ; restart opioid/muscle relaxer medication; continue to monitor; no alarm signs appreciated; baseline paresthesia secondary to stroke; if worsening can consider MRI. NO changes in bowel.bladder habits. Morphine PRN if flare occurs in between. pt. mentions possible need for surgery; but due to COVID/personal family issues ; schedule was delayed. CP: no acute signs of ACS; troponin x 1 negative; ;pt. not endorsing CP, SOB and or palpitations. 3. Elevated Creatinine: most likely secondary to chronic NSAID use; will hold celebrex and KENROY/HCTZ; repeat CMP in AM 4. PMH: continue home medication unless as specified above. 5. <Katey Farley - Last Filed: 11/16/19 12:04> H&P History of Present Illness - General Admit Problem/Dx: Admission Diagnosis/Problem Admission Diagnosis/Problem Intractable low back pain Exam - Vital Signs Vital Signs: Last Vital Signs Temp 36.6 C 11/13/19 12:00 Pulse 55 L 11/13/19 12:00 Resp 18 11/13/19 12:00 BP 152/81 H 11/13/19 12:00 Pulse Ox 96 11/13/19 12:00 - Patient Data Result Diagrams: 11/13/19 05:23 11/13/19 05:23 Assessment/Plan Comment:: I performed a history and physical exam of the patient and discussed management with resident. I have reviewed the residents note and agree with documented findings and plan unless otherwise specified in my note.
[2019-11-11] MEDS ORDERED: tiZANidine 4 MG Tab PO PRN (11:11)
[2019-11-11] MEDS ORDERED: NALOXONE HCL NASBOTH PRN (11:11)
[2019-11-11] MEDS ORDERED: Carboxymethylcellulose Sodium 0.5% Ophth Soln 0.4 ML UD Box of 30 EYEBOTH PRN (11:11)
[2019-11-11] MEDS ORDERED: Albuterol 8 GM Inhaler INH PRN (11:11)
[2019-11-11] MEDS: busPIRone 5 MG Tab PO SCH ×2 (11:47→21:29)
[2019-11-11] MEDS: oxyCODONE 5 MG Tab PO PRN ×2 (11:48→18:28)
[2019-11-11] MEDS: FLUoxetine 20 MG Cap PO SCH (11:48)
[2019-11-11] MEDS: Nicotine 7 MG/24 Hr Patch TRDERM SCH (14:28)
[2019-11-11] MEDS: traZODone 50 MG Tab PO PRN (21:38)
[2019-11-12] MEDS: ESTAZOLAM 2 MG PO SCH ×2 (00:03→23:37)
[2019-11-12] MEDS: oxyCODONE 5 MG Tab PO PRN ×4 (00:09→19:30)
[2019-11-12] MEDS: Sodium Chloride 0.9% 1,000 ML IV SCH ×2 (02:18→13:08)
[2019-11-12] MEDS: busPIRone 5 MG Tab PO SCH ×3 (06:22→21:09)
[2019-11-12 06:55] LABS: CARBON DIOXIDE,CO2 25.8 mmol/L (21.0-32.0); POTASSIUM,K 4.1 mmol/L (3.5-5.1)
[2019-11-12] MEDS: FLUoxetine 20 MG Cap PO SCH (09:26)
[2019-11-12] MEDS: Nicotine 7 MG/24 Hr Patch TRDERM SCH (09:26)
[2019-11-12] MEDS: Morphine 2 MG/ML SYRINGE IVPUSH PRN ×2 (11:38→17:14)
--- NOTE | 2019-11-12 12:20 | PCM.PN ---
- General Info Date of Service: 11/12/19 Subjective Update: In at bedside: Still complaining of lower back pain with right lower extremity paresthesia; states spasms of pain have been more or less the same despite being on her home regimen of pain medication and muscle relaxers; no other alarm symptoms appreciated or was brought up by patient. - Review of Systems General: Reports: No Symptoms Pulmonary: Reports: No Symptoms Cardiovascular: Reports: No Symptoms Gastrointestinal: Reports: No Symptoms Musculoskeletal: Reports: Back Pain, Leg Pain, Joint Pain Skin: Reports: No Symptoms Neurological: Reports: No Symptoms Psychiatric: Reports: No Symptoms - Patient Data Vitals - Most Recent: Last Vital Signs Temp 97.9 F 11/12/19 08:00 Pulse 60 11/12/19 08:00 Resp 19 11/12/19 08:00 BP 149/72 H 11/12/19 08:00 Pulse Ox 93 L 11/12/19 08:00 Weight - Most Recent: 50.167 kg I&O - Last 24 Hours: Intake & Output 11/11/19 11/12/19 11/12/19 22:59 06:59 14:59 Intake Total 2000 1967 Output Total 900 900 Balance 1100 1067 Lab Results Last 24 Hours: Laboratory Results - last 24 hr 11/12/19 11/12/19 Range/Units 06:11 06:11 WBC 8.41 (4.0-11.0) K/uL RBC 4.67 (4.30-5.90) M/uL Hgb 12.5 (12.0-16.0) g/dL Hct 39.8 (36.0-46.0) % MCV 85.2 (80.0-98.0) fL MCH 26.8 L (27.0-32.0) pg MCHC 31.4 (31.0-37.0) g/dL RDW Std Deviation 38.0 (28.0-62.0) fl RDW Coeff of Ene 12 (11.0-15.0) % Plt Count 249 (150-400) K/uL MPV 9.40 (7.40-12.00) fL Neut % (Auto) 35.9 L (48.0-80.0) % Lymph % (Auto) 52.9 H (16.0-40.0) % [place] % (Auto) 8.6 (0.0-15.0) % Eos % (Auto) 2.1 (0.0-7.0) % Baso % (Auto) 0.5 (0.0-1.5) % Neut # (Auto) 3.0 (1.4-5.7) K/uL Lymph # (Auto) 4.5 H (0.6-2.4) K/uL [place] # (Auto) 0.7 (0.0-0.8) K/uL Eos # (Auto) 0.2 (0.0-0.7) K/uL Baso # (Auto) 0.0 (0.0-0.1) K/uL Nucleated RBC % 0.0 /100WBC Nucleated RBCs # 0 K/uL Sodium 140 (136-145) mmol/L Potassium 4.1 (3.5-5.1) mmol/L Chloride 107 (98-107) mmol/L Carbon Dioxide 25.8 (21.0-32.0) mmol/L BUN 34 H (7.0-18.0) mg/dL Creatinine 1.4 H (0.6-1.0) mg/dL Est Cr Clr Drug Dosing 32.15 mL/min Estimated GFR (MDRD) 37.9 ml/min Glucose 90 (74-106) mg/dL Calcium 9.7 (8.5-10.1) mg/dL Total Bilirubin 0.2 (0.2-1.0) mg/dL AST 11 L (15-37) IU/L ALT 14 (14-63) IU/L Alkaline Phosphatase 99 (46-116) U/L Total Protein 6.3 L (6.4-8.2) g/dL Albumin 2.7 L (3.4-5.0) g/dL Globulin 3.6 (2.6-4.0) g/dL Albumin/Globulin Ratio 0.8 L (0.9-1.6) Med Orders - Current: Current Medications Albuterol (Ventolin Hfa) 0 gm INH Q4H PRN PRN Reason: Dyspnea Artificial Tears (Refresh Plus 0.5%) 1 each EYEBOTH Q6H PRN PRN Reason: REDNESS RELIEF Buspirone HCl (Buspar) 15 mg PO TID [facility] Last Admin: 11/12/19 06:22 Dose: 15 mg Carisoprodol (Soma) 350 mg PO TID PRN PRN Reason: muscle spasms Last Admin: 11/12/19 06:25 Dose: 350 mg Fluoxetine HCl (Prozac) 40 mg PO DAILY [facility] Last Admin: 11/12/19 09:26 Dose: 40 mg Sodium Chloride (Normal Saline) 1,000 mls @ 100 mls/hr IV ASDIRECTED [facility] Last Admin: 11/12/19 02:18 Dose: 100 mls/hr Morphine Sulfate (Morphine) 2 mg IVPUSH Q4H PRN PRN Reason: Pain Last Admin: 11/12/19 11:38 Dose: 2 mg Nicotine (Habitrol) 7 mg TRDERM DAILY [facility] Last Admin: 11/12/19 09:26 Dose: 7 mg Ondansetron HCl (Zofran) 4 mg IVPUSH Q4H PRN PRN Reason: Nausea Last Admin: 11/11/19 06:14 Dose: 4 mg Oxycodone HCl (Oxycodone) 10 mg PO Q6H PRN PRN Reason: Pain Last Admin: 11/12/19 06:23 Dose: 10 mg Estazolam [Prosom] 2 (Mg) 2 each PO BEDTIME [facility] Last Admin: 11/12/19 00:03 Dose: Not Given Umeclidinium Brm/Vilanterol Tr [Anoro Ellipta 62.5-25 Mcg 1 each INH DAILY [facility] Last Admin: 11/12/19 10:08 Dose: Not Given Sodium Chloride (Saline Flush) 10 ml FLUSH ASDIRECTED PRN PRN Reason: Keep Vein Open Sodium Chloride (Saline Flush) 2.5 ml FLUSH ASDIRECTED PRN PRN Reason: Keep Vein Open Sodium Chloride (Normal Saline) 10 ml IV ASDIRECTED PRN PRN Reason: IV Use Tizanidine HCl (Zanaflex) 2 mg PO TID PRN PRN Reason: MUSCLE SPASMS Trazodone HCl (Trazodone) 300 mg PO BEDTIME PRN PRN Reason: Sleep Last Admin: 11/11/19 21:38 Dose: 300 mg Discontinued Medications Acetaminophen (Tylenol Extra Strength) 1,000 mg PO ONETIME ONE Stop: 11/10/19 22:41 Last Admin: 11/10/19 22:49 Dose: 1,000 mg Fentanyl (Fentanyl) 50 mcg IVPUSH ONETIME ONE Stop: 11/10/19 22:41 Last Admin: 11/10/19 22:50 Dose: 50 mcg Fentanyl (Fentanyl) 50 mcg IVPUSH ONETIME ONE Stop: 11/10/19 23:52 Last Admin: 11/11/19 00:16 Dose: 50 mcg Ibuprofen (Motrin) 400 mg PO ONETIME ONE Stop: 11/10/19 22:41 Last Admin: 11/10/19 22:49 Dose: 400 mg Lidocaine (Lidoderm 5%) 700 mg TOP ONETIME ONE Stop: 11/10/19 23:52 Last Admin: 11/11/19 00:15 Dose: 700 mg Morphine Sulfate (Morphine) 2 mg IVPUSH ONETIME ONE Stop: 11/11/19 01:59 Last Admin: 11/11/19 02:29 Dose: 2 mg - Exam General: Oriented HEENT: EOMI Lungs: Clear to Auscultation, Normal Respiratory Effort Cardiovascular: Regular Rate, Regular Rhythm GI/Abdominal Exam: Soft, Non-Tender Back Exam: Muscle Spasm, Paraspinal Tenderness, Vertebral Tenderness, Other ( Visually shaking in room secondary to muscle spasm and lower back; is in acute distress and during muscle spasm episodes; patient has a shift body in order to not exacerbate pain.) Extremities: Normal Range of Motion, No Pedal Edema Skin: Warm, Dry Neurological: No New Focal Deficit Psy/Mental Status: Alert Sepsis Event Note - Evaluation Sepsis Screening Result: No Definite Risk - Focused Exam Vital Signs: Vital Signs Temp Pulse Resp BP Pulse Ox 11/12/19 08:00 97.9 F 60 19 149/72 H 93 L 11/12/19 05:23 97.3 F 56 L 16 136/64 95 Date Exam was Performed: 11/12/19 Time Exam was Performed: 17:35 - Problem List Review Problem List Initiated/Reviewed/Updated: Yes - My Orders Last 24 Hours: My Active Orders 11/11/19 11:30 FLUoxetine [PROzac] 40 mg PO DAILY busPIRone [Buspar] 15 mg PO TID 11/11/19 13:45 Nicotine [Habitrol] 7 mg TRDERM DAILY 11/11/19 15:00 Patient's Own Medication [Ptom] 1 each INH DAILY 11/11/19 21:00 Patient's Own Medication [Ptom] 2 each PO BEDTIME 11/13/19 05:11 CBC WITH AUTO DIFF [HEME] AM CMP [COMPREHENSIVE METABOLIC PN,CMP] [CHEM] AM - Plan Plan:: Assessment: 1. Acute on chronic lower back pain without radiation status post lumbar surgery/laminectomy with previous history of compression fracture in 2018 2. Lower extremity right greater than left paresthesia status post ischemic stroke June 2019. 3. Medical history: COPD, chronic low back pain, CVA, anxiety depression, tobacco abuse. 4. Elevated Creatinine Plan 1. Admit to observation. Full code. 2. Lumbar pain: acute on chronic issue; flare most likely related to recent fall ; restart opioid/muscle relaxer medication; continue to monitor; no alarm signs appreciated; baseline paresthesia secondary to stroke; if worsening can consider MRI. NO changes in bowel.bladder habits. Morphine PRN if flare occurs in between. pt. mentions possible need for surgery; but due to COVID/personal family issues ; schedule was delayed. Reviewed pt. medication history; concerns about inappropriate usage of pain medication hence poor pain control despite [employer] administration of narcotics; will continue to monitor today; PT confident regarding pt. transfer from chair to bed /pivot etc; will monitor today as pt. was acutely in pain during rounds. CP: no acute signs of ACS; troponin x 1 negative; ;pt. not endorsing CP, SOB and or palpitations. 3. Elevated Creatinine: most likely secondary to chronic NSAID use; will hold celebrex and KENROY/HCTZ; repeat CMP in AM 4. PMH: continue home medication unless as specified above. 5.
[2019-11-12] MEDS: traZODone 50 MG Tab PO PRN (21:08)
[2019-11-13] MEDS: Sodium Chloride 0.9% 1,000 ML IV SCH (01:22)
[2019-11-13] MEDS: oxyCODONE 5 MG Tab PO PRN ×2 (04:11→10:22)
[2019-11-13 05:56] LABS: CARBON DIOXIDE,CO2 21.5 mmol/L (21.0-32.0); POTASSIUM,K 3.6 mmol/L (3.5-5.1)
[2019-11-13] MEDS: busPIRone 5 MG Tab PO SCH (05:58)
[2019-11-13] MEDS: Morphine 2 MG/ML SYRINGE IVPUSH PRN (08:25)
[2019-11-13] MEDS: Nicotine 7 MG/24 Hr Patch TRDERM SCH (08:27)
[2019-11-13] MEDS: FLUoxetine 20 MG Cap PO SCH (08:27)
--- NOTE | 2019-11-13 09:10 | PCM.PN ---
- General Info Date of Service: 11/13/19 Subjective Update: Endorsing improved sleep since last night; states pain and spasms continue - Review of Systems General: Reports: No Symptoms HEENT: Reports: No Symptoms Pulmonary: Reports: No Symptoms Cardiovascular: Reports: No Symptoms Gastrointestinal: Reports: No Symptoms Musculoskeletal: Reports: Back Pain, Leg Pain Skin: Reports: No Symptoms Neurological: Reports: No Symptoms Psychiatric: Reports: No Symptoms - Patient Data Vitals - Most Recent: Last Vital Signs Temp 98.3 F 11/13/19 07:15 Pulse 58 L 11/13/19 07:15 Resp 18 11/13/19 07:15 BP 154/72 H 11/13/19 07:15 Pulse Ox 92 L 11/13/19 07:15 Weight - Most Recent: 50.167 kg I&O - Last 24 Hours: Intake & Output 11/12/19 11/13/19 11/13/19 22:59 06:59 14:59 Intake Total 2104 1776 Output Total 1000 2000 Balance 1104 -224 Lab Results Last 24 Hours: Laboratory Results - last 24 hr 11/13/19 11/13/19 Range/Units 05:23 05:23 WBC 8.68 (4.0-11.0) K/uL RBC 4.40 (4.30-5.90) M/uL Hgb 12.0 (12.0-16.0) g/dL Hct 37.3 (36.0-46.0) % MCV 84.8 (80.0-98.0) fL MCH 27.3 (27.0-32.0) pg MCHC 32.2 (31.0-37.0) g/dL RDW Std Deviation 37.8 (28.0-62.0) fl RDW Coeff of Ene 12 (11.0-15.0) % Plt Count 223 (150-400) K/uL MPV 9.40 (7.40-12.00) fL Neut % (Auto) 48.9 (48.0-80.0) % Lymph % (Auto) 41.0 H (16.0-40.0) % [place] % (Auto) 7.7 (0.0-15.0) % Eos % (Auto) 2.1 (0.0-7.0) % Baso % (Auto) 0.3 (0.0-1.5) % Neut # (Auto) 4.2 (1.4-5.7) K/uL Lymph # (Auto) 3.6 H (0.6-2.4) K/uL [place] # (Auto) 0.7 (0.0-0.8) K/uL Eos # (Auto) 0.2 (0.0-0.7) K/uL Baso # (Auto) 0.0 (0.0-0.1) K/uL Nucleated RBC % 0.0 /100WBC Nucleated RBCs # 0 K/uL Sodium 140 (136-145) mmol/L Potassium 3.6 (3.5-5.1) mmol/L Chloride 110 H (98-107) mmol/L Carbon Dioxide 21.5 (21.0-32.0) mmol/L BUN 38 H (7.0-18.0) mg/dL Creatinine 1.3 H (0.6-1.0) mg/dL Est Cr Clr Drug Dosing 34.62 mL/min Estimated GFR (MDRD) 41.2 ml/min Glucose 95 (74-106) mg/dL Calcium 9.2 (8.5-10.1) mg/dL Total Bilirubin 0.1 L (0.2-1.0) mg/dL AST 10 L (15-37) IU/L ALT 11 L (14-63) IU/L Alkaline Phosphatase 89 (46-116) U/L Total Protein 5.9 L (6.4-8.2) g/dL Albumin 2.5 L (3.4-5.0) g/dL Globulin 3.4 (2.6-4.0) g/dL Albumin/Globulin Ratio 0.7 L (0.9-1.6) Med Orders - Current: Current Medications Albuterol (Ventolin Hfa) 0 gm INH Q4H PRN PRN Reason: Dyspnea Artificial Tears (Refresh Plus 0.5%) 1 each EYEBOTH Q6H PRN PRN Reason: REDNESS RELIEF Last Admin: 11/12/19 16:55 Dose: 1 drop Buspirone HCl (Buspar) 15 mg PO TID RUIZ Last Admin: 11/13/19 05:58 Dose: 15 mg Carisoprodol (Soma) 350 mg PO TID PRN PRN Reason: muscle spasms Last Admin: 11/13/19 04:11 Dose: 350 mg Fluoxetine HCl (Prozac) 40 mg PO DAILY [facility] Last Admin: 11/13/19 08:27 Dose: 40 mg Sodium Chloride (Normal Saline) 1,000 mls @ 100 mls/hr IV ASDIRECTED [facility] Last Admin: 11/13/19 01:22 Dose: 100 mls/hr Morphine Sulfate (Morphine) 2 mg IVPUSH Q4H PRN PRN Reason: Pain Last Admin: 11/13/19 08:25 Dose: 2 mg Nicotine (Habitrol) 7 mg TRDERM DAILY [facility] Last Admin: 11/13/19 08:27 Dose: 7 mg Ondansetron HCl (Zofran) 4 mg IVPUSH Q4H PRN PRN Reason: Nausea Last Admin: 11/11/19 06:14 Dose: 4 mg Oxycodone HCl (Oxycodone) 10 mg PO Q6H PRN PRN Reason: Pain Last Admin: 11/13/19 04:11 Dose: 10 mg Estazolam [Prosom] 2 (Mg) 2 each PO BEDTIME [facility] Last Admin: 11/12/19 23:37 Dose: Not Given Umeclidinium Brm/Vilanterol Tr [Anoro Ellipta 62.5-25 Mcg 1 each INH DAILY [facility] Last Admin: 11/13/19 08:31 Dose: Not Given Sodium Chloride (Saline Flush) 10 ml FLUSH ASDIRECTED PRN PRN Reason: Keep Vein Open Sodium Chloride (Saline Flush) 2.5 ml FLUSH ASDIRECTED PRN PRN Reason: Keep Vein Open Sodium Chloride (Normal Saline) 10 ml IV ASDIRECTED PRN PRN Reason: IV Use Tizanidine HCl (Zanaflex) 2 mg PO TID PRN PRN Reason: MUSCLE SPASMS Trazodone HCl (Trazodone) 300 mg PO BEDTIME PRN PRN Reason: Sleep Last Admin: 11/12/19 21:08 Dose: 300 mg Discontinued Medications Acetaminophen (Tylenol Extra Strength) 1,000 mg PO ONETIME ONE Stop: 11/10/19 22:41 Last Admin: 11/10/19 22:49 Dose: 1,000 mg Fentanyl (Fentanyl) 50 mcg IVPUSH ONETIME ONE Stop: 11/10/19 22:41 Last Admin: 11/10/19 22:50 Dose: 50 mcg Fentanyl (Fentanyl) 50 mcg IVPUSH ONETIME ONE Stop: 11/10/19 23:52 Last Admin: 11/11/19 00:16 Dose: 50 mcg Ibuprofen (Motrin) 400 mg PO ONETIME ONE Stop: 11/10/19 22:41 Last Admin: 11/10/19 22:49 Dose: 400 mg Lidocaine (Lidoderm 5%) 700 mg TOP ONETIME ONE Stop: 11/10/19 23:52 Last Admin: 11/11/19 00:15 Dose: 700 mg Morphine Sulfate (Morphine) 2 mg IVPUSH ONETIME ONE Stop: 11/11/19 01:59 Last Admin: 11/11/19 02:29 Dose: 2 mg - Exam General: Alert, Oriented HEENT: EOMI Neck: Supple Lungs: Clear to Auscultation, Normal Respiratory Effort Cardiovascular: Regular Rate, Regular Rhythm GI/Abdominal Exam: Soft, Non-Tender Back Exam: Muscle Spasm, Paraspinal Tenderness, Vertebral Tenderness (unchanged since arrival ) Skin: Warm, Dry, Intact Neurological: No New Focal Deficit Psy/Mental Status: Alert, Normal Mood Sepsis Event Note - Evaluation Sepsis Screening Result: No Definite Risk - Focused Exam Vital Signs: Vital Signs Temp Pulse Resp BP Pulse Ox 11/13/19 07:15 98.3 F 58 L 18 154/72 H 92 L 11/13/19 04:05 98.5 F 63 19 146/68 H 96 11/13/19 00:00 96.8 F L 58 L 20 140/57 L 95 Date Exam was Performed: 11/13/19 Time Exam was Performed: 09:05 - Problem List Review Problem List Initiated/Reviewed/Updated: Yes - Plan Plan:: Assessment: 1. Acute on chronic lower back pain without radiation status post lumbar surgery/laminectomy with previous history of compression fracture in 2018 2. Lower extremity right greater than left paresthesia status post ischemic stroke June 2019. 3. Medical history: COPD, chronic low back pain, CVA, anxiety depression, tobacco abuse. 4. Elevated Creatinine:improving 5. Suspicion for polypharmacy Plan 1. Admit to observation. Full code. 2. Lumbar pain: acute on chronic issue; flare most likely related to recent fall ; restart opioid/muscle relaxer medication; continue to monitor; no alarm signs appreciated; baseline paresthesia secondary to stroke; if worsening can consider MRI. NO changes in bowel.bladder habits. Morphine PRN if flare occurs in between. pt. mentions possible need for surgery; but due to COVID/personal family issues ; schedule was delayed. Reviewed pt. medication history; concerns about inappropriate usage of pain medication hence poor pain control despite human service administration of narcotics; will continue to monitor today; PT confident regarding pt. transfer from chair to bed /pivot etc; will monitor today as pt. was acutely in pain during rounds. CP: no acute signs of ACS; troponin x 1 negative; ;pt. not endorsing CP, SOB and or palpitations. 3. Elevated Creatinine: improving since admission 4. PMH: continue home medication unless as specified above. 5. Suspicion for polypharmacy: reviewed medication list and spoke to patient regarding dosage adjustment in relation to current symptoms; mentions better pain relief but increase in muscle spasm frequency. Mentions increase in both Trazodone and fluoxetine in recent months; pt is also not a reliable historian and does have a history of taking her mediations at inappropriate intervals/ dosages (ie: front loading pain medications per human services); will make further inquiries but will most likely advise pt. to follow up with psychiatry regarding current dosing regimen. I am also trying to inquire patient full psychiatric diagnosis moving forward.
[2019-11-13] MEDS ORDERED: TIZANIDINE 2 MG PO PRN (10:25)
--- NOTE | 2019-11-13 10:28 | PCM.DCSUM1 ---
<Mehdi High - Last Filed: 11/13/19 10:52> Discharge Summary - Hospital Course Free Text/Narrative:: Discharge summary Consultations:none Procedures:nonoe Hospital course: 63 y.o female w. PMH of chronic low back pain w. subsequent ambulatory dysfunction, depression/anxiety, COPD, medication non-compliance ; presented to ED for acute on chronic back pain. Mentioned to ED staff having run out of her pain maedication at home and was noticing an increase in her low back pain. Low back pain has been an ongoing issue and is s/p low back surgery w. revision. pt did mention to other providers , not on initial assessment, having fallen from her wheelchair while transferring to the couch. Denies head trauma and or LOC but this occurred on Monday. pt. was continued on all medications except for her Celebrex secondary to her elevated Creatinine (possible a chronic issue)/ improved withj discontinuation; pt. otherwise was evaluated by PT and was confident about her ability to transfer and move between bed to wheelchair. pt. s medication list was reviewed; concners about polypharmacy was brought up with patient; I have also discussed with pt. that her lower extremity spasms and paresthesia could also be attributed to her multiple psychiatric medication in combination to her low back problems . Message left with Alice, case management; will try to follow up to hopefully addresse possible polypharmacy vs need for multiple serotonin medications. [facility] will be providing medications ; will advise to be more vigilant about mediaction adminsittration [facility] health ordered for pt/ot , ambulation and medication management secondary to improper use. Discharge condition: Stable ; baseline Disposition:Home with home health Follow-up:PCP, - Discharge Data Discharge Date: 11/13/19 Discharge Disposition: Home, Self-Care 01 Condition: Stable - Referral to Home Health Date of Face to Face Encounter: 11/13/19 Reason for Homebound Status: Chronic low back pain, RLE spasms; ambulatory dysfunction at baseline; requiring supervisor intermediates pt/ot Primary Care Physician: Medardo Calvin MD Skilled Need: Unsteady while walking; ambulation safety;transfers/pivots. PT/ OT. RN needed for medication mangement; concern for taking medication at inappropriate intervals - Patient Summary/Data Consults: Consultations 11/11/19 10:43 Consult to Physical Therapy [PT Evaluation and Treatment] [CONS] Routine - Patient Instructions Driving: Do Not Drive Showering/Bathing: May Shower Notify Provider of: Fever, Increased Pain, Nausea and/or Vomiting - Discharge Plan *PRESCRIPTION DRUG MONITORING PROGRAM REVIEWED*: Yes *COPY OF PRESCRIPTION DRUG MONITORING REPORT IN PATIENT BISMARK: No Home Medications: Home Meds Estazolam [Prosom] 2 mg PO BEDTIME 10/25/17 [History] busPIRone [Buspar] 15 mg PO TID 10/25/17 [History] hydrOXYzine pamoate [Hydroxyzine Pamoate] 75 mg PO TID PRN 10/26/17 [History] Magnesium 250 mg PO DAILY 02/26/19 [History] Umeclidinium Brm/Vilanterol Tr [Anoro Ellipta 62.5-25 MCG] 1 each IH DAILY 02/26 [History] Albuterol [Ventolin HFA] 1 puff INH Q4H PRN #1 inhaler 04/22/19 [Rx] traZODone HCl [Trazodone HCl] 300 mg PO BEDTIME PRN 07/07/19 [History] Naloxone HCl [Narcan] 1 spray NASBOTH .FOR SEDATION PRN 07/08/19 [History] Carboxymethylcellulose Sodium [Refresh Celluvisc] 1 drop EYEBOTH QID PRN [History] Celecoxib [CeleBREX] 200 mg PO DAILY 11/11/19 [History] Denosumab [Prolia] 60 mg SUBCUT Q180D 11/11/19 [History] FLUoxetine [PROzac] 40 mg PO DAILY 11/11/19 [History] Lisinopril/Hydrochlorothiazide [Lisinopril-HCTZ 10-12.5 MG] 1 tab PO QAM [History] carisoprodoL [Soma] 350 mg PO TID PRN 11/11/19 [History] oxyCODONE 10 mg PO Q6H PRN tablet 11/13/19 [Rx] tiZANidine [Zanaflex] 4 mg PO DAILY PRN tablet 11/13/19 [Rx] Oxygen Therapy Mode: Room Air Patient Handouts: Back Exercises, [id number], Chronic Back Pain, [id number] Referrals: Medardo Calvin MD [Primary Care Provider] - 11/21/19 11:15 am (Please arrive at least 15 minutes early with identification and insurance cards or they will not see you.) - Discharge Summary/Plan Comment DC Time >30 min.: No - Patient Data Vitals - Most Recent: Last Vital Signs Temp 98.3 F 11/13/19 07:15 Pulse 58 L 11/13/19 07:15 Resp 18 11/13/19 07:15 BP 154/72 H 11/13/19 07:15 Pulse Ox 92 L 11/13/19 07:15 Weight - Most Recent: 50.167 kg I&O - Last 24 hours: Intake & Output 11/12/19 11/13/19 11/13/19 22:59 06:59 14:59 Intake Total 2104 1776 Output Total 1000 2000 Balance 1104 -224 Lab Results - Last 24 hrs: Laboratory Results - last 24 hr 11/13/19 11/13/19 Range/Units 05:23 05:23 WBC 8.68 (4.0-11.0) K/uL RBC 4.40 (4.30-5.90) M/uL Hgb 12.0 (12.0-16.0) g/dL Hct 37.3 (36.0-46.0) % MCV 84.8 (80.0-98.0) fL MCH 27.3 (27.0-32.0) pg MCHC 32.2 (31.0-37.0) g/dL RDW Std Deviation 37.8 (28.0-62.0) fl RDW Coeff of Ene 12 (11.0-15.0) % Plt Count 223 (150-400) K/uL MPV 9.40 (7.40-12.00) fL Neut % (Auto) 48.9 (48.0-80.0) % Lymph % (Auto) 41.0 H (16.0-40.0) % [place] % (Auto) 7.7 (0.0-15.0) % Eos % (Auto) 2.1 (0.0-7.0) % Baso % (Auto) 0.3 (0.0-1.5) % Neut # (Auto) 4.2 (1.4-5.7) K/uL Lymph # (Auto) 3.6 H (0.6-2.4) K/uL [place] # (Auto) 0.7 (0.0-0.8) K/uL Eos # (Auto) 0.2 (0.0-0.7) K/uL Baso # (Auto) 0.0 (0.0-0.1) K/uL Nucleated RBC % 0.0 /100WBC Nucleated RBCs # 0 K/uL Sodium 140 (136-145) mmol/L Potassium 3.6 (3.5-5.1) mmol/L Chloride 110 H (98-107) mmol/L Carbon Dioxide 21.5 (21.0-32.0) mmol/L BUN 38 H (7.0-18.0) mg/dL Creatinine 1.3 H (0.6-1.0) mg/dL Est Cr Clr Drug Dosing 34.62 mL/min Estimated GFR (MDRD) 41.2 ml/min Glucose 95 (74-106) mg/dL Calcium 9.2 (8.5-10.1) mg/dL Total Bilirubin 0.1 L (0.2-1.0) mg/dL AST 10 L (15-37) IU/L ALT 11 L (14-63) IU/L Alkaline Phosphatase 89 (46-116) U/L Total Protein 5.9 L (6.4-8.2) g/dL Albumin 2.5 L (3.4-5.0) g/dL Globulin 3.4 (2.6-4.0) g/dL Albumin/Globulin Ratio 0.7 L (0.9-1.6) Med Orders - Current: Current Medications Albuterol (Ventolin Hfa) 0 gm INH Q4H PRN PRN Reason: Dyspnea Artificial Tears (Refresh Plus 0.5%) 1 each EYEBOTH Q6H PRN PRN Reason: REDNESS RELIEF Last Admin: 11/12/19 16:55 Dose: 1 drop Buspirone HCl (Buspar) 15 mg PO TID [facility] Last Admin: 11/13/19 05:58 Dose: 15 mg Carisoprodol (Soma) 350 mg PO TID PRN PRN Reason: muscle spasms Last Admin: 11/13/19 04:11 Dose: 350 mg Fluoxetine HCl (Prozac) 40 mg PO DAILY [facility] Last Admin: 11/13/19 08:27 Dose: 40 mg Sodium Chloride (Normal Saline) 1,000 mls @ 100 mls/hr IV ASDIRECTED [facility] Last Admin: 11/13/19 01:22 Dose: 100 mls/hr Nicotine (Habitrol) 7 mg TRDERM DAILY [facility] Last Admin: 11/13/19 08:27 Dose: 7 mg Tizanidine 2 Mg (Capsule) 1 each PO TID PRN PRN Reason: MUSCLE SPASMS Ondansetron HCl (Zofran) 4 mg IVPUSH Q4H PRN PRN Reason: Nausea Last Admin: 11/11/19 06:14 Dose: 4 mg Oxycodone HCl (Oxycodone) 10 mg PO Q6H PRN PRN Reason: Pain Last Admin: 11/13/19 10:22 Dose: 10 mg Estazolam [Prosom] 2 (Mg) 2 each PO BEDTIME [facility] Last Admin: 11/12/19 23:37 Dose: Not Given Umeclidinium Brm/Vilanterol Tr [Anoro Ellipta 62.5-25 Mcg 1 each INH DAILY [facility] Last Admin: 11/13/19 08:31 Dose: Not Given Sodium Chloride (Saline Flush) 10 ml FLUSH ASDIRECTED PRN PRN Reason: Keep Vein Open Sodium Chloride (Saline Flush) 2.5 ml FLUSH ASDIRECTED PRN PRN Reason: Keep Vein Open Sodium Chloride (Normal Saline) 10 ml IV ASDIRECTED PRN PRN Reason: IV Use Trazodone HCl (Trazodone) 300 mg PO BEDTIME PRN PRN Reason: Sleep Last Admin: 11/12/19 21:08 Dose: 300 mg Discontinued Medications Acetaminophen (Tylenol Extra Strength) 1,000 mg PO ONETIME ONE Stop: 11/10/19 22:41 Last Admin: 11/10/19 22:49 Dose: 1,000 mg Fentanyl (Fentanyl) 50 mcg IVPUSH ONETIME ONE Stop: 11/10/19 22:41 Last Admin: 11/10/19 22:50 Dose: 50 mcg Fentanyl (Fentanyl) 50 mcg IVPUSH ONETIME ONE Stop: 11/10/19 23:52 Last Admin: 11/11/19 00:16 Dose: 50 mcg Ibuprofen (Motrin) 400 mg PO ONETIME ONE Stop: 11/10/19 22:41 Last Admin: 11/10/19 22:49 Dose: 400 mg Lidocaine (Lidoderm 5%) 700 mg TOP ONETIME ONE Stop: 11/10/19 23:52 Last Admin: 11/11/19 00:15 Dose: 700 mg Morphine Sulfate (Morphine) 2 mg IVPUSH ONETIME ONE Stop: 11/11/19 01:59 Last Admin: 11/11/19 02:29 Dose: 2 mg Morphine Sulfate (Morphine) 2 mg IVPUSH Q4H PRN PRN Reason: Pain Last Admin: 11/13/19 08:25 Dose: 2 mg Tizanidine HCl (Zanaflex) 2 mg PO TID PRN PRN Reason: MUSCLE SPASMS <Vin Pritchett - Last Filed: 11/15/19 19:01> Discharge Summary - Referral to Home Health Primary Care Physician: Medardo Calvin MD - Patient Summary/Data Consults: Consultations 11/11/19 10:43 Consult to Physical Therapy [PT Evaluation and Treatment] [CONS] Routine - Patient Data Vitals - Most Recent: Last Vital Signs Temp 36.6 C 11/13/19 12:00 Pulse 55 L 11/13/19 12:00 Resp 18 11/13/19 12:00 BP 152/81 H 11/13/19 12:00 Pulse Ox 96 11/13/19 12:00 Med Orders - Current: Current Medications Discontinued Medications Acetaminophen (Tylenol Extra Strength) 1,000 mg PO ONETIME ONE Stop: 11/10/19 22:41 Last Admin: 11/10/19 22:49 Dose: 1,000 mg Albuterol (Ventolin Hfa) 0 gm INH Q4H PRN PRN Reason: Dyspnea Artificial Tears (Refresh Plus 0.5%) 1 each EYEBOTH Q6H PRN PRN Reason: REDNESS RELIEF Last Admin: 11/12/19 16:55 Dose: 1 drop Buspirone HCl (Buspar) 15 mg PO TID RUIZ Last Admin: 11/13/19 05:58 Dose: 15 mg Carisoprodol (Soma) 350 mg PO TID PRN PRN Reason: muscle spasms Last Admin: 11/13/19 12:17 Dose: 350 mg Celecoxib (Celebrex) 200 mg PO DAILY [facility] Last Admin: 11/13/19 11:51 Dose: 200 mg Fentanyl (Fentanyl) 50 mcg IVPUSH ONETIME ONE Stop: 11/10/19 22:41 Last Admin: 11/10/19 22:50 Dose: 50 mcg Fentanyl (Fentanyl) 50 mcg IVPUSH ONETIME ONE Stop: 11/10/19 23:52 Last Admin: 11/11/19 00:16 Dose: 50 mcg Fluoxetine HCl (Prozac) 40 mg PO DAILY [facility] Last Admin: 11/13/19 08:27 Dose: 40 mg Sodium Chloride (Normal Saline) 1,000 mls @ 100 mls/hr IV ASDIRECTED [facility] Last Admin: 11/13/19 01:22 Dose: 100 mls/hr Ibuprofen (Motrin) 400 mg PO ONETIME ONE Stop: 11/10/19 22:41 Last Admin: 11/10/19 22:49 Dose: 400 mg Lidocaine (Lidoderm 5%) 700 mg TOP ONETIME ONE Stop: 11/10/19 23:52 Last Admin: 11/11/19 00:15 Dose: 700 mg Morphine Sulfate (Morphine) 2 mg IVPUSH ONETIME ONE Stop: 11/11/19 01:59 Last Admin: 11/11/19 02:29 Dose: 2 mg Morphine Sulfate (Morphine) 2 mg IVPUSH Q4H PRN PRN Reason: Pain Last Admin: 11/13/19 08:25 Dose: 2 mg Nicotine (Habitrol) 7 mg TRDERM DAILY [facility] Last Admin: 11/13/19 08:27 Dose: 7 mg Tizanidine 2 Mg (Capsule) 1 each PO TID PRN PRN Reason: MUSCLE SPASMS Ondansetron HCl (Zofran) 4 mg IVPUSH Q4H PRN PRN Reason: Nausea Last Admin: 11/11/19 06:14 Dose: 4 mg Oxycodone HCl (Oxycodone) 10 mg PO Q6H PRN PRN Reason: Pain Last Admin: 11/13/19 10:22 Dose: 10 mg Estazolam [Prosom] 2 (Mg) 2 each PO BEDTIME [facility] Last Admin: 11/12/19 23:37 Dose: Not Given Umeclidinium Brm/Vilanterol Tr [Anoro Ellipta 62.5-25 Mcg 1 each INH DAILY [facility] Last Admin: 11/13/19 08:31 Dose: Not Given Sodium Chloride (Saline Flush) 10 ml FLUSH ASDIRECTED PRN PRN Reason: Keep Vein Open Sodium Chloride (Saline Flush) 2.5 ml FLUSH ASDIRECTED PRN PRN Reason: Keep Vein Open Sodium Chloride (Normal Saline) 10 ml IV ASDIRECTED PRN PRN Reason: IV Use Tizanidine HCl (Zanaflex) 2 mg PO TID PRN PRN Reason: MUSCLE SPASMS Trazodone HCl (Trazodone) 300 mg PO BEDTIME PRN PRN Reason: Sleep Last Admin: 11/12/19 21:08 Dose: 300 mg - Free Text/Narrative Note: I have seen and evaluated the patient with the resident. I have discussed findings and treatment plan with resident. I agree with the assessment and plan as outlined in the following note.
[2019-11-13] MEDS ORDERED: tiZANidine 4 MG Tab PO PRN (10:39)
[2019-11-13] MEDS ORDERED: Celecoxib 100 MG Cap PO SCH (11:30)
[2019-11-13 12:01] VITALS: BP 152/81; PULSE 55
== END 2019-11-13 13:05 | disposition home or self-care (01) ==
LOC: MW.ED 22:05 → MW.MS 11-11 01:56
PROVIDERS: ADMIT Student in an Organized Health Care Education/Training Program; ATTEND Student in an Organized Health Care Education/Training Program
DX: G89.29 Other chronic pain (principal); M54.5 Low back pain; R25.2 Cramp and spasm; J44.9 Chronic obstructive pulmonary disease, unspecified; E78.00 Pure hypercholesterolemia, unspecified; F17.210 Nicotine dependence, cigarettes, uncomplicated; F41.9 Anxiety disorder, unspecified; F32.9 Major depressive disorder, single episode, unspecified; R79.89 Other specified abnormal findings of blood chemistry; R20.2 Paresthesia of skin; Z79.899 Other long term (current) drug therapy; Z98.890 Other specified postprocedural states; Z88.1 Allergy status to other antibiotic agents; Z88.0 Allergy status to penicillin; Z88.8 Allergy status to other drugs, medicaments and biological substances; Z87.81 Personal history of (healed) traumatic fracture; Z86.73 Personal history of transient ischemic attack (TIA), and cerebral infarction without residual deficits
CPT/HCPCS: 36415; 71045; 72128; 72131; 74176; 80048; 80053; 81001; 84484; 85025; 85652; 86140; 93005; 96361; 96374; 96375; 96376; 97161; 99285; A9270; G0378; J2270; J2405; J3010; J7030

== ENCOUNTER 2020-02-10 09:07 | Emergency (ER) | payer MEDICARE, MEDICAID ==
[2020-02-10] MEDS ORDERED: cloNIDine 0.1 MG Tab PO ONE (09:08)
[2020-02-10] MEDS ORDERED: Gabapentin 300 MG Cap PO ONE (09:09)
[2020-02-10] MEDS ORDERED: tiZANidine 4 MG Tab PO SCH (09:15)
--- NOTE | 2020-02-10 09:27 | EDM.PDOC ---
ED [facility] GENERAL MEDICAL PROBLEM - General Chief Complaint: General Stated Complaint: PAIN Time Seen by Provider: 02/10/20 09:08 - History of Present Illness INITIAL COMMENTS - FREE TEXT/NARRATIVE: HISTORY AND PHYSICAL: History of present illness: This 64-year-old female with a past medical history of depression, chronic pain, illicit drug use, and opioid dependence presents emergency department with all over body tremors, diarrhea, intermittent abdominal cramping, tachycardia, and the sensation of full body pain. She reports that she was recently taken off of her narcotic pain medication and is having an outpatient tramadol taper. She is quite miserable and called 911 for transport. Vital signs were within normal limits other than significant hypertension and mild tachycardia. Denies any other associated signs or symptoms. No other modifying, aggravating or alleviating factors. Review of systems: A 10-point review of systems, other than pertinent positives and negatives as stated per HPI, is otherwise negative. Past medical history: As per history of present illness and as reviewed below otherwise noncontributory. Surgical history: As per history of present illness and as reviewed below otherwise non contributory. Social history: Patient has a history of amphetamine abuse and polydrug abuse. Family history: As per history of present illness and as reviewed below otherwise noncontributory. Physical exam: VITAL SIGNS: Reviewed. GENERAL: Appears quite uncomfortable and is tremulous and in pain. HEAD: No signs of head trauma. EYES: Pupils are equal. Extraocular motions intact. EARS: Hearing grossly intact. MOUTH: Oropharynx is normal. NECK: No adenopathy, no JVD. CHEST: Chest with clear breath sounds bilaterally. No wheezes, rales, or rhonchi. CARDIAC: Regular rate and rhythm. Normal S1 and S2, without murmurs, gallops, or rubs. VASCULAR: Peripheral pulses normal and equal in all extremities. ABDOMEN: Soft, without detectable tenderness. No sign of distention. No rebound or guarding, and no masses palpated. MUSCULOSKELETAL: Good range of motion of all major joints. Extremities without clubbing, cyanosis or edema. NEUROLOGIC EXAM: Alert and oriented x 3. No focal sensory or motor deficits. Speech normal. Follows commands. PSYCHIATRIC: Mood normal. SKIN: No rash or lesions. Initial Differential Diagnosis & Plan: Opioid withdrawal, alcohol withdrawal, chronic pain I will treat the patient for opioid withdrawal as she is having very classic signs. I will give clonidine 0.1 mg orally, tizanidine, and gabapentin. I will reevaluate after this. I will not be giving narcotics. Definitive disposition and diagnosis as appropriate pending reevaluation and review of above. back Pain Score (Numeric/FACES): 10 - Related Data Allergies Allergy/AdvReac Type Severity Reaction Status Date / Time erythromycin lactobionate Allergy Unknown Itching Verified 11/11/19 04:40 [From Erythrocin] mirtazapine [From Remeron] Allergy Unknown Itching Verified 11/11/19 04:40 Penicillins Allergy Unknown Hives Verified 11/11/19 04:40 tramadol Allergy Tremors Verified 11/11/19 04:40 Home Meds: Home Meds Estazolam [Prosom] 2 mg PO BEDTIME 10/25/17 [History] Umeclidinium Brm/Vilanterol Tr [Anoro Ellipta 62.5-25 MCG] 1 each IH DAILY 02/26/19 [History] Albuterol [Ventolin HFA] 1 puff INH Q4H PRN #1 inhaler 04/22/19 [Rx] traZODone HCl [Trazodone HCl] 300 mg PO BEDTIME PRN 07/07/19 [History] Naloxone HCl [Narcan] 1 spray NASBOTH .FOR SEDATION PRN 07/08/19 [History] Carboxymethylcellulose Sodium [Refresh Celluvisc] 1 drop EYEBOTH QID PRN 11/11/19 [History] Celecoxib [CeleBREX] 200 mg PO DAILY 11/11/19 [History] Denosumab [Prolia] 60 mg SUBCUT Q180D 11/11/19 [History] FLUoxetine [PROzac] 40 mg PO DAILY 11/11/19 [History] Lisinopril/Hydrochlorothiazide [Lisinopril-HCTZ 10-12.5 MG] 1 tab PO QAM 11/11/19 [History] carisoprodoL [Soma] 350 mg PO TID PRN 11/11/19 [History] oxyCODONE 10 mg PO Q6H PRN tablet 11/13/19 [Rx] tiZANidine [Zanaflex] 4 mg PO DAILY PRN tablet 11/13/19 [Rx] cloNIDine HCL [Clonidine HCl] 0.1 mg PO TID 5 Days #20 tablet 02/10/20 [Rx] tiZANidine [Zanaflex] 4 mg PO Q6H 5 Days #30 tab 02/10/20 [Rx] Past Medical History - Past Health History Medical/Surgical History: Denies Medical/Surgical History HEENT History: Reports: None Cardiovascular History: Reports: High Cholesterol Respiratory History: Reports: COPD Gastrointestinal History: Reports: None Genitourinary History: Reports: None 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 Oconnor monthly Endocrine/Metabolic History: Reports: None Hematologic History: Reports: None Immunologic History: Reports: None Oncologic (Cancer) History: Reports: Other (See Below) Other Oncologic History: skin ca Dermatologic History: Reports: None Other Dermatologic History: "skin cancer" - Infectious Disease History Infectious Disease History: Reports: Chicken Pox, Measles, Mumps - Past Surgical History Head Surgeries/Procedures: Reports: None HEENT Surgical History: Reports: None Cardiovascular Surgical History: Reports: None Respiratory Surgical History: Reports: None GI Surgical History: Reports: None Female Surgical History: Reports: None Endocrine Surgical History: Reports: None Neurological Surgical History: Reports: Lumbar Spine Musculoskeletal Surgical History: Reports: Other (See Below) Oncologic Surgical History: Reports: None Dermatological Surgical History: Reports: None Social & Family History - Family History Family Medical History: Noncontributory Respiratory: Reports: COPD OBGYN: Reports: Musculoskeletal: Reports: Arthritis, Back pain, Chronic Neurological: Reports: CVA, TIA Psychiatric: Reports: Anxiety, Depression - Caffeine Use Caffeine Use: Reports: Coffee ED ROS GENERAL - Review of Systems Review Of Systems: See Below (noted) ED EXAM, GENERAL - Physical Exam Exam: See Below (noted) Course - Vital Signs Last Recorded V/S: Last Vital Signs Temp 97.3 F 02/10/20 09:07 Pulse 67 02/10/20 10:10 Resp 16 02/10/20 10:10 BP 171/91 H 02/10/20 10:10 Pulse Ox 94 L 02/10/20 10:10 - Orders/Labs/Meds Orders: Active Orders 24 hr Category Date Time Status tiZANidine [Zanaflex] Med 02/10/20 09:15 Active 8 mg PO DAILY Medication Orders Tizanidine HCl (Zanaflex) 8 mg PO DAILY RUIZ Last Admin: 02/10/20 09:38 Dose: 8 mg Documented by: KENNARoad Hero Meds: Medications Generic Name Dose Route Start Last Admin Trade Name Makeda PRN Reason Stop Dose Admin Tizanidine HCl 8 mg 02/10/20 09:15 02/10/20 09:38 Zanaflex PO 8 mg DAILY RUIZ Administration Discontinued Medications Generic Name Dose Route Start Last Admin Trade Name Freyecenia PRN Reason Stop Dose Admin Clonidine HCl 0.1 mg 02/10/20 09:08 02/10/20 09:38 Catapres PO 02/10/20 09:09 0.1 mg ONETIME ONE Administration Gabapentin 300 mg 02/10/20 09:09 02/10/20 09:38 Neurontin PO 02/10/20 09:10 300 mg ONETIME ONE Administration - Re-Assessments/Exams Free Text/Narrative Re-Assessment/Exam: 02/10/20 10:22 Patient is feeling much better and her symptoms have essentially resolved. I will send her home on clonidine and Zanaflex. She may require addition of gabapentin at home. Unclear at this point. However given her high likelihood for polypharmacy I will not prescribe gabapentin at this point. My diagnostic impression: 1. Opioid withdrawals 2. Chronic pain syndrome Departure - Departure Time of Disposition: 10:23 Disposition: Home, Self-Care 01 Clinical Impression: Opioid withdrawal - Discharge Information *PRESCRIPTION DRUG MONITORING PROGRAM REVIEWED*: Not Applicable *COPY OF PRESCRIPTION DRUG MONITORING REPORT IN PATIENT BISMARK: Not Applicable Prescriptions: cloNIDine HCL [Clonidine HCl] 0.1 mg PO TID 5 Days #20 tablet tiZANidine [Zanaflex] 4 mg PO Q6H 5 Days #30 tab Instructions: Opioid Withdrawal Treatment, Opioid Withdrawal Forms: ED Department Discharge Additional Instructions: The following information is given to patients seen in the emergency department who are being discharged to home. This information is to outline your options for follow-up care. We provide all patients seen in our emergency department with a follow-up referral. The need for follow-up, as well as the timing and circumstances, are variable depending upon the specifics of your emergency department visit. If you don't have a primary care physician on staff, we will provide you with a referral. We always advise you to contact your personal physician following an emergency department visit to inform them of the circumstance of the visit and for follow-up with them and/or the need for any referrals to a consulting specialist. The emergency department will also refer you to a specialist when appropriate. This referral assures that you have the opportunity for follow-up care with a specialist. All of these measure are taken in an effort to provide you with optimal care, which includes your follow-up. Thank you for coming to the [facility] urgency department for your care today. It was Dr. Alonso's pleasure to take care of you. Please follow-up with your doctor. Please continue to wean off your opioids. Return to the emergency department for serious signs symptoms. We are always happy to see you. Under all circumstances we always encourage you to contact your private physician who remains a resource for coordinating your care. When calling for follow-up care, please make the office aware that this follow-up is from your recent emergency room visit. If for any reason you are refused follow-up, please contact the [facility] Emergency Department at and asked to speak to the emergency department charge nurse. Sepsis Event Note (ED) - Evaluation Sepsis Screening Result: No Definite Risk - Focused Exam Vital Signs: Vital Signs Temp Pulse Resp BP BP Pulse Ox 02/10/20 10:10 67 16 171/91 H 94 L 02/10/20 09:38 158/89 H 02/10/20 09:07 97.3 F 79 17 158/89 H 95 - My Orders Last 24 Hours: My Active Orders 02/10/20 09:15 tiZANidine [Zanaflex] 8 mg PO DAILY - Assessment/Plan Last 24 Hours: My Active Orders 02/10/20 09:15 tiZANidine [Zanaflex] 8 mg PO DAILY
[2020-02-10 10:43] VITALS: BP 150/95; PULSE 77
== END 2020-02-10 10:44 | disposition home or self-care (01) ==
LOC: MW.ED 09:07
DX: F11.23 Opioid dependence with withdrawal (principal); J44.9 Chronic obstructive pulmonary disease, unspecified; F32.9 Major depressive disorder, single episode, unspecified; Z88.0 Allergy status to penicillin; Z88.1 Allergy status to other antibiotic agents; Z88.5 Allergy status to narcotic agent; Z88.8 Allergy status to other drugs, medicaments and biological substances; Z86.73 Personal history of transient ischemic attack (TIA), and cerebral infarction without residual deficits; Z79.899 Other long term (current) drug therapy
CPT/HCPCS: 99284; A9270; 99283

== ENCOUNTER 2020-05-08 10:10 | Inpatient (IN) | payer MEDICARE, MEDICAID ==
[2020-05-08 11:30] LABS: BLOOD UREA NITROGEN,BUN 37 mg/dL (7.0-18.0); CARBON DIOXIDE,CO2 24.8 mmol/L (21.0-32.0); CHLORIDE,CL 102 mmol/L (98-107); GLUCOSE RANDOM 91 mg/dL (74-106); LIPASE 75 U/L (73-393); POTASSIUM,K 4.7 mmol/L (3.5-5.1); SODIUM,NA 135 mmol/L (136-145)
--- NOTE | 2020-05-08 11:37 | CR ---
INDICATION: Unwell. COMPARISON: Two view chest dated 03/26/2020 TECHNIQUE: Portable chest performed at 10:41 a.m. FINDINGS: The lungs are clear. The heart, mediastinum and pulmonary vessels are of normal size. There is no evidence of pleural fluid. IMPRESSION: Negative chest. Dictated by Sulaiman Jones MD @ May 08 2020 11:33AM Signed by Dr. Sulaiman Jones @ May 08 2020 11:35AM
[2020-05-08] MEDS ORDERED: cefTRIAXone 1 GM in Premix Bag 1 BAG IV ONE ×2 (11:47→18:37)
[2020-05-08] MEDS ORDERED: Sodium Chloride 0.9% 1,000 ML IV SCH (12:15)
--- NOTE | 2020-05-08 12:46 | PCM.SN.2 ---
#1 Interpretation EKG Date: 05/08/20 Time: 10:35 Rhythm: NSR Rate (Beats/Min): 67 [place]: RAD-Right [place] Deviation P-Wave: Present QRS: Normal ST-T: Normal QT: Normal Comparison: No Change (from 11/10/2019) EKG Interpretation Comments: Sinus Rhythm with RAD
[2020-05-08] MEDS ORDERED: Ketorolac 30 MG/ML SDV IVPUSH ONE (13:18)
[2020-05-08] MEDS ORDERED: Phenazopyridine 200 MG Tab PO ONE (13:22)
--- NOTE | 2020-05-08 13:23 | EDM.PDOC ---
ED HPI GENERAL MEDICAL PROBLEM - General Chief Complaint: General Stated Complaint: Weakness/increase falls/ Time Seen by Provider: 05/08/20 10:11 Source of Information: Reports: Patient History Limitations: Reports: No Limitations - History of Present Illness INITIAL COMMENTS - FREE TEXT/NARRATIVE: HISTORY AND PHYSICAL: History of present illness: Patient is a 64-year-old female who presents to the emergency room today via EMS with concern of generalized weakness, increase falls, and decrease appetite x 1 week. Patient states her last fall was 3 days ago and and states she did not hit her head or loose consciousness and has no injuries related to the fall. Patient state she fell 3 days prior to that and did have some left hip pain after but states is improving. Patient states that she has been having a hard time getting around her home due to the generalized weakness and once had to call the police several days ago to help get her out of her chair. Patient states her baseline, she has difficulties with ambulation and uses a wheelchair and pivot transfers per baseline. States she still has been transferring this way but does have some increased weakness. Patient has a history of COPD, htn, and chronic low back pain. Patient states she has a back surgery scheduled in May with a neurosurgeon in [place] but is not know what she is specifically having done. States she does have low back pain which is chronic in nature and unchanged per her baseline. She did receive 30mg IV Toradol and 4mg IV Zofran en route via EMS. Patient denies fever, chills, chest pain, shortness of breath, or cough. Denies headache, neck stiff ness, change in vision, syncope, or near syncope. Denies nausea, vomiting, abdominal pain, diarrhea, constipation, or dysuria. Has not noted any blood in urine or stool. Patient has been eating and drinking but notes decreased appetite. Review of systems: As per history of present illness and below otherwise all systems reviewed and negative. Past medical history: As per history of present illness and as reviewed below otherwise noncontributory. Surgical history: As per history of present illness and as reviewed below otherwise noncontributory. Social history: See social history for further information Family history: As per history of present illness and as reviewed below otherwise noncontributory. Physical exam: General: Patient is alert, oriented, and in no acute distress. Patient laying comfortably on exam table. Patients O2 on RA 90%. Placed on 2L NC and 95%. Vitals otherwise stable and reviewed by me. HEENT: Atraumatic, normocephalic, pupils equal and reactive bilaterally, negative for conjunctival pallor or scleral icterus, mucous membranes moist, TMs normal bilaterally, throat clear, neck supple, nontender, trachea midline. No drooling or trismus noted. No meningeal signs. No hot potato voice noted. Lungs: Patient speaking clearly without breathlessness, no wheezing or stridor, no accessory muscle use or respiratory distress. Auscultation deferred due to current COV-ID 19 outbreak. Heart: Auscultation deferred due to current COV-ID 19 outbreak. Abdomen: Soft, nondistended, nontender. Negative for masses or hepatosplenomegaly. Negative for costovertebral tenderness. Pelvis: Stable nontender. Genitourinary: Deferred. Rectal: Deferred. Skin: Intact, warm, dry. No lesions or rashes noted. Extremities/musculoskeletal: No obvious deformity of the complete spine. No step-offs, crepitus, or point tenderness to palpation of the complete spine. Otherwise, atraumatic, negative for cords or calf pain. Neurovascular unremarkable. Full ROM of all extremities without difficulty. Neuro: Awake, alert, oriented. Cranial nerves II through XII unremarkable. Cerebellum unremarkable. Motor and sensory unremarkable throughout. Exam nonfocal. Notes: Baseline O2 93-95%. I did call and speak to the hospitalist, Dr. Farley and thoroughly discussed patients case. Will admit to observation telemetry. Patient does have an elevated ddimer, however, do to decreased GFR, Ang CT not recommended by radiologist. Furthermore, patient is unwilling to have an IV placed large enough to obtain an Ang CT scan. This was discussed with the hospitalist and made aware of this. Upon reexamination of patient, she remains comfortable on exam. Breathing without difficulty on 2LNC at 96%. She is speaking clearly without breathlessness, wheezing, stridor, or accessory muscle use. Remains vitally stable throughout stay in ED. Diagnostics: EKG, CBC, CMP, UA, CXR, Trop, COVID19, Pelvic XR, Ang CT Therapeutics: NS, Rocephin, Solumedrol Impression: Weakness Urinary tract infection Hypoxia COPD Fall risk Plan: Admit to observation to Dr. Miguelito on telemetry Definitive disposition and diagnosis as appropriate pending reevaluation and review of above. flank Pain Score (Numeric/FACES): 9 - Related Data Allergies Allergy/AdvReac Type Severity Reaction Status Date / Time erythromycin lactobionate Allergy Unknown Itching Verified 05/08/20 10:12 [From Erythrocin] mirtazapine [From Remeron] Allergy Unknown Itching Verified 05/08/20 10:12 Penicillins Allergy Unknown Hives Verified 05/08/20 10:12 tramadol Allergy Tremors Verified 05/08/20 10:12 Home Meds: Home Meds Estazolam [Prosom] 2 mg PO BEDTIME 10/25/17 [History] Umeclidinium Brm/Vilanterol Tr [Anoro Ellipta 62.5-25 MCG] 1 each IH DAILY 02/26/19 [History] Albuterol [Ventolin HFA] 1 puff INH Q4H PRN #1 inhaler 04/22/19 [Rx] traZODone HCl [Trazodone HCl] 300 mg PO BEDTIME PRN 07/07/19 [History] Naloxone HCl [Narcan] 1 spray NASBOTH .FOR SEDATION PRN 07/08/19 [History] Lisinopril/Hydrochlorothiazide [Lisinopril-HCTZ 10-12.5 MG] 1 tab PO QAM 11/11/19 [History] carisoprodoL [Soma] 350 mg PO TID PRN 11/11/19 [History] oxyCODONE 10 mg PO Q6H PRN tablet 11/13/19 [Rx] tiZANidine [Zanaflex] 4 mg PO DAILY PRN tablet 11/13/19 [Rx] tiZANidine [Zanaflex] 4 mg PO Q6H 5 Days #30 tab 02/10/20 [Rx] buPROPion [Wellbutrin] 1 tab PO ASDIRECTED 05/08/20 [History] Past Medical History - Past Health History Medical/Surgical History: Denies Medical/Surgical History HEENT History: Reports: None Cardiovascular History: Reports: High Cholesterol Respiratory History: Reports: COPD Gastrointestinal History: Reports: None Genitourinary History: Reports: None [employer] History: Reports: None Musculoskeletal History: Reports: Back Pain, Chronic Neurological History: Reports: CVA Other Neuro History: stroke Psychiatric History: Reports: Depression Other Psychiatric History: Sees Dr. Oconnor monthly Endocrine/Metabolic History: Reports: None Hematologic History: Reports: None Immunologic History: Reports: None Oncologic (Cancer) History: Reports: Other (See Below) Other Oncologic History: skin ca Dermatologic History: Reports: None Other Dermatologic History: "skin cancer" - Infectious Disease History Infectious Disease History: Reports: Chicken Pox, Measles, Mumps - Past Surgical History Head Surgeries/Procedures: Reports: None HEENT Surgical History: Reports: None Cardiovascular Surgical History: Reports: None Respiratory Surgical History: Reports: None GI Surgical History: Reports: None Female Surgical History: Reports: None Endocrine Surgical History: Reports: None Neurological Surgical History: Reports: Lumbar Spine Musculoskeletal Surgical History: Reports: Other (See Below) Other Musculoskeletal Surgeries/Procedures:: L wrist, back surgery Oncologic Surgical History: Reports: None Dermatological Surgical History: Reports: None Social & Family History - Family History Family Medical History: No Pertinent Family History Respiratory: Reports: COPD OBGYN: Reports: Musculoskeletal: Reports: Arthritis, Back pain, Chronic Neurological: Reports: CVA, TIA Psychiatric: Reports: Anxiety, Depression - Caffeine Use Caffeine Use: Reports: Coffee - Recreational Drug Use Recreational Drug Use: No ED ROS GENERAL - Review of Systems Review Of Systems: Comprehensive ROS is negative, except as noted in HPI. ED EXAM, GENERAL - Physical Exam Exam: See Below (see dictation) Course - Vital Signs Last Recorded V/S: Last Vital Signs Temp 97.4 F 05/08/20 10:15 Pulse 64 05/08/20 13:15 Resp 18 05/08/20 13:15 BP 111/55 L 05/08/20 13:15 Pulse Ox 96 05/08/20 13:15 - Orders/Labs/Meds Orders: Active Orders 24 hr Category Date Time Status EKG Documentation Completion [RC] STAT Care 05/08/20 10:29 Active CULTURE URINE [RM] Stat Lab 05/08/20 10:58 Received Sodium Chloride 0.9% [Normal Saline] 1,000 ml Med 05/08/20 12:15 Active IV ASDIRECTED Medication Orders Sodium Chloride (Normal Saline) 1,000 mls @ 100 mls/hr IV ASDIRECTED RUIZ Last Admin: 05/08/20 12:19 Dose: 100 mls/hr Documented by: MINGO Labs: Laboratory Tests 05/08/20 05/08/20 05/08/20 Range/Units 10:49 10:49 10:49 WBC 9.56 (4.0-11.0) K/uL RBC 4.33 (4.30-5.90) M/uL Hgb 12.8 (12.0-16.0) g/dL Hct 39.4 (36.0-46.0) % MCV 91.0 (80.0-98.0) fL MCH 29.6 (27.0-32.0) pg MCHC 32.5 (31.0-37.0) g/dL RDW Std Deviation 49.1 (28.0-62.0) fl RDW Coeff of Ene 15 (11.0-15.0) % Plt Count 296 (150-400) K/uL MPV 9.40 (7.40-12.00) fL Neut % (Auto) 54.4 (48.0-80.0) % Lymph % (Auto) 35.3 (16.0-40.0) % [place] % (Auto) 7.6 (0.0-15.0) % Eos % (Auto) 2.2 (0.0-7.0) % Baso % (Auto) 0.5 (0.0-1.5) % Neut # (Auto) 5.2 (1.4-5.7) K/uL Lymph # (Auto) 3.4 H (0.6-2.4) K/uL [place] # (Auto) 0.7 (0.0-0.8) K/uL Eos # (Auto) 0.2 (0.0-0.7) K/uL Baso # (Auto) 0.1 (0.0-0.1) K/uL Nucleated RBC % 0.0 /100WBC Nucleated RBCs # 0 K/uL D-Dimer, Quantitative 0.98 H (0.0-0.50) mg/L FEU Sodium 135 L (136-145) mmol/L Potassium 4.7 (3.5-5.1) mmol/L Chloride 102 (98-107) mmol/L Carbon Dioxide 24.8 (21.0-32.0) mmol/L BUN 37 H (7.0-18.0) mg/dL Creatinine 1.7 H (0.6-1.0) mg/dL Est Cr Clr Drug Dosing 23.62 mL/min Estimated GFR (MDRD) 30.2 ml/min Glucose 91 (74-106) mg/dL Calcium 9.8 (8.5-10.1) mg/dL Total Bilirubin 0.1 L (0.2-1.0) mg/dL AST 14 L (15-37) IU/L ALT 12 L (14-63) IU/L Alkaline Phosphatase 127 H (46-116) U/L Troponin I < 0.050 (0.000-0.056) ng/mL Total Protein 7.2 (6.4-8.2) g/dL Albumin 2.6 L (3.4-5.0) g/dL Globulin 4.6 H (2.6-4.0) g/dL Albumin/Globulin Ratio 0.6 L (0.9-1.6) Lipase 75 (73-393) U/L Urine Color Urine Appearance Urine pH (5.0-8.0) Ur Specific [place] (1.001-1.035) Urine Protein (NEGATIVE) mg/dL Urine Glucose (UA) (NEGATIVE) mg/dL Urine Ketones (NEGATIVE) mg/dL Urine Occult Blood (NEGATIVE) Urine Nitrite (NEGATIVE) Urine Bilirubin (NEGATIVE) Urine Urobilinogen (<2.0) EU/dL Ur Leukocyte Esterase (NEGATIVE) Urine RBC (0-2/HPF) Urine WBC (0-5/HPF) Ur Epithelial Cells (NONE-FEW) Amorphous Sediment (NEGATIVE) Urine Bacteria (NEGATIVE) SARS-CoV-2 RNA (DOMINIK) (NEGATIVE) 05/08/20 05/08/20 Range/Units 10:58 12:13 WBC (4.0-11.0) K/uL RBC (4.30-5.90) M/uL Hgb (12.0-16.0) g/dL Hct (36.0-46.0) % MCV (80.0-98.0) fL MCH (27.0-32.0) pg MCHC (31.0-37.0) g/dL RDW Std Deviation (28.0-62.0) fl RDW Coeff of Ene (11.0-15.0) % Plt Count (150-400) K/uL MPV (7.40-12.00) fL Neut % (Auto) (48.0-80.0) % Lymph % (Auto) (16.0-40.0) % [place] % (Auto) (0.0-15.0) % Eos % (Auto) (0.0-7.0) % Baso % (Auto) (0.0-1.5) % Neut # (Auto) (1.4-5.7) K/uL Lymph # (Auto) (0.6-2.4) K/uL [place] # (Auto) (0.0-0.8) K/uL Eos # (Auto) (0.0-0.7) K/uL Baso # (Auto) (0.0-0.1) K/uL Nucleated RBC % /100WBC Nucleated RBCs # K/uL D-Dimer, Quantitative (0.0-0.50) mg/L FEU Sodium (136-145) mmol/L Potassium (3.5-5.1) mmol/L Chloride (98-107) mmol/L Carbon Dioxide (21.0-32.0) mmol/L BUN (7.0-18.0) mg/dL Creatinine (0.6-1.0) mg/dL Est Cr Clr Drug Dosing mL/min Estimated GFR (MDRD) ml/min Glucose (74-106) mg/dL Calcium (8.5-10.1) mg/dL Total Bilirubin (0.2-1.0) mg/dL AST (15-37) IU/L ALT (14-63) IU/L Alkaline Phosphatase (46-116) U/L Troponin I (0.000-0.056) ng/mL Total Protein (6.4-8.2) g/dL Albumin (3.4-5.0) g/dL Globulin (2.6-4.0) g/dL Albumin/Globulin Ratio (0.9-1.6) Lipase (73-393) U/L Urine Color YELLOW Urine Appearance CLOUDY Urine pH 5.5 (5.0-8.0) Ur Specific [place] 1.025 (1.001-1.035) Urine Protein TRACE H (NEGATIVE) mg/dL Urine Glucose (UA) NEGATIVE (NEGATIVE) mg/dL Urine Ketones NEGATIVE (NEGATIVE) mg/dL Urine Occult Blood LARGE H (NEGATIVE) Urine Nitrite POSITIVE H (NEGATIVE) Urine Bilirubin NEGATIVE (NEGATIVE) Urine Urobilinogen 0.2 (<2.0) EU/dL Ur Leukocyte Esterase LARGE H (NEGATIVE) Urine RBC 25-30 (0-2/HPF) Urine WBC TO NUMEROUS TO COUNT H (0-5/HPF) Ur Epithelial Cells FEW (NONE-FEW) Amorphous Sediment MODERATE (NEGATIVE) Urine Bacteria 3+ H (NEGATIVE) SARS-CoV-2 RNA (DOMINIK) NEGATIVE (NEGATIVE) Meds: Medications Generic Name Dose Route Start Last Admin Trade Name Freq PRN Reason Stop Dose Admin Sodium Chloride 1,000 mls @ 100 mls/hr 05/08/20 12:15 05/08/20 12:19 Normal Saline IV 100 mls/hr ASDIRECTED RUIZ Administration Discontinued Medications Generic Name Dose Route Start Last Admin Trade Name Freq PRN Reason Stop Dose Admin Ceftriaxone Sodium/Dextrose 1 50 mls @ 100 mls/hr 05/08/20 11:47 05/08/20 12:19 gm/ Premix IV 05/08/20 12:16 100 mls/hr ONETIME ONE Administration Ketorolac Tromethamine 30 mg 05/08/20 13:18 05/08/20 13:32 Toradol IVPUSH 05/08/20 13:19 Not Given ONETIME ONE Methylprednisolone Sodium Succinate 125 mg 05/08/20 14:14 05/08/20 14:34 Solu-Medrol IVPUSH 05/08/20 14:15 125 mg ONETIME ONE Administration Phenazopyridine HCl 200 mg 05/08/20 13:22 05/08/20 13:32 Pyridium PO 05/08/20 13:23 200 mg ONETIME ONE Administration Departure - Departure Time of Disposition: 15:20 Disposition: Refer to Observation Clinical Impression: COPD with exacerbation, Hypoxia, Weakness, Risk for falls UTI (urinary tract infection) Qualifiers: Urinary tract infection type: acute cystitis Hematuria presence: without hematuria Qualified Code(s): N30.00 - Acute cystitis without hematuria - Discharge Information Sepsis Event Note (ED) - Evaluation Sepsis Screening Result: No Definite Risk - Focused Exam Vital Signs: Vital Signs Temp Pulse Resp BP Pulse Ox 05/08/20 13:15 64 18 111/55 L 96 05/08/20 10:43 70 19 108/60 94 L 05/08/20 10:22 125/63 05/08/20 10:15 97.4 F 76 89 L - My Orders Last 24 Hours: My Active Orders 05/08/20 10:29 EKG Documentation Completion [RC] STAT 05/08/20 10:58 CULTURE URINE [RM] Stat 05/08/20 12:15 Sodium Chloride 0.9% [Normal Saline] 1,000 ml IV ASDIRECTED - Assessment/Plan Last 24 Hours: My Active Orders 05/08/20 10:29 EKG Documentation Completion [RC] STAT 05/08/20 10:58 CULTURE URINE [RM] Stat 05/08/20 12:15 Sodium Chloride 0.9% [Normal Saline] 1,000 ml IV ASDIRECTED
[2020-05-08] MEDS ORDERED: methylPREDNISolone Sodium Succinate 125 MG/2 ML SDV IVPUSH ONE (14:14)
--- NOTE | 2020-05-08 14:54 | CR ---
INDICATION: Patient fell 3 days prior. COMPARISON: none TECHNIQUE: Portable AP supine pelvis performed at 2:31 p.m. FINDINGS: The bones are anatomically aligned. There is no evidence of diastasis of the sacroiliac joints. There is no evidence of fracture, erosion or intrinsic bone lesion. Patient is status post lower lumbar fusion. IMPRESSION: No fracture identified. Dictated by Sulaiman Jones MD @ May 08 2020 2:51PM Signed by Dr. Sulaiman Jones @ May 08 2020 2:53PM
[2020-05-08] MEDS ORDERED: Albuterol/Ipratropium 3.0-0.5 MG/3 ML Neb Soln NEB PRN (15:19)
[2020-05-08] MEDS ORDERED: Enoxaparin 40 MG/0.4 ML Syringe SUBCUT SCH (15:30)
[2020-05-08] MEDS ORDERED: Lactated Ringers 1,000 ML IV SCH (15:30)
--- NOTE | 2020-05-08 16:07 | PCM.HP.2 ---
<Naveed Madden - Last Filed: 05/08/20 18:32> H&P History of Present Illness - General Date of Service: 05/08/20 Admit Problem/Dx: Admission Diagnosis/Problem Admission Diagnosis/Problem Urinary tract infection - History of Present Illness Initial Comments - Free Text/Narative: 64-year-old female admitted for UTI, Acute COPD exacerbation and generalized weakness. Patient presented to the ED via EMS due to generalized weakness, increase falls, and decreased appetite for 1 week. Patient also states that she was having right flank pain for one month. Patient states that she fell 3 days prior and had some back and hip pain afterwards. Patients has ambulatory dysfunction and requires a wheelchair at her baseline. PMH includes COPD, HTN, chronic low back pain and stroke in september 2019. Denies any history of CAD, CHF, A-Fib. Denies history of PE, DVT. Denies history of any bleeding disorders. Patient states smoking 6 cigarrettes/day currently. Patient has back surgery scheduled in May with neurosurgery in [place] but is not aware of what the procedure is. Patient denies fever, chills, chest pain, shortness of breath, or cough. Denies headache, dizziness, change in vision, abdominal pain, dysuria or hematuria. States nausea, urinary frequency and right flank pain. Patient states decreased appetite after her stroke this past september and that she has lost roughly 60 pounds. flank Pain Score (Numeric/FACES): 9 Lower Back Pain Score (Numeric/FACES): 8 - Related Data Allergies/Adverse Reactions: Allergies Allergy/AdvReac Type Severity Reaction Status Date / Time erythromycin lactobionate Allergy Unknown Itching Verified 05/08/20 15:56 [From Erythrocin] mirtazapine [From Remeron] Allergy Unknown Itching Verified 05/08/20 15:56 Penicillins Allergy Unknown Hives Verified 05/08/20 15:56 tramadol Allergy Tremors Verified 05/08/20 15:56 Home Medications: Home Meds Estazolam [Prosom] 2 mg PO BEDTIME 10/25/17 [History] Umeclidinium Brm/Vilanterol Tr [Anoro Ellipta 62.5-25 MCG] 1 each IH DAILY 02/26/19 [History] Albuterol [Ventolin HFA] 1 puff INH Q4H PRN #1 inhaler 04/22/19 [Rx] traZODone HCl [Trazodone HCl] 300 mg PO BEDTIME PRN 07/07/19 [History] Naloxone HCl [Narcan] 1 spray NASBOTH .FOR SEDATION PRN 07/08/19 [History] Lisinopril/Hydrochlorothiazide [Lisinopril-HCTZ 10-12.5 MG] 1 tab PO QAM 11/11/19 [History] carisoprodoL [Soma] 350 mg PO TID PRN 11/11/19 [History] oxyCODONE 10 mg PO Q6H PRN tablet 11/13/19 [Rx] Celecoxib 200 mg PO DAILY 05/08/20 [History] FLUoxetine [PROzac] 40 mg PO QAM 05/08/20 [History] Magnesium Oxide 400 mg PO DAILY 05/08/20 [History] OXcarbazepine [Trileptal] 150 mg PO BID 05/08/20 [History] buPROPion HCL [Bupropion Xl] 150 mg PO QAM 05/08/20 [History] busPIRone [Buspar] 10 mg PO TID 05/08/20 [History] hydrOXYzine pamoate [Hydroxyzine Pamoate] 25 mg PO BID 05/08/20 [History] tiZANidine [Zanaflex] 2 mg PO TID PRN 05/08/20 [History] Past Medical History - Past Health History Medical/Surgical History: Denies Medical/Surgical History HEENT History: Reports: None Cardiovascular History: Reports: High Cholesterol Respiratory History: Reports: COPD Gastrointestinal History: Reports: None Genitourinary History: Reports: None [employer] History: Reports: None Musculoskeletal History: Reports: Back Pain, Chronic Neurological History: Reports: CVA Other Neuro History: stroke Psychiatric History: Reports: Depression Other Psychiatric History: Sees Dr. Oconnor monthly Endocrine/Metabolic History: Reports: None Hematologic History: Reports: None Immunologic History: Reports: None Oncologic (Cancer) History: Reports: Other (See Below) Other Oncologic History: skin ca Dermatologic History: Reports: None Other Dermatologic History: "skin cancer" - Infectious Disease History Infectious Disease History: Reports: Chicken Pox, Measles, Mumps - Past Surgical History Head Surgeries/Procedures: Reports: None HEENT Surgical History: Reports: None Cardiovascular Surgical History: Reports: None Respiratory Surgical History: Reports: None GI Surgical History: Reports: None Female Surgical History: Reports: None Endocrine Surgical History: Reports: None Neurological Surgical History: Reports: Lumbar Spine Musculoskeletal Surgical History: Reports: Other (See Below) Other Musculoskeletal Surgeries/Procedures:: L wrist, back surgery Oncologic Surgical History: Reports: None Dermatological Surgical History: Reports: None Social & Family History - Family History Family Medical History: No Pertinent Family History Respiratory: Reports: COPD OBGYN: Reports: Musculoskeletal: Reports: Arthritis, Back pain, Chronic Neurological: Reports: CVA, TIA Psychiatric: Reports: Anxiety, Depression - Caffeine Use Caffeine Use: Reports: Coffee - Recreational Drug Use Recreational Drug Use: No H&P Review of Systems - Review of Systems: Review Of Systems: See Below General: Reports: Weakness, Fatigue. Denies: Fever, Chills HEENT: Denies: Dysphasia, Headaches Pulmonary: Denies: Shortness of Breath, Wheezing, Pleuritic Chest Pain, Cough Cardiovascular: Denies: Chest Pain, Palpitations, Orthopnea, Edema, Lightheadedness Gastrointestinal: Reports: Decreased Appetite, Nausea. Denies: Abdominal Pain, Constipation, Diarrhea, Vomiting Genitourinary: Reports: Frequency, Urgency. Denies: Dysuria, Burning, Pain Musculoskeletal: Reports: Back Pain Skin: Denies: Cyanosis Psychiatric: Denies: Confusion Neurological: Denies: Dizziness, Headache Hematologic/Lymphatic: Denies: Easy Bleeding Exam - Exam Exam: See Below - Vital Signs Vital Signs: Last Vital Signs Temp 97.8 F 05/08/20 15:43 Pulse 66 05/08/20 15:43 Resp 18 05/08/20 15:43 BP 120/49 L 05/08/20 15:43 Pulse Ox 98 05/08/20 15:44 Weight: 45.359 kg - Exam Quality Assessment: Supplemental Oxygen General: Alert, Oriented Lungs: Clear to Auscultation, Normal Respiratory Effort Cardiovascular: Regular Rate, Regular Rhythm GI/Abdominal Exam: Normal Bowel Sounds, Soft, Non-Tender Back Exam: CVA Tenderness (R), Decreased Range of Motion. No: CVA Tenderness (L) Extremities: No Pedal Edema. No: Leg Pain Neurological: Strength Equal Bilateral (upper extremities. Weakness of both lower extremities) Neuro Extensive - Mental Status: Alert, Oriented x3 Neuro Extensive - Motor, Sensory, Reflexes: Abnormal Light Touch (poor light touch at toes in lower extremties. Patient states this is chronic) - Patient Data Lab Results Last 24 hrs: Laboratory Results - last 24 hr 05/08/20 05/08/20 05/08/20 Range/Units 10:49 10:49 10:49 WBC 9.56 (4.0-11.0) K/uL RBC 4.33 (4.30-5.90) M/uL Hgb 12.8 (12.0-16.0) g/dL Hct 39.4 (36.0-46.0) % MCV 91.0 (80.0-98.0) fL MCH 29.6 (27.0-32.0) pg MCHC 32.5 (31.0-37.0) g/dL RDW Std Deviation 49.1 (28.0-62.0) fl RDW Coeff of Ene 15 (11.0-15.0) % Plt Count 296 (150-400) K/uL MPV 9.40 (7.40-12.00) fL Neut % (Auto) 54.4 (48.0-80.0) % Lymph % (Auto) 35.3 (16.0-40.0) % [place] % (Auto) 7.6 (0.0-15.0) % Eos % (Auto) 2.2 (0.0-7.0) % Baso % (Auto) 0.5 (0.0-1.5) % Neut # (Auto) 5.2 (1.4-5.7) K/uL Lymph # (Auto) 3.4 H (0.6-2.4) K/uL [place] # (Auto) 0.7 (0.0-0.8) K/uL Eos # (Auto) 0.2 (0.0-0.7) K/uL Baso # (Auto) 0.1 (0.0-0.1) K/uL Nucleated RBC % 0.0 /100WBC Nucleated RBCs # 0 K/uL D-Dimer, Quantitative 0.98 H (0.0-0.50) mg/L FEU Sodium 135 L (136-145) mmol/L Potassium 4.7 (3.5-5.1) mmol/L Chloride 102 (98-107) mmol/L Carbon Dioxide 24.8 (21.0-32.0) mmol/L BUN 37 H (7.0-18.0) mg/dL Creatinine 1.7 H (0.6-1.0) mg/dL Est Cr Clr Drug Dosing 23.62 mL/min Estimated GFR (MDRD) 30.2 ml/min Glucose 91 (74-106) mg/dL Calcium 9.8 (8.5-10.1) mg/dL Total Bilirubin 0.1 L (0.2-1.0) mg/dL AST 14 L (15-37) IU/L ALT 12 L (14-63) IU/L Alkaline Phosphatase 127 H (46-116) U/L Troponin I < 0.050 (0.000-0.056) ng/mL Total Protein 7.2 (6.4-8.2) g/dL Albumin 2.6 L (3.4-5.0) g/dL Globulin 4.6 H (2.6-4.0) g/dL Albumin/Globulin Ratio 0.6 L (0.9-1.6) Lipase 75 (73-393) U/L Urine Color Urine Appearance Urine pH (5.0-8.0) Ur Specific [place] (1.001-1.035) Urine Protein (NEGATIVE) mg/dL Urine Glucose (UA) (NEGATIVE) mg/dL Urine Ketones (NEGATIVE) mg/dL Urine Occult Blood (NEGATIVE) Urine Nitrite (NEGATIVE) Urine Bilirubin (NEGATIVE) Urine Urobilinogen (<2.0) EU/dL Ur Leukocyte Esterase (NEGATIVE) Urine RBC (0-2/HPF) Urine WBC (0-5/HPF) Ur Epithelial Cells (NONE-FEW) Amorphous Sediment (NEGATIVE) Urine Bacteria (NEGATIVE) SARS-CoV-2 RNA (DOMINIK) (NEGATIVE) 05/08/20 05/08/20 Range/Units 10:58 12:13 WBC (4.0-11.0) K/uL RBC (4.30-5.90) M/uL Hgb (12.0-16.0) g/dL Hct (36.0-46.0) % MCV (80.0-98.0) fL MCH (27.0-32.0) pg MCHC (31.0-37.0) g/dL RDW Std Deviation (28.0-62.0) fl RDW Coeff of Ene (11.0-15.0) % Plt Count (150-400) K/uL MPV (7.40-12.00) fL Neut % (Auto) (48.0-80.0) % Lymph % (Auto) (16.0-40.0) % [place] % (Auto) (0.0-15.0) % Eos % (Auto) (0.0-7.0) % Baso % (Auto) (0.0-1.5) % Neut # (Auto) (1.4-5.7) K/uL Lymph # (Auto) (0.6-2.4) K/uL [place] # (Auto) (0.0-0.8) K/uL Eos # (Auto) (0.0-0.7) K/uL Baso # (Auto) (0.0-0.1) K/uL Nucleated RBC % /100WBC Nucleated RBCs # K/uL D-Dimer, Quantitative (0.0-0.50) mg/L FEU Sodium (136-145) mmol/L Potassium (3.5-5.1) mmol/L Chloride (98-107) mmol/L Carbon Dioxide (21.0-32.0) mmol/L BUN (7.0-18.0) mg/dL Creatinine (0.6-1.0) mg/dL Est Cr Clr Drug Dosing mL/min Estimated GFR (MDRD) ml/min Glucose (74-106) mg/dL Calcium (8.5-10.1) mg/dL Total Bilirubin (0.2-1.0) mg/dL AST (15-37) IU/L ALT (14-63) IU/L Alkaline Phosphatase (46-116) U/L Troponin I (0.000-0.056) ng/mL Total Protein (6.4-8.2) g/dL Albumin (3.4-5.0) g/dL Globulin (2.6-4.0) g/dL Albumin/Globulin Ratio (0.9-1.6) Lipase (73-393) U/L Urine Color YELLOW Urine Appearance CLOUDY Urine pH 5.5 (5.0-8.0) Ur Specific [place] 1.025 (1.001-1.035) Urine Protein TRACE H (NEGATIVE) mg/dL Urine Glucose (UA) NEGATIVE (NEGATIVE) mg/dL Urine Ketones NEGATIVE (NEGATIVE) mg/dL Urine Occult Blood LARGE H (NEGATIVE) Urine Nitrite POSITIVE H (NEGATIVE) Urine Bilirubin NEGATIVE (NEGATIVE) Urine Urobilinogen 0.2 (<2.0) EU/dL Ur Leukocyte Esterase LARGE H (NEGATIVE) Urine RBC 25-30 (0-2/HPF) Urine WBC TO NUMEROUS TO COUNT H (0-5/HPF) Ur Epithelial Cells FEW (NONE-FEW) Amorphous Sediment MODERATE (NEGATIVE) Urine Bacteria 3+ H (NEGATIVE) SARS-CoV-2 RNA (DOMINIK) NEGATIVE (NEGATIVE) Result Diagrams: 05/08/20 10:49 05/08/20 10:49 Sepsis Event Note - Evaluation Sepsis Screening Result: No Definite Risk - Focused Exam Vital Signs: Vital Signs Temp Pulse Resp BP Pulse Ox Pulse Ox 05/08/20 15:44 98 05/08/20 15:43 97.8 F 66 18 120/49 L 98 05/08/20 13:15 64 18 111/55 L 96 05/08/20 10:43 70 19 108/60 94 L 05/08/20 10:22 125/63 05/08/20 10:15 97.4 F 76 89 L Problem List Initiated/Reviewed/Updated: Yes Orders Last 24hrs: Active Orders 24 hr Category Date Time Status Admission Status [Patient Status] [ADT] Stat ADT 05/08/20 13:55 Active Oxygen Therapy [RC] PRN Care 05/08/20 15:19 Active RT Aerosol Therapy [RC] ASDIRECTED Care 05/08/20 15:21 Active VTE/DVT Education [RC] PER UNIT ROUTINE Care 05/08/20 15:19 Active Vital Signs [RC] Q4H Care 05/08/20 15:19 Active Regular Diet [DIET] Diet 05/08/20 Dinner Active CULTURE URINE [RM] Stat Lab 05/08/20 10:58 Received Acetaminophen [TylenoL] Med 05/08/20 15:19 Ordered 650 mg PO Q4H PRN Albuterol/Ipratropium [DuoNeb 3.0-0.5 MG/3 ML] Med 05/08/20 15:19 Ordered 3 ml NEB Q4HRRT PRN Enoxaparin [Lovenox] Med 05/08/20 15:30 Ordered 40 mg SUBCUT Q24H Sodium Chloride 0.9% [Normal Saline] 1,000 ml Med 05/08/20 15:30 Ordered IV ASDIRECTED cefTRIAXone [Rocephin in Dextrose,Iso-Osm 1 GM/50 ML] 1 Med 05/09/20 10:00 Ordered gm Premix Bag 1 bag IV Q24H Medication Orders Acetaminophen (Tylenol) 650 mg PO Q4H PRN PRN Reason: Pain (Mild 1-3)/fever Albuterol/Ipratropium (Duoneb 3.0-0.5 Mg/3 Ml) 3 ml NEB Q4HRRT PRN PRN Reason: Shortness Of Breath/wheezing Enoxaparin Sodium (Lovenox) 40 mg SUBCUT Q24H RUIZ Sodium Chloride (Normal Saline) 1,000 mls @ 125 mls/hr IV ASDIRECTED RUIZ Ceftriaxone Sodium/Dextrose 1 (gm/ Premix) 50 mls @ 100 mls/hr IV Q24H RUIZ Assessment/Plan Comment:: UTI- Ceftriaxone 1g QD, NS 125ml/hr, UC, Zofran 4mg PRN, PPI 40mg QD, Heparin 5000 Q8hr COPD- Duonebs, Oxygen support, (patient does not require oxygen at home). Patient received solumedrol 125mg IV dose once in the ED. PT Consult <Katey Farley - Last Filed: 05/08/20 22:52> H&P History of Present Illness - General Admit Problem/Dx: Admission Diagnosis/Problem Admission Diagnosis/Problem Urinary tract infection Exam - Vital Signs Vital Signs: Last Vital Signs Temp 36.8 C 05/08/20 20:00 Pulse 72 05/08/20 20:00 Resp 18 05/08/20 20:00 BP 145/75 H 05/08/20 20:00 Pulse Ox 95 05/08/20 20:00 - Patient Data Lab Results Last 24 hrs: Laboratory Results - last 24 hr 05/08/20 05/08/20 05/08/20 Range/Units 10:49 10:49 10:49 WBC 9.56 (4.0-11.0) K/uL RBC 4.33 (4.30-5.90) M/uL Hgb 12.8 (12.0-16.0) g/dL Hct 39.4 (36.0-46.0) % MCV 91.0 (80.0-98.0) fL MCH 29.6 (27.0-32.0) pg MCHC 32.5 (31.0-37.0) g/dL RDW Std Deviation 49.1 (28.0-62.0) fl RDW Coeff of Ene 15 (11.0-15.0) % Plt Count 296 (150-400) K/uL MPV 9.40 (7.40-12.00) fL Neut % (Auto) 54.4 (48.0-80.0) % Lymph % (Auto) 35.3 (16.0-40.0) % [place] % (Auto) 7.6 (0.0-15.0) % Eos % (Auto) 2.2 (0.0-7.0) % Baso % (Auto) 0.5 (0.0-1.5) % Neut # (Auto) 5.2 (1.4-5.7) K/uL Lymph # (Auto) 3.4 H (0.6-2.4) K/uL [place] # (Auto) 0.7 (0.0-0.8) K/uL Eos # (Auto) 0.2 (0.0-0.7) K/uL Baso # (Auto) 0.1 (0.0-0.1) K/uL Nucleated RBC % 0.0 /100WBC Nucleated RBCs # 0 K/uL D-Dimer, Quantitative 0.98 H (0.0-0.50) mg/L FEU Sodium 135 L (136-145) mmol/L Potassium 4.7 (3.5-5.1) mmol/L Chloride 102 (98-107) mmol/L Carbon Dioxide 24.8 (21.0-32.0) mmol/L BUN 37 H (7.0-18.0) mg/dL Creatinine 1.7 H (0.6-1.0) mg/dL Est Cr Clr Drug Dosing 23.62 mL/min Estimated GFR (MDRD) 30.2 ml/min Glucose 91 (74-106) mg/dL Calcium 9.8 (8.5-10.1) mg/dL Total Bilirubin 0.1 L (0.2-1.0) mg/dL AST 14 L (15-37) IU/L ALT 12 L (14-63) IU/L Alkaline Phosphatase 127 H (46-116) U/L Troponin I < 0.050 (0.000-0.056) ng/mL Total Protein 7.2 (6.4-8.2) g/dL Albumin 2.6 L (3.4-5.0) g/dL Globulin 4.6 H (2.6-4.0) g/dL Albumin/Globulin Ratio 0.6 L (0.9-1.6) Lipase 75 (73-393) U/L Urine Color Urine Appearance Urine pH (5.0-8.0) Ur Specific [place] (1.001-1.035) Urine Protein (NEGATIVE) mg/dL Urine Glucose (UA) (NEGATIVE) mg/dL Urine Ketones (NEGATIVE) mg/dL Urine Occult Blood (NEGATIVE) Urine Nitrite (NEGATIVE) Urine Bilirubin (NEGATIVE) Urine Urobilinogen (<2.0) EU/dL Ur Leukocyte Esterase (NEGATIVE) Urine RBC (0-2/HPF) Urine WBC (0-5/HPF) Ur Epithelial Cells (NONE-FEW) Amorphous Sediment (NEGATIVE) Urine Bacteria (NEGATIVE) SARS-CoV-2 RNA (DOMINIK) (NEGATIVE) 05/08/20 05/08/20 Range/Units 10:58 12:13 WBC (4.0-11.0) K/uL RBC (4.30-5.90) M/uL Hgb (12.0-16.0) g/dL Hct (36.0-46.0) % MCV (80.0-98.0) fL MCH (27.0-32.0) pg MCHC (31.0-37.0) g/dL RDW Std Deviation (28.0-62.0) fl RDW Coeff of Ene (11.0-15.0) % Plt Count (150-400) K/uL MPV (7.40-12.00) fL Neut % (Auto) (48.0-80.0) % Lymph % (Auto) (16.0-40.0) % [place] % (Auto) (0.0-15.0) % Eos % (Auto) (0.0-7.0) % Baso % (Auto) (0.0-1.5) % Neut # (Auto) (1.4-5.7) K/uL Lymph # (Auto) (0.6-2.4) K/uL [place] # (Auto) (0.0-0.8) K/uL Eos # (Auto) (0.0-0.7) K/uL Baso # (Auto) (0.0-0.1) K/uL Nucleated RBC % /100WBC Nucleated RBCs # K/uL D-Dimer, Quantitative (0.0-0.50) mg/L FEU Sodium (136-145) mmol/L Potassium (3.5-5.1) mmol/L Chloride (98-107) mmol/L Carbon Dioxide (21.0-32.0) mmol/L BUN (7.0-18.0) mg/dL Creatinine (0.6-1.0) mg/dL Est Cr Clr Drug Dosing mL/min Estimated GFR (MDRD) ml/min Glucose (74-106) mg/dL Calcium (8.5-10.1) mg/dL Total Bilirubin (0.2-1.0) mg/dL AST (15-37) IU/L ALT (14-63) IU/L Alkaline Phosphatase (46-116) U/L Troponin I (0.000-0.056) ng/mL Total Protein (6.4-8.2) g/dL Albumin (3.4-5.0) g/dL Globulin (2.6-4.0) g/dL Albumin/Globulin Ratio (0.9-1.6) Lipase (73-393) U/L Urine Color YELLOW Urine Appearance CLOUDY Urine pH 5.5 (5.0-8.0) Ur Specific [place] 1.025 (1.001-1.035) Urine Protein TRACE H (NEGATIVE) mg/dL Urine Glucose (UA) NEGATIVE (NEGATIVE) mg/dL Urine Ketones NEGATIVE (NEGATIVE) mg/dL Urine Occult Blood LARGE H (NEGATIVE) Urine Nitrite POSITIVE H (NEGATIVE) Urine Bilirubin NEGATIVE (NEGATIVE) Urine Urobilinogen 0.2 (<2.0) EU/dL Ur Leukocyte Esterase LARGE H (NEGATIVE) Urine RBC 25-30 (0-2/HPF) Urine WBC TO NUMEROUS TO COUNT H (0-5/HPF) Ur Epithelial Cells FEW (NONE-FEW) Amorphous Sediment MODERATE (NEGATIVE) Urine Bacteria 3+ H (NEGATIVE) SARS-CoV-2 RNA (DOMINIK) NEGATIVE (NEGATIVE) Result Diagrams: 05/08/20 10:49 05/08/20 10:49 Sepsis Event Note - Focused Exam Vital Signs: Vital Signs Temp Pulse Resp BP Pulse Ox Pulse Ox 05/08/20 20:00 36.8 C 72 18 145/75 H 95 05/08/20 15:44 98 05/08/20 15:43 36.6 C 66 18 120/49 L 98 05/08/20 13:15 64 18 111/55 L 96 Orders Last 24hrs: Active Orders 24 hr Category Date Time Status Admission Status [Patient Status] [ADT] Stat ADT 05/08/20 13:55 Active Oxygen Therapy [RC] PRN Care 05/08/20 15:19 Active RT Aerosol Therapy [RC] ASDIRECTED Care 05/08/20 15:21 Active VTE/DVT Education [RC] PER UNIT ROUTINE Care 05/08/20 15:19 Active Vital Signs [RC] Q4H Care 05/08/20 15:19 Active Regular Diet [DIET] Diet 05/08/20 Dinner Active BASIC METABOLIC PANEL,BMP [CHEM] AM Lab 05/09/20 05:11 Ordered CBC WITH AUTO DIFF [HEME] AM Lab 05/09/20 05:11 Ordered CULTURE URINE [RM] Stat Lab 05/08/20 10:58 Received MAGNESIUM [CHEM] AM Lab 05/09/20 05:11 Ordered Acetaminophen [TylenoL] Med 05/08/20 15:19 Active 650 mg PO Q4H PRN Albuterol/Ipratropium [DuoNeb 3.0-0.5 MG/3 ML] Med 05/08/20 15:19 Active 3 ml NEB Q4HRRT PRN FLUoxetine [PROzac] Med 05/09/20 09:00 Active 40 mg PO QAM Heparin Sodium Med 05/09/20 08:00 Active 5,000 units SUBCUT Q8H Ketorolac [Toradol] Med 05/08/20 22:33 Active 30 mg IVPUSH Q8H PRN Magnesium Oxide Med 05/09/20 09:00 Active 400 mg PO DAILY Ondansetron [Zofran] Med 05/08/20 18:13 Active 4 mg IVPUSH Q4H PRN Pantoprazole [ProTONIX IV] 40 mg Med 05/08/20 18:00 Active Sodium Chloride 0.9% [Normal Saline] 10 ml IV Q24H Patient's Own Medication [Ptom] Med 05/09/20 09:00 Active 1 each INH DAILY Patient's Own Medication [Ptom] Med 05/08/20 16:22 Active 1 each RIKKI DAILY PRN Sodium Chloride 0.9% [Normal Saline] 1,000 ml Med 05/08/20 15:30 Active IV ASDIRECTED buPROPion [Wellbutrin XL] Med 05/08/20 20:00 Active 150 mg PO DAILY busPIRone [Buspar] Med 05/08/20 20:00 Active 10 mg PO TID carisoprodoL [Soma] Med 05/08/20 22:28 Active 350 mg PO TID PRN cefTRIAXone [Rocephin in Dextrose,Iso-Osm 1 GM/50 ML] 1 Med 05/09/20 18:00 Active gm Premix Bag 1 bag IV Q24H tiZANidine [Zanaflex] Med 05/08/20 16:39 Active 2 mg PO TID PRN traZODone Med 05/08/20 20:00 Active 150 mg PO DAILY PRN Medication Orders Acetaminophen (Tylenol) 650 mg PO Q4H PRN PRN Reason: Pain (Mild 1-3)/fever Albuterol/Ipratropium (Duoneb 3.0-0.5 Mg/3 Ml) 3 ml NEB Q4HRRT PRN PRN Reason: Shortness Of Breath/wheezing Bupropion HCl (Wellbutrin Xl) 150 mg PO DAILY [facility] Last Admin: 05/08/20 20:36 Dose: 150 mg Documented by: RAFA Buspirone HCl (Buspar) 10 mg PO TID [facility] Last Admin: 05/08/20 21:37 Dose: Not Given Documented by: Admin: 05/08/20 20:37 Dose: 10 mg Documented by: RAFA Carisoprodol (Soma) 350 mg PO TID PRN PRN Reason: FOR MUSCLE SPASMS Fluoxetine HCl (Prozac) 40 mg PO QAM [facility] Heparin Sodium (Porcine) (Heparin Sodium) 5,000 units SUBCUT Q8H [facility] Sodium Chloride (Normal Saline) 1,000 mls @ 100 mls/hr IV ASDIRECTED [facility] Last Admin: 05/08/20 17:16 Dose: 100 mls/hr Documented by: [id number] Pantoprazole Sodium 40 mg/ (Sodium Chloride) 10 mls @ 300 mls/hr IV Q24H [facility] Last Admin: 05/08/20 19:12 Dose: 300 mls/hr Documented by: [id number] Ceftriaxone Sodium/Dextrose 1 (gm/ Premix) 50 mls @ 100 mls/hr IV Q24H [facility] Ketorolac Tromethamine (Toradol) 30 mg IVPUSH Q8H PRN PRN Reason: Pain Stop: 05/13/20 22:35 Magnesium Oxide (Magnesium Oxide) 400 mg PO DAILY [facility] Ondansetron HCl (Zofran) 4 mg IVPUSH Q4H PRN PRN Reason: Nausea Umeclidinium Brm/Vilanterol Tr [Anoro Ellipta 62.5-25 Mcg 1 each INH DAILY [facility] Naloxone Hcl [Narcan (] 1 [place]) 1 each RIKKI DAILY PRN PRN Reason: Sedation Tizanidine HCl (Zanaflex) 2 mg PO TID PRN PRN Reason: MUSCLE SPASM Trazodone HCl (Trazodone) 150 mg PO DAILY PRN PRN Reason: Insomnia Last Admin: 05/08/20 20:37 Dose: 150 mg Documented by: RAFA Assessment/Plan Comment:: I performed a history and physical exam of the patient and discussed management with resident. I have reviewed the residents note and agree with documented findings and plan unless otherwise specified in my note.
[2020-05-08] MEDS ORDERED: Morphine 2 MG/ML SYRINGE IVPUSH ONE (16:20)
[2020-05-08] MEDS ORDERED: NALOXONE HCL NAS PRN (16:22)
[2020-05-08] MEDS ORDERED: tiZANidine 4 MG Tab PO PRN ×2 (16:22→16:39)
[2020-05-08] MEDS ORDERED: buPROPion 100 MG Tab PO SCH (16:30)
[2020-05-08] MEDS ORDERED: Enoxaparin 30 MG/0.3 ML Syringe SUBCUT SCH (16:45)
[2020-05-08] MEDS: Sodium Chloride 0.9% 1,000 ML IV SCH (17:16)
[2020-05-08] MEDS: Pantoprazole 40 MG in Sodium Chloride 0.9% 10 ML IV SCH (19:12)
[2020-05-08] MEDS ORDERED: Morphine 2 MG/ML SYRINGE IVPUSH PRN (19:32)
[2020-05-08] MEDS ORDERED: traZODone 50 MG Tab PO SCH (20:00)
[2020-05-08] MEDS: busPIRone 5 MG Tab PO SCH ×3 (20:10→21:37)
[2020-05-08] MEDS: buPROPion 150 MG Tab.ER PO SCH ×2 (20:11→20:36)
[2020-05-08] MEDS: traZODone 50 MG Tab PO PRN (20:37)
[2020-05-08] MEDS ORDERED: busPIRone 5 MG Tab PO SCH (22:00)
[2020-05-08] MEDS ORDERED: Ketorolac 15 MG/ML SDV IVPUSH PRN (22:33)
[2020-05-09] MEDS: Sodium Chloride 0.9% 1,000 ML IV SCH ×3 (04:04→21:35)
[2020-05-09] MEDS: Acetaminophen 325 MG Tab PO PRN ×2 (05:23→23:18)
[2020-05-09] MEDS: busPIRone 5 MG Tab PO SCH ×3 (05:24→21:34)
[2020-05-09 07:25] LABS: CARBON DIOXIDE,CO2 22.7 mmol/L (21.0-32.0); POTASSIUM,K 4.8 mmol/L (3.5-5.1)
[2020-05-09] MEDS: Magnesium Oxide 400 MG Tab PO SCH (08:30)
[2020-05-09] MEDS: buPROPion 150 MG Tab.ER PO SCH (08:30)
[2020-05-09] MEDS: FLUoxetine 20 MG Cap PO SCH (08:32)
[2020-05-09] MEDS: Heparin Sodium 5,000 Units/ML Vial SUBCUT SCH ×3 (08:33→23:20)
[2020-05-09] MEDS ORDERED: Lisinopril/Hydrochlorothiazide 10-12.5 MG Tab PO SCH (09:00)
[2020-05-09] MEDS ORDERED: buPROPion 150 MG Tab.ER PO SCH ×2 (09:00)
[2020-05-09] MEDS ORDERED: cefTRIAXone 1 GM in Premix Bag 1 BAG IV SCH ×2 (10:00→18:00)
[2020-05-09] MEDS ORDERED: Sodium Chloride 0.9% 500 ML IV SCH (10:00)
[2020-05-09] MEDS: Lisinopril/Hydrochlorothiazide 10-12.5 MG Tab PO SCH (10:17)
[2020-05-09] MEDS: oxyCODONE 5 MG Tab PO PRN ×2 (11:01→19:41)
--- NOTE | 2020-05-09 12:48 | CT ---
Indication: Right flank pain Technique: Noncontrast CT abdomen and pelvis Comparison: No comparison studies are available. Findings: Bibasilar subpleural reticular and ground-glass opacities may represent fibrosis. Possible subtle honeycombing right peripheral lower lobe. Spleen pancreas appears unremarkable cholecystectomy. Biliary dilatation. Possible periportal edema. No focal liver abnormalities. No abdominal aortic aneurysm Bilateral adrenal adenomas unchanged. Two low-attenuation lesions in the left adrenal gland as well as one lesion in the right adrenal glands reflecting adenomas. Nonobstructing left renal calculi. No hydronephrosis seen there is significant streak artifact from lumbar fusion change which limits visualization. Indistinctness possible hypo ill-defined hypodensity posterior right mid and lower lobe old example see series 201, image 44. There may be some perinephric stranding Diverticulosis no bowel obstruction. Urinary bladder partially decompressed and unremarkable hysterectomy. L1 through S1 lumbar fusion change mild to moderate compression fracture of T11 unchanged. Impression: 1. Indistinctness possible hypodensity right mid and lower kidney possible minimal perinephric stranding recommend clinical correlation for possible pyelonephritis/UTI. Would recommend follow-up imaging renal protocol with and without contrast to exclude possibility of a mass. 2. Diverticulosis. Please note that all CT scans at this facility use dose modulation, iterative reconstruction, and/or weight-based dosing when appropriate to reduce radiation dose to as low as reasonably achievable. Dictated by Sarah Colon MD @ May 09 2020 12:33PM Signed by Dr. Sarah Colon @ May 09 2020 12:46PM
--- NOTE | 2020-05-09 14:33 | PCM.PN ---
<Naveed Madden - Last Filed: 05/09/20 14:33> - General Info Date of Service: 05/09/20 Subjective Update: Patient states right flank pain and lower back pain. Patient states that she wants her prescribed narcotics. Patient denies fever, chills, nausea, vomiting. - Review of Systems General: Denies: Fever, Chills Pulmonary: Denies: Shortness of Breath, Cough Cardiovascular: Denies: Chest Pain, Palpitations, Dyspnea on Exertion Gastrointestinal: Denies: Abdominal Pain, Nausea, Vomiting Musculoskeletal: Reports: Back Pain Neurological: Denies: Confusion, Dizziness - Patient Data Vitals - Most Recent: Last Vital Signs Temp 98 F 05/09/20 12:00 Pulse 62 05/09/20 12:00 Resp 16 05/09/20 12:00 BP 151/63 H 05/09/20 12:00 Pulse Ox 94 L 05/09/20 12:00 Weight - Most Recent: 49.895 kg I&O - Last 24 Hours: Intake & Output 05/08/20 05/09/20 05/09/20 22:59 06:59 14:59 Intake Total 330 320 Balance 330 320 Lab Results Last 24 Hours: Laboratory Results - last 24 hr 05/08/20 05/09/20 05/09/20 Range/Units 10:49 06:10 06:10 WBC 8.65 (4.0-11.0) K/uL RBC 3.95 L (4.30-5.90) M/uL Hgb 11.5 L (12.0-16.0) g/dL Hct 36.1 (36.0-46.0) % MCV 91.4 (80.0-98.0) fL MCH 29.1 (27.0-32.0) pg MCHC 31.9 (31.0-37.0) g/dL RDW Std Deviation 48.1 (28.0-62.0) fl RDW Coeff of Ene 14 (11.0-15.0) % Plt Count 299 (150-400) K/uL MPV 9.80 (7.40-12.00) fL Neut % (Auto) 50.7 (48.0-80.0) % Lymph % (Auto) 41.4 H (16.0-40.0) % Bee % (Auto) 7.2 (0.0-15.0) % Eos % (Auto) 0.5 (0.0-7.0) % Baso % (Auto) 0.2 (0.0-1.5) % Neut # (Auto) 4.4 (1.4-5.7) K/uL Lymph # (Auto) 3.6 H (0.6-2.4) K/uL Bee # (Auto) 0.6 (0.0-0.8) K/uL Eos # (Auto) 0.0 (0.0-0.7) K/uL Baso # (Auto) 0.0 (0.0-0.1) K/uL Nucleated RBC % 0.0 /100WBC Nucleated RBCs # 0 K/uL D-Dimer, Quantitative 0.98 H (0.0-0.50) mg/L FEU Sodium 136 (136-145) mmol/L Potassium 4.8 (3.5-5.1) mmol/L Chloride 106 (98-107) mmol/L Carbon Dioxide 22.7 (21.0-32.0) mmol/L BUN 45 H (7.0-18.0) mg/dL Creatinine 1.8 H (0.6-1.0) mg/dL Est Cr Clr Drug Dosing 24.54 mL/min Estimated GFR (MDRD) 28.2 ml/min Glucose 104 (74-106) mg/dL Calcium 9.6 (8.5-10.1) mg/dL Magnesium 1.9 (1.8-2.4) mg/dL Med Orders - Current: Current Medications Acetaminophen (Tylenol) 650 mg PO Q4H PRN PRN Reason: Pain (Mild 1-3)/fever Last Admin: 05/09/20 05:23 Dose: 650 mg Documented by: Albuterol/Ipratropium (Duoneb 3.0-0.5 Mg/3 Ml) 3 ml NEB Q4HRRT PRN PRN Reason: Shortness Of Breath/wheezing Bupropion HCl (Wellbutrin Xl) 150 mg PO DAILY [facility] Last Admin: 05/09/20 08:30 Dose: 150 mg Documented by: Buspirone HCl (Buspar) 10 mg PO TID [facility] Last Admin: 05/09/20 05:24 Dose: 10 mg Documented by: Carisoprodol (Soma) 350 mg PO TID PRN PRN Reason: FOR MUSCLE SPASMS Last Admin: 05/09/20 08:33 Dose: 350 mg Documented by: Fluoxetine HCl (Prozac) 40 mg PO QAM [facility] Last Admin: 05/09/20 08:32 Dose: 40 mg Documented by: Lisinopril/HCTZ (Lisinopril-Hctz 10-12.5 Mg) 1 tab PO DAILY [facility] Last Admin: 05/09/20 10:17 Dose: 1 tab Documented by: Heparin Sodium (Porcine) (Heparin Sodium) 5,000 units SUBCUT Q8H [facility] Last Admin: 05/09/20 08:33 Dose: 5,000 units Documented by: Sodium Chloride (Normal Saline) 1,000 mls @ 100 mls/hr IV ASDIRECTED [facility] Last Admin: 05/09/20 10:58 Dose: 100 mls/hr Documented by: Pantoprazole Sodium 40 mg/ (Sodium Chloride) 10 mls @ 300 mls/hr IV Q24H [facility] Last Admin: 05/08/20 19:12 Dose: 300 mls/hr Documented by: Sodium Chloride (Normal Saline) 500 mls @ 999 mls/hr IV .BOLUS [facility] Last Admin: 05/09/20 10:18 Dose: 999 mls/hr Documented by: Ceftriaxone Sodium/Dextrose 2 (gm/ Premix) 50 mls @ 100 mls/hr IV Q24H [facility] Magnesium Oxide (Magnesium Oxide) 400 mg PO DAILY [facility] Last Admin: 05/09/20 08:30 Dose: 400 mg Documented by: Ondansetron HCl (Zofran) 4 mg IVPUSH Q4H PRN PRN Reason: Nausea Oxycodone HCl (Oxycodone) 10 mg PO Q8H PRN PRN Reason: Pain (severe 7-10) Last Admin: 05/09/20 11:01 Dose: 10 mg Documented by: Umeclidinium Brm/Vilanterol Tr [Anoro Ellipta 62.5-25 Mcg 1 each INH DAILY [facility] Last Admin: 05/09/20 10:50 Dose: Not Given Documented by: Naloxone Hcl [Narcan (] 1 [place]) 1 each RIKKI DAILY PRN PRN Reason: Sedation Tizanidine HCl (Zanaflex) 2 mg PO TID PRN PRN Reason: MUSCLE SPASM Trazodone HCl (Trazodone) 150 mg PO DAILY PRN PRN Reason: Insomnia Last Admin: 05/08/20 20:37 Dose: 150 mg Documented by: Discontinued Medications Bupropion HCl (Wellbutrin Xl) 150 mg PO DAILY [facility] Buspirone HCl (Buspar) 10 mg PO TID [facility] Enoxaparin Sodium (Lovenox) 40 mg SUBCUT Q24H [facility] Last Admin: 05/08/20 20:21 Dose: Not Given Documented by: Enoxaparin Sodium (Lovenox) 30 mg SUBCUT Q24H [facility] Last Admin: 05/08/20 17:18 Dose: 30 mg Documented by: Lisinopril/HCTZ (Lisinopril-Hctz 10-12.5 Mg) 1 tab PO QAM [facility] Ceftriaxone Sodium/Dextrose 1 (gm/ Premix) 50 mls @ 100 mls/hr IV ONETIME ONE Stop: 05/08/20 12:16 Last Admin: 05/08/20 12:19 Dose: 100 mls/hr Documented by: Sodium Chloride (Normal Saline) 1,000 mls @ 100 mls/hr IV ASDIRECTED [facility] Last Admin: 05/08/20 12:19 Dose: 100 mls/hr Documented by: Lactated Ringer's (Ringers, Lactated) 1,000 mls @ 125 mls/hr IV ASDIRECTED [facility] Ceftriaxone Sodium/Dextrose 1 (gm/ Premix) 50 mls @ 100 mls/hr IV Q24H [facility] Ceftriaxone Sodium/Dextrose 1 (gm/ Premix) 50 mls @ 100 mls/hr IV ONETIME ONE Stop: 05/08/20 19:06 Last Admin: 05/08/20 19:14 Dose: 100 mls/hr Documented by: Ceftriaxone Sodium/Dextrose 1 (gm/ Premix) 50 mls @ 100 mls/hr IV Q24H [facility] Ketorolac Tromethamine (Toradol) 30 mg IVPUSH ONETIME ONE Stop: 05/08/20 13:19 Last Admin: 05/08/20 13:32 Dose: Not Given Documented by: Ketorolac Tromethamine (Toradol) 30 mg IVPUSH Q8H PRN PRN Reason: Pain Stop: 05/13/20 22:35 Last Admin: 05/09/20 04:13 Dose: 30 mg Documented by: Methylprednisolone Sodium Succinate (Solu-Medrol) 125 mg IVPUSH ONETIME ONE Stop: 05/08/20 14:15 Last Admin: 05/08/20 14:34 Dose: 125 mg Documented by: Morphine Sulfate (Morphine) 2 mg IVPUSH ONETIME ONE Stop: 05/08/20 16:21 Last Admin: 05/08/20 16:36 Dose: 2 mg Documented by: Morphine Sulfate (Morphine) 2 mg IVPUSH Q6H PRN PRN Reason: Pain (severe 7-10) Last Admin: 05/08/20 22:18 Dose: 2 mg Documented by: Phenazopyridine HCl (Pyridium) 200 mg PO ONETIME ONE Stop: 05/08/20 13:23 Last Admin: 05/08/20 13:32 Dose: 200 mg Documented by: Trazodone HCl (Trazodone) 150 mg PO Q24H [facility] - Exam General: Alert, Oriented Lungs: Clear to Auscultation, Normal Respiratory Effort Cardiovascular: Regular Rate, Regular Rhythm GI/Abdominal Exam: Normal Bowel Sounds, Soft, Non-Tender Back Exam: CVA Tenderness (R) Extremities: No Pedal Edema Psy/Mental Status: Alert Sepsis Event Note - Evaluation Sepsis Screening Result: No Definite Risk - Focused Exam Vital Signs: Vital Signs Temp Pulse Resp BP Pulse Ox 05/09/20 12:00 98 F 62 16 151/63 H 94 L 05/09/20 08:00 98 F 55 L 16 157/62 H 93 L 05/09/20 04:00 98.1 F 75 19 150/68 H 94 L - Problem List Review Problem List Initiated/Reviewed/Updated: Yes - My Orders Last 24 Hours: My Active Orders 05/08/20 15:19 Oxygen Therapy [RC] PRN VTE/DVT Education [RC] PER UNIT ROUTINE Vital Signs [RC] Q4H Acetaminophen [TylenoL] 650 mg PO Q4H PRN Albuterol/Ipratropium [DuoNeb 3.0-0.5 MG/3 ML] 3 ml NEB Q4HRRT PRN 05/08/20 15:21 RT Aerosol Therapy [RC] ASDIRECTED 05/08/20 15:27 Telemetry Monitoring [Cardiac Monitoring] [RC] Q8H 05/08/20 15:30 Sodium Chloride 0.9% [Normal Saline] 1,000 ml IV ASDIRECTED 05/08/20 Dinner Regular Diet [DIET] 05/08/20 16:22 Patient's Own Medication [Ptom] 1 each RIKKI DAILY PRN 05/08/20 16:39 tiZANidine [Zanaflex] 2 mg PO TID PRN 05/08/20 18:00 Pantoprazole [ProTONIX IV] 40 mg Sodium Chloride 0.9% [Normal Saline] 10 ml IV Q24H 05/08/20 18:13 Ondansetron [Zofran] 4 mg IVPUSH Q4H PRN 05/08/20 20:00 buPROPion [Wellbutrin XL] 150 mg PO DAILY busPIRone [Buspar] 10 mg PO TID traZODone 150 mg PO DAILY PRN 05/09/20 08:00 Heparin Sodium 5,000 units SUBCUT Q8H 05/09/20 09:00 FLUoxetine [PROzac] 40 mg PO QAM Magnesium Oxide 400 mg PO DAILY Patient's Own Medication [Ptom] 1 each INH DAILY 05/09/20 10:00 Sodium Chloride 0.9% [Normal Saline] 500 ml IV .BOLUS 05/09/20 10:03 oxyCODONE 10 mg PO Q8H PRN 05/09/20 11:00 Lisinopril/Hydrochlorothiazide [Lisinopril-HCTZ 10-12.5 MG] 1 tab PO DAILY 05/09/20 18:00 cefTRIAXone [Rocephin in Dextrose,Iso-Osm 2 GM/50 ML] 2 gm Premix Bag 1 bag IV Q24H - Plan Plan:: Pyelonephritis/UTI- CT ABDO suspicious for pyelonephritis. Ceftriaxone 2g QD, NS 100ml/hr, UC pending, Zofran 4mg PRN, PPI 40mg QD, Heparin 5000 Q8hr COPD- Duonebs PRN, Oxygen support, (patient does not require oxygen at home). Breo Ellipta Chronic lower back pain- Patient was educated that her pain medications, soma and oxycodone, dosages are very high which can lead to serious side effects. Patient understands but states that she has been taking the same dosages of for years. Patient was given IV morphine and IV Toradol but states that her pain is not controlled. Soma 350mg TID PRN and Oxycontin 10mg Q8 PRN, resumed. HTN- Lisinopril/HCTZ 10mg/12.5mg <Katey Farley - Last Filed: 05/10/20 14:12> - General Info Subjective Update: I have seen and evaluated the patient and agree with the residents note unless specified in my note - Patient Data Vitals - Most Recent: Last Vital Signs Temp 37.0 C 05/10/20 12:00 Pulse 69 05/10/20 12:00 Resp 17 05/10/20 12:00 BP 167/73 H 05/10/20 12:00 Pulse Ox 93 L 05/10/20 12:00 I&O - Last 24 Hours: Intake & Output 05/09/20 05/10/20 05/10/20 22:59 06:59 14:59 Intake Total 2062 300 Output Total 3 Balance 9 300 Lab Results Last 24 Hours: Laboratory Results - last 24 hr 05/10/20 05/10/20 Range/Units 05:50 05:50 WBC 8.12 (4.0-11.0) K/uL RBC 3.86 L (4.30-5.90) M/uL Hgb 11.3 L (12.0-16.0) g/dL Hct 35.1 L (36.0-46.0) % MCV 90.9 (80.0-98.0) fL MCH 29.3 (27.0-32.0) pg MCHC 32.2 (31.0-37.0) g/dL RDW Std Deviation 47.3 (28.0-62.0) fl RDW Coeff of Ene 14 (11.0-15.0) % Plt Count 294 (150-400) K/uL MPV 9.40 (7.40-12.00) fL Neut % (Auto) 40.6 L (48.0-80.0) % Lymph % (Auto) 50.1 H (16.0-40.0) % Bee % (Auto) 7.3 (0.0-15.0) % Eos % (Auto) 1.6 (0.0-7.0) % Baso % (Auto) 0.4 (0.0-1.5) % Neut # (Auto) 3.3 (1.4-5.7) K/uL Lymph # (Auto) 4.1 H (0.6-2.4) K/uL Bee # (Auto) 0.6 (0.0-0.8) K/uL Eos # (Auto) 0.1 (0.0-0.7) K/uL Baso # (Auto) 0.0 (0.0-0.1) K/uL Nucleated RBC % 0.0 /100WBC Nucleated RBCs # 0 K/uL Sodium 139 (136-145) mmol/L Potassium 5.0 (3.5-5.1) mmol/L Chloride 109 H (98-107) mmol/L Carbon Dioxide 24.6 (21.0-32.0) mmol/L BUN 46 H (7.0-18.0) mg/dL Creatinine 1.7 H (0.6-1.0) mg/dL Est Cr Clr Drug Dosing 25.99 mL/min Estimated GFR (MDRD) 30.2 ml/min Glucose 84 (74-106) mg/dL Calcium 9.6 (8.5-10.1) mg/dL Magnesium 1.9 (1.8-2.4) mg/dL Binu Results Last 24 Hours: Microbiology 05/08/20 10:58 Urine Culture - Final Urine, Clean Catch Serratia Marcescens Med Orders - Current: Current Medications Acetaminophen (Tylenol) 650 mg PO Q4H PRN PRN Reason: Pain (Mild 1-3)/fever Last Admin: 05/09/20 23:18 Dose: 650 mg Documented by: Albuterol/Ipratropium (Duoneb 3.0-0.5 Mg/3 Ml) 3 ml NEB Q4HRRT PRN PRN Reason: Shortness Of Breath/wheezing Last Admin: 05/10/20 01:57 Dose: 3 ml Documented by: Bupropion HCl (Wellbutrin Xl) 150 mg PO DAILY [facility] Last Admin: 05/10/20 08:24 Dose: 150 mg Documented by: Buspirone HCl (Buspar) 10 mg PO TID [facility] Last Admin: 05/10/20 13:36 Dose: 10 mg Documented by: Carisoprodol (Soma) 350 mg PO TID PRN PRN Reason: FOR MUSCLE SPASMS Last Admin: 05/10/20 13:36 Dose: 350 mg Documented by: Fluoxetine HCl (Prozac) 40 mg PO QAM [facility] Last Admin: 05/10/20 08:24 Dose: 40 mg Documented by: Lisinopril/HCTZ (Lisinopril-Hctz 10-12.5 Mg) 1 tab PO DAILY [facility] Last Admin: 05/10/20 08:25 Dose: 1 tab Documented by: Heparin Sodium (Porcine) (Heparin Sodium) 5,000 units SUBCUT Q8H [facility] Last Admin: 05/10/20 08:24 Dose: 5,000 units Documented by: Sodium Chloride (Normal Saline) 1,000 mls @ 100 mls/hr IV ASDIRECTED [facility] Last Admin: 05/10/20 08:22 Dose: 100 mls/hr Documented by: Pantoprazole Sodium 40 mg/ (Sodium Chloride) 10 mls @ 300 mls/hr IV Q24H [facility] Last Admin: 05/09/20 18:09 Dose: 300 mls/hr Documented by: Sodium Chloride (Normal Saline) 500 mls @ 999 mls/hr IV .BOLUS [facility] Last Admin: 05/09/20 10:18 Dose: 999 mls/hr Documented by: Levofloxacin/Dextrose 750 mg/ (Premix) 150 mls @ 100 mls/hr IV Q48H [facility] Last Admin: 05/10/20 11:14 Dose: 100 mls/hr Documented by: Magnesium Oxide (Magnesium Oxide) 400 mg PO DAILY [facility] Last Admin: 05/10/20 08:24 Dose: 400 mg Documented by: Ondansetron HCl (Zofran) 4 mg IVPUSH Q4H PRN PRN Reason: Nausea Last Admin: 05/10/20 01:55 Dose: 4 mg Documented by: Oxycodone HCl (Oxycodone) 10 mg PO Q6H PRN PRN Reason: Pain Last Admin: 05/10/20 12:03 Dose: 10 mg Documented by: Umeclidinium Brm/Vilanterol Tr [Anoro Ellipta 62.5-25 Mcg 1 each INH DAILY [facility] Last Admin: 05/10/20 08:26 Dose: Not Given Documented by: Naloxone Hcl [Narcan (] 1 [place]) 1 each RIKKI DAILY PRN PRN Reason: Sedation Tizanidine HCl (Zanaflex) 2 mg PO TID PRN PRN Reason: MUSCLE SPASM Last Admin: 05/09/20 23:42 Dose: 2 mg Documented by: Trazodone HCl (Trazodone) 150 mg PO DAILY PRN PRN Reason: Insomnia Last Admin: 05/09/20 19:46 Dose: 150 mg Documented by: Discontinued Medications Bupropion HCl (Wellbutrin Xl) 150 mg PO DAILY [facility] Buspirone HCl (Buspar) 10 mg PO TID [facility] Enoxaparin Sodium (Lovenox) 40 mg SUBCUT Q24H [facility] Last Admin: 05/08/20 20:21 Dose: Not Given Documented by: Enoxaparin Sodium (Lovenox) 30 mg SUBCUT Q24H [facility] Last Admin: 05/08/20 17:18 Dose: 30 mg Documented by: Lisinopril/HCTZ (Lisinopril-Hctz 10-12.5 Mg) 1 tab PO QAM [facility] Ceftriaxone Sodium/Dextrose 1 (gm/ Premix) 50 mls @ 100 mls/hr IV ONETIME ONE Stop: 05/08/20 12:16 Last Admin: 05/08/20 12:19 Dose: 100 mls/hr Documented by: Sodium Chloride (Normal Saline) 1,000 mls @ 100 mls/hr IV ASDIRECTED [facility] Last Admin: 05/08/20 12:19 Dose: 100 mls/hr Documented by: Lactated Ringer's (Ringers, Lactated) 1,000 mls @ 125 mls/hr IV ASDIRECTED [facility] Ceftriaxone Sodium/Dextrose 1 (gm/ Premix) 50 mls @ 100 mls/hr IV Q24H [facility] Ceftriaxone Sodium/Dextrose 1 (gm/ Premix) 50 mls @ 100 mls/hr IV ONETIME ONE Stop: 05/08/20 19:06 Last Admin: 05/08/20 19:14 Dose: 100 mls/hr Documented by: Ceftriaxone Sodium/Dextrose 1 (gm/ Premix) 50 mls @ 100 mls/hr IV Q24H [facility] Ceftriaxone Sodium/Dextrose 2 (gm/ Premix) 50 mls @ 100 mls/hr IV Q24H [facility] Last Admin: 05/09/20 18:11 Dose: 100 mls/hr Documented by: Ketorolac Tromethamine (Toradol) 30 mg IVPUSH ONETIME ONE Stop: 05/08/20 13:19 Last Admin: 05/08/20 13:32 Dose: Not Given Documented by: Ketorolac Tromethamine (Toradol) 30 mg IVPUSH Q8H PRN PRN Reason: Pain Stop: 05/13/20 22:35 Last Admin: 05/09/20 04:13 Dose: 30 mg Documented by: Methylprednisolone Sodium Succinate (Solu-Medrol) 125 mg IVPUSH ONETIME ONE Stop: 05/08/20 14:15 Last Admin: 05/08/20 14:34 Dose: 125 mg Documented by: Morphine Sulfate (Morphine) 2 mg IVPUSH ONETIME ONE Stop: 05/08/20 16:21 Last Admin: 05/08/20 16:36 Dose: 2 mg Documented by: Morphine Sulfate (Morphine) 2 mg IVPUSH Q6H PRN PRN Reason: Pain (severe 7-10) Last Admin: 05/08/20 22:18 Dose: 2 mg Documented by: Oxycodone HCl (Oxycodone) 10 mg PO Q8H PRN PRN Reason: Pain (severe 7-10) Last Admin: 05/10/20 06:06 Dose: 10 mg Documented by: Phenazopyridine HCl (Pyridium) 200 mg PO ONETIME ONE Stop: 05/08/20 13:23 Last Admin: 05/08/20 13:32 Dose: 200 mg Documented by: Trazodone HCl (Trazodone) 150 mg PO Q24H [facility] Sepsis Event Note - Focused Exam Vital Signs: Vital Signs Temp Pulse Resp BP Pulse Ox 05/10/20 12:00 37.0 C 69 17 167/73 H 93 L 05/10/20 08:26 36.8 C 65 16 164/73 H 05/10/20 05:00 36.6 C 71 16 163/67 H 92 L - Problem List & Annotations (1) Hypoxia SNOMED Code(s): 275496357 Code(s): R09.02 - HYPOXEMIA Status: Acute Current Visit: Yes (2) UTI (urinary tract infection) SNOMED Code(s): 05701105 Code(s): N39.0 - URINARY TRACT INFECTION, SITE NOT SPECIFIED Status: Acute Priority: Medium Current Visit: Yes Qualifiers: Urinary tract infection type: acute cystitis Hematuria presence: without hematuria Qualified Code(s): N30.00 - Acute cystitis without hematuria (3) Anxiety disorder SNOMED Code(s): 855860139 Code(s): F41.9 - ANXIETY DISORDER, UNSPECIFIED Status: Acute Current Visit: No Qualifiers: Anxiety disorder type: unspecified anxiety disorder Qualified Code(s): F41.9 - Anxiety disorder, unspecified (4) Back pain, chronic SNOMED Code(s): 685239271 Code(s): M54.9 - DORSALGIA, UNSPECIFIED; G89.29 - OTHER CHRONIC PAIN Status: Acute Current Visit: No (5) Chronic hip pain SNOMED Code(s): 62741207 Code(s): M25.559 - PAIN IN UNSPECIFIED HIP; G89.29 - OTHER CHRONIC PAIN Status: Acute Current Visit: No - My Orders Last 24 Hours: My Active Orders 05/10/20 11:00 Admission Status [Patient Status] [ADT] Routine Levofloxacin/Dextrose 5%-Water [Levaquin in D5W 750 MG/150 ML] 750 mg Premix Bag 1 bag IV Q48H 05/10/20 11:26 oxyCODONE 10 mg PO Q6H PRN 05/10/20 13:22 Consult to Case Management/Transmission Design Engineer [CONS] Routine PT Evaluation and Treatment [CONS] Routine 05/11/20 05:11 BMP [BASIC METABOLIC PANEL,BMP] [CHEM] AM CBC WITH AUTO DIFF [HEME] AM MAGNESIUM [CHEM] AM PHOSPHORUS [CHEM] AM
[2020-05-09] MEDS ORDERED: cefTRIAXone 2 GM in Premix Bag 1 BAG IV SCH (18:00)
[2020-05-09] MEDS: Pantoprazole 40 MG in Sodium Chloride 0.9% 10 ML IV SCH (18:09)
[2020-05-09] MEDS: traZODone 50 MG Tab PO PRN (19:46)
[2020-05-10] MEDS: Ondansetron 4 MG/2 ML SDV IVPUSH PRN (01:55)
[2020-05-10] MEDS: busPIRone 5 MG Tab PO SCH ×3 (06:05→22:07)
[2020-05-10] MEDS: oxyCODONE 5 MG Tab PO PRN ×3 (06:06→18:05)
[2020-05-10 06:27] LABS: CARBON DIOXIDE,CO2 24.6 mmol/L (21.0-32.0)
[2020-05-10] MEDS: Sodium Chloride 0.9% 1,000 ML IV SCH ×2 (08:22→20:36)
[2020-05-10] MEDS: Heparin Sodium 5,000 Units/ML Vial SUBCUT SCH ×2 (08:24→16:27)
[2020-05-10] MEDS: Magnesium Oxide 400 MG Tab PO SCH (08:24)
[2020-05-10] MEDS: buPROPion 150 MG Tab.ER PO SCH (08:24)
[2020-05-10] MEDS: FLUoxetine 20 MG Cap PO SCH (08:24)
[2020-05-10] MEDS: Lisinopril/Hydrochlorothiazide 10-12.5 MG Tab PO SCH (08:25)
[2020-05-10] MEDS: Levofloxacin/Dextrose 5%-Water 750 MG in Premix Bag 1 BAG IV SCH (11:14)
--- NOTE | 2020-05-10 13:21 | PCM.PN ---
- General Info Date of Service: 05/10/20 Admission Dx/Problem (Free Text): Admission Diagnosis/Problem Admission Diagnosis/Problem Urinary tract infection Subjective Update: Patient seen at bedside, states pain isnt getting better, was tearful niallhn asked about her family, they arent involved in her care. She thinks she might have to go to prison at some point. wants to see for further details. Functional Status: Reports: Tolerating Diet, Urinating. Denies: Pain Controlled, Ambulating - Review of Systems General: Reports: Weakness. Denies: Fever, Fatigue Pulmonary: Denies: Shortness of Breath, Pleuritic Chest Pain Cardiovascular: Denies: Chest Pain, Palpitations, Dyspnea on Exertion Gastrointestinal: Denies: Abdominal Pain, Constipation, Decreased Appetite Genitourinary: Denies: Dysuria, Frequency, Burning Musculoskeletal: Reports: Back Pain, Leg Pain. Denies: Neck Pain, Shoulder Pain Neurological: Reports: Difficulty Walking, Weakness (chronic ), Gait Disturbance. Denies: Confusion, Dizziness, Headache Psychiatric: Reports: Mood Lability, Cravings. Denies: Confusion, Depression - Patient Data Vitals - Most Recent: Last Vital Signs Temp 37.0 C 05/10/20 12:00 Pulse 69 05/10/20 12:00 Resp 17 05/10/20 12:00 BP 167/73 H 05/10/20 12:00 Pulse Ox 93 L 05/10/20 12:00 Weight - Most Recent: 49.895 kg I&O - Last 24 Hours: Intake & Output 05/09/20 05/10/20 05/10/20 22:59 06:59 14:59 Intake Total 2061 300 Output Total 3 Balance 2058 300 Lab Results Last 24 Hours: Laboratory Results - last 24 hr 05/10/20 05/10/20 Range/Units 05:50 05:50 WBC 8.12 (4.0-11.0) K/uL RBC 3.86 L (4.30-5.90) M/uL Hgb 11.3 L (12.0-16.0) g/dL Hct 35.1 L (36.0-46.0) % MCV 90.9 (80.0-98.0) fL MCH 29.3 (27.0-32.0) pg MCHC 32.2 (31.0-37.0) g/dL RDW Std Deviation 47.3 (28.0-62.0) fl RDW Coeff of Ene 14 (11.0-15.0) % Plt Count 294 (150-400) K/uL MPV 9.40 (7.40-12.00) fL Neut % (Auto) 40.6 L (48.0-80.0) % Lymph % (Auto) 50.1 H (16.0-40.0) % [place] % (Auto) 7.3 (0.0-15.0) % Eos % (Auto) 1.6 (0.0-7.0) % Baso % (Auto) 0.4 (0.0-1.5) % Neut # (Auto) 3.3 (1.4-5.7) K/uL Lymph # (Auto) 4.1 H (0.6-2.4) K/uL [place] # (Auto) 0.6 (0.0-0.8) K/uL Eos # (Auto) 0.1 (0.0-0.7) K/uL Baso # (Auto) 0.0 (0.0-0.1) K/uL Nucleated RBC % 0.0 /100WBC Nucleated RBCs # 0 K/uL Sodium 139 (136-145) mmol/L Potassium 5.0 (3.5-5.1) mmol/L Chloride 109 H (98-107) mmol/L Carbon Dioxide 24.6 (21.0-32.0) mmol/L BUN 46 H (7.0-18.0) mg/dL Creatinine 1.7 H (0.6-1.0) mg/dL Est Cr Clr Drug Dosing 25.99 mL/min Estimated GFR (MDRD) 30.2 ml/min Glucose 84 (74-106) mg/dL Calcium 9.6 (8.5-10.1) mg/dL Magnesium 1.9 (1.8-2.4) mg/dL Binu Results Last 24 Hours: Microbiology 05/08/20 10:58 Urine Culture - Final Urine, Clean Catch Serratia Marcescens Med Orders - Current: Current Medications Acetaminophen (Tylenol) 650 mg PO Q4H PRN PRN Reason: Pain (Mild 1-3)/fever Last Admin: 05/09/20 23:18 Dose: 650 mg Documented by: Albuterol/Ipratropium (Duoneb 3.0-0.5 Mg/3 Ml) 3 ml NEB Q4HRRT PRN PRN Reason: Shortness Of Breath/wheezing Last Admin: 05/10/20 01:57 Dose: 3 ml Documented by: Bupropion HCl (Wellbutrin Xl) 150 mg PO DAILY [facility] Last Admin: 05/10/20 08:24 Dose: 150 mg Documented by: Buspirone HCl (Buspar) 10 mg PO TID [facility] Last Admin: 05/10/20 06:05 Dose: 10 mg Documented by: Carisoprodol (Soma) 350 mg PO TID PRN PRN Reason: FOR MUSCLE SPASMS Last Admin: 05/10/20 06:06 Dose: 350 mg Documented by: Fluoxetine HCl (Prozac) 40 mg PO QAM [facility] Last Admin: 05/10/20 08:24 Dose: 40 mg Documented by: Lisinopril/HCTZ (Lisinopril-Hctz 10-12.5 Mg) 1 tab PO DAILY [facility] Last Admin: 05/10/20 08:25 Dose: 1 tab Documented by: Heparin Sodium (Porcine) (Heparin Sodium) 5,000 units SUBCUT Q8H [facility] Last Admin: 05/10/20 08:24 Dose: 5,000 units Documented by: Sodium Chloride (Normal Saline) 1,000 mls @ 100 mls/hr IV ASDIRECTED [facility] Last Admin: 05/10/20 08:22 Dose: 100 mls/hr Documented by: Pantoprazole Sodium 40 mg/ (Sodium Chloride) 10 mls @ 300 mls/hr IV Q24H [facility] Last Admin: 05/09/20 18:09 Dose: 300 mls/hr Documented by: Sodium Chloride (Normal Saline) 500 mls @ 999 mls/hr IV .BOLUS [facility] Last Admin: 05/09/20 10:18 Dose: 999 mls/hr Documented by: Levofloxacin/Dextrose 750 mg/ (Premix) 150 mls @ 100 mls/hr IV Q48H [facility] Last Admin: 05/10/20 11:14 Dose: 100 mls/hr Documented by: Magnesium Oxide (Magnesium Oxide) 400 mg PO DAILY [facility] Last Admin: 05/10/20 08:24 Dose: 400 mg Documented by: Ondansetron HCl (Zofran) 4 mg IVPUSH Q4H PRN PRN Reason: Nausea Last Admin: 05/10/20 01:55 Dose: 4 mg Documented by: Oxycodone HCl (Oxycodone) 10 mg PO Q6H PRN PRN Reason: Pain Last Admin: 05/10/20 12:03 Dose: 10 mg Documented by: Umeclidinium Brm/Vilanterol Tr [Anoro Ellipta 62.5-25 Mcg 1 each INH DAILY [facility] Last Admin: 05/10/20 08:26 Dose: Not Given Documented by: Naloxone Hcl [Narcan (] 1 [place]sey) 1 each RIKKI DAILY PRN PRN Reason: Sedation Tizanidine HCl (Zanaflex) 2 mg PO TID PRN PRN Reason: MUSCLE SPASM Last Admin: 05/09/20 23:42 Dose: 2 mg Documented by: Trazodone HCl (Trazodone) 150 mg PO DAILY PRN PRN Reason: Insomnia Last Admin: 05/09/20 19:46 Dose: 150 mg Documented by: Discontinued Medications Bupropion HCl (Wellbutrin Xl) 150 mg PO DAILY [facility] Buspirone HCl (Buspar) 10 mg PO TID [facility] Enoxaparin Sodium (Lovenox) 40 mg SUBCUT Q24H [facility] Last Admin: 05/08/20 20:21 Dose: Not Given Documented by: Enoxaparin Sodium (Lovenox) 30 mg SUBCUT Q24H [facility] Last Admin: 05/08/20 17:18 Dose: 30 mg Documented by: Lisinopril/HCTZ (Lisinopril-Hctz 10-12.5 Mg) 1 tab PO QAM [facility] Ceftriaxone Sodium/Dextrose 1 (gm/ Premix) 50 mls @ 100 mls/hr IV ONETIME ONE Stop: 05/08/20 12:16 Last Admin: 05/08/20 12:19 Dose: 100 mls/hr Documented by: Sodium Chloride (Normal Saline) 1,000 mls @ 100 mls/hr IV ASDIRECTED [facility] Last Admin: 05/08/20 12:19 Dose: 100 mls/hr Documented by: Lactated Ringer's (Ringers, Lactated) 1,000 mls @ 125 mls/hr IV ASDIRECTED [facility] Ceftriaxone Sodium/Dextrose 1 (gm/ Premix) 50 mls @ 100 mls/hr IV Q24H [facility] Ceftriaxone Sodium/Dextrose 1 (gm/ Premix) 50 mls @ 100 mls/hr IV ONETIME ONE Stop: 05/08/20 19:06 Last Admin: 05/08/20 19:14 Dose: 100 mls/hr Documented by: Ceftriaxone Sodium/Dextrose 1 (gm/ Premix) 50 mls @ 100 mls/hr IV Q24H [facility] Ceftriaxone Sodium/Dextrose 2 (gm/ Premix) 50 mls @ 100 mls/hr IV Q24H [facility] Last Admin: 05/09/20 18:11 Dose: 100 mls/hr Documented by: Ketorolac Tromethamine (Toradol) 30 mg IVPUSH ONETIME ONE Stop: 05/08/20 13:19 Last Admin: 05/08/20 13:32 Dose: Not Given Documented by: Ketorolac Tromethamine (Toradol) 30 mg IVPUSH Q8H PRN PRN Reason: Pain Stop: 05/13/20 22:35 Last Admin: 05/09/20 04:13 Dose: 30 mg Documented by: Methylprednisolone Sodium Succinate (Solu-Medrol) 125 mg IVPUSH ONETIME ONE Stop: 05/08/20 14:15 Last Admin: 05/08/20 14:34 Dose: 125 mg Documented by: Morphine Sulfate (Morphine) 2 mg IVPUSH ONETIME ONE Stop: 05/08/20 16:21 Last Admin: 05/08/20 16:36 Dose: 2 mg Documented by: Morphine Sulfate (Morphine) 2 mg IVPUSH Q6H PRN PRN Reason: Pain (severe 7-10) Last Admin: 05/08/20 22:18 Dose: 2 mg Documented by: Oxycodone HCl (Oxycodone) 10 mg PO Q8H PRN PRN Reason: Pain (severe 7-10) Last Admin: 05/10/20 06:06 Dose: 10 mg Documented by: Phenazopyridine HCl (Pyridium) 200 mg PO ONETIME ONE Stop: 05/08/20 13:23 Last Admin: 05/08/20 13:32 Dose: 200 mg Documented by: Trazodone HCl (Trazodone) 150 mg PO Q24H RUIZ - Exam General: Alert, Oriented Lungs: Clear to Auscultation, Normal Respiratory Effort Cardiovascular: Regular Rate, Regular Rhythm GI/Abdominal Exam: Normal Bowel Sounds, Soft. No: Hepatomegaly, Splenomegaly Back Exam: Muscle Spasm, Paraspinal Tenderness Sepsis Event Note - Evaluation Sepsis Screening Result: No Definite Risk - Focused Exam Vital Signs: Vital Signs Temp Pulse Resp BP Pulse Ox 05/10/20 12:00 37.0 C 69 17 167/73 H 93 L 05/10/20 08:26 36.8 C 65 16 164/73 H 05/10/20 05:00 36.6 C 71 16 163/67 H 92 L 05/10/20 02:01 63 19 179/83 H 92 L - Problem List & Annotations (1) Hypoxia SNOMED Code(s): 796968089 Code(s): R09.02 - HYPOXEMIA Status: Acute Current Visit: Yes (2) UTI (urinary tract infection) SNOMED Code(s): 00269496 Code(s): N39.0 - URINARY TRACT INFECTION, SITE NOT SPECIFIED Status: Acute Priority: Medium Current Visit: Yes Qualifiers: Urinary tract infection type: acute cystitis Hematuria presence: without hematuria Qualified Code(s): N30.00 - Acute cystitis without hematuria (3) Anxiety disorder SNOMED Code(s): 582806028 Code(s): F41.9 - ANXIETY DISORDER, UNSPECIFIED Status: Acute Current Visit: No Qualifiers: Anxiety disorder type: unspecified anxiety disorder Qualified Code(s): F41.9 - Anxiety disorder, unspecified (4) Back pain, chronic SNOMED Code(s): 955588230 Code(s): M54.9 - DORSALGIA, UNSPECIFIED; G89.29 - OTHER CHRONIC PAIN Status: Acute Current Visit: No (5) Chronic hip pain SNOMED Code(s): 43074751 Code(s): M25.559 - PAIN IN UNSPECIFIED HIP; G89.29 - OTHER CHRONIC PAIN Status: Acute Current Visit: No - Problem List Review Problem List Initiated/Reviewed/Updated: Yes - My Orders Last 24 Hours: My Active Orders 05/10/20 11:00 Admission Status [Patient Status] [ADT] Routine Levofloxacin/Dextrose 5%-Water [Levaquin in D5W 750 MG/150 ML] 750 mg Premix Bag 1 bag IV Q48H 05/10/20 11:26 oxyCODONE 10 mg PO Q6H PRN - Plan Plan:: Pyelonephritis/UTI- CT ABDO suspicious for pyelonephritis. cultures noted, will change to IV Levaquin, cont NS 100ml/hr, , Zofran 4mg PRN, PPI 40mg QD, Heparin 5000 Q8hr COPD- Duonebs PRN, Oxygen support, (patient does not require oxygen at home). Breo Ellipta, hypoxia resolved Chronic lower back pain- Patient was educated that her pain medications, soma and oxycodone, dosages are very high which can lead to serious side effects. Patient understands but states that she has been taking the same dosages of for years. Patient was given IV morphine and IV Toradol but states that her pain is not controlled. Soma 350mg TID PRN and OxyCodone 10mg Q8 PRN, was resumed, will change oxycodone to Q6 her home dose. Monitor closely for respiratory depression. HTN- Lisinopril/HCTZ 10mg/12.5mg PT consult, SW consult
[2020-05-10] MEDS ORDERED: Docusate Sodium 100 MG Cap PO PRN (14:25)
[2020-05-10] MEDS: Acetaminophen 325 MG Tab PO PRN ×2 (15:23→20:34)
[2020-05-10] MEDS: Pantoprazole 40 MG in Sodium Chloride 0.9% 10 ML IV SCH (18:01)
[2020-05-10] MEDS: traZODone 50 MG Tab PO PRN (22:07)
[2020-05-11] MEDS: oxyCODONE 5 MG Tab PO PRN ×4 (00:18→19:48)
[2020-05-11] MEDS: Loratadine 10 MG Tab PO PRN (00:19)
[2020-05-11] MEDS: Heparin Sodium 5,000 Units/ML Vial SUBCUT SCH ×4 (00:20→23:06)
[2020-05-11] MEDS: Ondansetron 4 MG/2 ML SDV IVPUSH PRN (00:46)
[2020-05-11 06:48] LABS: CARBON DIOXIDE,CO2 26.2 mmol/L (21.0-32.0); POTASSIUM,K 4.8 mmol/L (3.5-5.1)
[2020-05-11] MEDS: busPIRone 5 MG Tab PO SCH ×3 (06:56→21:32)
[2020-05-11] MEDS ORDERED: Magnesium Sulfate/Water 2 GM/50 ML BAG IV ONE (08:27)
[2020-05-11] MEDS: Lisinopril/Hydrochlorothiazide 10-12.5 MG Tab PO SCH (08:46)
[2020-05-11] MEDS: Magnesium Oxide 400 MG Tab PO SCH (08:47)
[2020-05-11] MEDS: FLUoxetine 20 MG Cap PO SCH (08:47)
[2020-05-11] MEDS: buPROPion 150 MG Tab.ER PO SCH (08:47)
[2020-05-11] MEDS: Acetaminophen 325 MG Tab PO PRN ×4 (08:48→23:05)
[2020-05-11] MEDS: Phosphorus #1 250 MG Tab PO SCH ×2 (09:42→20:07)
[2020-05-11] MEDS ORDERED: Lidocaine 5% 700 MG Patch TOP SCH (10:30)
[2020-05-11] MEDS ORDERED: Polyethylene Glycol 3350 Powder 17 GM Packet PO ONE (10:36)
--- NOTE | 2020-05-11 14:24 | PCM.PN ---
<Naveed Madden - Last Filed: 05/11/20 14:19> - General Info Date of Service: 05/11/20 Subjective Update: Patient states that she has some nasal congestion due to the dry air. States that her back pain is the same as yesterday. Patient states good appetite, denies fever, chills, nausea, vomiting. - Review of Systems General: Denies: Fever, Chills Pulmonary: Denies: Shortness of Breath Cardiovascular: Denies: Palpitations, Dyspnea on Exertion Gastrointestinal: Denies: Abdominal Pain, Decreased Appetite, Nausea, Vomiting Musculoskeletal: Reports: Back Pain Neurological: Denies: Confusion, Dizziness - Patient Data Vitals - Most Recent: Last Vital Signs Temp 98.8 F 05/11/20 11:28 Pulse 60 05/11/20 11:28 Resp 16 05/11/20 11:28 BP 153/64 H 05/11/20 11:28 Pulse Ox 93 L 05/11/20 11:28 Weight - Most Recent: 49.895 kg I&O - Last 24 Hours: Intake & Output 05/10/20 05/11/20 05/11/20 22:59 06:59 14:59 Intake Total 2707 600 1000 Output Total 1490 2050 Balance 1217 -1450 1000 Lab Results Last 24 Hours: Laboratory Results - last 24 hr 05/11/20 05/11/20 Range/Units 06:05 06:05 WBC 7.33 (4.0-11.0) K/uL RBC 4.11 L (4.30-5.90) M/uL Hgb 12.0 (12.0-16.0) g/dL Hct 37.1 (36.0-46.0) % MCV 90.3 (80.0-98.0) fL MCH 29.2 (27.0-32.0) pg MCHC 32.3 (31.0-37.0) g/dL RDW Std Deviation 46.5 (28.0-62.0) fl RDW Coeff of Ene 14 (11.0-15.0) % Plt Count 282 (150-400) K/uL MPV 9.30 (7.40-12.00) fL Neut % (Auto) 51.6 (48.0-80.0) % Lymph % (Auto) 37.0 (16.0-40.0) % [place] % (Auto) 9.8 (0.0-15.0) % Eos % (Auto) 1.2 (0.0-7.0) % Baso % (Auto) 0.4 (0.0-1.5) % Neut # (Auto) 3.8 (1.4-5.7) K/uL Lymph # (Auto) 2.7 H (0.6-2.4) K/uL [place] # (Auto) 0.7 (0.0-0.8) K/uL Eos # (Auto) 0.1 (0.0-0.7) K/uL Baso # (Auto) 0.0 (0.0-0.1) K/uL Nucleated RBC % 0.0 /100WBC Nucleated RBCs # 0 K/uL Sodium 140 (136-145) mmol/L Potassium 4.8 (3.5-5.1) mmol/L Chloride 109 H (98-107) mmol/L Carbon Dioxide 26.2 (21.0-32.0) mmol/L BUN 39 H (7.0-18.0) mg/dL Creatinine 1.5 H (0.6-1.0) mg/dL Est Cr Clr Drug Dosing 29.45 mL/min Estimated GFR (MDRD) 34.9 ml/min Glucose 92 (74-106) mg/dL Calcium 9.8 (8.5-10.1) mg/dL Phosphorus 2.1 L (2.6-4.7) mg/dL Magnesium 1.7 L (1.8-2.4) mg/dL Med Orders - Current: Current Medications Acetaminophen (Tylenol) 650 mg PO Q4H PRN PRN Reason: Pain (Mild 1-3)/fever Last Admin: 05/11/20 13:10 Dose: 650 mg Documented by: Albuterol/Ipratropium (Duoneb 3.0-0.5 Mg/3 Ml) 3 ml NEB Q4HRRT PRN PRN Reason: Shortness Of Breath/wheezing Last Admin: 05/10/20 01:57 Dose: 3 ml Documented by: Bupropion HCl (Wellbutrin Xl) 150 mg PO DAILY RUIZ Last Admin: 05/11/20 08:47 Dose: 150 mg Documented by: Buspirone HCl (Buspar) 10 mg PO TID [facility] Last Admin: 05/11/20 13:11 Dose: 10 mg Documented by: Carisoprodol (Soma) 350 mg PO TID PRN PRN Reason: FOR MUSCLE SPASMS Last Admin: 05/11/20 08:49 Dose: 350 mg Documented by: Docusate Sodium (Colace) 100 mg PO BID PRN PRN Reason: Constipation Last Admin: 05/10/20 15:23 Dose: 100 mg Documented by: Fluoxetine HCl (Prozac) 40 mg PO QAM [facility] Last Admin: 05/11/20 08:47 Dose: 40 mg Documented by: Lisinopril/HCTZ (Lisinopril-Hctz 10-12.5 Mg) 1 tab PO DAILY [facility] Last Admin: 05/11/20 08:46 Dose: 1 tab Documented by: Heparin Sodium (Porcine) (Heparin Sodium) 5,000 units SUBCUT Q8H [facility] Last Admin: 05/11/20 08:45 Dose: 5,000 units Documented by: Sodium Chloride (Normal Saline) 1,000 mls @ 100 mls/hr IV ASDIRECTED [facility] Last Admin: 05/10/20 20:36 Dose: 100 mls/hr Documented by: Pantoprazole Sodium 40 mg/ (Sodium Chloride) 10 mls @ 300 mls/hr IV Q24H [facility] Last Admin: 05/10/20 18:01 Dose: 300 mls/hr Documented by: Sodium Chloride (Normal Saline) 500 mls @ 999 mls/hr IV .BOLUS [facility] Last Admin: 05/09/20 10:18 Dose: 999 mls/hr Documented by: Levofloxacin/Dextrose 750 mg/ (Premix) 150 mls @ 100 mls/hr IV Q48H [facility] Last Admin: 05/10/20 11:14 Dose: 100 mls/hr Documented by: Lidocaine (Lidoderm 5%) 700 mg TOP Q24H [facility] Last Admin: 05/11/20 12:01 Dose: 700 mg Documented by: Loratadine (Claritin) 10 mg PO DAILY PRN PRN Reason: Rhinitis Last Admin: 05/11/20 00:19 Dose: 10 mg Documented by: Magnesium Oxide (Magnesium Oxide) 400 mg PO DAILY [facility] Last Admin: 05/11/20 08:47 Dose: 400 mg Documented by: Ondansetron HCl (Zofran) 4 mg IVPUSH Q4H PRN PRN Reason: Nausea Last Admin: 05/11/20 00:46 Dose: 4 mg Documented by: Oxycodone HCl (Oxycodone) 10 mg PO Q6H PRN PRN Reason: Pain Last Admin: 05/11/20 13:09 Dose: 10 mg Documented by: Umeclidinium Brm/Vilanterol Tr [Anoro Ellipta 62.5-25 Mcg 1 each INH DAILY [facility] Last Admin: 05/11/20 09:42 Dose: Not Given Documented by: Naloxone Hcl [Narcan (] 1 [place]) 1 each RIKKI DAILY PRN PRN Reason: Sedation Sodium Chloride ([place] Nasal [place]) 0 ml RIKKI Q2H PRN PRN Reason: Constipation Sodium Phosphate (Neutra-Phos) 250 mg PO BID [facility] Stop: 05/11/20 21:01 Last Admin: 05/11/20 09:42 Dose: 250 mg Documented by: Tizanidine HCl (Zanaflex) 2 mg PO TID PRN PRN Reason: MUSCLE SPASM Last Admin: 05/09/20 23:42 Dose: 2 mg Documented by: Trazodone HCl (Trazodone) 150 mg PO DAILY PRN PRN Reason: Insomnia Last Admin: 05/10/20 22:07 Dose: 150 mg Documented by: Discontinued Medications Bupropion HCl (Wellbutrin Xl) 150 mg PO DAILY [facility] Buspirone HCl (Buspar) 10 mg PO TID [facility] Enoxaparin Sodium (Lovenox) 40 mg SUBCUT Q24H [facility] Last Admin: 05/08/20 20:21 Dose: Not Given Documented by: Enoxaparin Sodium (Lovenox) 30 mg SUBCUT Q24H [facility] Last Admin: 05/08/20 17:18 Dose: 30 mg Documented by: Lisinopril/HCTZ (Lisinopril-Hctz 10-12.5 Mg) 1 tab PO QAM [facility] Ceftriaxone Sodium/Dextrose 1 (gm/ Premix) 50 mls @ 100 mls/hr IV ONETIME ONE Stop: 05/08/20 12:16 Last Admin: 05/08/20 12:19 Dose: 100 mls/hr Documented by: Sodium Chloride (Normal Saline) 1,000 mls @ 100 mls/hr IV ASDIRECTED [facility] Last Admin: 05/08/20 12:19 Dose: 100 mls/hr Documented by: Lactated Ringer's (Ringers, Lactated) 1,000 mls @ 125 mls/hr IV ASDIRECTED [facility] Ceftriaxone Sodium/Dextrose 1 (gm/ Premix) 50 mls @ 100 mls/hr IV Q24H [facility] Ceftriaxone Sodium/Dextrose 1 (gm/ Premix) 50 mls @ 100 mls/hr IV ONETIME ONE Stop: 05/08/20 19:06 Last Admin: 05/08/20 19:14 Dose: 100 mls/hr Documented by: Ceftriaxone Sodium/Dextrose 1 (gm/ Premix) 50 mls @ 100 mls/hr IV Q24H [facility] Ceftriaxone Sodium/Dextrose 2 (gm/ Premix) 50 mls @ 100 mls/hr IV Q24H [facility] Last Admin: 05/09/20 18:11 Dose: 100 mls/hr Documented by: Magnesium Sulfate (Magnesium Sulfate In Water Premix) 2 gm in 50 mls @ 50 mls/hr IV ONETIME ONE Stop: 05/11/20 09:26 Last Admin: 05/11/20 08:43 Dose: 50 mls/hr Documented by: Ketorolac Tromethamine (Toradol) 30 mg IVPUSH ONETIME ONE Stop: 05/08/20 13:19 Last Admin: 05/08/20 13:32 Dose: Not Given Documented by: Ketorolac Tromethamine (Toradol) 30 mg IVPUSH Q8H PRN PRN Reason: Pain Stop: 05/13/20 22:35 Last Admin: 05/09/20 04:13 Dose: 30 mg Documented by: Methylprednisolone Sodium Succinate (Solu-Medrol) 125 mg IVPUSH ONETIME ONE Stop: 05/08/20 14:15 Last Admin: 05/08/20 14:34 Dose: 125 mg Documented by: Morphine Sulfate (Morphine) 2 mg IVPUSH ONETIME ONE Stop: 05/08/20 16:21 Last Admin: 05/08/20 16:36 Dose: 2 mg Documented by: Morphine Sulfate (Morphine) 2 mg IVPUSH Q6H PRN PRN Reason: Pain (severe 7-10) Last Admin: 05/08/20 22:18 Dose: 2 mg Documented by: Oxycodone HCl (Oxycodone) 10 mg PO Q8H PRN PRN Reason: Pain (severe 7-10) Last Admin: 05/10/20 06:06 Dose: 10 mg Documented by: Phenazopyridine HCl (Pyridium) 200 mg PO ONETIME ONE Stop: 05/08/20 13:23 Last Admin: 05/08/20 13:32 Dose: 200 mg Documented by: Polyethylene Glycol (Miralax) 17 gm PO ONETIME ONE Stop: 05/11/20 10:37 Last Admin: 05/11/20 12:01 Dose: 17 gm Documented by: Trazodone HCl (Trazodone) 150 mg PO Q24H [facility]UIZ - Exam General: Alert, Oriented Lungs: Clear to Auscultation, Normal Respiratory Effort Cardiovascular: Regular Rate, Regular Rhythm GI/Abdominal Exam: Normal Bowel Sounds, Soft, Non-Tender Back Exam: CVA Tenderness (R) Sepsis Event Note - Evaluation Sepsis Screening Result: No Definite Risk - Focused Exam Vital Signs: Vital Signs Temp Pulse Resp BP BP Pulse Ox 05/11/20 11:28 98.8 F 60 16 153/64 H 93 L 05/11/20 08:39 98.8 F 63 16 172/69 H 92 L 05/11/20 04:00 98.5 F 65 18 183/68 H 90 L - Problem List Review Problem List Initiated/Reviewed/Updated: Yes - My Orders Last 24 Hours: My Active Orders 05/11/20 09:00 Phosphorus #1 [Neutra-Phos] 250 mg PO BID 05/11/20 13:27 Sodium Chloride 0.65% [[place] Nasal [place]] See Dose Instructions RIKKI Q2H PRN 05/12/20 05:11 MAGNESIUM [CHEM] AM PHOSPHORUS [CHEM] AM - Plan Plan:: Pyelonephritis/UTI- IV Levaquin, cont NS 100ml/hr, , Zofran 4mg PRN, PPI 40mg QD, Heparin 5000 Q8hr COPD- Duonebs PRN, Oxygen support, (patient does not require oxygen at home). Chadwick Barreto, hypoxia resolved Chronic lower back pain- Patient was educated that her pain medications, soma and oxycodone, dosages are very high which can lead to serious side effects. Vicky henri understands but states that she has been taking the same dosages for years. Patient was given IV morphine and IV Toradol but states that her pain is not controlled. Soma 350mg TID PRN and OxyCodone 10mg Q8 PRN, was resumed, will change oxycodone to Q6 her home dose. Monitor closely for respiratory depression. Started lidocaine patch HTN- Lisinopril/HCTZ 10mg/12.5mg PT consult, SW consult <Katey Farley - Last Filed: 05/17/20 18:32> - Patient Data Vitals - Most Recent: Last Vital Signs Temp 36.8 C 05/13/20 12:00 Pulse 56 L 05/13/20 12:00 Resp 16 05/13/20 12:00 BP 136/75 05/13/20 12:00 Pulse Ox 93 L 05/13/20 12:00 Med Orders - Current: Current Medications Discontinued Medications Acetaminophen (Tylenol) 650 mg PO Q4H PRN PRN Reason: Pain (Mild 1-3)/fever Last Admin: 05/13/20 09:11 Dose: 650 mg Documented by: Albuterol/Ipratropium (Duoneb 3.0-0.5 Mg/3 Ml) 3 ml NEB Q4HRRT PRN PRN Reason: Shortness Of Breath/wheezing Last Admin: 05/10/20 01:57 Dose: 3 ml Documented by: Bisacodyl (Dulcolax) 10 mg RECTAL DAILY PRN PRN Reason: Constipation Last Admin: 05/12/20 08:39 Dose: 10 mg Documented by: Bupropion HCl (Wellbutrin Xl) 150 mg PO DAILY [facility] Bupropion HCl (Wellbutrin Xl) 150 mg PO DAILY [facility] Last Admin: 05/13/20 09:11 Dose: 150 mg Documented by: Buspirone HCl (Buspar) 10 mg PO TID [facility] Buspirone HCl (Buspar) 10 mg PO TID [facility] Last Admin: 05/13/20 14:25 Dose: 10 mg Documented by: Carisoprodol (Soma) 350 mg PO TID PRN PRN Reason: FOR MUSCLE SPASMS Last Admin: 05/13/20 13:09 Dose: 350 mg Documented by: Docusate Sodium (Colace) 100 mg PO BID PRN PRN Reason: Constipation Last Admin: 05/10/20 15:23 Dose: 100 mg Documented by: Enoxaparin Sodium (Lovenox) 40 mg SUBCUT Q24H [facility] Last Admin: 05/08/20 20:21 Dose: Not Given Documented by: Enoxaparin Sodium (Lovenox) 30 mg SUBCUT Q24H [facility] Last Admin: 05/08/20 17:18 Dose: 30 mg Documented by: Fluoxetine HCl (Prozac) 40 mg PO QAM [facility] Last Admin: 05/13/20 09:10 Dose: 40 mg Documented by: Lisinopril/HCTZ (Lisinopril-Hctz 10-12.5 Mg) 1 tab PO QAM [facility] Lisinopril/HCTZ (Lisinopril-Hctz 10-12.5 Mg) 1 tab PO DAILY [facility] Last Admin: 05/13/20 09:10 Dose: 1 tab Documented by: Heparin Sodium (Porcine) (Heparin Sodium) 5,000 units SUBCUT Q8H [facility] Last Admin: 05/13/20 09:13 Dose: Not Given Documented by: Ceftriaxone Sodium/Dextrose 1 (gm/ Premix) 50 mls @ 100 mls/hr IV ONETIME ONE Stop: 05/08/20 12:16 Last Admin: 05/08/20 12:19 Dose: 100 mls/hr Documented by: Sodium Chloride (Normal Saline) 1,000 mls @ 100 mls/hr IV ASDIRECTED [facility] Last Admin: 05/08/20 12:19 Dose: 100 mls/hr Documented by: Lactated Ringer's (Ringers, Lactated) 1,000 mls @ 125 mls/hr IV ASDIRECTED [facility] Sodium Chloride (Normal Saline) 1,000 mls @ 75 mls/hr IV ASDIRECTED [facility] Last Admin: 05/13/20 06:24 Dose: 100 mls/hr Documented by: Ceftriaxone Sodium/Dextrose 1 (gm/ Premix) 50 mls @ 100 mls/hr IV Q24H [facility] Pantoprazole Sodium 40 mg/ (Sodium Chloride) 10 mls @ 300 mls/hr IV Q24H [facility] Last Admin: 05/12/20 18:21 Dose: 300 mls/hr Documented by: Ceftriaxone Sodium/Dextrose 1 (gm/ Premix) 50 mls @ 100 mls/hr IV ONETIME ONE Stop: 05/08/20 19:06 Last Admin: 05/08/20 19:14 Dose: 100 mls/hr Documented by: Ceftriaxone Sodium/Dextrose 1 (gm/ Premix) 50 mls @ 100 mls/hr IV Q24H [facility] Sodium Chloride (Normal Saline) 500 mls @ 999 mls/hr IV .BOLUS [facility] Last Admin: 05/09/20 10:18 Dose: 999 mls/hr Documented by: Ceftriaxone Sodium/Dextrose 2 (gm/ Premix) 50 mls @ 100 mls/hr IV Q24H [facility] Last Admin: 05/09/20 18:11 Dose: 100 mls/hr Documented by: Levofloxacin/Dextrose 750 mg/ (Premix) 150 mls @ 100 mls/hr IV Q48H [facility] Last Admin: 05/12/20 10:43 Dose: 100 mls/hr Documented by: Magnesium Sulfate (Magnesium Sulfate In Water Premix) 2 gm in 50 mls @ 50 mls/hr IV ONETIME ONE Stop: 05/11/20 09:26 Last Admin: 05/11/20 08:43 Dose: 50 mls/hr Documented by: Ketorolac Tromethamine (Toradol) 30 mg IVPUSH ONETIME ONE Stop: 05/08/20 13:19 Last Admin: 05/08/20 13:32 Dose: Not Given Documented by: Ketorolac Tromethamine (Toradol) 30 mg IVPUSH Q8H PRN PRN Reason: Pain Stop: 05/13/20 22:35 Last Admin: 05/09/20 04:13 Dose: 30 mg Documented by: Lidocaine (Lidoderm 5%) 700 mg TOP Q24H [facility] Last Admin: 05/11/20 12:01 Dose: 700 mg Documented by: Lidocaine (Lidoderm 5%) 700 mg TOP Q24H [facility] Last Admin: 05/13/20 13:08 Dose: 700 mg Documented by: Loratadine (Claritin) 10 mg PO DAILY PRN PRN Reason: Rhinitis Last Admin: 05/12/20 05:49 Dose: 10 mg Documented by: Magnesium Oxide (Magnesium Oxide) 400 mg PO DAILY [facility] Last Admin: 05/13/20 09:12 Dose: 400 mg Documented by: Methylprednisolone Sodium Succinate (Solu-Medrol) 125 mg IVPUSH ONETIME ONE Stop: 05/08/20 14:15 Last Admin: 05/08/20 14:34 Dose: 125 mg Documented by: Morphine Sulfate (Morphine) 2 mg IVPUSH ONETIME ONE Stop: 05/08/20 16:21 Last Admin: 05/08/20 16:36 Dose: 2 mg Documented by: Morphine Sulfate (Morphine) 2 mg IVPUSH Q6H PRN PRN Reason: Pain (severe 7-10) Last Admin: 05/08/20 22:18 Dose: 2 mg Documented by: Ondansetron HCl (Zofran) 4 mg IVPUSH Q4H PRN PRN Reason: Nausea Last Admin: 05/13/20 09:10 Dose: 4 mg Documented by: Oxycodone HCl (Oxycodone) 10 mg PO Q8H PRN PRN Reason: Pain (severe 7-10) Last Admin: 05/10/20 06:06 Dose: 10 mg Documented by: Oxycodone HCl (Oxycodone) 10 mg PO Q6H PRN PRN Reason: Pain Last Admin: 05/13/20 12:38 Dose: 10 mg Documented by: Umeclidinium Brm/Vilanterol Tr [Anoro Ellipta 62.5-25 Mcg 1 each INH DAILY [facility] Last Admin: 05/13/20 09:14 Dose: Not Given Documented by: Naloxone Hcl [Narcan (] 1 [place]) 1 each RIKKI DAILY PRN PRN Reason: Sedation Phenazopyridine HCl (Pyridium) 200 mg PO ONETIME ONE Stop: 05/08/20 13:23 Last Admin: 05/08/20 13:32 Dose: 200 mg Documented by: Polyethylene Glycol (Miralax) 17 gm PO ONETIME ONE Stop: 05/11/20 10:37 Last Admin: 05/11/20 12:01 Dose: 17 gm Documented by: Sodium Chloride ([place] Nasal [place]) 0 ml RIKKI Q2H PRN PRN Reason: Constipation Last Admin: 05/11/20 19:55 Dose: 1 spray Documented by: Sodium Phosphate (Neutra-Phos) 250 mg PO BID [facility] Stop: 05/11/20 21:01 Last Admin: 05/11/20 20:07 Dose: 250 mg Documented by: Sodium Phosphate (Neutra-Phos) 250 mg PO QID [facility] Last Admin: 05/13/20 13:08 Dose: 250 mg Documented by: Tizanidine HCl (Zanaflex) 2 mg PO TID PRN PRN Reason: MUSCLE SPASM Last Admin: 05/09/20 23:42 Dose: 2 mg Documented by: Trazodone HCl (Trazodone) 150 mg PO Q24H [facility] Trazodone HCl (Trazodone) 150 mg PO DAILY PRN PRN Reason: Insomnia Last Admin: 05/10/20 22:07 Dose: 150 mg Documented by: Trazodone HCl (Trazodone) 300 mg PO DAILY PRN PRN Reason: Insomnia Last Admin: 05/12/20 21:04 Dose: 300 mg Documented by: - Problem List & Annotations (1) Hypoxia SNOMED Code(s): 066825538 Code(s): R09.02 - HYPOXEMIA Status: Acute (2) UTI (urinary tract infection) SNOMED Code(s): 64167944 Code(s): N39.0 - URINARY TRACT INFECTION, SITE NOT SPECIFIED Status: Acute Priority: Medium Qualifiers: Urinary tract infection type: acute cystitis Hematuria presence: without hematuria Qualified Code(s): N30.00 - Acute cystitis without hematuria (3) Anxiety disorder SNOMED Code(s): 238346341 Code(s): F41.9 - ANXIETY DISORDER, UNSPECIFIED Status: Acute Qualifiers: Anxiety disorder type: unspecified anxiety disorder Qualified Code(s): F41.9 - Anxiety disorder, unspecified (4) Back pain, chronic SNOMED Code(s): 837957085 Code(s): M54.9 - DORSALGIA, UNSPECIFIED; G89.29 - OTHER CHRONIC PAIN Status: Acute (5) Chronic hip pain SNOMED Code(s): 18001052 Code(s): M25.559 - PAIN IN UNSPECIFIED HIP; G89.29 - OTHER CHRONIC PAIN Status: Acute - Plan Plan:: I have seen and evaluated the patient and agree with the residents note unless specified in my note
[2020-05-11] MEDS: Pantoprazole 40 MG in Sodium Chloride 0.9% 10 ML IV SCH (17:15)
[2020-05-11] MEDS: Sodium Chloride 0.65% Nasal Spray 45 ML Bottle NAS PRN ×2 (17:15→19:55)
[2020-05-11] MEDS: traZODone 50 MG Tab PO PRN (20:07)
[2020-05-12] MEDS: oxyCODONE 5 MG Tab PO PRN ×3 (02:12→16:12)
[2020-05-12] MEDS: Acetaminophen 325 MG Tab PO PRN ×4 (04:07→18:20)
[2020-05-12] MEDS: Loratadine 10 MG Tab PO PRN (05:49)
[2020-05-12] MEDS: busPIRone 5 MG Tab PO SCH ×3 (05:49→21:04)
[2020-05-12] MEDS: Sodium Chloride 0.9% 1,000 ML IV SCH (05:55)
[2020-05-12 06:12] LABS: POTASSIUM,K 3.6 mmol/L (3.5-5.1)
[2020-05-12] MEDS ORDERED: Bisacodyl 10 MG Supp RECTAL PRN (08:24)
[2020-05-12] MEDS: FLUoxetine 20 MG Cap PO SCH (08:38)
[2020-05-12] MEDS: Magnesium Oxide 400 MG Tab PO SCH (08:38)
[2020-05-12] MEDS: Lisinopril/Hydrochlorothiazide 10-12.5 MG Tab PO SCH (08:38)
[2020-05-12] MEDS: buPROPion 150 MG Tab.ER PO SCH (08:39)
[2020-05-12] MEDS: Ondansetron 4 MG/2 ML SDV IVPUSH PRN (08:39)
[2020-05-12] MEDS: Heparin Sodium 5,000 Units/ML Vial SUBCUT SCH ×2 (08:40→16:15)
[2020-05-12 09:34] LABS: BILIRUBIN INDIRECT 0.1
[2020-05-12] MEDS: Levofloxacin/Dextrose 5%-Water 750 MG in Premix Bag 1 BAG IV SCH (10:43)
[2020-05-12] MEDS: Phosphorus #1 250 MG Tab PO SCH ×2 (12:21→18:20)
[2020-05-12] MEDS: Lidocaine 5% 700 MG Patch TOP SCH (12:21)
[2020-05-12] MEDS: Pantoprazole 40 MG in Sodium Chloride 0.9% 10 ML IV SCH (18:21)
--- NOTE | 2020-05-12 18:53 | PCM.PN ---
- General Info Date of Service: 05/12/20 Subjective Update: Patient states that the right flank pain is gone today patient denies nausea, fever, chills, shortness of breath. Patient states low-grade chronic back pain. Patient states that she just does not feel well and has a slight headache today. Patient has good appetite. - Review of Systems General: Denies: Fever, Chills Pulmonary: Denies: Shortness of Breath, Pleuritic Chest Pain Cardiovascular: Denies: Chest Pain, Dyspnea on Exertion Gastrointestinal: Denies: Abdominal Pain, Nausea, Vomiting Neurological: Denies: Confusion, Dizziness, Headache - Patient Data Vitals - Most Recent: Last Vital Signs Temp 97.9 F 05/12/20 18:42 Pulse 60 05/12/20 18:42 Resp 16 05/12/20 18:42 BP 178/74 H 05/12/20 18:42 Pulse Ox 93 L 05/12/20 18:42 Weight - Most Recent: 110 lb I&O - Last 24 Hours: Intake & Output 05/12/20 05/12/20 05/12/20 06:59 14:59 22:59 Intake Total 1935 236 850 Output Total 50 Balance 1935 186 850 Lab Results Last 24 Hours: Laboratory Results - last 24 hr 05/12/20 05/12/20 05/12/20 Range/Units 05:33 05:33 05:33 WBC 5.89 (4.0-11.0) K/uL RBC 4.00 L (4.30-5.90) M/uL Hgb 11.7 L (12.0-16.0) g/dL Hct 35.6 L (36.0-46.0) % MCV 89.0 (80.0-98.0) fL MCH 29.3 (27.0-32.0) pg MCHC 32.9 (31.0-37.0) g/dL RDW Std Deviation 45.6 (28.0-62.0) fl RDW Coeff of Ene 14 (11.0-15.0) % Plt Count 267 (150-400) K/uL MPV 9.30 (7.40-12.00) fL Neut % (Auto) 38.7 L (48.0-80.0) % Lymph % (Auto) 47.9 H (16.0-40.0) % Bailey % (Auto) 10.7 (0.0-15.0) % Eos % (Auto) 2.5 (0.0-7.0) % Baso % (Auto) 0.2 (0.0-1.5) % Neut # (Auto) 2.3 (1.4-5.7) K/uL Lymph # (Auto) 2.8 H (0.6-2.4) K/uL Bailey # (Auto) 0.6 (0.0-0.8) K/uL Eos # (Auto) 0.2 (0.0-0.7) K/uL Baso # (Auto) 0.0 (0.0-0.1) K/uL Nucleated RBC % 0.0 /100WBC Nucleated RBCs # 0 K/uL Sodium 141 (136-145) mmol/L Potassium 3.6 (3.5-5.1) mmol/L Chloride 110 H (98-107) mmol/L Carbon Dioxide 25.0 (21.0-32.0) mmol/L BUN 28 H (7.0-18.0) mg/dL Creatinine 1.4 H (0.6-1.0) mg/dL Est Cr Clr Drug Dosing 31.56 mL/min Estimated GFR (MDRD) 37.7 ml/min Glucose 98 (74-106) mg/dL Calcium 9.2 (8.5-10.1) mg/dL Phosphorus 2.3 L (2.6-4.7) mg/dL Magnesium 2.1 (1.8-2.4) mg/dL Total Bilirubin 0.2 (0.2-1.0) mg/dL Direct Bilirubin 0.10 (0.0-0.5) mg/dL Indirect Bilirubin 0.10 AST 17 (15-37) IU/L ALT 19 (14-63) IU/L Alkaline Phosphatase 111 (46-116) U/L Total Protein 6.1 L (6.4-8.2) g/dL Albumin 2.3 L (3.4-5.0) g/dL Globulin 3.8 (2.6-4.0) g/dL Albumin/Globulin Ratio 0.6 L (0.9-1.6) Med Orders - Current: Current Medications Acetaminophen (Tylenol) 650 mg PO Q4H PRN PRN Reason: Pain (Mild 1-3)/fever Last Admin: 05/12/20 18:20 Dose: 650 mg Documented by: Albuterol/Ipratropium (Duoneb 3.0-0.5 Mg/3 Ml) 3 ml NEB Q4HRRT PRN PRN Reason: Shortness Of Breath/wheezing Last Admin: 05/10/20 01:57 Dose: 3 ml Documented by: Bisacodyl (Dulcolax) 10 mg RECTAL DAILY PRN PRN Reason: Constipation Last Admin: 05/12/20 08:39 Dose: 10 mg Documented by: Bupropion HCl (Wellbutrin Xl) 150 mg PO DAILY [facility] Last Admin: 05/12/20 08:39 Dose: 150 mg Documented by: Buspirone HCl (Buspar) 10 mg PO TID [facility] Last Admin: 05/12/20 13:19 Dose: 10 mg Documented by: Carisoprodol (Soma) 350 mg PO TID PRN PRN Reason: FOR MUSCLE SPASMS Last Admin: 05/12/20 14:34 Dose: 350 mg Documented by: Docusate Sodium (Colace) 100 mg PO BID PRN PRN Reason: Constipation Last Admin: 05/10/20 15:23 Dose: 100 mg Documented by: Fluoxetine HCl (Prozac) 40 mg PO QAM [facility] Last Admin: 05/12/20 08:38 Dose: 40 mg Documented by: Lisinopril/HCTZ (Lisinopril-Hctz 10-12.5 Mg) 1 tab PO DAILY [facility] Last Admin: 05/12/20 08:38 Dose: 1 tab Documented by: Heparin Sodium (Porcine) (Heparin Sodium) 5,000 units SUBCUT Q8H [facility] Last Admin: 05/12/20 16:15 Dose: Not Given Documented by: Sodium Chloride (Normal Saline) 1,000 mls @ 75 mls/hr IV ASDIRECTED [facility] Last Admin: 05/12/20 05:55 Dose: 100 mls/hr Documented by: Pantoprazole Sodium 40 mg/ (Sodium Chloride) 10 mls @ 300 mls/hr IV Q24H [facility] Last Admin: 05/12/20 18:21 Dose: 300 mls/hr Documented by: Sodium Chloride (Normal Saline) 500 mls @ 999 mls/hr IV .BOLUS [facility] Last Admin: 05/09/20 10:18 Dose: 999 mls/hr Documented by: Levofloxacin/Dextrose 750 mg/ (Premix) 150 mls @ 100 mls/hr IV Q48H [facility] Last Admin: 05/12/20 10:43 Dose: 100 mls/hr Documented by: Lidocaine (Lidoderm 5%) 700 mg TOP Q24H [facility] Last Admin: 05/12/20 12:21 Dose: 700 mg Documented by: Loratadine (Claritin) 10 mg PO DAILY PRN PRN Reason: Rhinitis Last Admin: 05/12/20 05:49 Dose: 10 mg Documented by: Magnesium Oxide (Magnesium Oxide) 400 mg PO DAILY [facility] Last Admin: 05/12/20 08:38 Dose: 400 mg Documented by: Ondansetron HCl (Zofran) 4 mg IVPUSH Q4H PRN PRN Reason: Nausea Last Admin: 05/12/20 08:39 Dose: 4 mg Documented by: Oxycodone HCl (Oxycodone) 10 mg PO Q6H PRN PRN Reason: Pain Last Admin: 05/12/20 16:12 Dose: 10 mg Documented by: Umeclidinium Brm/Vilanterol Tr [Anoro Ellipta 62.5-25 Mcg 1 each INH DAILY [facility] Last Admin: 05/12/20 10:09 Dose: Not Given Documented by: Naloxone Hcl [Narcan (] 1 [place]) 1 each RIKKI DAILY PRN PRN Reason: Sedation Sodium Chloride ([place] Nasal [place]) 0 ml RIKKI Q2H PRN PRN Reason: Constipation Last Admin: 05/11/20 19:55 Dose: 1 spray Documented by: Sodium Phosphate (Neutra-Phos) 250 mg PO QID [facility] Last Admin: 05/12/20 18:20 Dose: 250 mg Documented by: Tizanidine HCl (Zanaflex) 2 mg PO TID PRN PRN Reason: MUSCLE SPASM Last Admin: 05/09/20 23:42 Dose: 2 mg Documented by: Trazodone HCl (Trazodone) 300 mg PO DAILY PRN PRN Reason: Insomnia Last Admin: 05/11/20 20:07 Dose: 300 mg Documented by: Discontinued Medications Bupropion HCl (Wellbutrin Xl) 150 mg PO DAILY [facility] Buspirone HCl (Buspar) 10 mg PO TID [facility] Enoxaparin Sodium (Lovenox) 40 mg SUBCUT Q24H [facility] Last Admin: 05/08/20 20:21 Dose: Not Given Documented by: Enoxaparin Sodium (Lovenox) 30 mg SUBCUT Q24H [facility] Last Admin: 05/08/20 17:18 Dose: 30 mg Documented by: Lisinopril/HCTZ (Lisinopril-Hctz 10-12.5 Mg) 1 tab PO QAM [facility] Ceftriaxone Sodium/Dextrose 1 (gm/ Premix) 50 mls @ 100 mls/hr IV ONETIME ONE Stop: 05/08/20 12:16 Last Admin: 05/08/20 12:19 Dose: 100 mls/hr Documented by: Sodium Chloride (Normal Saline) 1,000 mls @ 100 mls/hr IV ASDIRECTED [facility] Last Admin: 05/08/20 12:19 Dose: 100 mls/hr Documented by: Lactated Ringer's (Ringers, Lactated) 1,000 mls @ 125 mls/hr IV ASDIRECTED [facility] Ceftriaxone Sodium/Dextrose 1 (gm/ Premix) 50 mls @ 100 mls/hr IV Q24H [facility] Ceftriaxone Sodium/Dextrose 1 (gm/ Premix) 50 mls @ 100 mls/hr IV ONETIME ONE Stop: 05/08/20 19:06 Last Admin: 05/08/20 19:14 Dose: 100 mls/hr Documented by: Ceftriaxone Sodium/Dextrose 1 (gm/ Premix) 50 mls @ 100 mls/hr IV Q24H [facility] Ceftriaxone Sodium/Dextrose 2 (gm/ Premix) 50 mls @ 100 mls/hr IV Q24H [facility] Last Admin: 05/09/20 18:11 Dose: 100 mls/hr Documented by: Magnesium Sulfate (Magnesium Sulfate In Water Premix) 2 gm in 50 mls @ 50 mls/hr IV ONETIME ONE Stop: 05/11/20 09:26 Last Admin: 05/11/20 08:43 Dose: 50 mls/hr Documented by: Ketorolac Tromethamine (Toradol) 30 mg IVPUSH ONETIME ONE Stop: 05/08/20 13:19 Last Admin: 05/08/20 13:32 Dose: Not Given Documented by: Ketorolac Tromethamine (Toradol) 30 mg IVPUSH Q8H PRN PRN Reason: Pain Stop: 12/02/20 22:35 Last Admin: 05/09/20 04:13 Dose: 30 mg Documented by: Lidocaine (Lidoderm 5%) 700 mg TOP Q24H [facility] Last Admin: 05/11/20 12:01 Dose: 700 mg Documented by: Methylprednisolone Sodium Succinate (Solu-Medrol) 125 mg IVPUSH ONETIME ONE Stop: 05/08/20 14:15 Last Admin: 05/08/20 14:34 Dose: 125 mg Documented by: Morphine Sulfate (Morphine) 2 mg IVPUSH ONETIME ONE Stop: 05/08/20 16:21 Last Admin: 05/08/20 16:36 Dose: 2 mg Documented by: Morphine Sulfate (Morphine) 2 mg IVPUSH Q6H PRN PRN Reason: Pain (severe 7-10) Last Admin: 05/08/20 22:18 Dose: 2 mg Documented by: Oxycodone HCl (Oxycodone) 10 mg PO Q8H PRN PRN Reason: Pain (severe 7-10) Last Admin: 05/10/20 06:06 Dose: 10 mg Documented by: Phenazopyridine HCl (Pyridium) 200 mg PO ONETIME ONE Stop: 05/08/20 13:23 Last Admin: 05/08/20 13:32 Dose: 200 mg Documented by: Polyethylene Glycol (Miralax) 17 gm PO ONETIME ONE Stop: 05/11/20 10:37 Last Admin: 05/11/20 12:01 Dose: 17 gm Documented by: Sodium Phosphate (Neutra-Phos) 250 mg PO BID RUIZ Stop: 05/11/20 21:01 Last Admin: 05/11/20 20:07 Dose: 250 mg Documented by: Trazodone HCl (Trazodone) 150 mg PO Q24H [facility] Trazodone HCl (Trazodone) 150 mg PO DAILY PRN PRN Reason: Insomnia Last Admin: 05/10/20 22:07 Dose: 150 mg Documented by: - Exam General: Alert, Oriented Lungs: Clear to Auscultation, Normal Respiratory Effort Cardiovascular: Regular Rate, Regular Rhythm GI/Abdominal Exam: Soft, Non-Tender Extremities: No Pedal Edema Sepsis Event Note - Evaluation Sepsis Screening Result: No Definite Risk - Focused Exam Vital Signs: Vital Signs Temp Pulse Resp BP BP Pulse Ox 05/12/20 18:42 97.9 F 60 16 178/74 H 93 L 05/12/20 11:00 97.9 F 65 18 134/60 92 L 05/12/20 07:00 98 F 60 16 182/79 H 93 L - Problem List Review Problem List Initiated/Reviewed/Updated: Yes - My Orders Last 24 Hours: My Active Orders 05/12/20 08:24 bisacodyL [Dulcolax] 10 mg RECTAL DAILY PRN 05/12/20 12:00 Phosphorus #1 [Neutra-Phos] 250 mg PO QID 05/13/20 05:11 BASIC METABOLIC PANEL,BMP [CHEM] AM CBC WITH AUTO DIFF [HEME] AM VITAMIN D,25-HYDROXY [CHEM] AM - Plan Plan:: Pyelonephritis/UTI- IV Levaquin Q48, cont NS 100ml/hr, , Zofran 4mg PRN, PPI 40mg QD, Heparin 5000 Q8hr COPD- Duonebs PRN, Oxygen support, (patient does not require oxygen at home). [place], hypoxia resolved Chronic lower back pain- Patient was educated that her pain medications, soma and oxycodone, dosages are very high which can lead to serious side effects. Patient understands but states that she has been taking the same dosages for years. Patient was given IV morphine and IV Toradol but states that her pain is not controlled. Soma 350mg TID PRN and OxyCodone 10mg Q8 PRN, was resumed, will change oxycodone to Q6 her home dose. Monitor closely for respiratory depression. Started lidocaine patch HTN- Lisinopril/HCTZ 10mg/12.5mg PT consult, SW consult Patient to be discharged tomorrow pending assessment and lab results.
[2020-05-12] MEDS: traZODone 50 MG Tab PO PRN (21:04)
[2020-05-13] MEDS: Phosphorus #1 250 MG Tab PO SCH ×3 (00:16→13:08)
[2020-05-13] MEDS: Heparin Sodium 5,000 Units/ML Vial SUBCUT SCH ×2 (00:17→09:13)
[2020-05-13] MEDS: Acetaminophen 325 MG Tab PO PRN ×2 (04:23→09:11)
[2020-05-13] MEDS: Ondansetron 4 MG/2 ML SDV IVPUSH PRN ×2 (05:16→09:10)
[2020-05-13] MEDS: busPIRone 5 MG Tab PO SCH ×2 (05:21→14:25)
[2020-05-13] MEDS: oxyCODONE 5 MG Tab PO PRN ×2 (06:20→12:38)
[2020-05-13] MEDS: Sodium Chloride 0.9% 1,000 ML IV SCH (06:24)
[2020-05-13 07:35] LABS: CARBON DIOXIDE,CO2 25.1 mmol/L (21.0-32.0); POTASSIUM,K 3.7 mmol/L (3.5-5.1)
[2020-05-13] MEDS: FLUoxetine 20 MG Cap PO SCH (09:10)
[2020-05-13] MEDS: Lisinopril/Hydrochlorothiazide 10-12.5 MG Tab PO SCH (09:10)
[2020-05-13] MEDS: buPROPion 150 MG Tab.ER PO SCH (09:11)
[2020-05-13] MEDS: Magnesium Oxide 400 MG Tab PO SCH (09:12)
[2020-05-13 12:04] VITALS: BP 136/75; PULSE 56
[2020-05-13] MEDS: Lidocaine 5% 700 MG Patch TOP SCH (13:08)
--- NOTE | 2020-05-13 14:12 | PCM.DCSUM1 ---
<HanhNaveed call - Last Filed: 05/13/20 14:16> Discharge Summary - Hospital Course Free Text/Narrative:: 64-year-old female admitted for UTI, Acute COPD exacerbation and generalized weakness. Patient presented to the ED via EMS due to generalized weakness, increase falls, and decreased appetite for 1 week. Patient also states that she was having right flank pain for one month. Denies any history of CAD, CHF, A- Fib. Denies history of PE, DVT. Denies history of any bleeding disorders. Patient states smoking 6 cigarettes/day currently. Patient was treated with IV Levaquin and IV fluids for pyelonephritis, urine culture grew Serratia Marcescens bacteria. Discharged home with 1 dose Levaquin q48 hours. Patient to resume all home medications as previously prescribed. - Discharge Data Discharge Date: 05/13/20 Discharge Disposition: Home, Self-Care 01 Condition: Fair - Referral to Home Health Primary Care Physician: PCP None - Patient Summary/Data Consults: Consultations 05/10/20 13:22 Consult to Case Management/Web Weaver [CONS] Routine PT Evaluation and Treatment [CONS] Routine 05/13/20 12:59 Consult to Home Care [Consult to Home Health] [CONS] Routine - Patient Instructions Diet: Usual Diet as Tolerated Activity: As Tolerated Driving: Do Not Drive Showering/Bathing: May Shower Notify Provider of: Fever, Increased Pain, Swelling and Redness, Drainage, N ausea and/or Vomiting Other/Special Instructions: HOME HEALTH. Patient to take 1 tablet of Levaquin on 05-14-20 - Discharge Plan Prescriptions/Med Rec: levoFLOXacin [Levaquin] 750 mg PO Q48H 1 Days #1 tab Home Medications: Home Meds Estazolam [Prosom] 2 mg PO BEDTIME 10/25/17 [History] Umeclidinium Brm/Vilanterol Tr [Anoro Ellipta 62.5-25 MCG] 1 each IH DAILY 02/26/19 [History] Albuterol [Ventolin HFA] 1 puff INH Q4H PRN #1 inhaler 04/22/19 [Rx] traZODone HCl [Trazodone HCl] 300 mg PO BEDTIME PRN 07/07/19 [History] Naloxone HCl [Narcan] 1 spray NASBOTH .FOR SEDATION PRN 07/08/19 [History] Lisinopril/Hydrochlorothiazide [Lisinopril-HCTZ 10-12.5 MG] 10 - 12.5 mg PO QAM 11/11/19 [History] carisoprodoL [Soma] 350 mg PO TID PRN 11/11/19 [History] oxyCODONE 10 mg PO Q6H PRN tablet 11/13/19 [Rx] FLUoxetine [PROzac] 40 mg PO QAM 05/08/20 [History] Magnesium Oxide 250 mg PO DAILY 05/08/20 [History] OXcarbazepine [Trileptal] 150 mg PO BID 05/08/20 [History] buPROPion HCL [Bupropion Xl] 150 mg PO QAM 05/08/20 [History] busPIRone [Buspar] 10 mg PO TID 05/08/20 [History] hydrOXYzine pamoate [Hydroxyzine Pamoate] 25 mg PO BID 05/08/20 [History] tiZANidine [Zanaflex] 2 mg PO TID PRN 05/08/20 [History] Celecoxib 200 mg PO DAILY 05/11/20 [History] levoFLOXacin [Levaquin] 750 mg PO Q48H 1 Days #1 tab 05/13/20 [Rx] Patient Handouts: Weakness, [id number], Chronic Obstructive Pulmonary Disease, [id number], Urinary Tract Infection, Adult, [id number], Levofloxacin tablets Referrals: Medardo Calvin MD [Ordering Only Provider] - 05/22/20 10:30 am - Discharge Summary/Plan Comment DC Time >30 min.: Yes - General Info Subjective Update: Patient states that she feels better this morning and denies fever, chills, nausea, vomiting. atient denies right flank pain and states that she is ready to go home - Review of Systems General: Denies: Fever, Chills Pulmonary: Denies: Shortness of Breath, Pleuritic Chest Pain, Cough Cardiovascular: Denies: Chest Pain, Dyspnea on Exertion Gastrointestinal: Denies: Abdominal Pain, Diarrhea, Nausea, Vomiting Genitourinary: Denies: Dysuria, Frequency, Burning Neurological: Denies: Confusion, Dizziness, Headache - Patient Data Vitals - Most Recent: Last Vital Signs Temp 98.3 F 05/13/20 12:00 Pulse 56 L 05/13/20 12:00 Resp 16 05/13/20 12:00 BP 136/75 05/13/20 12:00 Pulse Ox 93 L 05/13/20 12:00 Weight - Most Recent: 49.895 kg I&O - Last 24 hours: Intake & Output 05/12/20 05/13/20 05/13/20 22:59 06:59 14:59 Intake Total 850 1913 Output Total 1240 Balance 850 673 Lab Results - Last 24 hrs: Laboratory Results - last 24 hr 05/13/20 05/13/20 05/13/20 Range/Units 06:56 06:56 06:56 WBC 6.86 (4.0-11.0) K/uL RBC 3.82 L (4.30-5.90) M/uL Hgb 11.4 L (12.0-16.0) g/dL Hct 34.4 L (36.0-46.0) % MCV 90.1 (80.0-98.0) fL MCH 29.8 (27.0-32.0) pg MCHC 33.1 (31.0-37.0) g/dL RDW Std Deviation 46.4 (28.0-62.0) fl RDW Coeff of Ene 14 (11.0-15.0) % Plt Count 250 (150-400) K/uL MPV 9.20 (7.40-12.00) fL Neut % (Auto) 48.0 (48.0-80.0) % Lymph % (Auto) 42.3 H (16.0-40.0) % [place] % (Auto) 7.9 (0.0-15.0) % Eos % (Auto) 1.2 (0.0-7.0) % Baso % (Auto) 0.6 (0.0-1.5) % Neut # (Auto) 3.3 (1.4-5.7) K/uL Lymph # (Auto) 2.9 H (0.6-2.4) K/uL [place] # (Auto) 0.5 (0.0-0.8) K/uL Eos # (Auto) 0.1 (0.0-0.7) K/uL Baso # (Auto) 0.0 (0.0-0.1) K/uL Nucleated RBC % 0.0 /100WBC Nucleated RBCs # 0 K/uL Sodium 141 (136-145) mmol/L Potassium 3.7 (3.5-5.1) mmol/L Chloride 109 H (98-107) mmol/L Carbon Dioxide 25.1 (21.0-32.0) mmol/L BUN 23 H (7.0-18.0) mg/dL Creatinine 1.3 H (0.6-1.0) mg/dL Est Cr Clr Drug Dosing 33.98 mL/min Estimated GFR (MDRD) 41.1 ml/min Glucose 102 (74-106) mg/dL Calcium 9.0 (8.5-10.1) mg/dL Phosphorus 3.0 (2.6-4.7) mg/dL Vitamin D 25-Hydroxy 18.7 L (30.0-100.0) ng/mL Med Orders - Current: Current Medications Acetaminophen (Tylenol) 650 mg PO Q4H PRN PRN Reason: Pain (Mild 1-3)/fever Last Admin: 05/13/20 09:11 Dose: 650 mg Documented by: Albuterol/Ipratropium (Duoneb 3.0-0.5 Mg/3 Ml) 3 ml NEB Q4HRRT PRN PRN Reason: Shortness Of Breath/wheezing Last Admin: 05/10/20 01:57 Dose: 3 ml Documented by: Bisacodyl (Dulcolax) 10 mg RECTAL DAILY PRN PRN Reason: Constipation Last Admin: 05/12/20 08:39 Dose: 10 mg Documented by: Bupropion HCl (Wellbutrin Xl) 150 mg PO DAILY [facility] Last Admin: 05/13/20 09:11 Dose: 150 mg Documented by: Buspirone HCl (Buspar) 10 mg PO TID [facility] Last Admin: 05/13/20 05:21 Dose: 10 mg Documented by: Carisoprodol (Soma) 350 mg PO TID PRN PRN Reason: FOR MUSCLE SPASMS Last Admin: 05/13/20 13:09 Dose: 350 mg Documented by: Docusate Sodium (Colace) 100 mg PO BID PRN PRN Reason: Constipation Last Admin: 05/10/20 15:23 Dose: 100 mg Documented by: Fluoxetine HCl (Prozac) 40 mg PO QAM [facility] Last Admin: 05/13/20 09:10 Dose: 40 mg Documented by: Lisinopril/HCTZ (Lisinopril-Hctz 10-12.5 Mg) 1 tab PO DAILY [facility] Last Admin: 05/13/20 09:10 Dose: 1 tab Documented by: Heparin Sodium (Porcine) (Heparin Sodium) 5,000 units SUBCUT Q8H [facility] Last Admin: 05/13/20 09:13 Dose: Not Given Documented by: Sodium Chloride (Normal Saline) 1,000 mls @ 75 mls/hr IV ASDIRECTED [facility] Last Admin: 05/13/20 06:24 Dose: 100 mls/hr Documented by: Pantoprazole Sodium 40 mg/ (Sodium Chloride) 10 mls @ 300 mls/hr IV Q24H [facility] Last Admin: 05/12/20 18:21 Dose: 300 mls/hr Documented by: Sodium Chloride (Normal Saline) 500 mls @ 999 mls/hr IV .BOLUS [facility] Last Admin: 05/09/20 10:18 Dose: 999 mls/hr Documented by: Levofloxacin/Dextrose 750 mg/ (Premix) 150 mls @ 100 mls/hr IV Q48H [facility] Last Admin: 05/12/20 10:43 Dose: 100 mls/hr Documented by: Lidocaine (Lidoderm 5%) 700 mg TOP Q24H [facility] Last Admin: 05/13/20 13:08 Dose: 700 mg Documented by: Loratadine (Claritin) 10 mg PO DAILY PRN PRN Reason: Rhinitis Last Admin: 05/12/20 05:49 Dose: 10 mg Documented by: Magnesium Oxide (Magnesium Oxide) 400 mg PO DAILY [facility] Last Admin: 05/13/20 09:12 Dose: 400 mg Documented by: Ondansetron HCl (Zofran) 4 mg IVPUSH Q4H PRN PRN Reason: Nausea Last Admin: 05/13/20 09:10 Dose: 4 mg Documented by: Oxycodone HCl (Oxycodone) 10 mg PO Q6H PRN PRN Reason: Pain Last Admin: 05/13/20 12:38 Dose: 10 mg Documented by: Umeclidinium Brm/Vilanterol Tr [Anoro Ellipta 62.5-25 Mcg 1 each INH DAILY [facility] Last Admin: 05/13/20 09:14 Dose: Not Given Documented by: Naloxone Hcl [Narcan (] 1 [place]) 1 each RIKKI DAILY PRN PRN Reason: Sedation Sodium Chloride ([place] Nasal [place]) 0 ml RIKKI Q2H PRN PRN Reason: Constipation Last Admin: 05/11/20 19:55 Dose: 1 spray Documented by: Sodium Phosphate (Neutra-Phos) 250 mg PO QID [facility] Last Admin: 05/13/20 13:08 Dose: 250 mg Documented by: Tizanidine HCl (Zanaflex) 2 mg PO TID PRN PRN Reason: MUSCLE SPASM Last Admin: 05/09/20 23:42 Dose: 2 mg Documented by: Trazodone HCl (Trazodone) 300 mg PO DAILY PRN PRN Reason: Insomnia Last Admin: 05/12/20 21:04 Dose: 300 mg Documented by: Discontinued Medications Bupropion HCl (Wellbutrin Xl) 150 mg PO DAILY [facility] Buspirone HCl (Buspar) 10 mg PO TID [facility] Enoxaparin Sodium (Lovenox) 40 mg SUBCUT Q24H [facility] Last Admin: 05/08/20 20:21 Dose: Not Given Documented by: Enoxaparin Sodium (Lovenox) 30 mg SUBCUT Q24H [facility] Last Admin: 05/08/20 17:18 Dose: 30 mg Documented by: Lisinopril/HCTZ (Lisinopril-Hctz 10-12.5 Mg) 1 tab PO QAM [facility] Ceftriaxone Sodium/Dextrose 1 (gm/ Premix) 50 mls @ 100 mls/hr IV ONETIME ONE Stop: 05/08/20 12:16 Last Admin: 05/08/20 12:19 Dose: 100 mls/hr Documented by: Sodium Chloride (Normal Saline) 1,000 mls @ 100 mls/hr IV ASDIRECTED [facility] Last Admin: 05/08/20 12:19 Dose: 100 mls/hr Documented by: Lactated Ringer's (Ringers, Lactated) 1,000 mls @ 125 mls/hr IV ASDIRECTED [facility] Ceftriaxone Sodium/Dextrose 1 (gm/ Premix) 50 mls @ 100 mls/hr IV Q24H [facility] Ceftriaxone Sodium/Dextrose 1 (gm/ Premix) 50 mls @ 100 mls/hr IV ONETIME ONE Stop: 05/08/20 19:06 Last Admin: 05/08/20 19:14 Dose: 100 mls/hr Documented by: Ceftriaxone Sodium/Dextrose 1 (gm/ Premix) 50 mls @ 100 mls/hr IV Q24H [facility] Ceftriaxone Sodium/Dextrose 2 (gm/ Premix) 50 mls @ 100 mls/hr IV Q24H [facility] Last Admin: 05/09/20 18:11 Dose: 100 mls/hr Documented by: Magnesium Sulfate (Magnesium Sulfate In Water Premix) 2 gm in 50 mls @ 50 mls/hr IV ONETIME ONE Stop: 05/11/20 09:26 Last Admin: 05/11/20 08:43 Dose: 50 mls/hr Documented by: Ketorolac Tromethamine (Toradol) 30 mg IVPUSH ONETIME ONE Stop: 05/08/20 13:19 Last Admin: 05/08/20 13:32 Dose: Not Given Documented by: Ketorolac Tromethamine (Toradol) 30 mg IVPUSH Q8H PRN PRN Reason: Pain Stop: 05/13/20 22:35 Last Admin: 05/09/20 04:13 Dose: 30 mg Documented by: Lidocaine (Lidoderm 5%) 700 mg TOP Q24H [facility] Last Admin: 05/11/20 12:01 Dose: 700 mg Documented by: Methylprednisolone Sodium Succinate (Solu-Medrol) 125 mg IVPUSH ONETIME ONE Stop: 05/08/20 14:15 Last Admin: 05/08/20 14:34 Dose: 125 mg Documented by: Morphine Sulfate (Morphine) 2 mg IVPUSH ONETIME ONE Stop: 05/08/20 16:21 Last Admin: 05/08/20 16:36 Dose: 2 mg Documented by: Morphine Sulfate (Morphine) 2 mg IVPUSH Q6H PRN PRN Reason: Pain (severe 7-10) Last Admin: 05/08/20 22:18 Dose: 2 mg Documented by: Oxycodone HCl (Oxycodone) 10 mg PO Q8H PRN PRN Reason: Pain (severe 7-10) Last Admin: 05/10/20 06:06 Dose: 10 mg Documented by: Phenazopyridine HCl (Pyridium) 200 mg PO ONETIME ONE Stop: 05/08/20 13:23 Last Admin: 05/08/20 13:32 Dose: 200 mg Documented by: Polyethylene Glycol (Miralax) 17 gm PO ONETIME ONE Stop: 05/11/20 10:37 Last Admin: 05/11/20 12:01 Dose: 17 gm Documented by: Sodium Phosphate (Neutra-Phos) 250 mg PO BID [facility] Stop: 05/11/20 21:01 Last Admin: 05/11/20 20:07 Dose: 250 mg Documented by: Trazodone HCl (Trazodone) 150 mg PO Q24H [facility] Trazodone HCl (Trazodone) 150 mg PO DAILY PRN PRN Reason: Insomnia Last Admin: 05/10/20 22:07 Dose: 150 mg Documented by: - Exam General: Reports: Alert, Oriented Lungs: Reports: Clear to Auscultation, Normal Respiratory Effort Cardiovascular: Reports: Regular Rate, Regular Rhythm GI/Abdominal Exam: Normal Bowel Sounds, Soft, Non-Tender Back Exam: Denies: CVA Tenderness (L), CVA Tenderness (R) Extremities: No Pedal Edema Psy/Mental Status: Reports: Alert <Vin Pritchett - Last Filed: 05/14/20 12:10> Discharge Summary - Referral to Home Health Primary Care Physician: PCP None - Patient Summary/Data Consults: Consultations 05/10/20 13:22 Consult to Case Management/Web Weaver [CONS] Routine PT Evaluation and Treatment [CONS] Routine 05/13/20 12:59 Consult to Home Care [Consult to Home Health] [CONS] Routine - Patient Data Vitals - Most Recent: Last Vital Signs Temp 36.8 C 05/13/20 12:00 Pulse 56 L 05/13/20 12:00 Resp 16 05/13/20 12:00 BP 136/75 05/13/20 12:00 Pulse Ox 93 L 05/13/20 12:00 Med Orders - Current: Current Medications Discontinued Medications Acetaminophen (Tylenol) 650 mg PO Q4H PRN PRN Reason: Pain (Mild 1-3)/fever Last Admin: 05/13/20 09:11 Dose: 650 mg Documented by: Albuterol/Ipratropium (Duoneb 3.0-0.5 Mg/3 Ml) 3 ml NEB Q4HRRT PRN PRN Reason: Shortness Of Breath/wheezing Last Admin: 05/10/20 01:57 Dose: 3 ml Documented by: Bisacodyl (Dulcolax) 10 mg RECTAL DAILY PRN PRN Reason: Constipation Last Admin: 05/12/20 08:39 Dose: 10 mg Documented by: Bupropion HCl (Wellbutrin Xl) 150 mg PO DAILY [facility] Bupropion HCl (Wellbutrin Xl) 150 mg PO DAILY [facility] Last Admin: 05/13/20 09:11 Dose: 150 mg Documented by: Buspirone HCl (Buspar) 10 mg PO TID [facility] Buspirone HCl (Buspar) 10 mg PO TID [facility] Last Admin: 05/13/20 14:25 Dose: 10 mg Documented by: Carisoprodol (Soma) 350 mg PO TID PRN PRN Reason: FOR MUSCLE SPASMS Last Admin: 05/13/20 13:09 Dose: 350 mg Documented by: Docusate Sodium (Colace) 100 mg PO BID PRN PRN Reason: Constipation Last Admin: 05/10/20 15:23 Dose: 100 mg Documented by: Enoxaparin Sodium (Lovenox) 40 mg SUBCUT Q24H [facility] Last Admin: 05/08/20 20:21 Dose: Not Given Documented by: Enoxaparin Sodium (Lovenox) 30 mg SUBCUT Q24H [facility] Last Admin: 05/08/20 17:18 Dose: 30 mg Documented by: Fluoxetine HCl (Prozac) 40 mg PO QAM [facility] Last Admin: 05/13/20 09:10 Dose: 40 mg Documented by: Lisinopril/HCTZ (Lisinopril-Hctz 10-12.5 Mg) 1 tab PO QAM [facility] Lisinopril/HCTZ (Lisinopril-Hctz 10-12.5 Mg) 1 tab PO DAILY [facility] Last Admin: 05/13/20 09:10 Dose: 1 tab Documented by: Heparin Sodium (Porcine) (Heparin Sodium) 5,000 units SUBCUT Q8H [facility] Last Admin: 05/13/20 09:13 Dose: Not Given Documented by: Ceftriaxone Sodium/Dextrose 1 (gm/ Premix) 50 mls @ 100 mls/hr IV ONETIME ONE Stop: 05/08/20 12:16 Last Admin: 05/08/20 12:19 Dose: 100 mls/hr Documented by: Sodium Chloride (Normal Saline) 1,000 mls @ 100 mls/hr IV ASDIRECTED [facility] Last Admin: 05/08/20 12:19 Dose: 100 mls/hr Documented by: Lactated Ringer's (Ringers, Lactated) 1,000 mls @ 125 mls/hr IV ASDIRECTED [facility] Sodium Chloride (Normal Saline) 1,000 mls @ 75 mls/hr IV ASDIRECTED [facility] Last Admin: 05/13/20 06:24 Dose: 100 mls/hr Documented by: Ceftriaxone Sodium/Dextrose 1 (gm/ Premix) 50 mls @ 100 mls/hr IV Q24H [facility] Pantoprazole Sodium 40 mg/ (Sodium Chloride) 10 mls @ 300 mls/hr IV Q24H [facility] Last Admin: 05/12/20 18:21 Dose: 300 mls/hr Documented by: Ceftriaxone Sodium/Dextrose 1 (gm/ Premix) 50 mls @ 100 mls/hr IV ONETIME ONE Stop: 05/08/20 19:06 Last Admin: 05/08/20 19:14 Dose: 100 mls/hr Documented by: Ceftriaxone Sodium/Dextrose 1 (gm/ Premix) 50 mls @ 100 mls/hr IV Q24H [facility] Sodium Chloride (Normal Saline) 500 mls @ 999 mls/hr IV .BOLUS [facility] Last Admin: 05/09/20 10:18 Dose: 999 mls/hr Documented by: Ceftriaxone Sodium/Dextrose 2 (gm/ Premix) 50 mls @ 100 mls/hr IV Q24H [facility] Last Admin: 05/09/20 18:11 Dose: 100 mls/hr Documented by: Levofloxacin/Dextrose 750 mg/ (Premix) 150 mls @ 100 mls/hr IV Q48H [facility] Last Admin: 05/12/20 10:43 Dose: 100 mls/hr Documented by: Magnesium Sulfate (Magnesium Sulfate In Water Premix) 2 gm in 50 mls @ 50 mls/hr IV ONETIME ONE Stop: 05/11/20 09:26 Last Admin: 05/11/20 08:43 Dose: 50 mls/hr Documented by: Ketorolac Tromethamine (Toradol) 30 mg IVPUSH ONETIME ONE Stop: 05/08/20 13:19 Last Admin: 05/08/20 13:32 Dose: Not Given Documented by: Ketorolac Tromethamine (Toradol) 30 mg IVPUSH Q8H PRN PRN Reason: Pain Stop: 12/02/20 22:35 Last Admin: 05/09/20 04:13 Dose: 30 mg Documented by: Lidocaine (Lidoderm 5%) 700 mg TOP Q24H [facility] Last Admin: 05/11/20 12:01 Dose: 700 mg Documented by: Lidocaine (Lidoderm 5%) 700 mg TOP Q24H [facility] Last Admin: 05/13/20 13:08 Dose: 700 mg Documented by: Loratadine (Claritin) 10 mg PO DAILY PRN PRN Reason: Rhinitis Last Admin: 05/12/20 05:49 Dose: 10 mg Documented by: Magnesium Oxide (Magnesium Oxide) 400 mg PO DAILY [facility] Last Admin: 05/13/20 09:12 Dose: 400 mg Documented by: Methylprednisolone Sodium Succinate (Solu-Medrol) 125 mg IVPUSH ONETIME ONE Stop: 05/08/20 14:15 Last Admin: 05/08/20 14:34 Dose: 125 mg Documented by: Morphine Sulfate (Morphine) 2 mg IVPUSH ONETIME ONE Stop: 05/08/20 16:21 Last Admin: 05/08/20 16:36 Dose: 2 mg Documented by: Morphine Sulfate (Morphine) 2 mg IVPUSH Q6H PRN PRN Reason: Pain (severe 7-10) Last Admin: 05/08/20 22:18 Dose: 2 mg Documented by: Ondansetron HCl (Zofran) 4 mg IVPUSH Q4H PRN PRN Reason: Nausea Last Admin: 05/13/20 09:10 Dose: 4 mg Documented by: Oxycodone HCl (Oxycodone) 10 mg PO Q8H PRN PRN Reason: Pain (severe 7-10) Last Admin: 05/10/20 06:06 Dose: 10 mg Documented by: Oxycodone HCl (Oxycodone) 10 mg PO Q6H PRN PRN Reason: Pain Last Admin: 05/13/20 12:38 Dose: 10 mg Documented by: Umeclidinium Brm/Vilanterol Tr [Anoro Ellipta 62.5-25 Mcg 1 each INH DAILY [facility] Last Admin: 05/13/20 09:14 Dose: Not Given Documented by: Naloxone Hcl [Narcan (] 1 [place]) 1 each RIKKI DAILY PRN PRN Reason: Sedation Phenazopyridine HCl (Pyridium) 200 mg PO ONETIME ONE Stop: 05/08/20 13:23 Last Admin: 05/08/20 13:32 Dose: 200 mg Documented by: Polyethylene Glycol (Miralax) 17 gm PO ONETIME ONE Stop: 05/11/20 10:37 Last Admin: 05/11/20 12:01 Dose: 17 gm Documented by: Sodium Chloride ([place] Nasal [place]) 0 ml RIKKI Q2H PRN PRN Reason: Constipation Last Admin: 05/11/20 19:55 Dose: 1 spray Documented by: Sodium Phosphate (Neutra-Phos) 250 mg PO BID [facility] Stop: 05/11/20 21:01 Last Admin: 05/11/20 20:07 Dose: 250 mg Documented by: Sodium Phosphate (Neutra-Phos) 250 mg PO QID [facility] Last Admin: 05/13/20 13:08 Dose: 250 mg Documented by: Tizanidine HCl (Zanaflex) 2 mg PO TID PRN PRN Reason: MUSCLE SPASM Last Admin: 05/09/20 23:42 Dose: 2 mg Documented by: Trazodone HCl (Trazodone) 150 mg PO Q24H [facility] Trazodone HCl (Trazodone) 150 mg PO DAILY PRN PRN Reason: Insomnia Last Admin: 05/10/20 22:07 Dose: 150 mg Documented by: Trazodone HCl (Trazodone) 300 mg PO DAILY PRN PRN Reason: Insomnia Last Admin: 05/12/20 21:04 Dose: 300 mg Documented by: - Free Text/Narrative Note: I have seen and evaluated the patient. I have discussed findings and treatment plan with resident. I agree with the assessment and plan in the following note.
== END 2020-05-13 14:50 | disposition home or self-care (01) | DRG 191 ==
LOC: MW.ED 10:10 → UNDOADMOB 13:55 → MW.MS 13:55 → OBSVTOIN 05-10 11:00 → MW.MS 05-10 12:34
PROVIDERS: ADMIT Student in an Organized Health Care Education/Training Program; ATTEND Student in an Organized Health Care Education/Training Program
DX: N30.00 Acute cystitis without hematuria (principal); J44.1 Chronic obstructive pulmonary disease with (acute) exacerbation; N12 Tubulo-interstitial nephritis, not specified as acute or chronic; R53.1 Weakness; R29.6 Repeated falls; Z91.81 History of falling; E78.00 Pure hypercholesterolemia, unspecified; G89.29 Other chronic pain; M54.9 Dorsalgia, unspecified; F17.210 Nicotine dependence, cigarettes, uncomplicated; B96.89 Other specified bacterial agents as the cause of diseases classified elsewhere; Z85.828 Personal history of other malignant neoplasm of skin; Z88.0 Allergy status to penicillin; Z88.1 Allergy status to other antibiotic agents; Z88.8 Allergy status to other drugs, medicaments and biological substances; Z88.6 Allergy status to analgesic agent; Z79.899 Other long term (current) drug therapy; E78.5 Hyperlipidemia, unspecified; M25.559 Pain in unspecified hip; Z86.73 Personal history of transient ischemic attack (TIA), and cerebral infarction without residual deficits; F32.9 Major depressive disorder, single episode, unspecified; M54.5 Low back pain; R09.02 Hypoxemia; F41.9 Anxiety disorder, unspecified; Z20.828 Contact with and (suspected) exposure to other viral communicable diseases
CPT/HCPCS: 36415 ×3; 71045; 72170; 74176; 80048 ×2; 80053; 81001; 83690; 83735 ×2; 84484; 85025 ×3; 85379; 87086; 87088; 87186; 93005; 99285; A9270 ×28; C9113 ×2; J0696 ×3; J1644 ×4; J1650; J1885; J2270 ×2; J2405; J2930; J7030 ×6; J7040; U0002; 80076; 82306; 84100; 93010; 96365; 96372; 96375; 96376; 97161-GP; 97530-GP; G0378; J1956; J3475; J7620-GY

== ENCOUNTER 2020-05-22 01:04 | Emergency (ER) | payer MEDICARE, MEDICAID ==
--- NOTE | 2020-05-22 01:36 | EDM.PDOC ---
ED HPI GENERAL MEDICAL PROBLEM - General Chief Complaint: Upper Extremity Injury/Pain Stated Complaint: RIGHT SHOULDER PAIN Time Seen by Provider: 05/22/20 01:07 Source of Information: Reports: Patient History Limitations: Reports: No Limitations - History of Present Illness INITIAL COMMENTS - FREE TEXT/NARRATIVE: 64-year-old female presents with acute onset right shoulder pain while pushing her wheelchair into the laundry room. Pain is moderate, constant, nonradiating, sharp, exacerbated with movement, alleviated with immobilization. ROS: A 10-point review of systems, other than pertinent positives and negatives as stated per HPI, is otherwise negative Past medical history: No additional pertinent history Past Surgical history: No additional pertinent history Social history: No additional pertinent history Family history: No additional pertinent history PHYSICAL EXAM General: AOx4, GCS = 15, mild distress HEENT: dry mucous membrane Neck: supple, no meningismus, no Kernig or Brudzinski Cardiac: S1S2 RRR Respiratory: CTAB, no crackles or rales, no wheezing Abdomen: Soft, nontender, no rebound or guarding, nondistended, no pulsatile mass. Back: nontender Musculoskeletal: NVI distally, no deformity, TTP to right shoulder rotator cuff Neuro: No focal deficits, CN 2 - 12 WNL. Right Shoulder Pain Score (Numeric/FACES): 9 - Related Data Allergies Allergy/AdvReac Type Severity Reaction Status Date / Time erythromycin lactobionate Allergy Unknown Itching Verified 05/22/20 01:05 [From Erythrocin] mirtazapine [From Remeron] Allergy Unknown Itching Verified 05/22/20 01:05 Penicillins Allergy Unknown Hives Verified 05/22/20 01:05 tramadol Allergy Tremors Verified 05/22/20 01:05 Home Meds: Home Meds Estazolam [Prosom] 2 mg PO BEDTIME 10/25/17 [History] Umeclidinium Brm/Vilanterol Tr [Anoro Ellipta 62.5-25 MCG] 1 each IH DAILY 02/26/19 [History] Albuterol [Ventolin HFA] 1 puff INH Q4H PRN #1 inhaler 04/22/19 [Rx] traZODone HCl [Trazodone HCl] 300 mg PO BEDTIME PRN 07/07/19 [History] Naloxone HCl [Narcan] 1 spray NASBOTH .FOR SEDATION PRN 07/08/19 [History] Lisinopril/Hydrochlorothiazide [Lisinopril-HCTZ 10-12.5 MG] 10 - 12.5 mg PO QAM 11/11/19 [History] carisoprodoL [Soma] 350 mg PO TID PRN 11/11/19 [History] oxyCODONE 10 mg PO Q6H PRN tablet 11/13/19 [Rx] FLUoxetine [PROzac] 40 mg PO QAM 05/08/20 [History] Magnesium Oxide 250 mg PO DAILY 05/08/20 [History] OXcarbazepine [Trileptal] 150 mg PO BID 05/08/20 [History] buPROPion HCL [Bupropion Xl] 150 mg PO QAM 05/08/20 [History] busPIRone [Buspar] 10 mg PO TID 05/08/20 [History] hydrOXYzine pamoate [Hydroxyzine Pamoate] 25 mg PO BID 05/08/20 [History] tiZANidine [Zanaflex] 2 mg PO TID PRN 05/08/20 [History] Celecoxib 200 mg PO DAILY 05/11/20 [History] levoFLOXacin [Levaquin] 750 mg PO Q48H 1 Days #1 tab 05/13/20 [Rx] Naproxen [Naprosyn] 500 mg PO Q12HR #30 tab 05/22/20 [Rx] Past Medical History - Past Health History Medical/Surgical History: Denies Medical/Surgical History HEENT History: Reports: None Cardiovascular History: Reports: High Cholesterol, Hypertension Respiratory History: Reports: COPD Gastrointestinal History: Reports: None Genitourinary History: Reports: None 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 Oconnor monthly Endocrine/Metabolic History: Reports: None Hematologic History: Reports: None Immunologic History: Reports: None Oncologic (Cancer) History: Reports: Other (See Below) Other Oncologic History: skin ca Dermatologic History: Reports: None Other Dermatologic History: "skin cancer" - Infectious Disease History Infectious Disease History: Reports: Chicken Pox, Measles, Mumps - Past Surgical History Head Surgeries/Procedures: Reports: None HEENT Surgical History: Reports: None Cardiovascular Surgical History: Reports: None Respiratory Surgical History: Reports: None GI Surgical History: Reports: None Female Surgical History: Reports: None Endocrine Surgical History: Reports: None Neurological Surgical History: Reports: Lumbar Spine Musculoskeletal Surgical History: Reports: Other (See Below) Other Musculoskeletal Surgeries/Procedures:: L wrist, back surgery Oncologic Surgical History: Reports: None Dermatological Surgical History: Reports: None Social & Family History - Family History Family Medical History: No Pertinent Family History Respiratory: Reports: COPD OBGYN: Reports: Musculoskeletal: Reports: Arthritis, Back pain, Chronic Neurological: Reports: CVA, TIA Psychiatric: Reports: Anxiety, Depression - Tobacco Use Tobacco Use Status *Q: Current Every Day Tobacco User Years of Tobacco use: 40 Packs/Tins Daily: 1 - Caffeine Use Caffeine Use: Reports: Soda - Recreational Drug Use Recreational Drug Use: No Review of Systems - Review of Systems Review Of Systems: See Below (see dictation) ED EXAM, GENERAL - Physical Exam Exam: See Below (see dictation) ED TRAUMA EXTREMITY PROCEDURES - Splinting Right Upper Extremity Splint Site: Right shoulder Pre-Procedure NV Status: Normal Post-Procedure NV Status: Normal Splint Material: Sling Splint Design: Sling Applied & Form Fitted By: Nurse Provider Post-Splint Application NV Check: NV Status Normal, Good Position Complications: No Complication Description: Splint: Sling. Indication: Shoulder strain. How will this benefit patient: immobilization. Duration: 7 days Course - Vital Signs Last Recorded V/S: Last Vital Signs Temp 99.3 F 05/22/20 01:06 Pulse 83 05/22/20 01:06 Resp 16 05/22/20 01:06 BP 179/82 H 05/22/20 01:06 Pulse Ox 94 L 05/22/20 01:06 - Orders/Labs/Meds Orders: Active Orders 24 hr Category Date Time Status Shoulder Comp Rt [CR] Stat Exams 05/22/20 01:18 Ordered DME for Discharge [COMM] Stat Oth 05/22/20 01:31 Ordered Meds: Medications Discontinued Medications Generic Name Dose Route Start Last Admin Trade Name Makeda PRN Reason Stop Dose Admin Fentanyl 50 mcg 05/22/20 02:06 05/22/20 02:12 Fentanyl IM 05/22/20 02:07 Not Given ONETIME ONE Naproxen 500 mg 05/22/20 02:13 Naprosyn PO 05/22/20 02:14 ONETIME ONE - Re-Assessments/Exams Free Text/Narrative Re-Assessment/Exam: 05/22/20 02:20 After sling placement in the ER, the patient improved and is currently stable for discharge. I performed a repeat exam and did not appreciate new abnormal findings. Patient exhibits normal vital signs, her pulse ox = 95% on room air with no respiratory distress.. I advised the patient to return to the ER for reevaluation if symptoms worsened, including fever, worsening pain, or any other worrisome symptoms. I instructed the patient to follow up with their PCP within 2-3 days, for referral for outpatient physical therapy. MEDICAL DECISION MAKING: I reviewed the patients past medical records, lab and radiographic findings. I discussed the case with the patient. My differential diagnosis included: rotator cuff strain, fracture, dislocation. X-ray did not demonstrate fracture, dislocation, pneumothorax. She was placed in a sling and given antiinflammatory medication. Departure - Departure Time of Disposition: 02:21 Disposition: Home, Self-Care 01 Condition: Good Clinical Impression: Shoulder injury, Rotator cuff strain - Discharge Information *PRESCRIPTION DRUG MONITORING PROGRAM REVIEWED*: Not Applicable *COPY OF PRESCRIPTION DRUG MONITORING REPORT IN PATIENT BISMARK: Not Applicable Prescriptions: Naproxen [Naprosyn] 500 mg PO Q12HR #30 tab Instructions: How To Use a Sling, [id number], Shoulder Pain, [id number], Shoulder Sprain Forms: ED Department Discharge Additional Instructions: The need for follow-up, as well as the timing and circumstances, are variable depending upon the specifics of your emergency department visit. If you don't have a primary care physician on staff, we will provide you with a referral. We always advise you to contact your personal physician following an emergency department visit to inform them of the circumstance of the visit and for follow-up with them and/or the need for any referrals to a consulting specialist. The emergency department will also refer you to a specialist when appropriate. This referral assures that you have the opportunity for follow-up care with a specialist. All of these measure are taken in an effort to provide you with optimal care, which includes your follow-up. Under all circumstances we always encourage you to contact your private physician who remains a resource for coordinating your care. When calling for follow-up care, please make the office aware that this follow-up is from your recent emergency room visit. If for any reason you are refused follow-up, please contact the [facility] Emergency Department at and asked to speak to the emergency department charge nurse. If you do not have a primary care doctor, please follow up with the clinics below within 3-5 days. [facility] - Primary Care [address] [place] [address] [address] Sepsis Event Note (ED) - Evaluation Sepsis Screening Result: No Definite Risk - Focused Exam Vital Signs: Vital Signs Temp Pulse Resp BP Pulse Ox 05/22/20 01:06 99.3 F 83 16 179/82 H 94 L - My Orders Last 24 Hours: My Active Orders 05/22/20 01:18 Shoulder Comp Rt [CR] Stat 05/22/20 01:31 DME for Discharge [COMM] Stat - Assessment/Plan Last 24 Hours: My Active Orders 05/22/20 01:18 Shoulder Comp Rt [CR] Stat 05/22/20 01:31 DME for Discharge [COMM] Stat
[2020-05-22] MEDS ORDERED: fentaNYL 50 MCG/ML SDV IM ONE (02:06)
[2020-05-22] MEDS ORDERED: Naproxen 500 MG Tab PO ONE (02:13)
--- NOTE | 2020-05-22 02:25 | CR ---
INDICATION: Patient was using her W/C, felt pain and now is unable to move shoulder TECHNIQUE: Shoulder radiograph 3 views right COMPARISON: None FINDINGS: Bone: No acute fractures or aggressive bone lesions are identified. Severe diffuse osteopenia is noted. Joint: The glenohumeral joint is unremarkable. Widening of the AC joint is present with a superior excrescence seen from the distal clavicle. This may be due to prior trauma or surgical resection. Soft tissue: Unremarkable. No radiopaque foreign bodies are seen. IMPRESSION: 1. No acute osseous injuries or abnormalities are noted. Dictated by Yunior Sanchez MD @ 05/22/2020 2:23:32 AM Dictated by: Yunior Sanchez MD @ 05/22/2020 02:23:39 (Electronically Signed)
[2020-05-22 02:58] VITALS: BP 144/75; PULSE 82
== END 2020-05-22 03:00 | disposition home or self-care (01) ==
LOC: MW.ED 01:04
DX: S46.011A Strain of muscle(s) and tendon(s) of the rotator cuff of right shoulder, initial encounter (principal); I10 Essential (primary) hypertension; J44.9 Chronic obstructive pulmonary disease, unspecified; F32.9 Major depressive disorder, single episode, unspecified; F17.210 Nicotine dependence, cigarettes, uncomplicated; Z88.1 Allergy status to other antibiotic agents; Z88.5 Allergy status to narcotic agent; Z88.0 Allergy status to penicillin; Z88.8 Allergy status to other drugs, medicaments and biological substances; Z79.899 Other long term (current) drug therapy; Z86.73 Personal history of transient ischemic attack (TIA), and cerebral infarction without residual deficits; X50.9XXA Other and unspecified overexertion or strenuous movements or postures, initial encounter
CPT/HCPCS: 73030; 99284; A9270

== ENCOUNTER 2020-05-29 13:09 | Emergency (ER) | payer MEDICARE, MEDICAID ==
[2020-05-29 13:37] VITALS: BP 97/60; PULSE 70
--- NOTE | 2020-05-29 13:40 | EDM.PDOC ---
ED HPI GENERAL MEDICAL PROBLEM - General Chief Complaint: Respiratory Problem Stated Complaint: BACK PAIN, LOW OXYGEN Time Seen by Provider: 05/29/20 13:14 Source of Information: Reports: Patient History Limitations: Reports: No Limitations - History of Present Illness INITIAL COMMENTS - FREE TEXT/NARRATIVE: HISTORY AND PHYSICAL: History of present illness: Patient is a 64-year-old female who presents emergency room today via EMS. Patient states that she was having a difficult time ambulating to her couch so she called to have assistance with moving. Patient states that the ambulance took her to the emergency room and she states that she does not want to be here at this time and she does not want to receive an evaluation. Patient states that she has been having difficulties with shortness of breath but does have COPD and states that she continues to smoke. Patient states that she does not want to receive any evaluation for her shortness of breath as she does not want to stay in the emergency room and is requesting to be discharged immediately. Patient denies fever, chills, chest pain, or cough. Denies headache, neck stiff ness, change in vision, syncope, or near syncope. Denies nausea, vomiting, abdominal pain, diarrhea, constipation, or dysuria. Has not noted any blood in urine or stool. Patient has been eating and drinking appropriately. Review of systems: As per history of present illness and below otherwise all systems reviewed and negative. Past medical history: As per history of present illness and as reviewed below otherwise noncontributo ry. Surgical history: As per history of present illness and as reviewed below otherwise noncontributory. Social history: See social history for further information Family history: As per history of present illness and as reviewed below otherwise noncontributory. Physical exam: General: Patient is alert, oriented to person, place, time, and situation, and in no acute distress. Patient laying comfortably on exam table. Patient appears older than stated age. HEENT: Atraumatic, normocephalic, pupils equal and reactive bilaterally, negative for conjunctival pallor or scleral icterus, mucous membranes moist, TMs normal bilaterally, throat clear, neck supple, nontender, trachea midline. No drooling or trismus noted. No meningeal signs. No hot potato voice noted. Lungs: Patient is hypoxic 86% on RA but breathing comfortably. Patient speaking clearly without breathlessness, no wheezing or stridor, no accessory muscle use or respiratory distress. Heart: Auscultation deferred due to current COV-ID 19 outbreak. Abdomen: Soft, nondistended, nontender. Negative for masses or hepatosplenomegaly. Negative for costovertebral tenderness. Pelvis: Stable nontender. Genitourinary: Deferred. Rectal: Deferred. Skin: Intact, warm, dry. No lesions or rashes noted. Extremities: Atraumatic, negative for cords or calf pain. Neurovascular unremarkable. Neuro: Awake, alert, oriented x 4. Cranial nerves II through XII unremarkable. Cerebellum unremarkable. Motor and sensory unremarkable throughout. Exam nonfocal. Notes: Patient is hypoxic 86% on room air and is placed on 2L NC and 94%. She is breathing comfortably throughout stay in ED and is speaking clear and coherent sentences. Patient is alert and oriented to person, place, situation, and time and is able to make medical decisions for herself. She is requesting to leave the emergency room without any further evaluation. All risks and benefits of leaving the ED as medical advice thoroughly discussed with patient including the risk of . Patient expresses understanding and requests to leave the ED. Strict return precautions were thoroughly discussed with patient. Discussed importance for follow-up with a primary care provider. Diagnostics: Patient declines Therapeutics: Patient declines Prescription: None Impression: Dyspnea Hypoxia Left against medical advice Plan: Left the emergency room AGAINST MEDICAL ADVICE Definitive disposition and diagnosis as appropriate pending reevaluation and review of above. back Pain Score (Numeric/FACES): 10 - Related Data Allergies Allergy/AdvReac Type Severity Reaction Status Date / Time erythromycin lactobionate Allergy Unknown Itching Verified 05/29/20 13:37 [From Erythrocin] mirtazapine [From Remeron] Allergy Unknown Itching Verified 05/29/20 13:37 Penicillins Allergy Unknown Hives Verified 05/29/20 13:37 tramadol Allergy Tremors Verified 05/29/20 13:37 Home Meds: Home Meds Estazolam [Prosom] 2 mg PO BEDTIME 10/25/17 [History] Umeclidinium Brm/Vilanterol Tr [Anoro Ellipta 62.5-25 MCG] 1 each IH DAILY 02/26/19 [History] Albuterol [Ventolin HFA] 1 puff INH Q4H PRN #1 inhaler 04/22/19 [Rx] traZODone HCl [Trazodone HCl] 300 mg PO BEDTIME PRN 07/07/19 [History] Naloxone HCl [Narcan] 1 spray NASBOTH .FOR SEDATION PRN 07/08/19 [History] Lisinopril/Hydrochlorothiazide [Lisinopril-HCTZ 10-12.5 MG] 10 - 12.5 mg PO QAM 11/11/19 [History] carisoprodoL [Soma] 350 mg PO TID PRN 11/11/19 [History] oxyCODONE 10 mg PO Q6H PRN tablet 11/13/19 [Rx] FLUoxetine [PROzac] 40 mg PO QAM 05/08/20 [History] Magnesium Oxide 250 mg PO DAILY 05/08/20 [History] OXcarbazepine [Trileptal] 150 mg PO BID 05/08/20 [History] buPROPion HCL [Bupropion Xl] 150 mg PO QAM 05/08/20 [History] busPIRone [Buspar] 10 mg PO TID 05/08/20 [History] hydrOXYzine pamoate [Hydroxyzine Pamoate] 25 mg PO BID 05/08/20 [History] tiZANidine [Zanaflex] 2 mg PO TID PRN 05/08/20 [History] Celecoxib 200 mg PO DAILY 05/11/20 [History] levoFLOXacin [Levaquin] 750 mg PO Q48H 1 Days #1 tab 05/13/20 [Rx] Naproxen [Naprosyn] 500 mg PO Q12HR #30 tab 05/22/20 [Rx] Past Medical History - Past Health History Medical/Surgical History: Denies Medical/Surgical History HEENT History: Reports: None Cardiovascular History: Reports: High Cholesterol, Hypertension Respiratory History: Reports: COPD Gastrointestinal History: Reports: None Genitourinary History: Reports: None 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 Oconnor monthly Endocrine/Metabolic History: Reports: None Hematologic History: Reports: None Immunologic History: Reports: None Oncologic (Cancer) History: Reports: Other (See Below) Other Oncologic History: skin ca Dermatologic History: Reports: None Other Dermatologic History: "skin cancer" - Infectious Disease History Infectious Disease History: Reports: Chicken Pox, Measles, Mumps - Past Surgical History Head Surgeries/Procedures: Reports: None HEENT Surgical History: Reports: None Cardiovascular Surgical History: Reports: None Respiratory Surgical History: Reports: None GI Surgical History: Reports: None Female Surgical History: Reports: None Endocrine Surgical History: Reports: None Neurological Surgical History: Reports: Lumbar Spine Musculoskeletal Surgical History: Reports: Other (See Below) Other Musculoskeletal Surgeries/Procedures:: L wrist, back surgery Oncologic Surgical History: Reports: None Dermatological Surgical History: Reports: None Social & Family History - Family History Family Medical History: No Pertinent Family History Respiratory: Reports: COPD OBGYN: Reports: Musculoskeletal: Reports: Arthritis, Back pain, Chronic Neurological: Reports: CVA, TIA Psychiatric: Reports: Anxiety, Depression - Caffeine Use Caffeine Use: Reports: Soda ED ROS GENERAL - Review of Systems Review Of Systems: Comprehensive ROS is negative, except as noted in HPI. ED EXAM, GENERAL - Physical Exam Exam: See Below (see dictation) Course - Vital Signs Last Recorded V/S: Last Vital Signs Temp 98.2 F 05/29/20 13:14 Pulse 70 05/29/20 13:14 Resp 19 05/29/20 13:14 BP 97/60 05/29/20 13:14 Pulse Ox 92 L 05/29/20 13:14 Departure - Departure Time of Disposition: 13:32 Disposition: Against Medical Advice 07 Clinical Impression: Hypoxia Dyspnea Qualifiers: Dyspnea type: unspecified Qualified Code(s): R06.00 - Dyspnea, unspecified - Discharge Information Referrals: PCP,None [Primary Care Provider] - Forms: ED Department Discharge Additional Instructions: Patient left the ED AGAINST MEDICAL ADVICE Sepsis Event Note (ED) - Focused Exam Vital Signs: Vital Signs Temp Pulse Resp BP Pulse Ox 05/29/20 13:14 98.2 F 70 19 97/60 92 L
== END 2020-05-29 13:36 | disposition left against medical advice (07) ==
LOC: MW.ED 13:09
DX: R06.02 Shortness of breath (principal); R09.02 Hypoxemia; I10 Essential (primary) hypertension; J44.9 Chronic obstructive pulmonary disease, unspecified; F32.9 Major depressive disorder, single episode, unspecified; F17.200 Nicotine dependence, unspecified, uncomplicated; Z88.1 Allergy status to other antibiotic agents; Z88.8 Allergy status to other drugs, medicaments and biological substances; Z88.0 Allergy status to penicillin; Z88.5 Allergy status to narcotic agent; Z79.899 Other long term (current) drug therapy
CPT/HCPCS: 99284

== ENCOUNTER 2020-08-10 15:25 | Emergency (ER) | payer MEDICARE, MEDICAID ==
[2020-08-10] MEDS ORDERED: Sodium Chloride 0.9% 10 ML Syringe FLUSH PRN (15:27)
[2020-08-10] MEDS ORDERED: Sodium Chloride 0.9% 2.5 ML Syringe FLUSH PRN (15:27)
[2020-08-10] MEDS ORDERED: methylPREDNISolone Sodium Succinate 125 MG/2 ML SDV IVPUSH ONE (15:28)
[2020-08-10] MEDS ORDERED: Albuterol/Ipratropium 3.0-0.5 MG/3 ML Neb Soln NEB ONE (15:29)
[2020-08-10] MEDS ORDERED: oxyCODONE 5 MG Tab PO ONE (15:44)
--- NOTE | 2020-08-10 15:47 | EDM.PDOC ---
ED HPI GENERAL MEDICAL PROBLEM - General Chief Complaint: Respiratory Problem Stated Complaint: EMS Time Seen by Provider: 08/10/20 15:27 - History of Present Illness INITIAL COMMENTS - FREE TEXT/NARRATIVE: Patient is a 64-year-old female with a history of COPD not generally on home oxygen as well as chronic back pain slated for surgery at some point in the future who is presenting with difficulty breathing. Patient reports that she had multiple teeth pulled several days ago and for the last week she has been doing daily salt water mouth rinses. She feels like this is starting to make her sick she feels like she is full of salt she feels like some of the salt is going into her lungs. She states that she has been "too sick" to do her breathing treatments. She also reports baseline moderate to severe back pain wrapping around into the ribs which is been going on for a month. No lower extremity swelling. She denies history of prior heart disease. Symptoms constant and her shortness of breath became acutely worse this morning. No alleviating factors no radiation no other associated symptoms. 1630: Labs demonstrate normal white blood cell count stable mild renal insufficiency electrolytes unremarkable. Chest x-ray without focal infiltrate on my preliminary interpretation but we await formal interpretation as well as the results of her D-dimer. Troponin negative. back Pain Score (Numeric/FACES): 10 - Related Data Allergies Allergy/AdvReac Type Severity Reaction Status Date / Time erythromycin lactobionate Allergy Unknown Itching Verified 08/10/20 15:31 [From Erythrocin] mirtazapine [From Remeron] Allergy Unknown Itching Verified 08/10/20 15:31 Penicillins Allergy Unknown Hives Verified 08/10/20 15:31 tramadol Allergy Tremors Verified 08/10/20 15:31 Home Meds: Home Meds Estazolam [Prosom] 2 mg PO BEDTIME 10/25/17 [History] Umeclidinium Brm/Vilanterol Tr [Anoro Ellipta 62.5-25 MCG] 1 each IH DAILY 02/26/19 [History] Albuterol [Ventolin HFA] 1 puff INH Q4H PRN #1 inhaler 04/22/19 [Rx] traZODone HCl [Trazodone HCl] 300 mg PO BEDTIME PRN 07/07/19 [History] Naloxone HCl [Narcan] 1 spray NASBOTH .FOR SEDATION PRN 07/08/19 [History] Lisinopril/Hydrochlorothiazide [Lisinopril-HCTZ 10-12.5 MG] 10 - 12.5 mg PO QAM 11/11/19 [History] carisoprodoL [Soma] 350 mg PO TID PRN 11/11/19 [History] oxyCODONE 10 mg PO Q6H PRN tablet 11/13/19 [Rx] FLUoxetine [PROzac] 40 mg PO QAM 05/08/20 [History] Magnesium Oxide 250 mg PO DAILY 05/08/20 [History] OXcarbazepine [Trileptal] 150 mg PO BID 05/08/20 [History] buPROPion HCL [Bupropion Xl] 150 mg PO QAM 05/08/20 [History] busPIRone [Buspar] 10 mg PO TID 05/08/20 [History] hydrOXYzine pamoate [Hydroxyzine Pamoate] 25 mg PO BID 05/08/20 [History] tiZANidine [Zanaflex] 2 mg PO TID PRN 05/08/20 [History] Celecoxib 200 mg PO DAILY 05/11/20 [History] levoFLOXacin [Levaquin] 750 mg PO Q48H 1 Days #1 tab 05/13/20 [Rx] Naproxen [Naprosyn] 500 mg PO Q12HR #30 tab 05/22/20 [Rx] Past Medical History - Past Health History Medical/Surgical History: Denies Medical/Surgical History HEENT History: Reports: None Cardiovascular History: Reports: High Cholesterol, Hypertension Respiratory History: Reports: COPD Gastrointestinal History: Reports: None Genitourinary History: Reports: None [employer] History: Reports: None Musculoskeletal History: Reports: Back Pain, Chronic Neurological History: Reports: CVA Other Neuro History: stroke Psychiatric History: Reports: Depression Other Psychiatric History: Sees Dr. Oconnor monthly Endocrine/Metabolic History: Reports: None Hematologic History: Reports: None Immunologic History: Reports: None Oncologic (Cancer) History: Reports: Other (See Below) Other Oncologic History: skin ca Dermatologic History: Reports: None Other Dermatologic History: "skin cancer" - Infectious Disease History Infectious Disease History: Reports: Chicken Pox, Measles, Mumps - Past Surgical History Head Surgeries/Procedures: Reports: None HEENT Surgical History: Reports: None Cardiovascular Surgical History: Reports: None Respiratory Surgical History: Reports: None GI Surgical History: Reports: None Female Surgical History: Reports: None Endocrine Surgical History: Reports: None Neurological Surgical History: Reports: Lumbar Spine Musculoskeletal Surgical History: Reports: Other (See Below) Other Musculoskeletal Surgeries/Procedures:: L wrist, back surgery Oncologic Surgical History: Reports: None Dermatological Surgical History: Reports: None Social & Family History - Family History Family Medical History: No Pertinent Family History Respiratory: Reports: COPD OBGYN: Reports: Musculoskeletal: Reports: Arthritis, Back pain, Chronic Neurological: Reports: CVA, TIA Psychiatric: Reports: Anxiety, Depression - Tobacco Use Tobacco Use Status *Q: Current Every Day Tobacco User Years of Tobacco use: 30 Packs/Tins Daily: 0.5 - Caffeine Use Caffeine Use: Reports: Soda - Recreational Drug Use Recreational Drug Use: No ED ROS GENERAL - Review of Systems Review Of Systems: See Below Free Text/Narrative/Comment: General: No fever. Skin: No rash. Eyes: No vision problems. ENT: No sore throat. Neck: No neck stiffness. Respiratory: Per HPI Cardiac: Per HPI Gastrointestinal: No nausea, vomiting or abdominal pain. Musculoskeletal: Per HPI Neurologic: No headache. ED EXAM, GENERAL - Physical Exam Exam: See Below Free Text/Narrative:: General Appearance: Mildly dyspneic appearing but not in acute distress, nontoxic HEENT: Normocephalic/atraumatic, sclera anicteric, mucous membranes moist Neck: Normal range of motion Chest and Lungs: Distant breath sounds throughout, minimally increased work of breathing Cardiovascular: Regular rate and rhythm, no murmur Abdomen: Soft, non-tender Back: Normal Musculoskeletal: No edema or tenderness Neurologic: Awake, alert, no obvious deficits, moving all extremities Psychiatric: Appropriate, cooperative #1 Interpretation EKG Date: 08/10/20 Time: 16:53 EKG Interpretation Comments: Sinus rhythm with a rate of 74 normal intervals with QTC of 433 prominent Q wav es anteriorly suggest old anterior infarct but no acute ischemia no ST elevations or depressions Course - Vital Signs Last Recorded V/S: Last Vital Signs Temp 98.7 F 08/10/20 15:28 Pulse 80 08/10/20 15:28 Resp 16 08/10/20 15:28 BP 150/87 H 08/10/20 15:28 Pulse Ox 91 L 08/10/20 15:28 - Orders/Labs/Meds Orders: Active Orders 24 hr Category Date Time Status EKG Documentation Completion [RC] STAT Care 08/10/20 15:27 Active RT Aerosol Therapy [RC] ASDIRECTED Care 08/10/20 15:29 Active URINALYSIS W/MICROSCOPIC [UA W/MICROSCOPIC] [URIN] Stat Lab 08/10/20 18:14 Ordered Sodium Chloride 0.9% [Saline Flush] Med 08/10/20 15:27 Active 10 ml FLUSH ASDIRECTED PRN Sodium Chloride 0.9% [Saline Flush] Med 08/10/20 15:27 Active 2.5 ml FLUSH ASDIRECTED PRN Saline Lock Insert [OM.PC] Stat Oth 08/10/20 15:27 Ordered Medication Orders Sodium Chloride (Saline Flush) 10 ml FLUSH ASDIRECTED PRN PRN Reason: Keep Vein Open Last Admin: 08/10/20 15:42 Dose: 10 ml Documented by: MARSHAL Sodium Chloride (Saline Flush) 2.5 ml FLUSH ASDIRECTED PRN PRN Reason: Keep Vein Open Last Admin: 08/10/20 15:42 Dose: 2.5 ml Documented by: MARSHAL Labs: Laboratory Tests 08/10/20 08/10/20 08/10/20 Range/Units 15:50 15:50 15:50 WBC 8.82 (4.0-11.0) K/uL RBC 4.87 (4.30-5.90) M/uL Hgb 14.7 (12.0-16.0) g/dL Hct 44.1 (36.0-46.0) % MCV 90.6 (80.0-98.0) fL MCH 30.2 (27.0-32.0) pg MCHC 33.3 (31.0-37.0) g/dL RDW Std Deviation 45.3 (28.0-62.0) fl RDW Coeff of Ene 14 (11.0-15.0) % Plt Count 282 (150-400) K/uL MPV 9.70 (7.40-12.00) fL Neut % (Auto) 33.7 L (48.0-80.0) % Lymph % (Auto) 55.4 H (16.0-40.0) % Frio % (Auto) 9.9 (0.0-15.0) % Eos % (Auto) 0.8 (0.0-7.0) % Baso % (Auto) 0.2 (0.0-1.5) % Neut # (Auto) 3.0 (1.4-5.7) K/uL Lymph # (Auto) 4.9 H (0.6-2.4) K/uL Frio # (Auto) 0.9 H (0.0-0.8) K/uL Eos # (Auto) 0.1 (0.0-0.7) K/uL Baso # (Auto) 0.0 (0.0-0.1) K/uL Nucleated RBC % 0.0 /100WBC Nucleated RBCs # 0 K/uL D-Dimer, Quantitative 1.22 H (0.0-0.50) mg/L FEU VBG pH 7.40 (7.31-7.41) VBG pCO2 49 H (35-45) mmHG VBG pO2 20 L (30-40) mmHG VBG HCO3 30 (22-30) mEq/L VBG Total CO2 27 L (41-51) mmol/L VBG Base Excess 4.3 H (-3.0-3.0) Lactate (0.20-2.00) mmol/L Sodium (136-145) mmol/L Potassium (3.5-5.1) mmol/L Chloride (98-107) mmol/L Carbon Dioxide (21.0-32.0) mmol/L BUN (7.0-18.0) mg/dL Creatinine (0.6-1.0) mg/dL Est Cr Clr Drug Dosing mL/min Estimated GFR (MDRD) ml/min Glucose (74-106) mg/dL Calcium (8.5-10.1) mg/dL Total Bilirubin (0.2-1.0) mg/dL AST (15-37) IU/L ALT (14-63) IU/L Alkaline Phosphatase (46-116) U/L Troponin I (0.000-0.056) ng/mL Total Protein (6.4-8.2) g/dL Albumin (3.4-5.0) g/dL Globulin (2.6-4.0) g/dL Albumin/Globulin Ratio (0.9-1.6) 08/10/20 08/10/20 Range/Units 15:50 15:50 WBC (4.0-11.0) K/uL RBC (4.30-5.90) M/uL Hgb (12.0-16.0) g/dL Hct (36.0-46.0) % MCV (80.0-98.0) fL MCH (27.0-32.0) pg MCHC (31.0-37.0) g/dL RDW Std Deviation (28.0-62.0) fl RDW Coeff of Ene (11.0-15.0) % Plt Count (150-400) K/uL MPV (7.40-12.00) fL Neut % (Auto) (48.0-80.0) % Lymph % (Auto) (16.0-40.0) % Frio % (Auto) (0.0-15.0) % Eos % (Auto) (0.0-7.0) % Baso % (Auto) (0.0-1.5) % Neut # (Auto) (1.4-5.7) K/uL Lymph # (Auto) (0.6-2.4) K/uL Frio # (Auto) (0.0-0.8) K/uL Eos # (Auto) (0.0-0.7) K/uL Baso # (Auto) (0.0-0.1) K/uL Nucleated RBC % /100WBC Nucleated RBCs # K/uL D-Dimer, Quantitative (0.0-0.50) mg/L FEU VBG pH (7.31-7.41) VBG pCO2 (35-45) mmHG VBG pO2 (30-40) mmHG VBG HCO3 (22-30) mEq/L VBG Total CO2 (41-51) mmol/L VBG Base Excess (-3.0-3.0) Lactate 0.8 (0.20-2.00) mmol/L Sodium 136 (136-145) mmol/L Potassium 4.4 (3.5-5.1) mmol/L Chloride 100 (98-107) mmol/L Carbon Dioxide 26.5 (21.0-32.0) mmol/L BUN 30 H (7.0-18.0) mg/dL Creatinine 1.6 H (0.6-1.0) mg/dL Est Cr Clr Drug Dosing 30.62 mL/min Estimated GFR (MDRD) 32.3 ml/min Glucose 94 (74-106) mg/dL Calcium 10.4 H (8.5-10.1) mg/dL Total Bilirubin 0.3 (0.2-1.0) mg/dL AST 14 L (15-37) IU/L ALT 19 (14-63) IU/L Alkaline Phosphatase 131 H (46-116) U/L Troponin I < 0.050 (0.000-0.056) ng/mL Total Protein 8.4 H (6.4-8.2) g/dL Albumin 3.3 L (3.4-5.0) g/dL Globulin 5.1 H (2.6-4.0) g/dL Albumin/Globulin Ratio 0.7 L (0.9-1.6) Meds: Medications Generic Name Dose Route Start Last Admin Trade Name Freq PRN Reason Stop Dose Admin Sodium Chloride 10 ml 08/10/20 15:27 08/10/20 15:42 Saline Flush FLUSH 10 ml ASDIRECTED PRN Administration Keep Vein Open Sodium Chloride 2.5 ml 08/10/20 15:27 08/10/20 15:42 Saline Flush FLUSH 2.5 ml ASDIRECTED PRN Administration Keep Vein Open Discontinued Medications Generic Name Dose Route Start Last Admin Trade Name Freq PRN Reason Stop Dose Admin Albuterol/Ipratropium 3 ml 08/10/20 15:29 08/10/20 15:41 Duoneb 3.0-0.5 Mg/3 Ml NEB 08/10/20 15:30 3 ml ONETIME ONE Administration Iopamidol 75 ml 08/10/20 17:24 08/10/20 17:31 Isovue Multipack-370 (76%) IVPUSH 08/10/20 17:25 75 ml ONETIME STA Administration Methylprednisolone Sodium Succinate 80 mg 08/10/20 15:28 08/10/20 15:41 Solu-Medrol IVPUSH 08/10/20 15:29 80 mg ONETIME ONE Administration Oxycodone HCl 10 mg 08/10/20 15:44 08/10/20 16:36 Oxycodone PO 08/10/20 15:45 10 mg ONETIME ONE Administration Departure - Departure Time of Disposition: 18:24 Disposition: Home, Self-Care 01 Condition: Good Clinical Impression: COPD (chronic obstructive pulmonary disease), Aspiration pneumonitis - Discharge Information *PRESCRIPTION DRUG MONITORING PROGRAM REVIEWED*: Not Applicable *COPY OF PRESCRIPTION DRUG MONITORING REPORT IN PATIENT BISMARK: Not Applicable Instructions: Chronic Obstructive Pulmonary Disease, [id number] Forms: ED Department Discharge Additional Instructions: Please continue to take all your medications as normal and please follow-up with your primary care doctor. Your CT scan today showed some debris in the base of your right lung this is likely related to the salt water rinses please stop these. Your CT scan also showed some small nodules on your adrenal glands. These are likely not something to be concerned about. However, there is a very small chance that it could be a serious problem potentially including cancer and for this reason it is very important you follow-up with your primary care doctor. If you develop a severe cough fever or chest pain please return to the ER. The following information is given to patients seen in the emergency department who are being discharged to home. This information is to outline your options for follow-up care. We provide all patients seen in our emergency department with a follow-up referral. The need for follow-up, as well as the timing and circumstances, are variable depending upon the specifics of your emergency department visit. If you don't have a primary care physician on staff, we will provide you with a referral. We always advise you to contact your personal physician following an emergency department visit to inform them of the circumstance of the visit and for follow-up with them and/or the need for any referrals to a consulting specialist. The emergency department will also refer you to a specialist when appropriate. This referral assures that you have the opportunity for follow-up care with a specialist. All of these measure are taken in an effort to provide you with optimal care, which includes your follow-up. Under all circumstances we always encourage you to contact your private physician who remains a resource for coordinating your care. When calling for follow-up care, please make the office aware that this follow-up is from your recent emergency room visit. If for any reason you are refused follow-up, please contact the [facility] Emergency Department at and asked to speak to the emergency department charge nurse. Sepsis Event Note (ED) - Evaluation Sepsis Screening Result: No Definite Risk - Focused Exam Vital Signs: Vital Signs Temp Pulse Resp BP Pulse Ox 08/10/20 15:28 98.7 F 80 16 150/87 H 91 L - My Orders Last 24 Hours: My Active Orders 08/10/20 15:27 EKG Documentation Completion [RC] STAT Sodium Chloride 0.9% [Saline Flush] 10 ml FLUSH ASDIRECTED PRN Sodium Chloride 0.9% [Saline Flush] 2.5 ml FLUSH ASDIRECTED PRN Saline Lock Insert [OM.PC] Stat 08/10/20 15:29 RT Aerosol Therapy [RC] ASDIRECTED 08/10/20 18:14 URINALYSIS W/MICROSCOPIC [UA W/MICROSCOPIC] [URIN] Stat - Assessment/Plan Last 24 Hours: My Active Orders 08/10/20 15:27 EKG Documentation Completion [RC] STAT Sodium Chloride 0.9% [Saline Flush] 10 ml FLUSH ASDIRECTED PRN Sodium Chloride 0.9% [Saline Flush] 2.5 ml FLUSH ASDIRECTED PRN Saline Lock Insert [OM.PC] Stat 08/10/20 15:29 RT Aerosol Therapy [RC] ASDIRECTED 08/10/20 18:14 URINALYSIS W/MICROSCOPIC [UA W/MICROSCOPIC] [URIN] Stat Assessment:: 64-year-old female presenting with signs and symptoms most consistent with COPD exacerbation versus pneumonia versus PE less likely ACS but EKG and troponin pending. Patient's back and chest pain appears chronic in nature aortic dissection considered but felt very unlikely would not further evaluate unless mediastinal contour is abnormal on chest x-ray. No findings in the lower extremities on exam that would suggest DVT. Solu-Medrol and DuoNeb ordered for initial treatment. Patient has no fever she has no change in cough Covid is very unlikely. Though certainly if patient requires admission we will screen her. Patient reports that she is due for her chronic pain medication as well and 10 mg of oxycodone has been ordered. Final disposition pending response to therapy and results of additional testing. 1820: Patient's labs are notable only for an elevated D-dimer CT PA demonstrates no PE she does have debris in the base of the right lung which I think likely represents some aspiration from the salt water rinses. On my evaluation of her dentition she has no sign of gingival infection she has no open wounds nothing that indicates a persistent need to do salt water rinses and she had her tooth out a month or so ago. Given this I have advised her to stop the salt water rinses. Patient's breathing has returned to baseline she feels quite comfortable at this time. She is comfortable going home but she is concerned about persistent incontinence since been going on since April and that this may represent a UTI. We will check a UA to exclude this I am hopeful for patient discharge. She has no fever she has no chest pain she has a normal white blood cell count. Given this I would not treat for aspiration pneumonia at this point she likely has a mild aspiration pneumonitis. 1825: I have just been informed by nursing that the patient is refusing urine collection. Given 1 month of incontinence I think acute UTI is very unlikely and I am comfortable with discharge and PCP follow-up.
[2020-08-10 16:21] LABS: BLOOD UREA NITROGEN,BUN 30 mg/dL (7.0-18.0); CARBON DIOXIDE,CO2 26.5 mmol/L (21.0-32.0); CHLORIDE,CL 100 mmol/L (98-107); GLUCOSE RANDOM 94 mg/dL (74-106); POTASSIUM,K 4.4 mmol/L (3.5-5.1); SODIUM,NA 136 mmol/L (136-145)
--- NOTE | 2020-08-10 16:32 | CR ---
INDICATION: SOB. TECHNIQUE: Portable AP image of the chest. COMPARISON: None. FINDINGS: Lungs and pleural spaces clear. Heart, mediastinum and pulmonary vessels normal. No significant osseous abnormality. IMPRESSION: Negative chest. Dictated by Yaw Glasgow MD @ Aug 10 2020 4:29PM Signed by Dr. Yaw Glasgow @ Aug 10 2020 4:30PM
[2020-08-10] MEDS ORDERED: Iopamidol 755 MG/ML 500 ML Multipack Bottle IVPUSH STA (17:24)
--- NOTE | 2020-08-10 18:02 | CT ---
INDICATION: Shortness of breath and elevated D-dimer TECHNIQUE: CT chest PE was acquired with 75 cc Isovue 370 intravenous contrast. COMPARISON: None. FINDINGS: Heart and vasculature: Contrast opacification of the pulmonary arterial tree is adequate. No sign of pulmonary embolism. Mild atherosclerotic calcification without thoracic aortic aneurysm. Trace pericardial fluid. Lungs and pleural: Panlobular emphysema with pleural parenchymal scarring at the right lung apex including a somewhat nodular area measuring up to 10 millimeters (402, 27). Bronchial wall thickening with endobronchial opacities within the right lower lobe. Minimal interlobular septal thickening, likely trace fibrosis. Lymph nodes/mediastinum: Subcentimeter mediastinal lymph nodes. Thyroid gland is normal. Chest wall: No masses. Upper abdomen: Status post cholecystectomy. Right renal atrophy with diminished enhancement. Left renal cyst partially included on the exam measures up to 1.3 centimeters. Bilateral adrenal nodules which are low density measuring 1.6 centimeters on the left 1.4 centimeters on the right consistent with adenomas. Bones: Status post lower cervical spine fusion. Status post upper lumbar fusion. Diffuse degenerative disc disease with old compression type fracture of the T11 vertebral body. Anterolisthesis at T10-11 measuring 3 millimeters. IMPRESSION: 1. No evidence of pulmonary embolism. 2. Pleural parenchymal scarring with somewhat nodular area at the margin of the scarring in the right upper lobe measuring 10 millimeters. Favor a nodular component of the scarring although follow-up chest CT recommended in 3 months to assess stability, see comments below. 3. Endobronchial opacities within the right lower lobe. This most likely represents endobronchial debris/mucus, however this can be reassessed at the time of three-month follow-up CT scan. This follow-up CT scan should be performed after vigorous coughing. If there is failure of this process to resolve then bronchoscopy would be recommended. 4. Other incidental findings as detailed above. Please note that all CT scans at this facility use dose modulation, iterative reconstruction, and/or weight-based dosing when appropriate to reduce radiation dose to as low as reasonably achievable. Dictated by Guanaco Etienne MD @ Aug 10 2020 5:48PM Signed by Dr. Guanaco Etienne @ Aug 10 2020 6:01PM
[2020-08-10 19:27] VITALS: BP 148/51; PULSE 79
== END 2020-08-10 18:31 | disposition home or self-care (01) ==
LOC: MW.ED 15:25
DX: J69.0 Pneumonitis due to inhalation of food and vomit (principal); J44.9 Chronic obstructive pulmonary disease, unspecified; I10 Essential (primary) hypertension; Z88.1 Allergy status to other antibiotic agents; Z88.0 Allergy status to penicillin; Z88.5 Allergy status to narcotic agent; Z88.8 Allergy status to other drugs, medicaments and biological substances; Z72.0 Tobacco use
CPT/HCPCS: 36415; 71045; 71275; 80053; 82803; 83605; 84484; 85025; 85379; 93005; 94640; 96374; 99285; A9270; J2930; Q9967; J7620-GY

== ENCOUNTER 2020-10-18 21:49 | Emergency (ER) | payer MEDICARE, MEDICAID ==
[2020-10-18] MEDS ORDERED: Sodium Chloride 0.9% 2.5 ML Syringe FLUSH PRN (22:03)
[2020-10-18] MEDS ORDERED: methylPREDNISolone Sodium Succinate 125 MG/2 ML SDV IVPUSH ONE (22:03)
[2020-10-18] MEDS ORDERED: Sodium Chloride 0.9% 10 ML Syringe FLUSH PRN (22:03)
--- NOTE | 2020-10-18 22:07 | EDM.PDOC ---
ED HPI GENERAL MEDICAL PROBLEM - General Chief Complaint: Respiratory Problem Stated Complaint: DIFFICULTY BREATHING Time Seen by Provider: 10/18/20 21:55 - History of Present Illness INITIAL COMMENTS - FREE TEXT/NARRATIVE: History of present illness: [] Patient complains of shortness of breath for 2 weeks she has fever and chills at home. She is coughing quite a bit. She has not been able to move around well because of her recent back pain. She has longstanding chronic back pain from a prior injury. The patient was short of breath and hypoxic at home. She got a breathing treatment in route per EMS and her oxygen saturation in the 80s turned in the 92 on room air. She is 94 now. The patient is out of her inhaler which she uses for her shortness of breath. She has been out for about a week. Patient has a history of COPD. She has a history of chronic back pain. Review of systems: As per history of present illness and below otherwise all systems reviewed and negative. Past medical history: As per history of present illness and as reviewed below otherwise noncontributory. Surgical history: As per history of present illness and as reviewed below otherwise noncontributory. Social history: No reported history of drug or alcohol abuse. Family history: As per history of present illness and as reviewed below otherwise noncontributory. Physical exam: Constitutional - well developed, well-nourished and in no acute distress HEENT - normocephalic, no evidence of trauma - external nose and mouth normal - no mass in neck and no JVD - mucosae moist EYES - full EOM, PERRL, no icterus - no evidence of inflammation, injection, or drainage Respiratory -moderate respiratory distress, equal bilateral expansion, lungs diminished to auscultation Cardiovascular - Regular Rhythm with S1 and S2 appreciated and no murmur, gallop or rub. GI - abdomen soft without distension or organomegaly - normal bowel sounds - no guard or rebound Musculoskeletal no gross deformity of long bones or joints - no tenderness, swelling or edema Neurologic - Alert and oriented times four - CN II-XII grossly intact - motor sensory and coordination symmetrically normal Psychiatric - appropriate mood and affect with normal thought content Hematologic - No petechiae or purpura - mucosa appropriate color and sclera not pale - normal nail bed color and refill Integument - no rash or evidence of trauma - normal turgor Diagnostics: [] Therapeutics: [] Impression: [] Plan: [] Definitive disposition and diagnosis as appropriate pending reevaluation and review of above. Back Pain Score (Numeric/FACES): 10 - Related Data Allergies Allergy/AdvReac Type Severity Reaction Status Date / Time erythromycin lactobionate Allergy Unknown Itching Verified 10/18/20 21:53 [From Erythrocin] mirtazapine [From Remeron] Allergy Unknown Itching Verified 10/18/20 21:53 Penicillins Allergy Unknown Hives Verified 10/18/20 21:53 tramadol Allergy Tremors Verified 10/18/20 21:53 Home Meds: Home Meds Estazolam [Prosom] 2 mg PO BEDTIME 10/25/17 [History] Umeclidinium Brm/Vilanterol Tr [Anoro Ellipta 62.5-25 MCG] 1 each IH DAILY 02/26/19 [History] Albuterol [Ventolin HFA] 1 puff INH Q4H PRN #1 inhaler 04/22/19 [Rx] traZODone HCl [Trazodone HCl] 300 mg PO BEDTIME PRN 07/07/19 [History] Naloxone HCl [Narcan] 1 spray NASBOTH .FOR SEDATION PRN 07/08/19 [History] Lisinopril/Hydrochlorothiazide [Lisinopril-HCTZ 10-12.5 MG] 10 - 12.5 mg PO QAM 11/11/19 [History] carisoprodoL [Soma] 350 mg PO TID PRN 11/11/19 [History] oxyCODONE 10 mg PO Q6H PRN tablet 11/13/19 [Rx] FLUoxetine [PROzac] 40 mg PO QAM 05/08/20 [History] Magnesium Oxide 250 mg PO DAILY 05/08/20 [History] OXcarbazepine [Trileptal] 150 mg PO BID 05/08/20 [History] buPROPion HCL [Bupropion Xl] 150 mg PO QAM 05/08/20 [History] busPIRone [Buspar] 10 mg PO TID 05/08/20 [History] hydrOXYzine pamoate [Hydroxyzine Pamoate] 25 mg PO BID 05/08/20 [History] tiZANidine [Zanaflex] 2 mg PO TID PRN 05/08/20 [History] Celecoxib 200 mg PO DAILY 05/11/20 [History] levoFLOXacin [Levaquin] 750 mg PO Q48H 1 Days #1 tab 05/13/20 [Rx] Naproxen [Naprosyn] 500 mg PO Q12HR #30 tab 05/22/20 [Rx] Acetaminophen/HYDROcodone [Taberg 325-10 MG] 1 tab PO Q4H PRN #14 tab 10/19/20 [Rx] Ciprofloxacin HCl [Cipro] 500 mg PO BID 7 Days #14 tablet 10/19/20 [Rx] methylPREDNISolone [Medrol Dose Pack] 4 mg PO DAILY #21 tab 10/19/20 [Rx] Past Medical History - Past Health History Medical/Surgical History: Denies Medical/Surgical History HEENT History: Reports: None Cardiovascular History: Reports: High Cholesterol, Hypertension Respiratory History: Reports: COPD Gastrointestinal History: Reports: None Genitourinary History: Reports: None DIRECTOR OF SUSTAINABILITY History: Reports: None Musculoskeletal History: Reports: Back Pain, Chronic Neurological History: Reports: CVA Other Neuro History: stroke Psychiatric History: Reports: Depression Other Psychiatric History: Sees Dr. Oconnor monthly Endocrine/Metabolic History: Reports: None Hematologic History: Reports: None Immunologic History: Reports: None Oncologic (Cancer) History: Reports: Other (See Below) Other Oncologic History: skin ca Dermatologic History: Reports: None Other Dermatologic History: "skin cancer" - Infectious Disease History Infectious Disease History: Reports: Chicken Pox, Measles, Mumps - Past Surgical History Head Surgeries/Procedures: Reports: None HEENT Surgical History: Reports: None Cardiovascular Surgical History: Reports: None Respiratory Surgical History: Reports: None GI Surgical History: Reports: None Female Surgical History: Reports: None Endocrine Surgical History: Reports: None Neurological Surgical History: Reports: Lumbar Spine Musculoskeletal Surgical History: Reports: Other (See Below) Other Musculoskeletal Surgeries/Procedures:: L wrist, back surgery Oncologic Surgical History: Reports: None Dermatological Surgical History: Reports: None Social & Family History - Family History Family Medical History: No Pertinent Family History Respiratory: Reports: COPD OBGYN: Reports: Musculoskeletal: Reports: Arthritis, Back pain, Chronic Neurological: Reports: CVA, TIA Psychiatric: Reports: Anxiety, Depression - Caffeine Use Caffeine Use: Reports: Soda - Recreational Drug Use Recreational Drug Use: No ED ROS GENERAL - Review of Systems Review Of Systems: Comprehensive ROS is negative, except as noted in HPI. ED EXAM, GENERAL - Physical Exam Exam: See Below Free Text/Narrative:: My physical exam is in the HPI #1 Interpretation EKG Interpretation Comments: EKG done at 2218 hrs. sinus rhythm heart rate 84 TX interval 147. QT duration 444 axis 40. Anterior infarct age undetermined. ST and T normal. Compared to 08/10/20 no change impression no injury or arrhythmia. Course - Vital Signs Text/Narrative:: 2304 hrs. the patient has an oxygen saturation 9092 on room air. Her lungs are clear. She breathes rapidly. She says worse because of severe back pain. She said she had chronic severe back pain. She has chronic months of urinary incontinence. She has 1 month of dysuria. She has not seen a physician or nurse for the dysuria. 10 days ago she had a fall and injured her upper thoracic back by direct blow to the wall. Her back pain has been markedly worse since. Her breathing has deteriorated since then. 00 59 hours patient resting comfortably. Breathing easily. CT shows a T11 fracture that is not new and not changed. Its compression type. L-spine shows arthritis. Last Recorded V/S: Last Vital Signs Temp 36.3 C 10/18/20 21:50 Pulse 73 10/19/20 00:24 Resp 18 10/19/20 00:24 BP 161/76 H 10/19/20 00:24 Pulse Ox 94 L 10/19/20 00:24 - Orders/Labs/Meds Orders: Active Orders 24 hr Category Date Time Status EKG Documentation Completion [RC] AM Care 10/18/20 22:03 Active CULTURE URINE [RM] Stat Lab 10/19/20 00:01 Received Sodium Chloride 0.9% [Saline Flush] Med 10/18/20 22:03 Active 10 ml FLUSH ASDIRECTED PRN Sodium Chloride 0.9% [Saline Flush] Med 10/18/20 22:03 Active 2.5 ml FLUSH ASDIRECTED PRN Saline Lock Insert [OM.PC] Stat Oth 10/18/20 22:03 Ordered Medication Orders Sodium Chloride (Sodium Chloride 0.9% 10 Ml Syringe) 10 ml FLUSH ASDIRECTED PRN PRN Reason: Keep Vein Open Sodium Chloride (Sodium Chloride 0.9% 2.5 Ml Syringe) 2.5 ml FLUSH ASDIRECTED PRN PRN Reason: Keep Vein Open Labs: Laboratory Tests 10/18/20 10/18/20 10/18/20 Range/Units 22:00 22:00 22:00 WBC 8.63 (4.0-11.0) K/uL RBC 5.12 (4.30-5.90) M/uL Hgb 16.3 H (12.0-16.0) g/dL Hct 46.9 H (36.0-46.0) % MCV 91.6 (80.0-98.0) fL MCH 31.8 (27.0-32.0) pg MCHC 34.8 (31.0-37.0) g/dL RDW Std Deviation 46.4 (28.0-62.0) fl RDW Coeff of Ene 14 (11.0-15.0) % Plt Count 312 (150-400) K/uL MPV 9.80 (7.40-12.00) fL Neut % (Auto) 38.7 L (48.0-80.0) % Lymph % (Auto) 50.8 H (16.0-40.0) % [place] % (Auto) 9.6 (0.0-15.0) % Eos % (Auto) 0.6 (0.0-7.0) % Baso % (Auto) 0.3 (0.0-1.5) % Neut # (Auto) 3.3 (1.4-5.7) K/uL Lymph # (Auto) 4.4 H (0.6-2.4) K/uL [place] # (Auto) 0.8 (0.0-0.8) K/uL Eos # (Auto) 0.1 (0.0-0.7) K/uL Baso # (Auto) 0.0 (0.0-0.1) K/uL Nucleated RBC % 0.0 /100WBC Nucleated RBCs # 0 K/uL Sodium 139 (136-145) mmol/L Potassium 4.1 (3.5-5.1) mmol/L Chloride 101 (98-107) mmol/L Carbon Dioxide 24.3 (21.0-32.0) mmol/L BUN 13 (7.0-18.0) mg/dL Creatinine 1.3 H (0.6-1.0) mg/dL Est Cr Clr Drug Dosing 36.45 mL/min Estimated GFR (MDRD) 41.1 ml/min Glucose 102 (74-106) mg/dL Calcium 10.3 H (8.5-10.1) mg/dL Total Bilirubin 0.2 (0.2-1.0) mg/dL AST 12 L (15-37) IU/L ALT 14 (14-63) IU/L Alkaline Phosphatase 173 H (46-116) U/L Troponin I < 0.050 (0.000-0.056) ng/mL B-Natriuretic Peptide 46 (<100) PG/ML Total Protein 7.5 (6.4-8.2) g/dL Albumin 3.2 L (3.4-5.0) g/dL Globulin 4.3 H (2.6-4.0) g/dL Albumin/Globulin Ratio 0.7 L (0.9-1.6) Urine Color Urine Appearance Urine pH (5.0-8.0) Ur Specific Somis (1.001-1.035) Urine Protein (NEGATIVE) mg/dL Urine Glucose (UA) (NEGATIVE) mg/dL Urine Ketones (NEGATIVE) mg/dL Urine Occult Blood (NEGATIVE) Urine Nitrite (NEGATIVE) Urine Bilirubin (NEGATIVE) Urine Urobilinogen (<2.0) EU/dL Ur Leukocyte Esterase (NEGATIVE) Urine RBC (0-2/HPF) Urine WBC (0-5/HPF) Ur Epithelial Cells (NONE-FEW) Urine Bacteria (NEGATIVE) 10/18/20 Range/Units 23:05 WBC (4.0-11.0) K/uL RBC (4.30-5.90) M/uL Hgb (12.0-16.0) g/dL Hct (36.0-46.0) % MCV (80.0-98.0) fL MCH (27.0-32.0) pg MCHC (31.0-37.0) g/dL RDW Std Deviation (28.0-62.0) fl RDW Coeff of Ene (11.0-15.0) % Plt Count (150-400) K/uL MPV (7.40-12.00) fL Neut % (Auto) (48.0-80.0) % Lymph % (Auto) (16.0-40.0) % [place] % (Auto) (0.0-15.0) % Eos % (Auto) (0.0-7.0) % Baso % (Auto) (0.0-1.5) % Neut # (Auto) (1.4-5.7) K/uL Lymph # (Auto) (0.6-2.4) K/uL [place] # (Auto) (0.0-0.8) K/uL Eos # (Auto) (0.0-0.7) K/uL Baso # (Auto) (0.0-0.1) K/uL Nucleated RBC % /100WBC Nucleated RBCs # K/uL Sodium (136-145) mmol/L Potassium (3.5-5.1) mmol/L Chloride (98-107) mmol/L Carbon Dioxide (21.0-32.0) mmol/L BUN (7.0-18.0) mg/dL Creatinine (0.6-1.0) mg/dL Est Cr Clr Drug Dosing mL/min Estimated GFR (MDRD) ml/min Glucose (74-106) mg/dL Calcium (8.5-10.1) mg/dL Total Bilirubin (0.2-1.0) mg/dL AST (15-37) IU/L ALT (14-63) IU/L Alkaline Phosphatase (46-116) U/L Troponin I (0.000-0.056) ng/mL B-Natriuretic Peptide (<100) PG/ML Total Protein (6.4-8.2) g/dL Albumin (3.4-5.0) g/dL Globulin (2.6-4.0) g/dL Albumin/Globulin Ratio (0.9-1.6) Urine Color YELLOW Urine Appearance SLT CLOUDY Urine pH 7.5 (5.0-8.0) Ur Specific Somis 1.015 (1.001-1.035) Urine Protein NEGATIVE (NEGATIVE) mg/dL Urine Glucose (UA) NEGATIVE (NEGATIVE) mg/dL Urine Ketones NEGATIVE (NEGATIVE) mg/dL Urine Occult Blood NEGATIVE (NEGATIVE) Urine Nitrite NEGATIVE (NEGATIVE) Urine Bilirubin NEGATIVE (NEGATIVE) Urine Urobilinogen 0.2 (<2.0) EU/dL Ur Leukocyte Esterase SMALL H (NEGATIVE) Urine RBC 0-2 (0-2/HPF) Urine WBC 4-7 (0-5/HPF) Ur Epithelial Cells FEW (NONE-FEW) Urine Bacteria RARE (NEGATIVE) Meds: Medications Generic Name Dose Route Start Last Admin Trade Name Makeda PRN Reason Stop Dose Admin Sodium Chloride 10 ml 10/18/20 22:03 Sodium Chloride 0.9% 10 Ml Syringe FLUSH ASDIRECTED PRN Keep Vein Open Sodium Chloride 2.5 ml 10/18/20 22:03 Sodium Chloride 0.9% 2.5 Ml Syringe FLUSH ASDIRECTED PRN Keep Vein Open Discontinued Medications Generic Name Dose Route Start Last Admin Trade Name Makeda PRN Reason Stop Dose Admin Methylprednisolone Sodium Succinate 125 mg 10/18/20 22:03 10/18/20 22:15 Methylprednisolone Sodium Succinate 125 Mg/2 Ml Sdv IVPUSH 10/18/20 22:04 125 mg ONETIME ONE Administration Morphine Sulfate 4 mg 10/18/20 23:03 10/18/20 23:11 Morphine 4 Mg/Ml Syringe IVPUSH 10/18/20 23:04 4 mg ONETIME ONE Administration Departure - Departure Time of Disposition: 00:30 Disposition: Home, Self-Care 01 Condition: Good Clinical Impression: COPD with exacerbation, Back pain, chronic Back pain Qualifiers: Back pain location: low back pain Chronicity: acute Back pain laterality: midline Sciatica presence: without sciatica Qualified Code(s): M54.5 - Low back pain Dyspnea Qualifiers: Dyspnea type: unspecified Qualified Code(s): R06.00 - Dyspnea, unspecified UTI (urinary tract infection) Qualifiers: Urinary tract infection type: acute cystitis Hematuria presence: without hematuria Qualified Code(s): N30.00 - Acute cystitis without hematuria - Discharge Information Prescriptions: Ciprofloxacin HCl [Cipro] 500 mg PO BID 7 Days #14 tablet methylPREDNISolone [Medrol Dose Pack] 4 mg PO DAILY #21 tab Acetaminophen/HYDROcodone [Taberg 325-10 MG] 1 tab PO Q4H PRN #14 tab PRN Reason: Pain (Severe 7-10) Instructions: Chronic Obstructive Pulmonary Disease Exacerbation, [id number], Acute Back Pain, Adult, Urinary Tract Infection, Adult, [id number] Referrals: Giovani Maguire MD [Primary Care Provider] - Forms: ED Department Discharge Additional Instructions: You can take the hydroxyzine that has been previously prescribed while you are on the Cipro for the urinary tract infection. The combination can be dangerous. [facility] [address] [place] [id number] [facility] [address] [place] [address] The following information is given to patients seen in the emergency department who are being discharged to home. This information is to outline your options for follow-up care. We provide all patients seen in our emergency department with a follow-up referral. The need for follow-up, as well as the timing and circumstances, are variable depending upon the specifics of your emergency department visit. If you don't have a primary care physician on staff, we will provide you with a referral. We always advise you to contact your personal physician following an emergency department visit to inform them of the circumstance of the visit and for follow-up with them and/or the need for any referrals to a consulting specialist. The emergency department will also refer you to a specialist when appropriate. This referral assures that you have the opportunity for follow-up care with a specialist. All of these measure are taken in an effort to provide you with optimal care, which includes your follow-up. Under all circumstances we always encourage you to contact your private physician who remains a resource for coordinating your care. When calling for follow-up care, please make the office aware that this follow-up is from your recent emergency room visit. If for any reason you are refused follow-up, please contact the [facility] Emergency Department at and asked to speak to the emergency department charge nurse. Sepsis Event Note (ED) - Evaluation Sepsis Screening Result: No Definite Risk - Focused Exam Vital Signs: Vital Signs Temp Pulse Resp BP Pulse Ox 10/19/20 00:24 73 18 161/76 H 94 L 10/18/20 22:48 79 172/92 H 93 L 10/18/20 21:50 36.3 C 87 20 182/90 H 94 L - My Orders Last 24 Hours: My Active Orders 10/18/20 22:03 EKG Documentation Completion [RC] AM Sodium Chloride 0.9% [Saline Flush] 10 ml FLUSH ASDIRECTED PRN Sodium Chloride 0.9% [Saline Flush] 2.5 ml FLUSH ASDIRECTED PRN Saline Lock Insert [OM.PC] Stat 10/19/20 00:01 CULTURE URINE [RM] Stat - Assessment/Plan Last 24 Hours: My Active Orders 10/18/20 22:03 EKG Documentation Completion [RC] AM Sodium Chloride 0.9% [Saline Flush] 10 ml FLUSH ASDIRECTED PRN Sodium Chloride 0.9% [Saline Flush] 2.5 ml FLUSH ASDIRECTED PRN Saline Lock Insert [OM.PC] Stat 10/19/20 00:01 CULTURE URINE [RM] Stat
[2020-10-18 22:31] LABS: BLOOD UREA NITROGEN,BUN 13 mg/dL (7.0-18.0); CARBON DIOXIDE,CO2 24.3 mmol/L (21.0-32.0); CHLORIDE,CL 101 mmol/L (98-107); GLUCOSE RANDOM 102 mg/dL (74-106); POTASSIUM,K 4.1 mmol/L (3.5-5.1); SODIUM,NA 139 mmol/L (136-145)
--- NOTE | 2020-10-18 23:00 | CR ---
INDICATION: Dyspnea, hypoxia TECHNIQUE: Portable upright AP view of the chest COMPARISON: AP chest radiograph 08/10/2020 FINDINGS: There is minimal left lung base atelectasis. The lungs are otherwise clear. There is no sizable pleural effusion or pneumothorax. The cardiomediastinal silhouette is normal. IMPRESSION: No significant abnormality. Dictated by Dionna Jacques MD @ 10/18/2020 10:58:[address] Dionna Jacques @ Oct 18 2020 10:58PM
[2020-10-18] MEDS ORDERED: Morphine 4 MG/ML Syringe IVPUSH ONE (23:03)
[2020-10-19 00:25] VITALS: BP 161/76; PULSE 73
--- NOTE | 2020-10-19 00:44 | CT ---
Indication: Severe pain after fall 10 days ago Technique: Volumetric multidetector CT images of the thoracic spine were obtained without the administration of IV contrast. Comparison: CT thoracic spine November 11, 2019 Findings: There is again seen chronic compression fracture of the T11 vertebral body. Additional endplate Schmorl`s defects of the thoracic vertebral bodies are appreciated. There is straightening of the normal thoracic kyphosis with trace anterolisthesis of T10 on T11. There is moderate to severe degenerative disc disease again seen with disc height loss and marginal osteophyte formation. There is no significant spinal canal stenosis or neural foraminal narrowing. There is no displaced fracture or dislocation. There is bibasilar atelectasis and parenchymal scar with moderate to severe emphysematous changes of the upper lobes. Impression: Stable multilevel degenerative and old compression deformities of the thoracic spine. No evidence of definite acute osseous abnormality. Follow-up with MRI of the thoracic osseous structures for improved characterization of underlying subtle marrow edema. Please note that all CT scans at this facility use dose modulation, iterative reconstruction, and/or weight-based dosing when appropriate to reduce radiation dose to as low as reasonably achievable. Dictated by Zaire Swartz MD @ 10/20/2020 9:14:[address] Zaire Swartz @ Oct 20 2020 9:14AM
--- NOTE | 2020-10-19 00:48 | CT ---
Indication: Severe pain after fall 10 days ago Technique: Volumetric multidetector CT images of the lumbar spine were obtained without the administration of IV contrast. Comparison: CT lumbar spine December 20, 2019 Findings: Stable chronic endplate Schmorl`s defects of the lumbar vertebral body heights are appreciated with stable mild chronic wedging of the L1 vertebral body. Somewhat sclerotic appearance of the L1 vertebral body is again appreciated. There is straightening of the normal lumbar lordosis without evidence of significant spondylolisthesis. There is moderate to severe degenerative disc disease again seen with extensive posterior instrumented fusion from the L1 through S1 levels with redemonstration of hardware loosening of the bilateral S1 pedicle screws. There is no other hardware failure identified. This is stable from comparison. There is no significant spinal canal stenosis or neural foraminal narrowing. There is no displaced fracture or dislocation. There is prior cholecystectomy. There are again seen bilateral fat containing adrenal gland adenomas. Moderate atherosclerotic calcification in the partially visualized aorta is again seen. Impression: Moderate to severe degenerative changes as well as stable postoperative changes of the lumbar spine with stable hardware failure of the bilateral L1 pedicle screws. There is no definite acute osseous abnormality. Recommend follow-up with MRI to assess for subtle marrow edema there remains persistent clinical concern and/or desire to reassess spinal canal integrity. Please note that all CT scans at this facility use dose modulation, iterative reconstruction, and/or weight-based dosing when appropriate to reduce radiation dose to as low as reasonably achievable. Dictated by Zaire Swartz MD @ 10/20/2020 9:20:[address] Zaire Swartz @ Oct 20 2020 9:20AM
== END 2020-10-19 01:30 | disposition home or self-care (01) ==
LOC: MW.ED 21:49
DX: J44.1 Chronic obstructive pulmonary disease with (acute) exacerbation (principal); N30.00 Acute cystitis without hematuria; I10 Essential (primary) hypertension; E78.00 Pure hypercholesterolemia, unspecified; Z88.1 Allergy status to other antibiotic agents; Z88.8 Allergy status to other drugs, medicaments and biological substances; Z88.0 Allergy status to penicillin; Z88.5 Allergy status to narcotic agent
CPT/HCPCS: 36415; 71045; 72128; 72131; 80053; 81001; 83880; 84484; 85025; 87086; 87088; 87186; 93005; 96374; 96375; 99285; J2270; J2930; 93010; 99284

== ENCOUNTER 2020-10-31 14:12 | Emergency (ER) | payer MEDICARE, MEDICAID ==
[2020-10-31] MEDS ORDERED: Albuterol/Ipratropium 3.0-0.5 MG/3 ML Neb Soln NEB ONE (14:33)
[2020-10-31] MEDS ORDERED: oxyCODONE 5 MG Tab PO ONE ×2 (14:35→15:42)
--- NOTE | 2020-10-31 14:38 | EDM.PDOC ---
ED HPI GENERAL MEDICAL PROBLEM - General Stated Complaint: BREATHING DIFFICULTY Time Seen by Provider: 10/31/20 14:20 - History of Present Illness INITIAL COMMENTS - FREE TEXT/NARRATIVE: History of present illness: [] Patient complains of severe back pain. She claims she is out of her muscle relaxer for 5 days. She claims she took her last narcotic pain medicine this morning. She has chronic back pain and gets oxycodone 15 mg 4 times a day and had her last prescription filled according to the [place] prescription management program on 09/26/2020 420 tablets that was supposed to last her 30 days. Patient says her back pain is so bad her withdrawal symptoms so bad that she cannot breathe well that probably why she feels short of breath. She feels more short of breath than usual and has chronic obstructive pulmonary disease. Her oxygen saturation was 70 at home per EMS and came up to 92 with 100% nonrebreather. The patient claims that on 09/03/2020 she was going to have surgery at [facility] for severe back pain and they canceled her surgery after she was driven to [place] that morning and left there by her family. She says they canceled the surgery because she had taken too much pain medicine. She says she had taken her evening dose the night before and her normal morning dose that morning. On the ninth of this month I saw her with shortness of breath and she improved with an inhaler and was able to go home. At that time she claimed her back pain was worth after a fall 10 days prior to that visit. Spinal imaging was done and found to compression fracture in the thoracic spine it was not new and was not different from what had been verified on prior imaging. I wrote some supplemental narcotic pain medicine to get her through the exacerbation and subsequently was told 2 days later that the pharmacy had called and refused to fill that prescription because of her recent filling of other narcotic medications. Review of systems: As per history of present illness and below otherwise all systems reviewed and negative. Past medical history: As per history of present illness and as reviewed below otherwise noncontributory. Surgical history: As per history of present illness and as reviewed below otherwise noncontributory. Social history: No reported history of drug or alcohol abuse. Family history: As per history of present illness and as reviewed below otherwise noncontributory. Physical exam: Constitutional - well developed, well-nourished and in no acute distress HEENT - normocephalic, no evidence of trauma - external nose and mouth normal - no mass in neck and no JVD - mucosae moist EYES - full EOM, PERRL, no icterus - no evidence of inflammation, injection, or drainage Respiratory - no respiratory distress, equal bilateral expansion, lungs clear to auscultation and no abnormal lung sounds Cardiovascular - Regular Rhythm with S1 and S2 appreciated and no murmur, gallop or rub. GI - abdomen soft without distension or organomegaly - normal bowel sounds - no guard or rebound Musculoskeletal no gross deformity of long bones or joints - no tenderness, swelling or edema Neurologic - Alert and oriented times four - CN II-XII grossly intact - motor sensory and coordination symmetrically normal Psychiatric - appropriate mood and affect with normal thought content Hematologic - No petechiae or purpura - mucosa appropriate color and sclera not pale - normal nail bed color and refill Integument - no rash or evidence of trauma - normal turgor Diagnostics: [] Therapeutics: [] Impression: [] Plan: [] Definitive disposition and diagnosis as appropriate pending reevaluation and review of above. Lower Back Pain Score (Numeric/FACES): 10 - Related Data Allergies Allergy/AdvReac Type Severity Reaction Status Date / Time erythromycin lactobionate Allergy Unknown Itching Verified 10/31/20 14:14 [From Erythrocin] mirtazapine [From Remeron] Allergy Unknown Itching Verified 10/31/20 14:14 Penicillins Allergy Unknown Hives Verified 10/31/20 14:14 tramadol Allergy Tremors Verified 10/31/20 14:14 Home Meds: Home Meds Estazolam [Prosom] 2 mg PO BEDTIME 10/25/17 [History] Umeclidinium Brm/Vilanterol Tr [Anoro Ellipta 62.5-25 MCG] 1 each IH DAILY 02/26/19 [History] Albuterol [Ventolin HFA] 1 puff INH Q4H PRN #1 inhaler 04/22/19 [Rx] traZODone HCl [Trazodone HCl] 300 mg PO BEDTIME PRN 07/07/19 [History] Naloxone HCl [Narcan] 1 spray NASBOTH .FOR SEDATION PRN 07/08/19 [History] Lisinopril/Hydrochlorothiazide [Lisinopril-HCTZ 10-12.5 MG] 10 - 12.5 mg PO QAM 11/11/19 [History] carisoprodoL [Soma] 350 mg PO TID PRN 11/11/19 [History] oxyCODONE 10 mg PO Q6H PRN tablet 11/13/19 [Rx] FLUoxetine [PROzac] 40 mg PO QAM 05/08/20 [History] Magnesium Oxide 250 mg PO DAILY 05/08/20 [History] OXcarbazepine [Trileptal] 150 mg PO BID 05/08/20 [History] buPROPion HCL [Bupropion Xl] 150 mg PO QAM 05/08/20 [History] busPIRone [Buspar] 10 mg PO TID 05/08/20 [History] hydrOXYzine pamoate [Hydroxyzine Pamoate] 25 mg PO BID 05/08/20 [History] tiZANidine [Zanaflex] 2 mg PO TID PRN 05/08/20 [History] Celecoxib 200 mg PO DAILY 05/11/20 [History] levoFLOXacin [Levaquin] 750 mg PO Q48H 1 Days #1 tab 05/13/20 [Rx] Naproxen [Naprosyn] 500 mg PO Q12HR #30 tab 05/22/20 [Rx] Acetaminophen/HYDROcodone [[place] 325-10 MG] 1 tab PO Q4H PRN #14 tab 10/19/20 [Rx] Ciprofloxacin HCl [Cipro] 500 mg PO BID 7 Days #14 tablet 10/19/20 [Rx] methylPREDNISolone [Medrol Dose Pack] 4 mg PO DAILY #21 tab 10/19/20 [Rx] Hydrocodone/Acetaminophen [Hydrocodone-Acetamin 10-325 mg] 1 each PO QID PRN #6 tablet 10/31/20 [Rx] predniSONE [Prednisone] 60 mg PO DAILY #21 tablet 10/31/20 [Rx] Past Medical History - Past Health History Medical/Surgical History: Denies Medical/Surgical History HEENT History: Reports: None Cardiovascular History: Reports: High Cholesterol, Hypertension Respiratory History: Reports: COPD Gastrointestinal History: Reports: None Genitourinary History: Reports: None DIRECTOR INTERNATIONAL History: Reports: None Musculoskeletal History: Reports: Back Pain, Chronic Neurological History: Reports: CVA Other Neuro History: stroke Psychiatric History: Reports: Depression Other Psychiatric History: Sees Dr. Oconnor monthly Endocrine/Metabolic History: Reports: None Hematologic History: Reports: None Immunologic History: Reports: None Oncologic (Cancer) History: Reports: Other (See Below) Other Oncologic History: skin ca Dermatologic History: Reports: None Other Dermatologic History: "skin cancer" - Infectious Disease History Infectious Disease History: Reports: Chicken Pox, Measles, Mumps - Past Surgical History Head Surgeries/Procedures: Reports: None HEENT Surgical History: Reports: None Cardiovascular Surgical History: Reports: None Respiratory Surgical History: Reports: None GI Surgical History: Reports: None Female Surgical History: Reports: None Endocrine Surgical History: Reports: None Neurological Surgical History: Reports: Lumbar Spine Musculoskeletal Surgical History: Reports: Other (See Below) Other Musculoskeletal Surgeries/Procedures:: L wrist, back surgery Oncologic Surgical History: Reports: None Dermatological Surgical History: Reports: None Social & Family History - Family History Family Medical History: No Pertinent Family History Respiratory: Reports: COPD OBGYN: Reports: Musculoskeletal: Reports: Arthritis, Back pain, Chronic Neurological: Reports: CVA, TIA Psychiatric: Reports: Anxiety, Depression - Caffeine Use Caffeine Use: Reports: Soda ED ROS GENERAL - Review of Systems Review Of Systems: Comprehensive ROS is negative, except as noted in HPI. ED EXAM, GENERAL - Physical Exam Exam: See Below Free Text/Narrative:: My physical exam is in the HPI Course - Vital Signs Text/Narrative:: 1546 hrs. patient having recurrent pain and tremors. She feels numb all over. Her blood gas suggest her oxygen is too low to possibly go home. She is not on oxygen at home. Plan steroids and work her up to make sure she does not have some acute cause of her hypoxia. She may need observation. 1852 hrs. the patient is improved. She will be given a chamber to use to keep from putting her inhaler directly in her mouth. Prescription for steroids and a few [place] 10 for breakthrough pain will be sent to the pharmacy and she will be discharged. Last Recorded V/S: Last Vital Signs Temp 37.3 C 10/31/20 14:14 Pulse 67 10/31/20 17:00 Resp 18 10/31/20 17:00 BP 148/72 H 10/31/20 17:00 Pulse Ox 91 L 10/31/20 17:00 - Orders/Labs/Meds Orders: Active Orders 24 hr Category Date Time Status Communication Order [RC] STAT Care 10/31/20 18:41 Active RT Aerosol Therapy [RC] ASDIRECTED Care 10/31/20 14:33 Active Sodium Chloride 0.9% [Normal Saline] 500 ml Med 10/31/20 17:45 Active IV .BOLUS Sodium Chloride 0.9% [Saline Flush] Med 10/31/20 15:46 Active 10 ml FLUSH ASDIRECTED PRN Sodium Chloride 0.9% [Saline Flush] Med 10/31/20 15:46 Active 2.5 ml FLUSH ASDIRECTED PRN Saline Lock Insert [OM.PC] Stat Oth 10/31/20 15:46 Ordered Medication Orders Sodium Chloride (Normal Saline) 500 mls @ 999 mls/hr IV .BOLUS RUIZ Last Admin: 10/31/20 17:33 Dose: 999 mls/hr Documented by: MINGO Sodium Chloride (Sodium Chloride 0.9% 10 Ml Syringe) 10 ml FLUSH ASDIRECTED PRN PRN Reason: Keep Vein Open Last Admin: 10/31/20 16:17 Dose: 10 ml Documented by: MINGO Sodium Chloride (Sodium Chloride 0.9% 2.5 Ml Syringe) 2.5 ml FLUSH ASDIRECTED PRN PRN Reason: Keep Vein Open Last Admin: 10/31/20 16:17 Dose: 2.5 ml Documented by: MINGO Labs: Laboratory Tests 10/31/20 10/31/20 10/31/20 Range/Units 14:54 16:16 16:30 WBC 9.81 (4.0-11.0) K/uL RBC 4.73 (4.30-5.90) M/uL Hgb 14.8 (12.0-16.0) g/dL Hct 44.5 (36.0-46.0) % MCV 94.1 (80.0-98.0) fL MCH 31.3 (27.0-32.0) pg MCHC 33.3 (31.0-37.0) g/dL RDW Std Deviation 49.0 (28.0-62.0) fl RDW Coeff of Ene 14 (11.0-15.0) % Plt Count 259 (150-400) K/uL MPV 10.00 (7.40-12.00) fL Neut % (Auto) 47.4 L (48.0-80.0) % Lymph % (Auto) 43.9 H (16.0-40.0) % [place] % (Auto) 7.4 (0.0-15.0) % Eos % (Auto) 1.0 (0.0-7.0) % Baso % (Auto) 0.3 (0.0-1.5) % Neut # (Auto) 4.6 (1.4-5.7) K/uL Lymph # (Auto) 4.3 H (0.6-2.4) K/uL [place] # (Auto) 0.7 (0.0-0.8) K/uL Eos # (Auto) 0.1 (0.0-0.7) K/uL Baso # (Auto) 0.0 (0.0-0.1) K/uL Nucleated RBC % 0.0 /100WBC Nucleated RBCs # 0 K/uL D-Dimer, Quantitative (0.0-0.50) mg/L FEU ABG pH 7.48 H (7.35-7.45) ABG pCO2 35 (35-45) mmHG ABG pO2 48 L (80-105) mmHG ABG HCO3 26 (22-26) mEq/L ABG Total CO2 22.8 L (23-27) mmol/L ABG Base Excess 3.0 (-2.0-3.0) Sodium (136-145) mmol/L Potassium (3.5-5.1) mmol/L Chloride (98-107) mmol/L Carbon Dioxide (21.0-32.0) mmol/L BUN (7.0-18.0) mg/dL Creatinine (0.6-1.0) mg/dL Est Cr Clr Drug Dosing mL/min Estimated GFR (MDRD) ml/min Glucose (74-106) mg/dL Calcium (8.5-10.1) mg/dL Total Bilirubin (0.2-1.0) mg/dL AST (15-37) IU/L ALT (14-63) IU/L Alkaline Phosphatase (46-116) U/L Total Protein (6.4-8.2) g/dL Albumin (3.4-5.0) g/dL Globulin (2.6-4.0) g/dL Albumin/Globulin Ratio (0.9-1.6) SARS-CoV-2 RNA (DOMINIK) NEGATIVE (NEGATIVE) 10/31/20 10/31/20 Range/Units 16:30 16:30 WBC (4.0-11.0) K/uL RBC (4.30-5.90) M/uL Hgb (12.0-16.0) g/dL Hct (36.0-46.0) % MCV (80.0-98.0) fL MCH (27.0-32.0) pg MCHC (31.0-37.0) g/dL RDW Std Deviation (28.0-62.0) fl RDW Coeff of Ene (11.0-15.0) % Plt Count (150-400) K/uL MPV (7.40-12.00) fL Neut % (Auto) (48.0-80.0) % Lymph % (Auto) (16.0-40.0) % [place] % (Auto) (0.0-15.0) % Eos % (Auto) (0.0-7.0) % Baso % (Auto) (0.0-1.5) % Neut # (Auto) (1.4-5.7) K/uL Lymph # (Auto) (0.6-2.4) K/uL [place] # (Auto) (0.0-0.8) K/uL Eos # (Auto) (0.0-0.7) K/uL Baso # (Auto) (0.0-0.1) K/uL Nucleated RBC % /100WBC Nucleated RBCs # K/uL D-Dimer, Quantitative 0.81 H (0.0-0.50) mg/L FEU ABG pH (7.35-7.45) ABG pCO2 (35-45) mmHG ABG pO2 (80-105) mmHG ABG HCO3 (22-26) mEq/L ABG Total CO2 (23-27) mmol/L ABG Base Excess (-2.0-3.0) Sodium 135 L (136-145) mmol/L Potassium 4.3 (3.5-5.1) mmol/L Chloride 103 (98-107) mmol/L Carbon Dioxide 26.0 (21.0-32.0) mmol/L BUN 20 H (7.0-18.0) mg/dL Creatinine 1.4 H (0.6-1.0) mg/dL Est Cr Clr Drug Dosing 28.69 mL/min Estimated GFR (MDRD) 37.7 ml/min Glucose 101 (74-106) mg/dL Calcium 9.7 (8.5-10.1) mg/dL Total Bilirubin 0.2 (0.2-1.0) mg/dL AST 9 L (15-37) IU/L ALT 12 L (14-63) IU/L Alkaline Phosphatase 122 H (46-116) U/L Total Protein 7.3 (6.4-8.2) g/dL Albumin 2.9 L (3.4-5.0) g/dL Globulin 4.4 H (2.6-4.0) g/dL Albumin/Globulin Ratio 0.7 L (0.9-1.6) SARS-CoV-2 RNA (DOMINIK) (NEGATIVE) Meds: Medications Generic Name Dose Route Start Last Admin Trade Name Freq PRN Reason Stop Dose Admin Sodium Chloride 500 mls @ 999 mls/hr 10/31/20 17:45 10/31/20 17:33 Normal Saline IV 999 mls/hr .BOLUS RUIZ Administration Sodium Chloride 10 ml 10/31/20 15:46 10/31/20 16:17 Sodium Chloride 0.9% 10 Ml Syringe FLUSH 10 ml ASDIRECTED PRN Administration Keep Vein Open Sodium Chloride 2.5 ml 10/31/20 15:46 10/31/20 16:17 Sodium Chloride 0.9% 2.5 Ml Syringe FLUSH 2.5 ml ASDIRECTED PRN Administration Keep Vein Open Discontinued Medications Generic Name Dose Route Start Last Admin Trade Name Freq PRN Reason Stop Dose Admin Albuterol/Ipratropium 3 ml 10/31/20 14:33 10/31/20 14:45 Albuterol/Ipratropium 3.0-0.5 Mg/3 Ml Neb Soln NEB 10/31/20 14:34 3 ml ONETIME ONE Administration Iopamidol 56 ml 10/31/20 18:16 10/31/20 18:16 Iopamidol 755 Mg/Ml 100 Ml Bottle IVPUSH 10/31/20 18:17 56 ml ONETIME ONE Administration Lorazepam 0.5 mg 10/31/20 17:24 10/31/20 17:33 Lorazepam 2 Mg/Ml Sdv IVPUSH 10/31/20 17:25 0.5 mg ONETIME ONE Administration Methylprednisolone Sodium Succinate 125 mg 10/31/20 15:46 10/31/20 16:17 Methylprednisolone Sodium Succinate 125 Mg/2 Ml Sdv IVPUSH 10/31/20 15:47 125 mg ONETIME ONE Administration Oxycodone HCl 10 mg 10/31/20 14:35 10/31/20 14:45 Oxycodone 5 Mg Tab PO 10/31/20 14:36 10 mg ONETIME ONE Administration Oxycodone HCl 10 mg 10/31/20 15:42 10/31/20 16:00 Oxycodone 5 Mg Tab PO 10/31/20 15:43 10 mg ONETIME ONE Administration Departure - Departure Time of Disposition: 19:00 Disposition: Home, Self-Care 01 Condition: Good Clinical Impression: COPD exacerbation, Chronic narcotic use Back pain Qualifiers: Back pain location: low back pain Chronicity: acute Back pain laterality: midline Sciatica presence: without sciatica Qualified Code(s): M54.5 - Low back pain - Discharge Information Prescriptions: Hydrocodone/Acetaminophen [Hydrocodone-Acetamin 10-325 mg] 1 each PO QID PRN #6 tablet PRN Reason: Pain (Severe 7-10) predniSONE [Prednisone] 60 mg PO DAILY #21 tablet Instructions: Shortness of Breath, Adult, [id number], Acute Back Pain, Adult Referrals: PCP,None [Primary Care Provider] - Additional Instructions: Drink plenty of fluids- [facility] - Primary Care [address] [place] [address] [place] [address] The following information is given to patients seen in the emergency department who are being discharged to home. This information is to outline your options for follow-up care. We provide all patients seen in our emergency department with a follow-up referral. The need for follow-up, as well as the timing and circumstances, are variable depending upon the specifics of your emergency department visit. If you don't have a primary care physician on staff, we will provide you with a referral. We always advise you to contact your personal physician following an emergency department visit to inform them of the circumstance of the visit and for follow-up with them and/or the need for any referrals to a consulting specialist. The emergency department will also refer you to a specialist when appropriate. This referral assures that you have the opportunity for follow-up care with a specialist. All of these measure are taken in an effort to provide you with optimal care, which includes your follow-up. Under all circumstances we always encourage you to contact your private physician who remains a resource for coordinating your care. When calling for follow-up care, please make the office aware that this follow-up is from your recent emergency room visit. If for any reason you are refused follow-up, please contact the [facility] Emergency Department at and asked to speak to the emergency department charge nurse. Sepsis Event Note (ED) - Evaluation Sepsis Screening Result: No Definite Risk - Focused Exam Vital Signs: Vital Signs Temp Pulse Resp BP Pulse Ox 10/31/20 17:00 67 18 148/72 H 91 L 10/31/20 16:15 78 20 157/71 H 92 L 10/31/20 14:14 37.3 C 80 23 H 159/91 H 92 L - My Orders Last 24 Hours: My Active Orders 10/31/20 14:33 RT Aerosol Therapy [RC] ASDIRECTED 10/31/20 15:46 Sodium Chloride 0.9% [Saline Flush] 10 ml FLUSH ASDIRECTED PRN Sodium Chloride 0.9% [Saline Flush] 2.5 ml FLUSH ASDIRECTED PRN Saline Lock Insert [OM.PC] Stat 10/31/20 17:45 Sodium Chloride 0.9% [Normal Saline] 500 ml IV .BOLUS 10/31/20 18:41 Communication Order [RC] STAT - Assessment/Plan Last 24 Hours: My Active Orders 10/31/20 14:33 RT Aerosol Therapy [RC] ASDIRECTED 10/31/20 15:46 Sodium Chloride 0.9% [Saline Flush] 10 ml FLUSH ASDIRECTED PRN Sodium Chloride 0.9% [Saline Flush] 2.5 ml FLUSH ASDIRECTED PRN Saline Lock Insert [OM.PC] Stat 10/31/20 17:45 Sodium Chloride 0.9% [Normal Saline] 500 ml IV .BOLUS 10/31/20 18:41 Communication Order [RC] STAT
[2020-10-31] MEDS ORDERED: methylPREDNISolone Sodium Succinate 125 MG/2 ML SDV IVPUSH ONE (15:46)
[2020-10-31] MEDS ORDERED: Sodium Chloride 0.9% 10 ML Syringe FLUSH PRN (15:46)
[2020-10-31] MEDS ORDERED: Sodium Chloride 0.9% 2.5 ML Syringe FLUSH PRN (15:46)
--- NOTE | 2020-10-31 16:17 | CR ---
INDICATION: Hypoxia chronic obstructive pulmonary disease exacerbation TECHNIQUE: Chest radiograph 1 view COMPARISON: 10/18/2020 FINDINGS: Mediastinum: The mediastinum is normal in appearance. The heart silhouette is normal in size and morphology. Lung: Small lung volumes are present with mild left basilar discoid atelectasis seen. No sign of pleural effusion seen. No pneumothorax is identified. Bone and Soft tissue: ACDF of the cervical thoracic junction and posterior spinal fusion of the thoracolumbar junction are partially visualized. IMPRESSION: 1. Small lung volumes are present with mild left basilar discoid atelectasis seen. Dictated by Yunior Sanchez MD @ 10/31/2020 4:16:41 PM Dictated by: Yunior Sanchez MD @ 10/31/2020 16:16:45 (Electronically Signed)
[2020-10-31 16:47] LABS: POTASSIUM,K 4.3 mmol/L (3.5-5.1)
[2020-10-31] MEDS ORDERED: LORazepam 2 MG/ML SDV IVPUSH ONE (17:24)
[2020-10-31] MEDS ORDERED: Sodium Chloride 0.9% 500 ML IV SCH ×2 (17:30→17:45)
[2020-10-31] MEDS ORDERED: Iopamidol 755 Mg/ML 100 ML Bottle IVPUSH ONE (18:16)
--- NOTE | 2020-10-31 18:46 | CT ---
INDICATION: Dyspnea, elevated D-dimer TECHNIQUE: CT chest with i.v. contrast using pulmonary angiographic technique. Coronal and sagittal reformats were obtained. CONTRAST: 56 mL Isovue 370 COMPARISON: 08/10/2020 FINDINGS: Cardiovascular: The pulmonary arteries are unremarkable in enhancement with no evidence of acute pulmonary embolism. Moderate enlargement of the main pulmonary artery is present and measures 3.5 cm in maximal short axis. The heart has an unremarkable appearance and size. No sign of aneurysm in the thoracic aorta. Mediastinum: No mass or adenopathy seen. Lung: Patchy areas of subpleural ground-glass opacity and consolidation is present within the lung bases, likely due to atelectasis. Diffuse subpleural pulmonary fibrosis is present without interval change. Centrilobular emphysema is noted in apices. Linear pleural parenchymal scarring is present in the right apex. There is retained secretions within the right bronchus seen on prior examination is no longer visualized. Pleura and pericardium: No sign of pleural effusion seen. No significant pericardial effusion is present. Chest wall and axilla: No mass or adenopathy seen. Bone: Moderate compression deformity of T11 and retrolisthesis of T10-T11 noted without interval change. Upper abdomen: Stable bilateral adrenal nodules are present with each measuring 1.8 cm. IMPRESSIONS: 1. No CT evidence of acute pulmonary emboli seen. 2. Moderate enlargement of the main pulmonary artery is present and measures 3.5 cm in maximal short axis. This is likely due to pulmonary hypertension. 3. Stable bilateral adrenal nodules are present with each measuring 1.8 cm. Correlation with patient`s history and laboratory data is recommended to determine the hormone activity level of this lesion. Dictated by Yunior Sanchez MD @ 10/31/2020 6:43:20 PM Please note that all CT scans at this facility use dose modulation, iterative reconstruction, and/or weight-based dosing when appropriate to reduce radiation dose to as low as reasonably achievable. Dictated by: Yunior Sanchez MD @ 10/31/2020 18:43:34 (Electronically Signed)
[2020-10-31 18:52] VITALS: BP 148/52; PULSE 75
== END 2020-10-31 19:07 | disposition home or self-care (01) ==
LOC: MW.ED 14:12
DX: J44.1 Chronic obstructive pulmonary disease with (acute) exacerbation (principal); M54.5 Low back pain; F11.90 Opioid use, unspecified, uncomplicated; I10 Essential (primary) hypertension; Z86.73 Personal history of transient ischemic attack (TIA), and cerebral infarction without residual deficits; Z88.1 Allergy status to other antibiotic agents; Z88.0 Allergy status to penicillin; Z88.5 Allergy status to narcotic agent; Z79.899 Other long term (current) drug therapy; Z20.822 Contact with and (suspected) exposure to COVID-19
CPT/HCPCS: 36415; 36600; 71045; 71275; 80053; 82803; 85025; 85379; 96374; 96375; 99285; A9270; J2060; J2930; J7040; Q9967; U0002; 99284; J7620-GY

== ENCOUNTER 2020-11-04 13:42 | Emergency (ER) | payer MEDICARE, MEDICAID ==
[2020-11-04] MEDS ORDERED: Sodium Chloride 0.9% 2.5 ML Syringe FLUSH PRN (14:18)
[2020-11-04] MEDS ORDERED: Sodium Chloride 0.9% 10 ML Syringe FLUSH PRN (14:18)
[2020-11-04] MEDS ORDERED: Sodium Chloride 0.9% 1,000 ML IV ONE ×2 (14:21→17:11)
--- NOTE | 2020-11-04 14:41 | EDM.PDOCBH ---
ED HPI GENERAL MEDICAL PROBLEM - General Chief Complaint: Behavioral/Psych Stated Complaint: mental health Time Seen by Provider: 11/04/20 14:04 Source of Information: Reports: Patient, Police - History of Present Illness INITIAL COMMENTS - FREE TEXT/NARRATIVE: 64-year-old female brought by police for suicidal ideation. The patient reports she is feeling very depressed because she was evicted from her apartment due to smoking and she is therefore homeless. She feels so depressed and upset about this that she does not want to live anymore and wanted to kill herself. Apparently either yesterday or 2 days ago she took a large amount of her own pills including oxycodone and Soma trying to kill herself. She did not and therefore when going with her caregiver to get her refill of medications she told her caregiver that she wanted to kill herself and was going to try to do so with her new prescription. Her caregiver was concerned and called police. Patient denies taking any of these medications today other than ibuprofen and her inhaler for her COPD, because she ran out of all of them after she took the attempted overdose yesterday or the day before she was not able to get them refilled. She reports she feels like she is withdrawing and feels shaky. She does report she takes narcotics daily. Duration: Day(s): (3) Improves with: Reports: None Worsens with: Reports: None Associated Symptoms: Reports: No Other Symptoms, Other (Chronic back pain) back Pain Score (Numeric/FACES): 10 - Related Data Allergies Allergy/AdvReac Type Severity Reaction Status Date / Time erythromycin lactobionate Allergy Unknown Itching Verified 10/31/20 14:14 [From Erythrocin] mirtazapine [From Remeron] Allergy Unknown Itching Verified 10/31/20 14:14 Penicillins Allergy Unknown Hives Verified 10/31/20 14:14 tramadol Allergy Tremors Verified 10/31/20 14:14 Home Meds: Home Meds Estazolam [Prosom] 2 mg PO BEDTIME 10/25/17 [History] Umeclidinium Brm/Vilanterol Tr [Anoro Ellipta 62.5-25 MCG] 1 each IH DAILY 02/26/19 [History] Albuterol [Ventolin HFA] 1 puff INH Q4H PRN #1 inhaler 04/22/19 [Rx] traZODone HCl [Trazodone HCl] 300 mg PO BEDTIME PRN 07/07/19 [History] Naloxone HCl [Narcan] 1 spray NASBOTH .FOR SEDATION PRN 07/08/19 [History] Lisinopril/Hydrochlorothiazide [Lisinopril-HCTZ 10-12.5 MG] 10 - 12.5 mg PO QAM 11/11/19 [History] carisoprodoL [Soma] 350 mg PO TID PRN 11/11/19 [History] oxyCODONE 10 mg PO Q6H PRN tablet 11/13/19 [Rx] FLUoxetine [PROzac] 40 mg PO QAM 05/08/20 [History] Magnesium Oxide 250 mg PO DAILY 05/08/20 [History] OXcarbazepine [Trileptal] 150 mg PO BID 05/08/20 [History] buPROPion HCL [Bupropion Xl] 150 mg PO QAM 05/08/20 [History] busPIRone [Buspar] 10 mg PO TID 05/08/20 [History] hydrOXYzine pamoate [Hydroxyzine Pamoate] 25 mg PO BID 05/08/20 [History] tiZANidine [Zanaflex] 2 mg PO TID PRN 05/08/20 [History] Celecoxib 200 mg PO DAILY 05/11/20 [History] levoFLOXacin [Levaquin] 750 mg PO Q48H 1 Days #1 tab 05/13/20 [Rx] Naproxen [Naprosyn] 500 mg PO Q12HR #30 tab 05/22/20 [Rx] Acetaminophen/HYDROcodone [[place] 325-10 MG] 1 tab PO Q4H PRN #14 tab 10/19/20 [Rx] Ciprofloxacin HCl [Cipro] 500 mg PO BID 7 Days #14 tablet 10/19/20 [Rx] methylPREDNISolone [Medrol Dose Pack] 4 mg PO DAILY #21 tab 10/19/20 [Rx] Acetaminophen/HYDROcodone [[place] 325-5 MG] 1 tab PO QID PRN #6 tablet 10/31/20 [Rx] Hydrocodone/Acetaminophen [Hydrocodone-Acetamin 10-325 mg] 1 each PO QID PRN #6 tablet 10/31/20 [Rx] predniSONE [Prednisone] 60 mg PO DAILY #21 tablet 10/31/20 [Rx] Past Medical History - Past Health History Medical/Surgical History: Denies Medical/Surgical History HEENT History: Reports: None Cardiovascular History: Reports: High Cholesterol, Hypertension Respiratory History: Reports: COPD Gastrointestinal History: Reports: None Genitourinary History: Reports: None TAX ADJUSTER History: Reports: None Musculoskeletal History: Reports: Back Pain, Chronic Neurological History: Reports: CVA Other Neuro History: stroke Psychiatric History: Reports: Depression Other Psychiatric History: Sees Dr. Oconnor monthly Endocrine/Metabolic History: Reports: None Hematologic History: Reports: None Immunologic History: Reports: None Oncologic (Cancer) History: Reports: Other (See Below) Other Oncologic History: skin ca Dermatologic History: Reports: None Other Dermatologic History: "skin cancer" - Infectious Disease History Infectious Disease History: Reports: Chicken Pox, Measles, Mumps - Past Surgical History Head Surgeries/Procedures: Reports: None HEENT Surgical History: Reports: None Cardiovascular Surgical History: Reports: None Respiratory Surgical History: Reports: None GI Surgical History: Reports: None Female Surgical History: Reports: None Endocrine Surgical History: Reports: None Neurological Surgical History: Reports: Lumbar Spine Musculoskeletal Surgical History: Reports: Other (See Below) Other Musculoskeletal Surgeries/Procedures:: L wrist, back surgery Oncologic Surgical History: Reports: None Dermatological Surgical History: Reports: None Social & Family History - Family History Family Medical History: No Pertinent Family History Respiratory: Reports: COPD OBGYN: Reports: Musculoskeletal: Reports: Arthritis, Back pain, Chronic Neurological: Reports: CVA, TIA Psychiatric: Reports: Anxiety, Depression - Tobacco Use Tobacco Use Status *Q: Current Every Day Tobacco User Years of Tobacco use: 30 Packs/Tins Daily: 0.4 - Caffeine Use Caffeine Use: Reports: None - Recreational Drug Use Recreational Drug Use: No ED ROS GENERAL - Review of Systems Review Of Systems: See Below Constitutional: Reports: Malaise Respiratory: Reports: No Symptoms Cardiovascular: Reports: No Symptoms GI/Abdominal: Reports: No Symptoms ED EXAM, BEHAVIORAL HEALTH - Physical Exam Exam: See Below General Appearance: Alert, WD/WN, No Apparent Distress Throat/Mouth: Other (Missing teeth. Mildly dry mucous membranes) Head: Atraumatic, Normocephalic Neck: Normal Inspection, Supple Respiratory/Chest: No Respiratory Distress, Other (Mildly hypoxic) Cardiovascular: Regular Rate, Rhythm GI/Abdominal: Non-Tender Back Exam: Full Range of Motion Extremities: Normal Inspection Neurological: Alert, CN II-XII Intact, Normal Cognition Psychiatric: Alert, Depressed Mood, Flat Affect, Poor Eye Contact, Suicidal Thoughts, Other (occasionally angry, tells nurse and myself that she doesn't want to tell me the story) Skin Exam: Warm, Dry #1 Interpretation EKG Date: 11/04/20 Time: 14:49 Rhythm: NSR Rate (Beats/Min): 67 [place]: Normal P-Wave: Present QRS: Normal ST-T: Normal QT: Normal COURSE, BEHAVIORAL HEALTH COMP - Course Vital Signs: Last Vital Signs Temp 98.0 F 11/04/20 19:45 Pulse 78 11/04/20 19:45 Resp 80 H 11/04/20 19:45 BP 112/72 11/04/20 19:45 Pulse Ox 94 L 11/04/20 19:45 Patient with depression and suicidal ideation, brought by police. Placed on mental health involuntary hold. On arrival here, patient had low pulse oximeter. Reports no dyspnea. She does have COPD and smokes daily. 2 L of O2 was given and oxygen improved to the mid 90s. She did have slightly low blood pressure as well and therefore IV fluids were given as she appeared dehydrated. Creatinine is elevated, however the patient did appear very dehydrated and was given 2 L of IV fluids. Orders, Labs, Meds: Active Orders 24 hr Category Date Time Status Saline Lock Insert [OM.PC] Stat Oth 11/04/20 14:19 Ordered Laboratory Tests 11/04/20 11/04/20 11/04/20 Range/Units 14:45 14:45 14:45 WBC (4.0-11.0) K/uL RBC (4.30-5.90) M/uL Hgb (12.0-16.0) g/dL Hct (36.0-46.0) % MCV (80.0-98.0) fL MCH (27.0-32.0) pg MCHC (31.0-37.0) g/dL RDW Std Deviation (28.0-62.0) fl RDW Coeff of Ene (11.0-15.0) % Plt Count (150-400) K/uL MPV (7.40-12.00) fL Neut % (Auto) (48.0-80.0) % Lymph % (Auto) (16.0-40.0) % [place] % (Auto) (0.0-15.0) % Eos % (Auto) (0.0-7.0) % Baso % (Auto) (0.0-1.5) % Neut # (Auto) (1.4-5.7) K/uL Lymph # (Auto) (0.6-2.4) K/uL [place]ahan # (Auto) (0.0-0.8) K/uL Eos # (Auto) (0.0-0.7) K/uL Baso # (Auto) (0.0-0.1) K/uL Nucleated RBC % /100WBC Nucleated RBCs # K/uL Sodium (136-145) mmol/L Potassium (3.5-5.1) mmol/L Chloride (98-107) mmol/L Carbon Dioxide (21.0-32.0) mmol/L BUN (7.0-18.0) mg/dL Creatinine (0.6-1.0) mg/dL Est Cr Clr Drug Dosing mL/min Estimated GFR (MDRD) ml/min Glucose (74-106) mg/dL Calcium (8.5-10.1) mg/dL Total Bilirubin (0.2-1.0) mg/dL AST (15-37) IU/L ALT (14-63) IU/L Alkaline Phosphatase (46-116) U/L Total Protein (6.4-8.2) g/dL Albumin (3.4-5.0) g/dL Globulin (2.6-4.0) g/dL Albumin/Globulin Ratio (0.9-1.6) TSH 3rd Generation (0.36-3.74) uIU/mL Urine Color YELLOW Urine Appearance SLT CLOUDY Urine pH 5.5 (5.0-8.0) Ur Specific [place] 1.020 (1.001-1.035) Urine Protein NEGATIVE (NEGATIVE) mg/dL Urine Glucose (UA) NEGATIVE (NEGATIVE) mg/dL Urine Ketones NEGATIVE (NEGATIVE) mg/dL Urine Occult Blood NEGATIVE (NEGATIVE) Urine Nitrite NEGATIVE (NEGATIVE) Urine Bilirubin NEGATIVE (NEGATIVE) Urine Urobilinogen 0.2 (<2.0) EU/dL Ur Leukocyte Esterase SMALL H (NEGATIVE) U Hyaline Cast (Auto) 1-3 (0-2/LPF) Urine RBC 0-2 (0-2/HPF) Urine WBC 10-15 (0-5/HPF) Ur Epithelial Cells MANY (NONE-FEW) Urine Bacteria FEW (NEGATIVE) Urine Mucus LIGHT (NONE-MOD) Salicylates (0-20) mg/dL Urine Opiates Screen NEGATIVE (NEGATIVE) Ur Oxycodone Screen POSITIVE (NEGATIVE) Urine Methadone Screen NEGATIVE (NEGATIVE) Acetaminophen ug/mL Ur Barbiturates Screen NEGATIVE (NEGATIVE) Ur Phencyclidine Scrn NEGATIVE (NEGATIVE) Ur Amphetamine Screen NEGATIVE (NEGATIVE) U Methamphetamines Scrn NEGATIVE (NEGATIVE) U Benzodiazepines Scrn NEGATIVE (NEGATIVE) U Cocaine Metab Screen NEGATIVE (NEGATIVE) U Marijuana (THC) Screen NEGATIVE (NEGATIVE) Ethyl Alcohol mg/dL SARS-CoV-2 RNA (DOMINIK) NEGATIVE (NEGATIVE) 11/04/20 11/04/20 Range/Units 14:45 14:45 WBC 6.98 (4.0-11.0) K/uL RBC 4.82 (4.30-5.90) M/uL Hgb 15.3 (12.0-16.0) g/dL Hct 45.3 (36.0-46.0) % MCV 94.0 (80.0-98.0) fL MCH 31.7 (27.0-32.0) pg MCHC 33.8 (31.0-37.0) g/dL RDW Std Deviation 48.9 (28.0-62.0) fl RDW Coeff of Ene 14 (11.0-15.0) % Plt Count 295 (150-400) K/uL MPV 10.40 (7.40-12.00) fL Neut % (Auto) 84.6 H (48.0-80.0) % Lymph % (Auto) 14.3 L (16.0-40.0) % [place] % (Auto) 1.0 (0.0-15.0) % Eos % (Auto) 0.0 (0.0-7.0) % Baso % (Auto) 0.1 (0.0-1.5) % Neut # (Auto) 5.9 H (1.4-5.7) K/uL Lymph # (Auto) 1.0 (0.6-2.4) K/uL [place]ahan # (Auto) 0.1 (0.0-0.8) K/uL Eos # (Auto) 0.0 (0.0-0.7) K/uL Baso # (Auto) 0.0 (0.0-0.1) K/uL Nucleated RBC % 0.0 /100WBC Nucleated RBCs # 0 K/uL Sodium 134 L (136-145) mmol/L Potassium 5.3 H (3.5-5.1) mmol/L Chloride 101 (98-107) mmol/L Carbon Dioxide 23.7 (21.0-32.0) mmol/L BUN 32 H (7.0-18.0) mg/dL Creatinine 2.1 H (0.6-1.0) mg/dL Est Cr Clr Drug Dosing 17.21 mL/min Estimated GFR (MDRD) 23.6 ml/min Glucose 135 H (74-106) mg/dL Calcium 8.9 (8.5-10.1) mg/dL Total Bilirubin 0.3 (0.2-1.0) mg/dL AST 18 (15-37) IU/L ALT 17 (14-63) IU/L Alkaline Phosphatase 115 (46-116) U/L Total Protein 7.5 (6.4-8.2) g/dL Albumin 3.2 L (3.4-5.0) g/dL Globulin 4.3 H (2.6-4.0) g/dL Albumin/Globulin Ratio 0.7 L (0.9-1.6) TSH 3rd Generation 0.94 (0.36-3.74) uIU/mL Urine Color Urine Appearance Urine pH (5.0-8.0) Ur Specific [place] (1.001-1.035) Urine Protein (NEGATIVE) mg/dL Urine Glucose (UA) (NEGATIVE) mg/dL Urine Ketones (NEGATIVE) mg/dL Urine Occult Blood (NEGATIVE) Urine Nitrite (NEGATIVE) Urine Bilirubin (NEGATIVE) Urine Urobilinogen (<2.0) EU/dL Ur Leukocyte Esterase (NEGATIVE) U Hyaline Cast (Auto) (0-2/LPF) Urine RBC (0-2/HPF) Urine WBC (0-5/HPF) Ur Epithelial Cells (NONE-FEW) Urine Bacteria (NEGATIVE) Urine Mucus (NONE-MOD) Salicylates 7.9 (0-20) mg/dL Urine Opiates Screen (NEGATIVE) Ur Oxycodone Screen (NEGATIVE) Urine Methadone Screen (NEGATIVE) Acetaminophen <2.0 ug/mL Ur Barbiturates Screen (NEGATIVE) Ur Phencyclidine Scrn (NEGATIVE) Ur Amphetamine Screen (NEGATIVE) U Methamphetamines Scrn (NEGATIVE) U Benzodiazepines Scrn (NEGATIVE) U Cocaine Metab Screen (NEGATIVE) U Marijuana (THC) Screen (NEGATIVE) Ethyl Alcohol < 3.0 mg/dL SARS-CoV-2 RNA (DOMINIK) (NEGATIVE) Medications Discontinued Medications Generic Name Dose Route Start Last Admin Trade Name Freq PRN Reason Stop Dose Admin Sodium Chloride 1,000 mls @ 999 mls/hr 11/04/20 14:21 11/04/20 14:40 Normal Saline IV 11/04/20 15:21 999 mls/hr .Bolus ONE Administration Sodium Chloride 1,000 mls @ 999 mls/hr 11/04/20 17:11 11/04/20 17:25 Normal Saline IV 11/04/20 18:11 999 mls/hr .Bolus ONE Administration Nicotine Confirm 11/04/20 17:57 11/04/20 18:33 Nicotine 21 Mg/24 Hr Patch Administered 11/04/20 17:58 Not Given Dose 21 mg .ROUTE .STK-MED ONE Nicotine 21 mg 11/04/20 18:32 11/04/20 18:34 Nicotine 21 Mg/24 Hr Patch TRDERM 11/04/20 18:33 21 mg ONETIME ONE Administration Oxycodone HCl 5 mg 11/04/20 16:38 11/04/20 17:04 Oxycodone 5 Mg Tab PO 11/04/20 16:39 5 mg ONETIME ONE Administration Sodium Chloride 10 ml 11/04/20 14:18 11/04/20 14:41 Sodium Chloride 0.9% 10 Ml Syringe FLUSH 10 ml ASDIRECTED PRN Administration Keep Vein Open Sodium Chloride 2.5 ml 11/04/20 14:18 11/04/20 14:41 Sodium Chloride 0.9% 2.5 Ml Syringe FLUSH 2.5 ml ASDIRECTED PRN Administration Keep Vein Open Medical Clearance: 11/04/20 16:00 Patient is medically cleared for psychiatric facility. Case was discussed with Dr. Goins by PAUL Lino, he accepts the case to [facility] acute psych floor. They will be able to accommodate the patient including the oxygen administration requirement. 11/04/20 17:12 The patient had a repeat automatic blood pressure in the upper 70s. The patient was alert and speaking without any difficulty or decreased mental status. The cuff was repositioned and the blood pressure was rechecked with improvement to the upper 80s. Additional liter of fluid will be given as the patient did appear dehydrated on arrival here. 11/05/20 10:53 Documentation for the chart is entered and completed after patient ED stay due to prolonged system-wide downtime. labs were reviewed again and found to have elevated creatinine. I called [facility] to discuss the case with the physician caring for this patient. Patient is admitted to the medical floor. I discussed with Dr. Zacarias, physician caring for patient at [facility]. He agrees with the plan and will review the patient's labs. He did check the patient's creatinine again last night and this morning and it is improving. He is on his way to see the patient and reassess her now. Departure - Departure Time of Disposition: 16:05 Disposition: DC/Tfer to Psych Hosp/Unit 65 Clinical Impression: Depressive disorder, COPD (chronic obstructive pulmonary disease), Suicidal ideation, Creatinine elevation, Dehydration - Discharge Information Referrals: Giovani Maguire MD [Primary Care Provider] - Forms: ED Department Discharge Sepsis Event Note (ED) - Evaluation Sepsis Screening Result: No Definite Risk - My Orders Last 24 Hours: My Active Orders 11/04/20 14:19 Saline Lock Insert [OM.PC] Stat - Assessment/Plan Last 24 Hours: My Active Orders 11/04/20 14:19 Saline Lock Insert [OM.PC] Stat
[2020-11-04 15:42] LABS: ACETAMINOPHEN <2.0 ug/mL; BLOOD UREA NITROGEN,BUN 32 mg/dL (7.0-18.0); CARBON DIOXIDE,CO2 23.7 mmol/L (21.0-32.0); CHLORIDE,CL 101 mmol/L (98-107); GLUCOSE RANDOM 135 mg/dL (74-106); POTASSIUM,K 5.3 mmol/L (3.5-5.1); SODIUM,NA 134 mmol/L (136-145)
[2020-11-04] MEDS ORDERED: oxyCODONE 5 MG Tab PO ONE (16:38)
--- NOTE | 2020-11-04 17:21 | CR ---
Indication: Hypoxia Technique: Chest 2 views Comparison: Chest x-ray 10/31/2020 Findings/Impression: Cardiovascular and mediastinum: Heart size and vasculature are normal in caliber and appearance. Mediastinum is within normal limits. Lungs and pleural spaces: Mild hyperinflation without pleural effusion or pneumothorax. Scattered areas of discoid atelectasis. Bones and soft tissues: Old compression fracture lower thoracic spine. Prior cervicothoracic junction surgery. Prior upper lumbar surgery. Dictated by Guanaco Etienne MD @ 11/04/2020 5:20:[address] Guanaco Etienne @ Nov 04 2020 5:20PM
[2020-11-04] MEDS ORDERED: Nicotine 21 MG/24 Hr Patch ONE (17:57)
[2020-11-04] MEDS ORDERED: Nicotine 21 MG/24 Hr Patch TRDERM ONE (18:32)
[2020-11-04 21:38] VITALS: BP 112/72; PULSE 78
== END 2020-11-04 19:45 ==
LOC: MW.ED 13:42
DX: F32.9 Major depressive disorder, single episode, unspecified (principal); E86.0 Dehydration; J44.9 Chronic obstructive pulmonary disease, unspecified; R74.8 Abnormal levels of other serum enzymes; I10 Essential (primary) hypertension; F17.200 Nicotine dependence, unspecified, uncomplicated; Z88.1 Allergy status to other antibiotic agents; Z88.8 Allergy status to other drugs, medicaments and biological substances; Z88.0 Allergy status to penicillin; Z88.5 Allergy status to narcotic agent; Z79.899 Other long term (current) drug therapy; Z20.822 Contact with and (suspected) exposure to COVID-19
CPT/HCPCS: 36415; 71046; 80053; 80143; 80179; 80305; 80307; 81001; 84443; 85025; 99285; A9270; J7030; U0002

== ENCOUNTER 2020-11-30 00:14 | Emergency (ER) | payer MEDICARE, MEDICAID ==
[2020-11-30] MEDS ORDERED: HYDROmorphone 1 MG/ML Syringe IM ONE ×2 (00:18→01:00)
--- NOTE | 2020-11-30 00:19 | EDM.PDOC ---
ED HPI GENERAL MEDICAL PROBLEM - General Chief Complaint: Back Pain or Injury Stated Complaint: BACK PAIN Time Seen by Provider: 11/30/20 00:16 Source of Information: Reports: Patient History Limitations: Reports: No Limitations - History of Present Illness INITIAL COMMENTS - FREE TEXT/NARRATIVE: 65-year-old female past medical history chronic back pain, chronic opioid use, UTIs, COPD, anxiety, depression presents for acute exacerbation of chronic back pain. Patient states that she had a stroke in the past and that she ambulates with a wheelchair. She states that today she was shutting the door multiple times behind her using a twisting motion and that her typically 5 out of 10 back pain is now a 10 out of 10. She denies any urinary incontinence or retention denies saddle anesthesia denies lower extremity muscle weakness different than baseline. She got Toradol IM by EMS which did not help with pain. BACK AREA Pain Score (Numeric/FACES): 10 - Related Data Allergies Allergy/AdvReac Type Severity Reaction Status Date / Time erythromycin lactobionate Allergy Unknown Itching Verified 11/30/20 00:18 [From Erythrocin] mirtazapine [From Remeron] Allergy Unknown Itching Verified 11/30/20 00:18 Penicillins Allergy Unknown Hives Verified 11/30/20 00:18 tramadol Allergy Tremors Verified 11/30/20 00:18 Home Meds: Home Meds Estazolam [Prosom] 2 mg PO BEDTIME 10/25/17 [History] Umeclidinium Brm/Vilanterol Tr [Anoro Ellipta 62.5-25 MCG] 1 each IH DAILY 02/26/19 [History] Albuterol [Ventolin HFA] 1 puff INH Q4H PRN #1 inhaler 04/22/19 [Rx] traZODone HCl [Trazodone HCl] 300 mg PO BEDTIME PRN 07/07/19 [History] Naloxone HCl [Narcan] 1 spray NASBOTH .FOR SEDATION PRN 07/08/19 [History] Lisinopril/Hydrochlorothiazide [Lisinopril-HCTZ 10-12.5 MG] 10 - 12.5 mg PO QAM 11/11/19 [History] carisoprodoL [Soma] 350 mg PO TID PRN 11/11/19 [History] oxyCODONE 10 mg PO Q6H PRN tablet 11/13/19 [Rx] FLUoxetine [PROzac] 40 mg PO QAM 05/08/20 [History] Magnesium Oxide 250 mg PO DAILY 05/08/20 [History] OXcarbazepine [Trileptal] 150 mg PO BID 05/08/20 [History] buPROPion HCL [Bupropion Xl] 150 mg PO QAM 05/08/20 [History] busPIRone [Buspar] 10 mg PO TID 05/08/20 [History] hydrOXYzine pamoate [Hydroxyzine Pamoate] 25 mg PO BID 05/08/20 [History] tiZANidine [Zanaflex] 2 mg PO TID PRN 05/08/20 [History] Celecoxib 200 mg PO DAILY 05/11/20 [History] levoFLOXacin [Levaquin] 750 mg PO Q48H 1 Days #1 tab 05/13/20 [Rx] Naproxen [Naprosyn] 500 mg PO Q12HR #30 tab 05/22/20 [Rx] Acetaminophen/HYDROcodone [[place] 325-10 MG] 1 tab PO Q4H PRN #14 tab 10/19/20 [Rx] Ciprofloxacin HCl [Cipro] 500 mg PO BID 7 Days #14 tablet 10/19/20 [Rx] methylPREDNISolone [Medrol Dose Pack] 4 mg PO DAILY #21 tab 10/19/20 [Rx] Acetaminophen/HYDROcodone [[place] 325-5 MG] 1 tab PO QID PRN #6 tablet 10/31/20 [Rx] Hydrocodone/Acetaminophen [Hydrocodone-Acetamin 10-325 mg] 1 each PO QID PRN #6 tablet 10/31/20 [Rx] predniSONE [Prednisone] 60 mg PO DAILY #21 tablet 10/31/20 [Rx] Past Medical History - Past Health History Medical/Surgical History: Denies Medical/Surgical History HEENT History: Reports: None Cardiovascular History: Reports: High Cholesterol, Hypertension Respiratory History: Reports: COPD Gastrointestinal History: Reports: None Genitourinary History: Reports: None 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 Oconnor monthly Endocrine/Metabolic History: Reports: None Hematologic History: Reports: None Immunologic History: Reports: None Oncologic (Cancer) History: Reports: Other (See Below) Other Oncologic History: skin ca Dermatologic History: Reports: None Other Dermatologic History: "skin cancer" - Infectious Disease History Infectious Disease History: Reports: Chicken Pox, Measles, Mumps - Past Surgical History Head Surgeries/Procedures: Reports: None HEENT Surgical History: Reports: None Cardiovascular Surgical History: Reports: None Respiratory Surgical History: Reports: None GI Surgical History: Reports: None Female Surgical History: Reports: None Endocrine Surgical History: Reports: None Neurological Surgical History: Reports: Lumbar Spine Musculoskeletal Surgical History: Reports: Other (See Below) Other Musculoskeletal Surgeries/Procedures:: L wrist, back surgery Oncologic Surgical History: Reports: None Dermatological Surgical History: Reports: None Social & Family History - Family History Family Medical History: No Pertinent Family History Respiratory: Reports: COPD OBGYN: Reports: Musculoskeletal: Reports: Arthritis, Back pain, Chronic Neurological: Reports: CVA, TIA Psychiatric: Reports: Anxiety, Depression - Caffeine Use Caffeine Use: Reports: None ED ROS GENERAL - Review of Systems Review Of Systems: Comprehensive ROS is negative, except as noted in HPI. ED EXAM, GENERAL - Physical Exam Exam: See Below Exam Limited By: No Limitations General Appearance: Alert, WD/WN, No Apparent Distress Ears: Hearing Grossly Normal Throat/Mouth: Normal Voice, No Airway Compromise Head: Atraumatic, Normocephalic Neck: Normal Inspection Respiratory/Chest: No Respiratory Distress, Lungs Clear, Normal Breath Sounds, No Accessory Muscle Use Cardiovascular: Normal Peripheral Pulses, Regular Rate, Rhythm GI/Abdominal: Soft, Non-Tender Back Exam: Other (diffuse L spine and paraspinal musculature TTP) Extremities: Normal Inspection Neurological: Alert, Normal Cognition Psychiatric: Normal Affect, Normal Mood Skin Exam: Warm, Dry, Intact, Normal Color Course - Vital Signs Last Recorded V/S: Last Vital Signs Temp 97.8 F 11/30/20 00:18 Pulse 80 11/30/20 00:18 Resp 18 11/30/20 00:18 BP 184/93 H 11/30/20 00:18 Pulse Ox 95 11/30/20 00:18 - Orders/Labs/Meds Orders: Active Orders 24 hr Category Date Time Status HYDROmorphone [Dilaudid] Med 11/30/20 01:00 Once 1 mg IM ONETIME ONE Labs: Laboratory Tests 11/30/20 Range/Units 00:35 Urine Color YELLOW Urine Appearance CLEAR Urine pH 6.5 (5.0-8.0) Ur Specific [place] 1.020 (1.001-1.035) Urine Protein NEGATIVE (NEGATIVE) mg/dL Urine Glucose (UA) NEGATIVE (NEGATIVE) mg/dL Urine Ketones NEGATIVE (NEGATIVE) mg/dL Urine Occult Blood NEGATIVE (NEGATIVE) Urine Nitrite NEGATIVE (NEGATIVE) Urine Bilirubin NEGATIVE (NEGATIVE) Urine Urobilinogen 0.2 (<2.0) EU/dL Ur Leukocyte Esterase NEGATIVE (NEGATIVE) Meds: Medications Discontinued Medications Generic Name Dose Route Start Last Admin Trade Name Freq PRN Reason Stop Dose Admin Hydromorphone HCl 1.5 mg 11/30/20 00:18 11/30/20 00:26 Hydromorphone 1 Mg/Ml Syringe IM 11/30/20 00:19 1.5 mg ONETIME ONE Administration - Re-Assessments/Exams Free Text/Narrative Re-Assessment/Exam: 11/30/20 01:02 Patient's pain is greatly improved although she has still in pain. Will give additional dose of Dilaudid IM. Patient does note that she has follow-up scheduled in January for surgical repair of her back. Will discharge her with a few days of analgesia. Departure - Departure Time of Disposition: 01:03 Disposition: Home, Self-Care 01 Condition: Good Clinical Impression: Chronic back pain Qualifiers: Back pain location: low back pain Back pain laterality: bilateral Sciatica presence: without sciatica Qualified Code(s): M54.5 - Low back pain; G89.29 - Other chronic pain - Discharge Information Instructions: Chronic Back Pain Forms: ED Department Discharge Additional Instructions: You are given a 3-day course of pain medication for your back pain. You need to follow-up with your physicians and I know that you have the surgery planned for January. If you begin to experience lower extremity muscle weakness, inability to urinate, urinating on yourself, or loss of sensation around your groin and buttocks then you should come back to the emergency department. If your pain is unbearable at home you should also come back to the emergency department as we are always available to help with acute pain. The following information is given to patients seen in the emergency department who are being discharged to home. This information is to outline your options for follow-up care. We provide all patients seen in our emergency department with a follow-up referral. The need for follow-up, as well as the timing and circumstances, are variable depending upon the specifics of your emergency department visit. If you don't have a primary care physician on staff, we will provide you with a referral. We always advise you to contact your personal physician following an emergency department visit to inform them of the circumstance of the visit and for follow-up with them and/or the need for any referrals to a consulting specialist. The emergency department will also refer you to a specialist when appropriate. This referral assures that you have the opportunity for follow-up care with a specialist. All of these measure are taken in an effort to provide you with optimal care, which includes your follow-up. Under all circumstances we always encourage you to contact your private physician who remains a resource for coordinating your care. When calling for follow-up care, please make the office aware that this follow-up is from your recent emergency room visit. If for any reason you are refused follow-up, please contact the [facility] Emergency Department at and asked to speak to the emergency department jennie nurse. Please follow up with your primary care physician. If you do not have a primary care physician, see below: [facility] [address] [place] [id number] [facility] [address] [place] [id number] [facility] [address] [place] [id number] Sepsis Event Note (ED) - Focused Exam Vital Signs: Vital Signs Temp Pulse Resp BP Pulse Ox 11/30/20 00:18 97.8 F 80 18 184/93 H 95 - My Orders Last 24 Hours: My Active Orders 11/30/20 01:00 HYDROmorphone [Dilaudid] 1 mg IM ONETIME ONE - Assessment/Plan Last 24 Hours: My Active Orders 11/30/20 01:00 HYDROmorphone [Dilaudid] 1 mg IM ONETIME ONE
[2020-11-30 02:36] VITALS: BP 160/87; PULSE 77
== END 2020-11-30 01:50 | disposition home or self-care (01) ==
LOC: MW.ED 00:14
DX: M54.5 Low back pain (principal); G89.29 Other chronic pain; I10 Essential (primary) hypertension; J44.9 Chronic obstructive pulmonary disease, unspecified; Z86.73 Personal history of transient ischemic attack (TIA), and cerebral infarction without residual deficits; Z79.899 Other long term (current) drug therapy; Z88.1 Allergy status to other antibiotic agents; Z88.5 Allergy status to narcotic agent; Z88.0 Allergy status to penicillin
CPT/HCPCS: 81003; 96372; 99283; J1170

== ENCOUNTER 2021-01-05 04:58 | Emergency (ER) | payer MEDICARE, MEDICAID ==
[2021-01-05] MEDS ORDERED: HYDROmorphone 1 MG/ML Syringe IM ONE (05:01)
--- NOTE | 2021-01-05 05:07 | EDM.PDOC ---
ED HPI GENERAL MEDICAL PROBLEM - General Chief Complaint: Back Pain or Injury Stated Complaint: BACK PAIN Time Seen by Provider: 01/05/21 05:00 Source of Information: Reports: Patient History Limitations: Reports: No Limitations - History of Present Illness INITIAL COMMENTS - FREE TEXT/NARRATIVE: 65-year-old female past medical history chronic back pain, chronic opioid use, UTIs, COPD, anxiety, depression presents for acute exacerbation of chronic low back pain. Patient states that she always has low back pain which has been surgically repaired in the past. She is scheduled for surgical repair in [place] in March. States initial appointment was in January but was moved to March. Patient does not endorse any new injuries or inciting event for why the pain would worsen today. She states that she woke up with excruciating back pain. She states that her typical back pain is a 9 out of 10 but currently is a 10 out of 10. She denies any urinary symptoms of dysuria, urinary incontinence, urinary retention. She denies saddle anesthesia. She denies lower extremity paralysis. Her pain is bilateral lower back. Lower Back Pain Score (Numeric/FACES): 10 - Related Data Allergies Allergy/AdvReac Type Severity Reaction Status Date / Time erythromycin lactobionate Allergy Unknown Itching Verified 01/05/21 05:00 [From Erythrocin] mirtazapine [From Remeron] Allergy Unknown Itching Verified 01/05/21 05:00 Penicillins Allergy Unknown Hives Verified 01/05/21 05:00 tramadol Allergy Tremors Verified 01/05/21 05:00 Home Meds: Home Meds Estazolam [Prosom] 2 mg PO BEDTIME 10/25/17 [History] Umeclidinium Brm/Vilanterol Tr [Anoro Ellipta 62.5-25 MCG] 1 each IH DAILY 02/26/19 [History] Albuterol [Ventolin HFA] 1 puff INH Q4H PRN #1 inhaler 04/22/19 [Rx] traZODone HCl [Trazodone HCl] 300 mg PO BEDTIME PRN 07/07/19 [History] Naloxone HCl [Narcan] 1 spray NASBOTH .FOR SEDATION PRN 07/08/19 [History] Lisinopril/Hydrochlorothiazide [Lisinopril-HCTZ 10-12.5 MG] 10 - 12.5 mg PO QAM 11/11/19 [History] carisoprodoL [Soma] 350 mg PO TID PRN 11/11/19 [History] oxyCODONE 10 mg PO Q6H PRN tablet 11/13/19 [Rx] FLUoxetine [PROzac] 40 mg PO QAM 05/08/20 [History] Magnesium Oxide 250 mg PO DAILY 05/08/20 [History] OXcarbazepine [Trileptal] 150 mg PO BID 05/08/20 [History] buPROPion HCL [Bupropion Xl] 150 mg PO QAM 05/08/20 [History] busPIRone [Buspar] 10 mg PO TID 05/08/20 [History] hydrOXYzine pamoate [Hydroxyzine Pamoate] 25 mg PO BID 05/08/20 [History] tiZANidine [Zanaflex] 2 mg PO TID PRN 05/08/20 [History] Celecoxib 200 mg PO DAILY 05/11/20 [History] levoFLOXacin [Levaquin] 750 mg PO Q48H 1 Days #1 tab 05/13/20 [Rx] Naproxen [Naprosyn] 500 mg PO Q12HR #30 tab 05/22/20 [Rx] Acetaminophen/HYDROcodone [[place] 325-10 MG] 1 tab PO Q4H PRN #14 tab 10/19/20 [Rx] Ciprofloxacin HCl [Cipro] 500 mg PO BID 7 Days #14 tablet 10/19/20 [Rx] methylPREDNISolone [Medrol Dose Pack] 4 mg PO DAILY #21 tab 10/19/20 [Rx] Acetaminophen/HYDROcodone [[place] 325-5 MG] 1 tab PO QID PRN #6 tablet 10/31/20 [Rx] Hydrocodone/Acetaminophen [Hydrocodone-Acetamin 10-325 mg] 1 each PO QID PRN #6 tablet 10/31/20 [Rx] predniSONE [Prednisone] 60 mg PO DAILY #21 tablet 10/31/20 [Rx] oxyCODONE HCl/Acetaminophen [Percocet 10-325 mg Tablet] 1 each PO Q4H PRN #24 tablet 11/30/20 [Rx] oxyCODONE HCl/Acetaminophen [Percocet 10-325 mg Tablet] 1 each PO Q4H PRN #24 tablet 01/05/21 [Rx] Past Medical History - Past Health History Medical/Surgical History: Denies Medical/Surgical History HEENT History: Reports: None Cardiovascular History: Reports: High Cholesterol, Hypertension Respiratory History: Reports: COPD Gastrointestinal History: Reports: None Genitourinary History: Reports: None 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 Hematologic History: Reports: None Immunologic History: Reports: None Oncologic (Cancer) History: Reports: Other (See Below) Other Oncologic History: skin ca Dermatologic History: Reports: None Other Dermatologic History: "skin cancer" - Infectious Disease History Infectious Disease History: Reports: Chicken Pox, Measles, Mumps - Past Surgical History Head Surgeries/Procedures: Reports: None HEENT Surgical History: Reports: None Cardiovascular Surgical History: Reports: None Respiratory Surgical History: Reports: None GI Surgical History: Reports: None Female Surgical History: Reports: None Endocrine Surgical History: Reports: None Neurological Surgical History: Reports: Lumbar Spine Musculoskeletal Surgical History: Reports: Other (See Below) Other Musculoskeletal Surgeries/Procedures:: L wrist, back surgery Oncologic Surgical History: Reports: None Dermatological Surgical History: Reports: None Social & Family History - Family History Family Medical History: No Pertinent Family History Respiratory: Reports: COPD OBGYN: Reports: Musculoskeletal: Reports: Arthritis, Back pain, Chronic Neurological: Reports: CVA, TIA Psychiatric: Reports: Anxiety, Depression - Caffeine Use Caffeine Use: Reports: Coffee ED ROS GENERAL - Review of Systems Review Of Systems: Comprehensive ROS is negative, except as noted in HPI. ED EXAM, GENERAL - Physical Exam Exam: See Below Exam Limited By: No Limitations General Appearance: Alert, WD/WN, No Apparent Distress Ears: Hearing Grossly Normal Throat/Mouth: Normal Voice, No Airway Compromise Head: Atraumatic, Normocephalic Neck: Normal Inspection Respiratory/Chest: No Respiratory Distress, Lungs Clear, Normal Breath Sounds, No Accessory Muscle Use Cardiovascular: Normal Peripheral Pulses, Regular Rate, Rhythm GI/Abdominal: Soft, Non-Tender Back Exam: Normal Inspection, Paraspinal Tenderness. No: Vertebral Tenderness Extremities: Normal Inspection Neurological: Alert, Normal Cognition Psychiatric: Normal Affect, Normal Mood Skin Exam: Warm, Dry, Intact, Normal Color Course - Vital Signs Last Recorded V/S: Last Vital Signs Temp 98.0 F 01/05/21 05:00 Pulse 92 01/05/21 05:00 Resp 19 01/05/21 05:00 BP 175/82 H 01/05/21 05:00 Pulse Ox 93 L 01/05/21 05:00 - Orders/Labs/Meds Meds: Medications Discontinued Medications Generic Name Dose Route Start Last Admin Trade Name [place] PRN Reason Stop Dose Admin Hydromorphone HCl 1 mg 01/05/21 05:01 01/05/21 05:05 Hydromorphone 1 Mg/Ml Syringe IM 01/05/21 05:02 1 mg ONETIME ONE Administration - Re-Assessments/Exams Free Text/Narrative Re-Assessment/Exam: 01/05/21 05:08 Patient presents with acute exacerbation of chronic back pain. Looking through [facility] patient was getting 120 15 mg oxycodone tablets from nurse practitioner Prabhu based out of [place], [place] for several months however these prescriptions stopped in October of this year. Patient's last narcotic was filled on 621 by me. She notes that she has just been taking Motrin at home recently for pain. History and physical do not suggest red flag signs or symptoms for low back pain. Will treat patient symptomatically with analgesia and reassess. 01/05/21 05:33 Patient states that pain is much improved after Dilaudid. Had a long discussion with patient about importance of follow-up with her physicians rather than using the emergency department for pain management. I informed her that we are always happy to help her out with acute exacerbations of pain but that she would be better served by seeing her regular physician. She notes that her primary care physician Dr. Maguire is uncomfortable prescribing her narcotics and has referred her to pain management. She states that she supposed to hear back from them within the next week to set up an appointment. She states that she is no longer seeing VALVE FITTER Prabhu in [place] who was prescribing her pain medication. I told her that I will give her a short course of Percocet which does help with her pain but that she will need to keep her follow-up appointments for long-term management of her pain and to please keep her appointment in [place] with neurosurgery in March. Departure - Departure Time of Disposition: 05:34 Disposition: Home, Self-Care 01 Condition: Good Clinical Impression: Back pain Qualifiers: Back pain location: low back pain Chronicity: acute Back pain laterality: midline Sciatica presence: without sciatica Qualified Code(s): M54.5 - Low back pain - Discharge Information Prescriptions: oxyCODONE HCl/Acetaminophen [Percocet 10-325 mg Tablet] 1 each PO Q4H PRN #24 tablet PRN Reason: Pain Instructions: Chronic Back Pain Forms: ED Department Discharge Additional Instructions: Please keep your follow-up appointment with pain management. While we are always available to see you in the emergency department for any emergent needs your pain management is best managed by pain management physician. I cannot guarantee that you will continue to receive opioid prescriptions from the emergency department. The following information is given to patients seen in the emergency department who are being discharged to home. This information is to outline your options for follow-up care. We provide all patients seen in our emergency department with a follow-up referral. The need for follow-up, as well as the timing and circumstances, are variable depending upon the specifics of your emergency department visit. If you don't have a primary care physician on staff, we will provide you with a referral. We always advise you to contact your personal physician following an emergency department visit to inform them of the circumstance of the visit and for follow-up with them and/or the need for any referrals to a consulting specialist. The emergency department will also refer you to a specialist when appropriate. This referral assures that you have the opportunity for follow-up care with a specialist. All of these measure are taken in an effort to provide you with optimal care, which includes your follow-up. Under all circumstances we always encourage you to contact your private physi wolfgang who remains a resource for coordinating your care. When calling for follow- up care, please make the office aware that this follow-up is from your recent emergency room visit. If for any reason you are refused follow-up, please contact the [facility] Emergency Department at and asked to speak to the emergency department charge nurse. Please follow up with your primary care physician. If you do not have a primary care physician, see below: [facility] [address] [place] [id number] [facility] [address] [place] [address] [facility] [address] [place] [address] Sepsis Event Note (ED) - Evaluation Sepsis Screening Result: No Definite Risk - Focused Exam Vital Signs: Vital Signs Temp Pulse Resp BP Pulse Ox 01/05/21 05:00 98.0 F 92 19 175/82 H 93 L
[2021-01-05 06:06] VITALS: BP 158/88; PULSE 75
== END 2021-01-05 06:06 | disposition home or self-care (01) ==
LOC: MW.ED 04:58
DX: M54.5 Low back pain (principal); I10 Essential (primary) hypertension; J44.9 Chronic obstructive pulmonary disease, unspecified; Z88.1 Allergy status to other antibiotic agents; Z88.0 Allergy status to penicillin; Z88.8 Allergy status to other drugs, medicaments and biological substances; Z79.899 Other long term (current) drug therapy
CPT/HCPCS: 96372; 99283; J1170

== ENCOUNTER 2021-11-04 20:48 | Emergency (ER) | payer MEDICARE, MEDICAID ==
[2021-11-04] MEDS ORDERED: traMADol 50 MG Tab PO ONE (21:50)
[2021-11-04 23:01] LABS: CARBON DIOXIDE,CO2 24.6 mmol/L (21.0-32.0); POTASSIUM,K 4.2 mmol/L (3.5-5.1)
[2021-11-04] MEDS ORDERED: traMADol 50 MG Tab PO STA (23:21)
[2021-11-05 00:18] VITALS: BP 117/71; PULSE 77
== END 2021-11-04 23:43 | disposition home or self-care (01) ==
LOC: MW.ED 20:48
DX: S92.152A Displaced avulsion fracture (chip fracture) of left talus, initial encounter for closed fracture (principal); N30.00 Acute cystitis without hematuria; J44.9 Chronic obstructive pulmonary disease, unspecified; E78.00 Pure hypercholesterolemia, unspecified; I10 Essential (primary) hypertension; Z86.73 Personal history of transient ischemic attack (TIA), and cerebral infarction without residual deficits; Z88.1 Allergy status to other antibiotic agents; Z88.0 Allergy status to penicillin; Z88.3 Allergy status to other anti-infective agents; Z88.5 Allergy status to narcotic agent; Z79.899 Other long term (current) drug therapy; W19.XXXA Unspecified fall, initial encounter
CPT/HCPCS: 36415; 72100; 73502; 73610; 73630; 80048; 81001; 85025; 85652; 86140; 87086; 99283; A9270; 87088; 87186

== ENCOUNTER 2022-02-25 09:13 | Inpatient (IN) | payer MEDICARE, MEDICAID ==
[2022-02-25 11:09] LABS: BLOOD UREA NITROGEN,BUN 28 mg/dL (7.0-18.0); CARBON DIOXIDE,CO2 28.7 mmol/L (21.0-32.0); CHLORIDE,CL 103 mmol/L (98-107); GLUCOSE RANDOM 119 mg/dL (74-106); POTASSIUM,K 4.7 mmol/L (3.5-5.1); SODIUM,NA 139 mmol/L (136-145)
[2022-02-25 11:12] LABS: ESTIMATED GFR 45 mL/min (>60)
[2022-02-25] MEDS ORDERED: Sodium Chloride 0.9% 1,000 ML IV ONE (11:53)
[2022-02-25] MEDS ORDERED: Sodium Chloride 0.9% 1,000 ML IV STA (11:54)
[2022-02-25] MEDS ORDERED: cefTRIAXone 1 GM in Sodium Chloride 0.9% 50 ML IV ONE (13:30)
[2022-02-25] MEDS ORDERED: Albuterol/Ipratropium 3.0-0.5 MG/3 ML Neb Soln NEB PRN (16:05)
[2022-02-25] MEDS ORDERED: Ondansetron 4 MG/2 ML SDV IVPUSH PRN (16:06)
[2022-02-25] MEDS: Enoxaparin 40 MG/0.4 ML Syringe SUBCUT SCH (16:21)
[2022-02-25] MEDS: Pantoprazole 40 MG Tab.CR PO SCH (16:21)
[2022-02-25] MEDS ORDERED: traZODone 50 MG Tab PO PRN (17:19)
[2022-02-25] MEDS ORDERED: Furosemide 20 MG Tab PO SCH (17:30)
[2022-02-25] MEDS: Lisinopril 10 MG Tab PO SCH (19:05)
[2022-02-25] MEDS: Aspirin 81 MG Tab.Chew PO SCH (19:13)
[2022-02-25] MEDS: Acetaminophen/HYDROcodone 325-5 MG Tab PO PRN (19:13)
[2022-02-25] MEDS: amLODIPine 5 MG Tab PO SCH (19:13)
[2022-02-25] MEDS ORDERED: Lidocaine 2% 5 ML SDV ONE ×2 (19:14→19:17)
[2022-02-25] MEDS: QUEtiapine 100 MG Tab PO SCH (22:10)
[2022-02-25] MEDS: Rosuvastatin 10 MG Tab PO SCH (22:10)
[2022-02-25] MEDS: busPIRone 5 MG Tab PO SCH (22:10)
[2022-02-25] MEDS: Lactated Ringers 1,000 ML IV SCH (22:12)
[2022-02-25] MEDS: Brimonidine 0.2% Ophth Soln 5 ML Bottle EYELF SCH (23:31)
[2022-02-26] MEDS: Acetaminophen/HYDROcodone 325-5 MG Tab PO PRN ×4 (01:02→21:30)
[2022-02-26] MEDS: Lactated Ringers 1,000 ML IV SCH ×2 (05:58→18:42)
[2022-02-26] MEDS: Pantoprazole 40 MG Tab.CR PO SCH (06:48)
[2022-02-26] MEDS: busPIRone 5 MG Tab PO SCH ×3 (06:48→21:29)
[2022-02-26 07:30] LABS: CARBON DIOXIDE,CO2 30.8 mmol/L (21.0-32.0); POTASSIUM,K 3.9 mmol/L (3.5-5.1)
[2022-02-26] MEDS: FLUoxetine 20 MG Cap PO SCH (08:12)
[2022-02-26] MEDS: Brimonidine 0.2% Ophth Soln 5 ML Bottle EYELF SCH ×2 (08:12→21:21)
[2022-02-26] MEDS: Aspirin 81 MG Tab.Chew PO SCH (08:12)
[2022-02-26] MEDS: Lisinopril 10 MG Tab PO SCH (08:12)
[2022-02-26] MEDS: amLODIPine 5 MG Tab PO SCH (08:12)
[2022-02-26] MEDS ORDERED: tiZANidine 4 MG Tab PO SCH (10:15)
[2022-02-26] MEDS ORDERED: ESTAZOLAM 2 MG PO PRN (11:20)
[2022-02-26] MEDS: Cholecalciferol (Vitamin D3) 25 MCG Tab PO SCH (12:11)
[2022-02-26] MEDS: hydrOXYzine Pamoate 25 MG Cap PO SCH ×3 (12:11→21:25)
[2022-02-26] MEDS: Fluticasone/Salmeterol 250-50 MCG Inhalation Powder 14/Diskus INH SCH ×2 (12:11→21:21)
[2022-02-26] MEDS: cefTRIAXone 1 GM in Sodium Chloride 0.9% 50 ML IV SCH (12:11)
[2022-02-26] MEDS: Gabapentin 100 MG Cap PO SCH ×2 (13:41→21:29)
[2022-02-26] MEDS ORDERED: cefTRIAXone 1 GM in Sodium Chloride 0.9% 50 ML IV SCH (16:00)
[2022-02-26] MEDS: Enoxaparin 40 MG/0.4 ML Syringe SUBCUT SCH (16:19)
[2022-02-26] MEDS: QUEtiapine 100 MG Tab PO SCH (21:24)
[2022-02-26] MEDS: Rosuvastatin 10 MG Tab PO SCH (21:24)
[2022-02-27] MEDS: Lactated Ringers 1,000 ML IV SCH ×3 (03:12→21:13)
[2022-02-27] MEDS: Acetaminophen/HYDROcodone 325-5 MG Tab PO PRN ×3 (03:12→16:11)
[2022-02-27] MEDS: busPIRone 5 MG Tab PO SCH ×3 (06:42→21:11)
[2022-02-27] MEDS: Pantoprazole 40 MG Tab.CR PO SCH (06:45)
[2022-02-27] MEDS: Gabapentin 100 MG Cap PO SCH ×3 (06:45→21:09)
[2022-02-27] MEDS: hydrOXYzine Pamoate 25 MG Cap PO SCH ×4 (06:46→21:09)
[2022-02-27 08:02] LABS: CARBON DIOXIDE,CO2 29.1 mmol/L (21.0-32.0); POTASSIUM,K 3.7 mmol/L (3.5-5.1)
[2022-02-27] MEDS: Fluticasone/Salmeterol 250-50 MCG Inhalation Powder 14/Diskus INH SCH ×2 (08:57→21:06)
[2022-02-27] MEDS: Brimonidine 0.2% Ophth Soln 5 ML Bottle EYELF SCH ×2 (08:57→21:07)
[2022-02-27] MEDS: Aspirin 81 MG Tab.Chew PO SCH (08:58)
[2022-02-27] MEDS: FLUoxetine 20 MG Cap PO SCH (08:58)
[2022-02-27] MEDS: amLODIPine 5 MG Tab PO SCH (08:58)
[2022-02-27] MEDS: Cholecalciferol (Vitamin D3) 25 MCG Tab PO SCH (08:58)
[2022-02-27] MEDS: Lisinopril 10 MG Tab PO SCH (08:58)
[2022-02-27] MEDS: tiZANidine 4 MG Tab PO PRN (08:58)
[2022-02-27] MEDS ORDERED: Morphine 2 MG/ML SYRINGE IVPUSH ONE (11:40)
[2022-02-27] MEDS: cefTRIAXone 1 GM in Sodium Chloride 0.9% 50 ML IV SCH (13:35)
[2022-02-27] MEDS: Nicotine 14 MG/24 Hr Patch TRDERM SCH (16:10)
[2022-02-27] MEDS: Enoxaparin 40 MG/0.4 ML Syringe SUBCUT SCH (16:10)
[2022-02-27] MEDS: Rosuvastatin 10 MG Tab PO SCH (21:10)
[2022-02-27] MEDS: QUEtiapine 100 MG Tab PO SCH (21:11)
[2022-02-28] MEDS: hydrOXYzine Pamoate 25 MG Cap PO SCH ×4 (06:25→21:41)
[2022-02-28] MEDS: Gabapentin 100 MG Cap PO SCH ×3 (06:25→21:42)
[2022-02-28] MEDS: busPIRone 5 MG Tab PO SCH ×3 (06:26→21:43)
[2022-02-28] MEDS: Pantoprazole 40 MG Tab.CR PO SCH ×2 (06:26→06:47)
[2022-02-28] MEDS: Lactated Ringers 1,000 ML IV SCH (06:27)
[2022-02-28 07:17] LABS: CARBON DIOXIDE,CO2 27.5 mmol/L (21.0-32.0); POTASSIUM,K 3.9 mmol/L (3.5-5.1)
[2022-02-28] MEDS: Fluticasone/Salmeterol 250-50 MCG Inhalation Powder 14/Diskus INH SCH ×2 (08:38→21:39)
[2022-02-28] MEDS: amLODIPine 5 MG Tab PO SCH (08:38)
[2022-02-28] MEDS: Brimonidine 0.2% Ophth Soln 5 ML Bottle EYELF SCH ×2 (08:38→21:40)
[2022-02-28] MEDS: FLUoxetine 20 MG Cap PO SCH (08:38)
[2022-02-28] MEDS: Lisinopril 10 MG Tab PO SCH (08:39)
[2022-02-28] MEDS: Aspirin 81 MG Tab.Chew PO SCH (08:39)
[2022-02-28] MEDS: Nicotine 14 MG/24 Hr Patch TRDERM SCH (08:40)
[2022-02-28] MEDS: Cholecalciferol (Vitamin D3) 25 MCG Tab PO SCH (08:40)
[2022-02-28] MEDS: Acetaminophen/HYDROcodone 325-5 MG Tab PO PRN ×3 (08:47→21:43)
[2022-02-28] MEDS: Azithromycin 250 MG Tab PO SCH (11:22)
[2022-02-28] MEDS: cefTRIAXone 1 GM in Sodium Chloride 0.9% 50 ML IV SCH (13:17)
[2022-02-28] MEDS: Enoxaparin 40 MG/0.4 ML Syringe SUBCUT SCH (16:39)
[2022-02-28] MEDS: QUEtiapine 100 MG Tab PO SCH (21:40)
[2022-02-28] MEDS: Rosuvastatin 10 MG Tab PO SCH (21:42)
[2022-03-01] MEDS: hydrOXYzine Pamoate 25 MG Cap PO SCH ×4 (06:49→21:34)
[2022-03-01] MEDS: Pantoprazole 40 MG Tab.CR PO SCH (06:49)
[2022-03-01] MEDS: Gabapentin 100 MG Cap PO SCH ×3 (06:49→21:35)
[2022-03-01] MEDS: busPIRone 5 MG Tab PO SCH ×3 (06:49→21:34)
[2022-03-01 07:38] LABS: CARBON DIOXIDE,CO2 27.9 mmol/L (21.0-32.0); POTASSIUM,K 3.7 mmol/L (3.5-5.1)
[2022-03-01] MEDS: Fluticasone/Salmeterol 250-50 MCG Inhalation Powder 14/Diskus INH SCH ×2 (08:24→21:32)
[2022-03-01] MEDS: Brimonidine 0.2% Ophth Soln 5 ML Bottle EYELF SCH ×2 (08:25→21:32)
[2022-03-01] MEDS: Nicotine 14 MG/24 Hr Patch TRDERM SCH (08:25)
[2022-03-01] MEDS: Aspirin 81 MG Tab.Chew PO SCH (08:25)
[2022-03-01] MEDS: amLODIPine 5 MG Tab PO SCH (08:25)
[2022-03-01] MEDS: Lisinopril 10 MG Tab PO SCH (08:26)
[2022-03-01] MEDS: FLUoxetine 20 MG Cap PO SCH (08:26)
[2022-03-01] MEDS: Cholecalciferol (Vitamin D3) 25 MCG Tab PO SCH (08:27)
[2022-03-01] MEDS: Acetaminophen/HYDROcodone 325-5 MG Tab PO PRN ×3 (08:34→21:38)
[2022-03-01] MEDS: DORZOLAMIDE EYELF SCH ×2 (09:15→21:35)
[2022-03-01] MEDS: TIMOLOL EYELF SCH ×2 (09:15→21:35)
[2022-03-01] MEDS: UMECLIDINIUM BRM INH SCH (09:15)
[2022-03-01] MEDS: VILANTEROL TR INH SCH (09:15)
[2022-03-01] MEDS: Azithromycin 250 MG Tab PO SCH (10:37)
[2022-03-01] MEDS ORDERED: Furosemide 40 MG/4 ML VIAL IVPUSH ONE (12:46)
[2022-03-01] MEDS: cefTRIAXone 1 GM in Sodium Chloride 0.9% 50 ML IV SCH (13:26)
[2022-03-01] MEDS: Heparin Sodium 5,000 Units/ML Vial SUBCUT SCH (15:38)
[2022-03-01] MEDS: QUEtiapine 100 MG Tab PO SCH (21:34)
[2022-03-01] MEDS: Rosuvastatin 10 MG Tab PO SCH (21:35)
[2022-03-02] MEDS: busPIRone 5 MG Tab PO SCH ×3 (06:41→21:04)
[2022-03-02] MEDS: Gabapentin 100 MG Cap PO SCH ×3 (06:41→21:02)
[2022-03-02] MEDS: hydrOXYzine Pamoate 25 MG Cap PO SCH ×4 (06:41→21:02)
[2022-03-02] MEDS: Pantoprazole 40 MG Tab.CR PO SCH (06:41)
[2022-03-02] MEDS: Heparin Sodium 5,000 Units/ML Vial SUBCUT SCH ×2 (07:25→16:22)
[2022-03-02 07:37] LABS: CARBON DIOXIDE,CO2 29.7 mmol/L (21.0-32.0); POTASSIUM,K 3.8 mmol/L (3.5-5.1)
[2022-03-02] MEDS ORDERED: Magnesium Sulfate/Water 2 GM in Premix Bag 1 BAG IV ONE (08:03)
[2022-03-02] MEDS: Acetaminophen/HYDROcodone 325-5 MG Tab PO PRN ×3 (08:57→21:02)
[2022-03-02] MEDS: FLUoxetine 20 MG Cap PO SCH (09:02)
[2022-03-02] MEDS: amLODIPine 5 MG Tab PO SCH (09:02)
[2022-03-02] MEDS: Aspirin 81 MG Tab.Chew PO SCH (09:02)
[2022-03-02] MEDS: Cholecalciferol (Vitamin D3) 25 MCG Tab PO SCH (09:02)
[2022-03-02] MEDS: Lisinopril 10 MG Tab PO SCH (09:02)
[2022-03-02] MEDS: TIMOLOL EYELF SCH ×2 (09:03→21:04)
[2022-03-02] MEDS: Nicotine 14 MG/24 Hr Patch TRDERM SCH (09:03)
[2022-03-02] MEDS: VILANTEROL TR INH SCH (09:03)
[2022-03-02] MEDS: Fluticasone/Salmeterol 250-50 MCG Inhalation Powder 14/Diskus INH SCH ×2 (09:03→21:04)
[2022-03-02] MEDS: Brimonidine 0.2% Ophth Soln 5 ML Bottle EYELF SCH ×2 (09:03→21:05)
[2022-03-02] MEDS: UMECLIDINIUM BRM INH SCH (09:03)
[2022-03-02] MEDS: DORZOLAMIDE EYELF SCH ×2 (09:03→21:04)
[2022-03-02] MEDS ORDERED: Furosemide 40 MG/4 ML VIAL IVPUSH ONE (11:30)
[2022-03-02] MEDS: Doxycycline 100 MG Cap PO SCH ×2 (11:45→21:04)
[2022-03-02] MEDS: Azithromycin 250 MG Tab PO SCH (11:47)
[2022-03-02] MEDS: cefTRIAXone 1 GM in Sodium Chloride 0.9% 50 ML IV SCH (13:20)
[2022-03-02] MEDS: Lidocaine 5% 700 MG Patch TRDERM SCH (16:23)
[2022-03-02] MEDS: QUEtiapine 100 MG Tab PO SCH (21:03)
[2022-03-02] MEDS: Rosuvastatin 10 MG Tab PO SCH (21:03)
[2022-03-03] MEDS: Acetaminophen/HYDROcodone 325-5 MG Tab PO PRN ×3 (03:52→19:43)
[2022-03-03] MEDS: Heparin Sodium 5,000 Units/ML Vial SUBCUT SCH ×2 (03:52→15:23)
[2022-03-03] MEDS: Gabapentin 100 MG Cap PO SCH ×3 (06:26→21:12)
[2022-03-03] MEDS: busPIRone 5 MG Tab PO SCH ×3 (06:26→21:12)
[2022-03-03] MEDS: hydrOXYzine Pamoate 25 MG Cap PO SCH ×4 (06:26→21:12)
[2022-03-03] MEDS: Pantoprazole 40 MG Tab.CR PO SCH ×2 (06:26→06:32)
[2022-03-03 06:41] LABS: CARBON DIOXIDE,CO2 27.8 mmol/L (21.0-32.0); POTASSIUM,K 4.1 mmol/L (3.5-5.1)
[2022-03-03] MEDS: Fluticasone/Salmeterol 250-50 MCG Inhalation Powder 14/Diskus INH SCH ×2 (08:27→21:11)
[2022-03-03] MEDS: Doxycycline 100 MG Cap PO SCH (08:28)
[2022-03-03] MEDS: Brimonidine 0.2% Ophth Soln 5 ML Bottle EYELF SCH ×2 (08:28→21:10)
[2022-03-03] MEDS: Lisinopril 10 MG Tab PO SCH (08:28)
[2022-03-03] MEDS: FLUoxetine 20 MG Cap PO SCH (08:29)
[2022-03-03] MEDS: Aspirin 81 MG Tab.Chew PO SCH (08:29)
[2022-03-03] MEDS: Cholecalciferol (Vitamin D3) 25 MCG Tab PO SCH (08:29)
[2022-03-03] MEDS: amLODIPine 5 MG Tab PO SCH (08:29)
[2022-03-03] MEDS: Nicotine 14 MG/24 Hr Patch TRDERM SCH (08:29)
[2022-03-03] MEDS: UMECLIDINIUM BRM INH SCH (08:31)
[2022-03-03] MEDS: DORZOLAMIDE EYELF SCH ×2 (08:31→21:13)
[2022-03-03] MEDS: VILANTEROL TR INH SCH (08:31)
[2022-03-03] MEDS: TIMOLOL EYELF SCH ×2 (08:31→21:13)
[2022-03-03] MEDS: Furosemide 20 MG Tab PO SCH (08:33)
[2022-03-03] MEDS: Levofloxacin 750 MG Tab PO SCH (13:11)
[2022-03-03] MEDS: Ondansetron 4 MG Tab.DIS PO PRN (13:57)
[2022-03-03] MEDS: Lidocaine 5% 700 MG Patch TRDERM SCH (15:27)
[2022-03-03] MEDS: QUEtiapine 100 MG Tab PO SCH (21:11)
[2022-03-03] MEDS: Rosuvastatin 10 MG Tab PO SCH (21:12)
[2022-03-04] MEDS: Heparin Sodium 5,000 Units/ML Vial SUBCUT SCH ×2 (03:54→16:10)
[2022-03-04] MEDS: Gabapentin 100 MG Cap PO SCH ×3 (06:33→21:10)
[2022-03-04] MEDS: busPIRone 5 MG Tab PO SCH ×3 (06:33→21:10)
[2022-03-04] MEDS: hydrOXYzine Pamoate 25 MG Cap PO SCH ×4 (06:34→20:41)
[2022-03-04] MEDS: Pantoprazole 40 MG Tab.CR PO SCH (06:34)
[2022-03-04] MEDS: Acetaminophen/HYDROcodone 325-5 MG Tab PO PRN ×2 (06:34→13:01)
[2022-03-04] MEDS: Fluticasone/Salmeterol 250-50 MCG Inhalation Powder 14/Diskus INH SCH ×2 (09:04→20:51)
[2022-03-04] MEDS: Brimonidine 0.2% Ophth Soln 5 ML Bottle EYELF SCH ×2 (09:05→20:51)
[2022-03-04] MEDS: Lisinopril 10 MG Tab PO SCH (09:06)
[2022-03-04] MEDS: Aspirin 81 MG Tab.Chew PO SCH (09:06)
[2022-03-04] MEDS: Ondansetron 4 MG Tab.DIS PO PRN (09:12)
[2022-03-04] MEDS: Furosemide 20 MG Tab PO SCH (09:12)
[2022-03-04] MEDS: Cholecalciferol (Vitamin D3) 25 MCG Tab PO SCH (09:12)
[2022-03-04] MEDS: FLUoxetine 20 MG Cap PO SCH (09:12)
[2022-03-04] MEDS: Nicotine 14 MG/24 Hr Patch TRDERM SCH (09:13)
[2022-03-04] MEDS: VILANTEROL TR INH SCH (09:17)
[2022-03-04] MEDS: TIMOLOL EYELF SCH ×2 (09:17→21:10)
[2022-03-04] MEDS: DORZOLAMIDE EYELF SCH ×2 (09:17→21:10)
[2022-03-04] MEDS: UMECLIDINIUM BRM INH SCH (09:17)
[2022-03-04] MEDS: Lidocaine 5% 700 MG Patch TRDERM SCH (16:10)
[2022-03-04] MEDS: Rosuvastatin 10 MG Tab PO SCH (20:40)
[2022-03-04] MEDS: QUEtiapine 100 MG Tab PO SCH (20:40)
[2022-03-05] MEDS: Heparin Sodium 5,000 Units/ML Vial SUBCUT SCH ×2 (04:46→16:23)
[2022-03-05] MEDS: Gabapentin 100 MG Cap PO SCH ×3 (06:31→22:06)
[2022-03-05] MEDS: Pantoprazole 40 MG Tab.CR PO SCH (06:31)
[2022-03-05] MEDS: busPIRone 5 MG Tab PO SCH ×3 (06:31→22:07)
[2022-03-05] MEDS: hydrOXYzine Pamoate 25 MG Cap PO SCH ×4 (06:31→22:05)
[2022-03-05] MEDS: Acetaminophen/HYDROcodone 325-5 MG Tab PO PRN ×2 (07:59→16:23)
[2022-03-05] MEDS: Lisinopril 10 MG Tab PO SCH (08:00)
[2022-03-05] MEDS: Furosemide 20 MG Tab PO SCH (08:00)
[2022-03-05] MEDS: Aspirin 81 MG Tab.Chew PO SCH (08:00)
[2022-03-05] MEDS: Nicotine 14 MG/24 Hr Patch TRDERM SCH (08:01)
[2022-03-05] MEDS: Cholecalciferol (Vitamin D3) 25 MCG Tab PO SCH (08:01)
[2022-03-05] MEDS: Brimonidine 0.2% Ophth Soln 5 ML Bottle EYELF SCH (08:07)
[2022-03-05] MEDS: UMECLIDINIUM BRM INH SCH (08:08)
[2022-03-05] MEDS: Fluticasone/Salmeterol 250-50 MCG Inhalation Powder 14/Diskus INH SCH ×2 (08:08→22:10)
[2022-03-05] MEDS: DORZOLAMIDE EYELF SCH ×2 (08:08→22:10)
[2022-03-05] MEDS: VILANTEROL TR INH SCH (08:08)
[2022-03-05] MEDS: TIMOLOL EYELF SCH ×2 (08:08→22:10)
[2022-03-05] MEDS: FLUoxetine 20 MG Cap PO SCH (08:10)
[2022-03-05] MEDS: Levofloxacin 750 MG Tab PO SCH (12:11)
[2022-03-05] MEDS: Lidocaine 5% 700 MG Patch TRDERM SCH (16:23)
[2022-03-05] MEDS: Ondansetron 4 MG Tab.DIS PO PRN (20:27)
[2022-03-05] MEDS: QUEtiapine 100 MG Tab PO SCH (22:04)
[2022-03-05] MEDS: Rosuvastatin 10 MG Tab PO SCH (22:06)
[2022-03-06] MEDS: Brimonidine 0.2% Ophth Soln 5 ML Bottle EYELF SCH ×3 (02:48→22:52)
[2022-03-06] MEDS: Acetaminophen/HYDROcodone 325-5 MG Tab PO PRN ×3 (04:08→16:10)
[2022-03-06] MEDS: Heparin Sodium 5,000 Units/ML Vial SUBCUT SCH ×2 (04:10→16:11)
[2022-03-06] MEDS: Pantoprazole 40 MG Tab.CR PO SCH (06:40)
[2022-03-06] MEDS: busPIRone 5 MG Tab PO SCH ×3 (06:43→21:14)
[2022-03-06] MEDS: Gabapentin 100 MG Cap PO SCH ×3 (06:43→21:14)
[2022-03-06] MEDS: hydrOXYzine Pamoate 25 MG Cap PO SCH ×4 (06:44→21:13)
[2022-03-06 07:22] LABS: CARBON DIOXIDE,CO2 30.2 mmol/L (21.0-32.0); POTASSIUM,K 4.5 mmol/L (3.5-5.1)
[2022-03-06] MEDS: Aspirin 81 MG Tab.Chew PO SCH (10:01)
[2022-03-06] MEDS: Fluticasone/Salmeterol 250-50 MCG Inhalation Powder 14/Diskus INH SCH ×2 (10:01→22:53)
[2022-03-06] MEDS: Nicotine 14 MG/24 Hr Patch TRDERM SCH (10:02)
[2022-03-06] MEDS: Furosemide 20 MG Tab PO SCH (10:02)
[2022-03-06] MEDS: FLUoxetine 20 MG Cap PO SCH (10:02)
[2022-03-06] MEDS: Cholecalciferol (Vitamin D3) 25 MCG Tab PO SCH (10:02)
[2022-03-06] MEDS: Lisinopril 10 MG Tab PO SCH (10:04)
[2022-03-06] MEDS: DORZOLAMIDE EYELF SCH ×2 (10:05→22:54)
[2022-03-06] MEDS: TIMOLOL EYELF SCH ×2 (10:05→22:54)
[2022-03-06] MEDS: UMECLIDINIUM BRM INH SCH (10:05)
[2022-03-06] MEDS: VILANTEROL TR INH SCH (10:05)
[2022-03-06] MEDS: Lidocaine 5% 700 MG Patch TRDERM SCH (16:11)
[2022-03-06] MEDS: QUEtiapine 100 MG Tab PO SCH (21:13)
[2022-03-06] MEDS: Rosuvastatin 10 MG Tab PO SCH (21:15)
[2022-03-06] MEDS: tiZANidine 4 MG Tab PO PRN (22:58)
[2022-03-07] MEDS: Heparin Sodium 5,000 Units/ML Vial SUBCUT SCH (03:41)
[2022-03-07] MEDS: Pantoprazole 40 MG Tab.CR PO SCH (06:35)
[2022-03-07] MEDS: Gabapentin 100 MG Cap PO SCH ×2 (06:35→14:43)
[2022-03-07] MEDS: busPIRone 5 MG Tab PO SCH ×2 (06:35→14:43)
[2022-03-07] MEDS: hydrOXYzine Pamoate 25 MG Cap PO SCH ×2 (06:35→12:00)
[2022-03-07 06:49] LABS: CARBON DIOXIDE,CO2 28.6 mmol/L (21.0-32.0); POTASSIUM,K 4.4 mmol/L (3.5-5.1)
[2022-03-07] MEDS: Furosemide 20 MG Tab PO SCH (09:09)
[2022-03-07] MEDS: Cholecalciferol (Vitamin D3) 25 MCG Tab PO SCH (09:09)
[2022-03-07] MEDS: Lisinopril 10 MG Tab PO SCH (09:09)
[2022-03-07] MEDS: Nicotine 14 MG/24 Hr Patch TRDERM SCH (09:09)
[2022-03-07] MEDS: FLUoxetine 20 MG Cap PO SCH (09:09)
[2022-03-07] MEDS: Aspirin 81 MG Tab.Chew PO SCH (09:09)
[2022-03-07] MEDS: Brimonidine 0.2% Ophth Soln 5 ML Bottle EYELF SCH (09:10)
[2022-03-07] MEDS: Fluticasone/Salmeterol 250-50 MCG Inhalation Powder 14/Diskus INH SCH (09:10)
[2022-03-07] MEDS: Acetaminophen/HYDROcodone 325-5 MG Tab PO PRN (09:18)
[2022-03-07] MEDS: VILANTEROL TR INH SCH (09:48)
[2022-03-07] MEDS: TIMOLOL EYELF SCH (09:48)
[2022-03-07] MEDS: DORZOLAMIDE EYELF SCH (09:48)
[2022-03-07] MEDS: UMECLIDINIUM BRM INH SCH (09:48)
[2022-03-07] MEDS: Levofloxacin 750 MG Tab PO SCH (12:45)
[2022-03-07 13:16] VITALS: BP 128/55; PULSE 78
== END 2022-03-07 12:55 | disposition home health service (06) | DRG 564 ==
LOC: MW.ED 09:13 → MW.MS 13:53
PROVIDERS: ADMIT Student in an Organized Health Care Education/Training Program; ATTEND Student in an Organized Health Care Education/Training Program
DX: T79.6XXA Traumatic ischemia of muscle, initial encounter (principal); W19.XXXA Unspecified fall, initial encounter; R29.6 Repeated falls; J18.9 Pneumonia, unspecified organism; J96.01 Acute respiratory failure with hypoxia; J44.9 Chronic obstructive pulmonary disease, unspecified; N30.00 Acute cystitis without hematuria; M54.9 Dorsalgia, unspecified; F32.A Depression, unspecified; L03.115 Cellulitis of right lower limb; Z85.828 Personal history of other malignant neoplasm of skin; I31.3 Pericardial effusion (noninflammatory); N17.9 Acute kidney failure, unspecified; L98.9 Disorder of the skin and subcutaneous tissue, unspecified; Z20.822 Contact with and (suspected) exposure to COVID-19; J42 Unspecified chronic bronchitis; M54.50 Low back pain, unspecified; G89.29 Other chronic pain; F11.90 Opioid use, unspecified, uncomplicated; M19.90 Unspecified osteoarthritis, unspecified site; I10 Essential (primary) hypertension; E78.2 Mixed hyperlipidemia; R26.81 Unsteadiness on feet; J43.2 Centrilobular emphysema; F17.210 Nicotine dependence, cigarettes, uncomplicated; E78.00 Pure hypercholesterolemia, unspecified; G62.9 Polyneuropathy, unspecified; Z88.1 Allergy status to other antibiotic agents; Z88.0 Allergy status to penicillin; Z79.82 Long term (current) use of aspirin; Z79.899 Other long term (current) drug therapy; Z86.73 Personal history of transient ischemic attack (TIA), and cerebral infarction without residual deficits; Z88.5 Allergy status to narcotic agent
CPT/HCPCS: 36415; 36600; 70450; 71045; 72125; 72170; 80053; 80305; 80307; 81001; 82550; 82803; 83605; 83735; 83880; 84443; 84484; 85025; 87040 ×2; 93005; 96361; 96365; 99285; J0696; J7030 ×2; U0002; 71250; 71250-26; 73600-26-RT; 73600-RT; 73620-26-RT; 73620-RT; 73700-26-RT; 73700-RT; 73718-26-RT; 73718-RT; 80048; 81003; 87070; 87077; 87086; 87186; 87205; 93010; 93306; 94640; 97163-GP; 97530-GP; 99221; 99231; 99232; 99233; 99238; A9270-GY; J1644; J1650; J1940; J2270; J2405; J3475; J7120; J7620-GY